=== PATIENT | female | born 1985 | race Caucasian/White ===

== ENCOUNTER 2019-10-01 15:32 | Emergency (ER) | payer OTHER, SELFPAY ==
[2019-10-01 15:53] VITALS: BP 125/79; PULSE 89; RESP 16; TEMP 37; O2SAT 99
--- NOTE | 2019-10-01 16:14 | ED.GENADULT ---
HPI - General Adult General Chief complaint: Urogenital-Female Stated complaint: uti/right wrist pain Time Seen by Provider: 10/01/19 16:14 Source: patient and RN notes reviewed Mode of arrival: ambulatory Limitations: no limitations History of Present Illness HPI narrative: 34-year-old female presents with urinary complaints for the past 2 days. Dysuria consist of burning, frequency, and urgency.? No treatment.? Symptoms increased over the last 24 hours with pinkish color urine. Denies fever or chills. No significant pelvic pain. No vaginal discharge.? No concerns for STDs. Exacerbating factors urinating.? Denies vaginal bleeding. Denies being , LMP 09/27/19. No flank pain. Denies diarrhea, nausea, vomiting, and abdominal pain.? Tolerating liquids well.? Remains active. Denies headaches, weakness, fatigue, or myalgia. Denies chest pain or dyspnea. Denies cough, rhinorrhea, congestion, or sore throat. Denies recent traveling. Denies concern for COVID-19 or exposures been home since htha-ir-rbiw order except for essential household needs, working, and return home. Complaints of intermittent right medial wrist pain for the past 30 days. Tylenol and Ibuprofen with relief. Symptoms worsens at times with a knot and shooting pain into the 2nd and 4th fingers. No current pain, numbness, or tingling. No known injuries. No swelling. No discoloration. RIGHT HAND Dominant. No immobility, suspected foreign body, or abuse. Exacerbating factors consist of movement or palpation of right wrist when pain present. Some parts of this dictation were generated by voice recognition software and may contain typographical and/or grammatical inaccuracies. Related Data Home Medications Medication Instructions Recorded Confirmed norethindrone-e.estradiol-iron tablet 10/01/19 [06/19 (28)] quetiapine 10/01/19 Allergies Allergy/AdvReac Type Severity Reaction Status Date / Time venlafaxine Allergy Unknown Verified 03/25/17 15:36 Review of Systems Review of Systems: Narrative: CONSTITUTIONAL: Denies fever, chills, sweats. EYES: Denies visual changes, redness, discharge. ENT: Denies rhinorrhea, congestion, sore throat, otalgia. CARDIOVASCULAR: Denies chest pain, palpitations, edema. RESPIRATORY: Denies dyspnea, wheezing, cough. GASTROINTESTINAL: Denies abdominal pain, nausea, vomiting, diarrhea. GENITOURINARY: Complains of dysuria (burning, frequency, and urgency), hematuria. Denies abnormal discharge. SKIN: Denies rash or itching. MUSCULOSKELETAL: Denies acute back pain or myalgia. Complains of intermittent right medial wrist pain. NEUROLOGIC: Denies numbness or focal weakness. PSYCHIATRIC: Denies anxiety or depression. All systems reviewed & are unremarkable except as noted in HPI and below. [facility] Past Medical History Medical History (Updated 10/02/19 @ 00:00 by Brandon Estevez) Anxiety Bipolar disorder delivery delivered Depression History of IBS Hx of migraines Mastitis without abscess Surgical History Surgical History (Updated 10/01/19 @ 16:39 by DEISY Mckeon) H/O section X2 2007 and 2017 History of cervical cerclage 2017 History of incision and drainage 2017 Right breast due to Mastitis Family History Family History (Updated 10/01/19 @ 16:40 by DEISY Mckeon) Mother Mental disorder Alcoholism Grandparent Diabetes mellitus Hypertension Mental disorder Social History Social History (Updated 10/01/19 @ 16:41 by DEISY Mckeon) Living arrangements: with family Occupation/Education: occupation Gender identity (if verbalized by the patient): Female Comments At time of signature, agree with nurse past medical, surgical, social, and family history.? There is no relevant family history pertinent to the presenting complaint. Exam Narrative: Exam Narrative: GENERAL: This is a well-nourished, well-developed
== END 2019-10-01 16:39 | disposition home or self-care (01) ==
PROVIDERS: Emergency Provider Nurse Practitioner Family; PCP Family Medicine
DX: R30.0 Dysuria (principal); M25.531 Pain in right wrist; F41.9 Anxiety disorder, unspecified; F31.9 Bipolar disorder, unspecified; K58.9 Irritable bowel syndrome, unspecified
CPT/HCPCS: 81003; 87077; 87086; 87088; 87186; 99213; G0463

== ENCOUNTER 2021-08-22 14:54 | Observation (INO) | payer BC, SELFPAY ==
--- NOTE | 2021-08-22 14:55 | OBADM ---
This patient, Lorena Nichols, admitted to the OB room Labor/Delivery/Recovery 119 for observation. Patient/family oriented to hospital policies and general routines including ID bracelet, bed and alarms, visiting hours, pain management, procedures, bathroom and other care routines, personal items, smoking policy, room service/diet, and visiting hours. Patient/Family are encouraged to report perceived risks to care and to ask questions if they do not understand what they are told or what they should do.
[2021-08-22 15:15] VITALS: RESP 18; TEMP 36.6
[2021-08-22 15:30] VITALS: BP 127/84; PULSE 88
[2021-08-22 15:31] VITALS: BP 127/84; PULSE 88
[2021-08-22 15:50] VITALS: BMI 39.2
[2021-08-22 15:56] LABS: Add Urine Microscopic? YES; Appearance Urine Cloudy (Clear); Bacteria Urine Trace /hpf; Bilirubin Urine Negative (Negative); Blood Urine Negative (Negative); Color Urine Yellow (Yellow); Glucose Urine UA Negative (Negative); Ketones Urine Negative (Negative); Leukocyte Esterase Ur Negative LEU/UL (Negative); Mucus Urine Rare /lpf; Nitrate Urine Negative (Negative); Protein Urine Negative (Negative); RBC Urine 0-2 /hpf (0-2); Specific Grav Ur 1.017 (1.001-1.035); Squamous Epithelial Cell Urine Moderate /hpf (Few); Urobilinogen Urine Negative mg/dL (<2.0); WBC Urine 0-3 /hpf
[2021-08-22 16:00] VITALS: BP 125/84; PULSE 95
--- NOTE | 2021-08-26 07:36 | PM.OBTRLD ---
OB - Triage/Final Diagnosis Visit Information Comments/Additional reasons for admission: I have assessed the risk for this patient, Lorena Nichols, and determined that she would benefit from observation care. Evaluation Laboratory results: Laboratory Tests 08/22/21 15:42 Urine Color Yellow Urine Appearance Cloudy H Urine pH 6.0 Ur Specific [place] 1.017 Urine Protein Negative Urine Glucose (UA) Negative Urine Ketones Negative Ur Blood (Man) Negative Urine Nitrate Negative Urine Bilirubin Negative Urine Urobilinogen Negative Leukocyte Esterase Rfl Negative Urine RBC 0-2 Urine WBC 0-3 Ur Squamous Epith Cells Moderate H Urine Bacteria Trace Urine Mucus Rare Final Diagnosis (1) False labor: Code(s): O47.9 - False labor, unspecified Status: Acute
== END 2021-08-22 16:15 | disposition home or self-care (01) ==
PROVIDERS: Admitting Provider Obstetrics & Gynecology; PCP Family Medicine; Visit Provider Obstetrics & Gynecology
DX: O47.03 False labor before 37 completed weeks of gestation, third trimester (principal); Z3A.36 36 weeks gestation of pregnancy
CPT/HCPCS: 81001; G0378; G0379

== ENCOUNTER 2021-08-29 05:25 | Inpatient (IN) | payer BC, SELFPAY ==
--- NOTE | 2021-08-15 13:07 | PC.NURSE ---
Verified with OR schedule and patient-C?S on 08/29/21. Patient states she is also having a tubal ligation done--consents signed Patient given requisition for lab draw on 08/28/21
[2021-08-29] VITALS (56 sets, daily range): BP systolic 97–133; BP diastolic 50–98; PULSE 61–148; RESP 14–18; TEMP 36.1–37; O2SAT 93–100; BMI 39.0
--- OUTSIDE RECORDS SUMMARY | 2021-08-29 05:31 | XMS_ITS | Encounter Summary ---
:1985 Author Care Team Providers Name Role Phone Rafael Landa MD Primary Care Provider [phone] Reason for Visit OB visit Assessment and Plan Assessment Note Patient is ___weeks . Discu ssed plan. 1. Female sterilization Discussion Note: None recorded.Patient educational handouts: No information available. Plan of Care Reminders Provider Appointments Follow up 09/05/2021 Liam Tran 11:45AM MD [facility]i Lab None ? ? recorded. Referral None ? ? recorded. Procedures None ? ? recorded. Surgeries None ? ? recorded. Imaging None ? ? recorded. Medications Name Start Date ? ? Asprin Ec Low Dose ? benzonatate 100 mg capsule ? benzoyl peroxide 5 % topical gel ? APPLY TO THE AFFECTED AREA(S) BY TOPICAL ROUTE ONCE D AILY chlorhexidine gluconate 0.12 % mouthwash ? RINSE WITH 1/2 OUNCE (15 ML) 2 TIMES PER DAY. DO NOT SWALLOW ? quetiapine 300 mg tablet ? TAKE 1 TABLET BY MOUTH AT BEDTIME Medications Administered None recorded. Vitals Height Weight BMI Blood Pressure 5 ft 3 in 220 lbs 39 kg/m2 128/86 mm[Hg] Results Lab Results None recorded. Allergies Code Co
--- OUTSIDE RECORDS SUMMARY | 2021-08-29 05:31 | XMS_ITS | Encounter Summary ---
:1985 Author Care Team Providers Name Role Phone Rafael Landa MD Primary Care Provider [phone] Reason for Visit OB visit Assessment and Plan 1. Routine care Discussion Note: None recorded.Patient educational handouts: No [...] BMI Blood Pressure 5 ft 3 in 221 lbs 39.1 kg/m2 124/81 mm[Hg] Results Lab Results None recorded. Allergies Code Code System Name Reaction Severity Onset Effexor Hives
--- OUTSIDE RECORDS SUMMARY | 2021-08-29 05:31 | XMS_ITS | Encounter Summary ---
:1985 Author Care Team Providers Name Role Phone Rafael Landa MD Primary Care Provider [phone] Reason for Visit OB visit Assessment and Plan Assessment Note Patient is ___weeks . Discu ssed plan. 1. Placental condition affecting management of mother multiple placental abnormalit ies including marginal cord insertion, showing about placenta, bilobed placenta . We spent 25 minutes [id number] discussing management of her multiple concerns, cer clage and delivery timing, placental abnormalities, multiple placental abnorm alities, her mood disorders. Her sterilization procedure. 2. Cervical incompetence Discussion Note: None recorded.Patient educational handouts: No [...]
--- OUTSIDE RECORDS SUMMARY | 2021-08-29 05:31 | XMS_ITS | Encounter Summary ---
:1985 Author Care Team Providers Name Role Phone Rafael Landa MD Primary Care Provider [phone] Reason for Visit None recorded. Assessment and Plan 1. High risk due to hi story of labor ? non-stress test Discussion Note: None recorded.Patient educational handouts: No information available. Plan of Care Reminders Provider Appointments Follow up Liam Tran 09/05/2021 MD Randi 11:45AM Lab None ? ? recorded. Referral None ? ? recorded. Procedures None ? ? recorded. Surgeries None ? ? recorded. Imaging Non-stress [place] Test 08/19/2021 Medications Name Start Date ? ? Asprin [...] AT BEDTIME Medications Administered None recorded. Vitals None recorded. Results Lab Results None recorded. Allergies Code Code System Name Reaction Severity Onset
--- OUTSIDE RECORDS SUMMARY | 2021-08-29 05:31 | XMS_ITS | Encounter Summary ---
:1985 Author Care Team Providers Name Role Phone Rafael Landa MD Primary Care Provider [phone] Reason for Visit None recorded. Assessment and Plan 1. History of premature delivery ? non-stress test Discussion Note: None recorded.Patient educational handouts: No information available. Plan of Care Reminders Provider Appointments Follow up Liam Tran 09/05/2021 MD [facility]i 11:45AM Lab None ? ? recorded. Referral None ? ? recorded. Procedures None ? ? recorded. Surgeries None ? ? recorded. Imaging Non-stress [place] Test 08/26/2021 Medications Name Start Date ? ? Asprin [...]
--- OUTSIDE RECORDS SUMMARY | 2021-08-29 05:31 | XMS_ITS ---
:1985 Author Care Team Providers Name Role Phone ABBIE TERRY MD Primary Care Provider [phone] Allergies Code Code System Name Reaction Severity Status Onset Effexor Hives ? Active ? [id number] RxNorm Yolande ? ? Active ? Medications Name Status Start Date Stop Date ? ? adapalene 0.1 % topical gel Completed ? 06/01 APPLY A THIN LAYER TO THE AFFECTED AREA (S) BY TOPICAL ROUTE ONCE DAILY BEFORE BEDTIME Asprin Ec Low Dose Active ? Not available benzonatate 100 mg capsule Active ? Not a vailable benzoyl peroxide 5 % topical gel Active ? Not available APPLY TO THE AFFECTED AREA(S) BY TOPICAL ROUTE ONCE DAILY chlorhexidine gluconate 0.12 % mouthwash Active ? Not available RINSE WITH 1/2 OUNCE (15 ML) 2 TIMES PER DAY. DO NOT SWALLOW clindamycin 1.2 % (1 % base)-benzoyl Completed ? 06/20/2021 peroxide 5 % topical gel Junel FE 06/19 (28) 1 mg-20 mcg ()/75 Completed ? 06/20/2021 mg (7) tablet lithium carbonate 300 mg capsule Completed ? 06/20/2021 lithium carbonate ER 300 mg Completed ? 06/01 tablet,extended release meclizine 25 mg tablet Completed ? metformin ER 500 mg tablet,extended Completed ? 06/20/2021 release 24 hr nitrofurantoin Completed ? 06/20/2021 monohydrate/macrocrystals 100 mg capsule phenazopyridine 200 mg tablet Completed ? care box carebox kit Completed ? 0 06/20/2021 Prenatabs Rx 29 mg iron-1 mg tablet Co
--- OUTSIDE RECORDS SUMMARY | 2021-08-29 05:31 | XMS_ITS | Encounter Summary ---
:1985 Author Care Team Providers Name Role Phone Rafael Landa MD Primary Care Provider [phone] Reason for Visit OB visit Assessment and Plan Assessment Note Patient is ___weeks . Discu ssed plan. 1. Routine care 2. HIV screening ? RPR (rapid plasma reagin), serum 3. screening ? hematocrit, blood ? hemoglobin (Hb), blood ? RPR (rapid plasma reagin), serum ? unlisted lab - HIV 1/2 ant igen/antibody, reflex confirmation Discussion Note: None recorded.Patient educational handouts: No information available. Plan of Care Reminders Provider Appointments Follow up Liam Tran 09/05/2021 MD Randi 11:45AM Lab RPR (Rapid [facility] [place] Plasma Reagin), Serum 07/11/2021 [facility] ( Lab) ? Hematocrit, [facility] [place] Blood 07/11/2021 [facility] (Lab) ? Hemoglobin [facility] [place] (Hb), Blood 07/11/2021 [facility] (Lab) ? RPR (Rapid [facility] [place] Plasma Reagin), Serum 07/11/2021 [facility] ( Lab) ? Unlisted Lab [facility] [place] 07/11/2021 [facility] (Lab)
--- OUTSIDE RECORDS SUMMARY | 2021-08-29 05:31 | XMS_ITS | Encounter Summary ---
:1985 Author Care Team Providers Name Role Phone Rafael Landa MD Primary Care Provider [phone] Reason for Visit None recorded. Assessment and Plan 1. Placenta circumvallata ? US, obstetric, follow-up Discussion Note: None recorded.Patient educational handouts: No information available. Plan of Care Reminders Provider Appointments Follow up Liam Tran 09/05/2021 MD Randi 11:45AM Lab None ? ? recorded. Referral None ? ? recorded. Procedures None ? ? recorded. Surgeries None ? ? recorded. Imaging , [place] [facility], Follow-up 07/10/2021 Medications Name Start Date ? ? Asprin [...]
--- OUTSIDE RECORDS SUMMARY | 2021-08-29 05:31 | XMS_ITS | Encounter Summary ---
:1985 Author Care Team Providers Name Role Phone Rafael Landa MD Primary Care Provider [phone] Reason for Visit OB visit Assessment and Plan Assessment Note Patient is ___weeks . Discu ssed plan. 1. Deliveries by ? section (SURG) Discussion Note: None recorded.Patient educational handouts: No information available. Plan of Care Reminders Provider Appointments Follow up Liam Tran 09/05/2021 MD [facility]i 11:45AM Lab None ? ? recorded. Referral None ? ? recorded. Procedures None ? ? recorded. Surgeries [facility] (SURG) 08/29/2021 [facility] Imaging None ? ? recorded. Medications Name [...] BMI Blood Pressure 5 ft 3 in 208
--- OUTSIDE RECORDS SUMMARY | 2021-08-29 05:31 | XMS_ITS | Encounter Summary ---
:1985 Author Care Team Providers Name Role Phone Rafael Landa MD Primary Care Provider [phone] Reason for Visit new OB Records in chart from [facility] Assessment and Plan 1. Routine care Discussion [...] BMI Blood Pressure 5 ft 3 in 195 lbs 34.5 kg/m2 118/80 mm[Hg] Results Lab Results None recorded. Allergies Code Code System Name Reaction Severity Onset
--- NOTE | 2021-08-29 05:43 | LDADM ---
This patient, Lorena Nichols, was admitted to Labor/Delivery/Recovery 120 on 08/29/21 at 05:25. Plans for section, pain management and were discussed with patient. Patient/family oriented to hospital policies and general routines including ID bracelet, bed and alarms, visiting hours, pain management, procedures, bathroom and other care routines, personal items, smoking policy, room service/diet and guest tray routines, infant security routines, and visiting hours. Patient/Family are encouraged to report perceived risks to care and to ask questions if they do not understand what they are told or what they should do. See OBIX for further documentation.
[2021-08-29] MEDS: LACTATED RINGERS 1,000 ML 125 ML IV CONT (06:00)
--- NOTE | 2021-08-29 06:12 | P.PNAN_ITS ---
Anes - Eval Pre Procedure Procedure: Operation Date: 08/29/21 07:30 Proposed Procedures p Repeat Section with Tubal Ligation - Arianne Bryan MD Date/Time: 08/29/21 06:12 Pre Op Diagnosis: C/S Patient Data Age: 36 Gender: F Height: Weight: Allergies Allergy/AdvReac Type Severity Reaction Status Date / Time venlafaxine [From Effexor] Allergy Hives Verified 08/22/21 15:31 Home Medications Medication Instructions Recorded Confirmed Type PNV no.[id number] acid 1 tablet PO DAILY 08/22/21 08/22/21 History Unisom (doxylamine) 50 mg PO HS PRN 08/22/21 08/22/21 History quetiapine [Seroquel] 300 mg PO HS 08/22/21 08/22/21 History Laboratory Tests 08/29/21 08/29/21 05:50 05:50 WBC Pending RBC Pending Hgb Pending Hct Pending MCV Pending MCH Pending MCHC Pending RDW Pending Plt Count Pending MPV Pending Immature Gran % (Auto) Pending Neut % (Auto) Pending Lymph % (Auto) Pending [place] % (Auto) Pending Eos % (Auto) Pending Baso % (Auto) Pending Lymph # (Auto) Pending [place] # (Auto) Pending Eos # (Auto) Pending Baso # (Auto) Pending Abs Immat Gran (auto) Pending Absolute Neuts (auto) Pending Absolute Nucleated RBC Pending Nucleated RBC % Pending RPR Pending Patient hx anesthesia problems: none Family hx anesthesia problems: none Results Review: All pre-operative results and documents have been reviewed as part of the pre-operative evaluation. [facility] Past Medical History Medical History (Updated 08/29/21 @ 06:15 by Em Mcdonnell CRNA) Anxiety and depression Bipolar 1 disorder Family History Family History Other No pertinent family history Social History Social History Substance use: never Spiritual care concerns: No Exam Day of Procedure 08/29/21 06:12 Patient weight: obese Heart: regular rate and rhythm Lungs: normal air movement Airway: Mallampati scale class II Neurological: alert and oriented
[2021-08-29 06:15] LABS: Basophils Percent Auto 0.2 % (0.2-1.2); Eosinophils Absolute Auto 0.1 K/mm3 (0-0.3); Eosinophils Percent Auto 1.5 % (0-4.4); Hematocrit 33.5 % (37.0-47.0); Hemoglobin 10.9 g/dL (12.0-15.0); Immature Granulocyte Absolute 0.15 K/mm3 (0.00-0.031); Immature Granulocyte Percent A 1.7 % (0-0.5); Lymphocytes Absolute Auto 1.65 K/mm3 (0.9-3.2); Mean Corpuscular HGB Conc 32.5 g/dl (32-36); Mean Corpuscular Hemoglobin 29.6 pg (26-34); Mean Platelet Volume 10.9 fl (7.4-10.4); Monocytes Absolute Auto 0.6 K/mm3 (0.1-0.6); Monocytes Percent Auto 7.4 % (2.6-8.5); Neutrophils Absolute Auto 6.1 K/mm3 (1.3-6.7); Neutrophils Percent Auto 70.2 % (45.5-73.1); Platelet Count Result 169 k/mm3 (150-375); Red Blood Count 3.68 M/mm3 (4.2-5.4); Red Cell Distribution Width 14.7 % (11.5-14.5); White Blood Count 8.7 K/mm3 (4.5-10.0)
--- NOTE | 2021-08-29 06:47 | WPDANESEFPP ---
Anes - Eval Final PreProcedure Day of Procedure 08/29/21 06:47 Patient weight: obese Heart: regular rate and rhythm Lungs: clear to auscultation and normal air movement Airway: Mallampati scale class II Neurological: alert and oriented Last oral intake: >/= 8 hours ASA classification: II Emergent: no Anesthetic plan: proceed Anesthesia type and monitoring: regional spinal and standard monitoring Results Review: All pre-operative results and documents have been reviewed as part of the pre-operative evaluation. Informed Consent: The patient's anesthetic plan and its attendant risks and benefits were discussed with the patient/family/POA. Questions were solicited and answers provided to the satisfaction of the patient/family/POA.
--- NOTE | 2021-08-29 07:18 | PM.IMHP ---
H&P: HPI History of Present Illness Date/Time: 08/29/21 07:18 This patient is a 36-year-old multiparous female with prior deliveries. She desires female sterilization. We have agreed to perform repeat section and female sterilization with bilateral salpingectomy. She understands that injuries can occur during surgeries. She understands that injuries could result in hospitalization, more surgery, severe illness. She understands risk of hemorrhage and infection. She denies any chest pain or shortness of breath. She denies any nausea, vomiting, fever, chills. Chief Complaint: Term Review of Systems Review of Systems: All systems reviewed & are unremarkable except as noted in HPI and below Constitutional: Constitutional: Denies chills, Denies fatigue, Denies fever(s) and Denies weakness Eyes: Eyes: Denies blurry vision, Denies change in vision, Denies loss of peripheral vision, Denies loss of vision, Denies other visual disturbances and Denies eye pain ENT: Denies vertigo, Denies dizziness, Denies hearing loss, Denies mouth pain, Denies nasal obstruction, Denies neck mass and Denies neck pain Cardiovascular: Cardiovascular: Denies chest pain, Denies diaphoresis, Denies syncope, Denies leg edema and Denies dyspnea Respiratory: Respiratory: Denies chest congestion, Denies cough, Denies hemoptysis, Denies dyspnea and Denies wheezing Gastrointestinal: Gastrointestinal: Denies abdominal pain, Denies constipation, Denies diarrhea, Denies nausea and Denies vomiting Genitourinary: Genitourinary: Denies hematuria, Denies change in libido, Denies nocturia, Denies genital lesions, Denies flank pain and Denies urinary urgency Musculoskeletal: Musculoskeletal: Denies abnormal gait, Denies back pain, Denies myalgias, Denies arthralgias, Denies joint swelling, Denies muscle weakness and Denies neck pain Integumentary/Breasts: Skin/Breast: Denies swelling, Denies breast pain, Denies breast mass, Denies dry skin, Denies nipple discharge, Denies unusual bruising and Denies jaundice Neurologic: Denies Neuro-related abnormal movements, Denies Abnormal speech present, Denies abnormal gait, Denies behavioral changes, Denies confusion, Denies vertigo, Denies dizziness, Denies syncope, Denies loss of vision, Denies memory loss, Denies convulsions and Denies weakness Psychiatric: Psychiatric: Denies abnormal sleep pattern, Denies behavioral changes, Denies change in libido, Denies confusion, Denies depression, Denies anhedonia and Denies memory loss Endocrine: Endocrine: Reports no additional endocrine complaints, Denies change in libido and Denies fatigue Hematologic/Lymphatic: Hematologic/Lymphatic: Reports no additional hematologic/lymphatic complaints Allergic/Immunologic: Allergic/Immunologic: Reports no additional allergic/immunologic complaints and Denies wheezing PMFSH Past Medical History Medical History (Updated 08/29/21 @ 07:19 by Arianne Bryan MD) Anxiety and depression Bipolar 1 disorder Family History Family History Other No pertinent family history Social History Social History Smoking status: Never smoker Substance use: never Spiritual care concerns: No Meds Home Medications and Allergies Home Medications Medication Instructions Recorded Confirmed Type PNV no.[id number] acid 1 tablet PO DAILY 08/22/21 08/29/21 History Unisom (doxylamine) 50 mg PO HS PRN 08/22/21 08/29/21 History quetiapine [Seroquel] 300 mg PO HS 08/22/21 08/29/21 History Allergies Allergy/AdvReac Type Severity Reaction Status Date / Time venlafaxine [From Effexor] Allergy Hives Verified 08/22/21 15:31 Vital Signs Vital Signs - 24 hr 08/29/21 06:13 Pulse Rate 94 Blood Pressure 133/88 Exam Const: General: cooperative, healthy appearing, comfortable and no acute distress; No confus
--- NOTE | 2021-08-29 07:20 | WPDHPUPDATE1 ---
History and Physical Update Update Date/Time: 08/29/21 07:20 History and Physical has been reviewed, including an updated exam of the patient. There are NO changes in the patient's condition. Risks, benefits, and alternatives have been discussed and questions answered. Patient agrees to proceed with procedure.
[2021-08-29] MEDS: ceFAZolin 2 GM/D5W 50 ML 2 GM/50 ML BAG IVPB (07:24)
--- NOTE | 2021-08-29 10:08 | W.PM.PROC2 ---
Procedure Note - Detailed Date of Procedure 08/29/21 Pre-op Diagnosis C/S , female sterilization Post-op Diagnosis Same Procedure Performed Low-transverse section, bilateral salpingectomy Surgeon Arianne Bryan MD Anesthesia Spinal Findings Normal gestational maternal anatomy, average size infant, normal Apgars. Description of Procedure The patient was taken the operating room. She was prepped and draped in dorsal supine position with a leftward tilt. This was done after spinal anesthetic was applied. A low-transverse skin incision was made and carried down till of the fascia with the knife. The fascial incision was made with the knife. The fascial incision was extended laterally with Puentes scissors. The fascia was tented upward superiorly and inferiorly the rectus muscles were dissected off bluntly. The rectus muscles were the midline. The preperitoneal fat and peritoneum were dissected open bluntly at the superior aspect of the rectus muscles. The peritoneal incision was extended superior and inferior with good position of bladder. The uterine incision was made with a scalpel down to the level of the amniotic cavity. The amniotic cavity was entered bluntly. The was delivered. The cord was clamped and cut and the infant was handed off to waiting pediatric staff. Cord bloods were obtained. The placenta was removed manually. The uterus was exteriorized. The uterus was cleared of all clots, debris and membranes. The uterus was closed in 0 Vicryl running lock fashion. An imbricating over a was placed along the incision line as well. Each fallopian tube was grasped and raised with a [place]. With from the underlying venous structures. The mesosalpinx between the tube and the rest the adnexa was cauterized and transected with LigaSure cautery. It was performed from the distal tube near the ovary in a stepwise fashion towards the cornua. The tube at the cornua was cauterized transected with LigaSure cautery. This was performed in a bilateral fashion. The uterus was returned to the abdomen. The gutters were cleared of all clots and debris. The fascia was closed with 0 Vicryl running fashion. The subcutaneous tissue was irrigated pinpoint bleeders were cauterized. The skin was closed with subcuticular absorbable eri. The skin incision line was covered with glue. The patient tolerated the procedure well. She has taken recovery room in stable condition. Sponge lap and needle counts were correct x2. Estimated Blood Loss 460 Urine Output -50.0 Complications No immediate complications Condition Stable Disposition PACU
[2021-08-29] MEDS: OXYTOCIN 30 UNITS/NS 500 ML 30 UNITS/500 ML BAG 125 UNITS IV CONT (10:15)
--- NOTE | 2021-08-29 10:25 | OBPPTRN ---
Patient transferred to post room # 291 via stretcher. Support person present. Oriented to unit, room, information board, rooming in, admission packet and security measures. Patient verbalizes understanding.
[2021-08-29 11:12] LABS: Rapid Plasma Reagin Non-Reactive (NonReactive)
[2021-08-29] MEDS: diphenhydrAMINE HCl INJ 50 MG/ML VIAL 25 MG IV PUSH (11:18)
--- NOTE | 2021-08-29 12:26 | PC.NURSE ---
1135 - Introductions made and consulted with patient to assess needs related to . Mother led conversation with her experience with feeding baby so far, her desire to breastfeed her and they worked on baby for awhile . Mother works well with her and father of baby is supportive with mother's needs. Reviewed good handwashing when working with infant, breast, nipples and how to protect the nipples with a deep latch. Encouraged understanding the benefits of skin to skin, responding to feeding cues, frequencies of feeding 8-12 times in 24 hours (approximately 2-3 hours), duration of feedings, milk production, intake/output feeding sheet and signs of adequate intake. Discussed stimulating with skin to skin, hand expressing colostrum, touch and talking to to encourage eating at the breast. Reviewed off-centered (asymmetrical latch) and leading with the chin with big open wide gape with handout visual. Infant is sleepy and reluctant but swallows 3 mils of colostrum fed with a syringe by RN. remains skin to skin. Resources used to facilitate learning were used from the visual handout/ tool/mom and baby guide. Mother voiced understanding responding to feeding cues, may need to stimulating infant approximately 2-3 hours from the start of the last feeding, calling for assistance if the infant does not latch or there discomfort . Reported to primary RN.
--- NOTE | 2021-08-29 14:53 | PC.NURSE ---
1415 - Follow up with mother and to assess how is going. is skin to skin and remains sleepy and mother is hand expressing colostrum. 4 mls of colostrum expressed and syringe fed to . Encouraged parents to have a conversation with regards to visualizing restriction of the tongue. Mother understands the benefits of skin to skin, responding to feeding cues, frequencies of feeding 8-12 times in 24 hours (approximately 2-3 hours), duration of feedings, milk production, intake/output feeding sheet, signs of adequate intake, stimulating infant with skin to skin, hand expressed colostrum (mother demonstrates well), touch and talking to infant to encourage eating at the breast. Reviewed positioning and alignment, supporting breast, off-centered (asymmetrical latch) and leading with the chin with big open wide gape. Education given to mother of how to visualize suck/swallow ratios and drinking at the breast. Resources used to facilitate learning were used from the visual latch handout/mom and baby guide. Mother voiced understanding responding to feeding cues, may need to stimulating approximately 2-3 hours from the start of the last feeding, calling for assistance if the does not latch or there discomfort . Reported to primary RN.
--- NOTE | 2021-08-29 15:30 | PC.NURSE ---
9329 - Reported assessment to Dr. Lee
[2021-08-29] MEDS: DEXTROSE 5%/0.45% SOD CHL 1,000 ML 125 ML IV CONT (16:27)
[2021-08-29] MEDS: IBUPROFEN 600 MG TABLET PO (16:27)
[2021-08-29] MEDS: DOCUSATE SODIUM 100 MG CAPSULE PO (16:27)
[2021-08-29] MEDS: HYDROcodone/acetaminophen (*CRX) 5-325 MG TABLET 1 TAB PO (16:28)
[2021-08-30] MEDS: IBUPROFEN 600 MG TABLET PO ×4 (00:13→21:14)
[2021-08-30] MEDS: QUEtiapine FUMARATE 100 MG TABLET 300 MG PO ×2 (00:13→21:07)
[2021-08-30 00:23] VITALS: BP 104/63; PULSE 91; RESP 18; TEMP 37.2; O2SAT 100
[2021-08-30] MEDS: HYDROcodone/acetaminophen (*CRX) 5-325 MG TABLET 1 TAB PO ×6 (03:06→21:13)
[2021-08-30 03:31] VITALS: BP 107/59; PULSE 102; RESP 18; TEMP 36.7; O2SAT 100
[2021-08-30 05:12] LABS: Basophils Percent Auto 0.3 % (0.2-1.2); Eosinophils Absolute Auto 0.1 K/mm3 (0-0.3); Eosinophils Percent Auto 1.5 % (0-4.4); Hematocrit 30.5 % (37.0-47.0); Hemoglobin 9.7 g/dL (12.0-15.0); Immature Granulocyte Absolute 0.09 K/mm3 (0.00-0.031); Immature Granulocyte Percent A 0.9 % (0-0.5); Lymphocytes Absolute Auto 1.07 K/mm3 (0.9-3.2); Lymphocytes Percent Auto 11.1 % (18.3-44.2); Mean Corpuscular HGB Conc 31.8 g/dl (32-36); Mean Corpuscular Volume 91.3 fl (80-100); Mean Platelet Volume 11.1 fl (7.4-10.4); Monocytes Absolute Auto 0.7 K/mm3 (0.1-0.6); Monocytes Percent Auto 7.5 % (2.6-8.5); Neutrophils Absolute Auto 7.6 K/mm3 (1.3-6.7); Neutrophils Percent Auto 78.7 % (45.5-73.1); Platelet Count Result 132 k/mm3 (150-375); Red Blood Count 3.34 M/mm3 (4.2-5.4); White Blood Count 9.7 K/mm3 (4.5-10.0)
--- NOTE | 2021-08-30 05:51 | P.PNOB_ITS ---
OB - PN: Subj Subjective Date/time seen: 08/30/21 05:51 Patient comments: no complaints baby status: doing well OB - PN: Obj Data Labs CBC & Chem 7: 08/30/21 03:09 Labs: Laboratory Results - last 24 hr 08/29/21 08/29/21 08/29/21 05:50 05:50 05:50 WBC 8.7 RBC 3.68 L Hgb 10.9 L Hct 33.5 L MCV 91.0 MCH 29.6 MCHC 32.5 RDW 14.7 H Plt Count 169 MPV 10.9 H Immature Gran % (Auto) 1.7 H Neut % (Auto) 70.2 Lymph % (Auto) 19.0 [place] % (Auto) 7.4 Eos % (Auto) 1.5 Baso % (Auto) 0.2 Lymph # (Auto) 1.65 [place] # (Auto) 0.6 Eos # (Auto) 0.1 Baso # (Auto) 0.0 Abs Immat Gran (auto) 0.15 H Absolute Neuts (auto) 6.1 Absolute Nucleated RBC 0.0 Nucleated RBC % 0.0 RPR Non-reactive Blood Type O Positive Antibody Screen Negative 08/30/21 03:09 WBC 9.7 RBC 3.34 L Hgb 9.7 L Hct 30.5 L MCV 91.3 MCH 29.0 MCHC 31.8 L RDW 15.0 H Plt Count 132 L MPV 11.1 H Immature Gran % (Auto) 0.9 H Neut % (Auto) 78.7 H Lymph % (Auto) 11.1 L [place] % (Auto) 7.5 Eos % (Auto) 1.5 Baso % (Auto) 0.3 Lymph # (Auto) 1.07 [place] # (Auto) 0.7 H Eos # (Auto) 0.1 Baso # (Auto) 0.0 Abs Immat Gran (auto) 0.09 H Absolute Neuts (auto) 7.6 H Absolute Nucleated RBC 0.0 Nucleated RBC % 0.0 RPR Blood Type Antibody Screen OB - PN A/P Plan day: 1 Plan: routine care Time Spent With Patient Time: Total time spent is greater than 50% in coordination of care (as documented) at patient's floor/unit and/or counseling patient: Review of Systems 2 Review of Systems: All systems reviewed & are unremarkable except as noted in HPI and below Exam Narrative: incision CDI Const: General: cooperative and healthy appearing
[2021-08-30] MEDS: SIMETHICONE 80 MG TAB.CHEW PO ×3 (05:54→21:13)
[2021-08-30 08:15] VITALS: BP 107/64; PULSE 93; RESP 16; TEMP 36.2; O2SAT 99
[2021-08-30] MEDS: DOCUSATE SODIUM 100 MG CAPSULE PO ×2 (08:19→17:49)
[2021-08-30] MEDS: POLYSACCHARIDE IRON COMPLEX 150 MG CAPSULE PO ×2 (08:20→17:49)
[2021-08-30] MEDS: MULTIVIT/MIN/PREN/FOL AC/IRON TABLET 1 TAB PO (08:20)
--- NOTE | 2021-08-30 17:09 | WPDANLDPN2 ---
Anes-Prog Note L&D Date/Time: 08/30/21 17:09 Comfortable throughout: section Neuraxial method: spinal Epidural/Spinal procedure site: clean & non-tender Neuro status: Neuro function grossly intact. Cardiovascular status: normal Respiratory status: normal Airway patency: baseline Mental status: baseline Post-Op hydration status: normal Vital Signs: Last Vital Signs Temp 36.2 C L 08/30/21 08:15 Pulse 93 08/30/21 08:15 Resp 16 08/30/21 08:15 BP 107/64 08/30/21 08:15 Pulse Ox 99 08/30/21 08:15 Pain score (VAS): 3 I/O: Intake & Output 08/30/21 08/30/21 08/30/21 07:59 15:59 23:59 Intake Total 400 120 Output Total 2400 Balance -2000 120 Post-procedural complaints: none Patient feedback: Patient satisfied with anesthetic care.
--- NOTE | 2021-08-30 17:09 | WPDANLDNPN2 ---
Anes-Prog Note L&D-Neuraxial Date/Time: 08/30/21 17:09 Neuraxial medications: intrathecal PF morphine Opiod-related complaints: none Patient feedback: Patient satisfied with post-operative pain management.
[2021-08-30 20:14] VITALS: BP 127/72; PULSE 98; RESP 18; TEMP 36.9; O2SAT 100
[2021-08-31] MEDS: HYDROcodone/acetaminophen (*CRX) 5-325 MG TABLET 1 TAB PO (04:14)
[2021-08-31] MEDS: SIMETHICONE 80 MG TAB.CHEW PO ×2 (04:14→07:15)
[2021-08-31] MEDS: IBUPROFEN 600 MG TABLET PO ×3 (04:15→20:13)
[2021-08-31 06:45] VITALS: BP 126/75; PULSE 98; RESP 16; TEMP 37; O2SAT 98
[2021-08-31] MEDS: POLYSACCHARIDE IRON COMPLEX 150 MG CAPSULE PO ×2 (07:15→20:13)
[2021-08-31] MEDS: HYDROcodone/acetaminophen (*CRX) 10-325 MG TABLET 1 TAB PO ×4 (07:15→20:13)
[2021-08-31] MEDS: MULTIVIT/MIN/PREN/FOL AC/IRON TABLET 1 TAB PO (07:15)
[2021-08-31] MEDS: DOCUSATE SODIUM 100 MG CAPSULE PO ×2 (07:15→20:13)
--- NOTE | 2021-08-31 07:38 | PM.OBPNVD ---
OB - PN: Subj Subjective Date/time seen: 08/31/21 07:38 Patient comments: no complaints baby status: doing well and other (not nursing well) OB - PN: Obj Data Labs CBC & Chem 7: 08/30/21 03:09 OB - PN A/P Plan day: 2 Plan: routine care Comments: pt to stay to continue to work on Time Spent With Patient Time: Total time spent is greater than 50% in coordination of care (as documented) at patient's floor/unit and/or counseling patient: Review of Systems Review of Systems: All systems reviewed & are unremarkable except as noted in HPI and below Exam Narrative: Incision CDI
[2021-08-31 19:00] VITALS: BP 131/89; PULSE 97; RESP 18; TEMP 36.6
[2021-08-31] MEDS: QUEtiapine FUMARATE 100 MG TABLET 300 MG PO (20:12)
[2021-08-31] MEDS: TETANUS,DIPHTHERIA,AC PERTUSSIS ADULT (0.5 ML) BOOSTRIX IM (20:14)
[2021-09-01] MEDS: IBUPROFEN 600 MG TABLET PO (04:56)
[2021-09-01] MEDS: HYDROcodone/acetaminophen (*CRX) 10-325 MG TABLET 1 TAB PO ×2 (04:56→09:21)
--- NOTE | 2021-09-01 07:43 | PM.OBPNVD ---
OB - PN: Subj Subjective Date/time seen: 09/01/21 07:43 Patient comments: no complaints, pain well controlled, incisional pain, tolerating diet and flatus present OB - PN: Obj Data Labs CBC & Chem 7: 08/30/21 03:09 OB - PN A/P Plan day: 3 Plan: routine care, discharge home and other Comments: Incision check in one week. Given precautions Time Spent With Patient Time: Total time spent is greater than 50% in coordination of care (as documented) at patient's floor/unit and/or counseling patient: Exam Const: General: comfortable, no acute distress and alert Resp: Effort & Inspection: normal respiratory effort Auscultation: no crackles, no rales and no rhonchi Cardio: Rate: regular rate Heart sounds: no click, no murmurs and no rubs GI: Inspection: non-distended GI Palp: No Tenderness to palpation present (GI) Auscultation: normal bowel sounds Other: Incision - CDI Extrem: General: normal to inspection, no pedal edema and no calf tenderness
--- NOTE | 2021-09-01 07:44 | PM.OBDSVD ---
DS: Admitting Diagnosis Discharge Date 09/01/2021 Admitting Diagnosis previous DS: Discharge Diagnosis Discharge Diagnosis (1) Encounter for female sterilization procedure: Code(s): Z30.2 - Encounter for sterilization Status: Acute (2) Previous delivery, delivered: Code(s): O34.219 - Maternal care for unspecified type scar from previous delivery Status: Acute OB - DS: Summary OB Procedures : None OB Procedures Intrapartum: and Tubal ligation OB Procedures: : None Peripartum Data Procedures: Procedures Operation Date: 08/29/21 07:30 Actual Procedure Side Surgeon p Repeat Section with Tubal Ligation Arianne Bryan MD Time Spent with Patient Time attestation: Total time spent providing and/or coordinating discharge services: DS: Data Data Completed and Pending Pending studies at discharge: Pending at discharge 08/29/21 08:27 Surgical [PTH] Routine Discharge Plan Discharge Discharging Clinician: Arianne Bryan Patient Disposition: Home, Self-Care Activity: pelvic rest Diet: regular Patient Instructions: Antibiotic Form Stand Alone Forms: General Discharge Information Follow-up/Referrals: Arianne Bryan MD [Physician] - Discharge Medications: New hydrocodone-acetaminophen 5-325 mg tablet 1 tablet PO Q4H PRN (Reason: pain) Qty: 25 RF: 0 Continued quetiapine 300 mg tablet RF: 0 norethindrone-e.estradiol-iron [Junel FE 06/19 (28)] 1 mg-20 mcg (21)/75 mg (7) tablet RF: 0 nitrofurantoin monohyd/m-cryst [Macrobid] 100 mg capsule 100 mg PO Q12H 7 Days Qty: 14 RF: 0 quetiapine [Seroquel] 300 mg Tablet 300 mg PO HS RF: 0 Unisom (doxylamine) 25 mg Tablet 50 mg PO HS PRN (Reason: Sleep) RF: 0 PNV no.[id number] acid 30-975 mg-mcg Tablet 1 tablet PO DAILY RF: 0 Date of admission: 08/29/21 05:25 Primary Care Provider: Eileen,Rafael Walton Admitting Provider: Arianne Bryan Attending physician on admission: Arianne Bryan Condition: Stable
[2021-09-01 08:00] VITALS: BP 130/70; PULSE 92; RESP 20; TEMP 37.6; O2SAT 100
[2021-09-01] MEDS: MULTIVIT/MIN/PREN/FOL AC/IRON TABLET 1 TAB PO (09:22)
[2021-09-01] MEDS: POLYSACCHARIDE IRON COMPLEX 150 MG CAPSULE PO (09:22)
--- NOTE | 2021-09-01 12:37 | PC.NURSE ---
[id number] Mother led the conversation with regards to her experience feeding her baby with no latch so far, syringe feeding, tongue clipped on , pumping breast, milk production and bottle feeding. has had appropriate feedings in the past 24 hours and meets the outcomes for weight, output and jaundice. Mother states she feels confident to continue attempting to breastfeed/pumping/supplementing her at home. Reviewed production of human milk, transition of milk, signs of adequate intake and engorgement prevention/relief and when to call the care provider using the mom and baby guide. Reviewed medications mother is taking with information provided by [facility], community resources and outpatient services as listed in the mom and baby guide/[facility] website. Reinforced watching for feeding cues with responsive feeding and how to stimulate infant to initiate feeding three hours from the start of the last feeding. Mother voiced understanding of information shared. Reported to primary RN.
[2021-09-02 10:51] VITALS: BP 112/80; PULSE 91; RESP 20; TEMP 36.9; O2SAT 100
== END 2021-09-01 12:17 | disposition home or self-care (01) | DRG 783 ==
LOC: ANHLDR 05:28 → ANHOB2 10:40
PROVIDERS: Admitting Provider Obstetrics & Gynecology; PCP Family Medicine; Visit Provider Obstetrics & Gynecology
PROC: 10D00Z1 Extraction of Products of Conception, Low, Open Approach (ICD-10-PCS; CPT 59514; principal; 2021-08-29 07:30)
DX: O34.211 Maternal care for low transverse scar from previous cesarean delivery (principal); O34.33 Maternal care for cervical incompetence, third trimester; Z37.0 Single live birth; Z3A.37 37 weeks gestation of pregnancy; O99.824 Streptococcus B carrier state complicating childbirth; O69.81X0 Labor and delivery complicated by cord around neck, without compression, not applicable or unspecified; Z30.2 Encounter for sterilization; O99.344 Other mental disorders complicating childbirth; F31.9 Bipolar disorder, unspecified; F41.8 Other specified anxiety disorders
CPT/HCPCS: 36415; 85025; 86592; 86850; 86900; 86901; 88302; 90715; A9270; J0690; J1200; J1885; J2274; J2370; J2405; J2590; J7120

== ENCOUNTER 2021-11-22 22:44 | Emergency (ER) | payer BC, SELFPAY ==
[2021-11-22 22:48] VITALS: BP 145/85; PULSE 74; RESP 16; TEMP 36.1; O2SAT 100
--- NOTE | 2021-11-22 23:08 | ED.PREGNANCY ---
HPI - General Chief complaint: Vaginal Bleeding Stated complaint: 'heavy vaginal bleeding Time Seen by Provider: 11/22/21 22:56 History of Present Illness HPI Narrative: 36-year-old female presents to the emergency room for evaluation of heavy menstrual bleeding. Patient states she had section with tubal ligation 2 months ago. Patient states that she experienced her first menses approximately 4 weeks ago and it was light. Patient states this morning she developed heavy menstrual bleeding, citing saturating 1 pad an hour. Patient is also complaining of lower abdominal cramping, stating it similar to her past menstrual cramping. Patient denies any concerns or STDs. Is not on any anticoagulants Related Data Home Medications Medication Instructions Recorded Confirmed norethindrone 1 mg-ethinyl tablet 10/01/19 estradiol 20 mcg (21)-iron 75 mg (7) tablet (Junel FE 06/19 (28)) quetiapine 300 mg tablet 10/01/19 doxylamine succinate 25 mg tablet 50 mg PO HS PRN Sleep 08/22/21 08/29/21 (Unisom (doxylamine)) vit#24-iron amino acid 1 tablet PO DAILY 08/22/21 08/29/21 chelat-folic acid 30 mg-975 mcg tablet quetiapine 300 mg tablet (Seroquel) 300 mg PO HS 08/22/21 08/29/21 Allergies Allergy/AdvReac Type Severity Reaction Status Date / Time venlafaxine [From Effexor] Allergy Hives Verified 08/29/21 15:36 Review of Systems Review of Systems: CONSTITUTIONAL: Denies fever, chills, or sweats. EYES: Denies visual changes, redness, or discharge. ENT: Denies rhinorrhea, congestion, sore throat, or otalgia. CARDIOVASCULAR: Denies chest pain, palpitations, or edema. RESPIRATORY: Denies cough or dyspnea. GASTROINTESTINAL: Denies abdominal pain, nausea, vomiting, or diarrhea. GENITOURINARY: Reports vaginal bleeding SKIN: Denies rash or itching. MUSCULOSKELETAL: Denies back pain, joint pain, or myalgia. NEUROLOGIC: Denies headache, numbness, dizziness, or weakness. PSYCHIATRIC: Denies anxiety or depression. [facility] Past Medical History Medical History Anxiety Anxiety and depression Bipolar 1 disorder Bipolar disorder delivery delivered Depression History of IBS Hx of migraines Mastitis without abscess Surgical History Surgical History H/O section X2 2008 and 2017 History of cervical cerclage 2017 History of incision and drainage 2017 Right breast due to Mastitis Family History Family History Mother Mental disorder Alcoholism Grandparent Diabetes mellitus Hypertension Mental disorder Other No pertinent family history Social History Social History Smoking status: Never smoker Substance use: never Gender identity (if verbalized by the patient): Female Spiritual care concerns: No Exam Narrative: GENERAL: Well-appearing, well-nourished, and in no acute distress. HEAD: Normocephalic, atraumatic. EYES: PERRLA and EOMI. ENT: Nares clear, no rhinorrhea or epistaxis. Mucous membranes moist. Oropharynx without tonsillar hypertrophy exudate or other lesions. Bilateral TMs pearly serrano nonbulging NECK: Supple. No adenopathy or masses. No carotid bruits or JVD CHEST: Clear to auscultation. No respiratory distress. No wheezes rales or rhonchi HEART: Regular rate and rhythm. No murmur heard. Normal peripheral pulses. ABDOMEN: Soft, nontender, nondistended, normal active bowel sounds. : deferred EXTREMITIES: Normal range of motion. No edema. SKIN: Warm, dry, no rash. NEURO: No focal deficits. Alert and oriented x3. PSYCH: Normal mood and affect. Course Vital Signs Vital signs: Vital Signs Temperature 36.1 C L 11/22/21 22:48 Pulse Rate 74 11/22/21 22:48 Respiratory Rate 16 11/22/21 22:48 Blood Pres
[2021-11-22 23:37] LABS: Basophils Absolute Auto 0.1 K/mm3 (0.0-0.1); Basophils Percent Auto 0.8 % (0.2-1.2); Eosinophils Absolute Auto 0.3 K/mm3 (0-0.3); Eosinophils Percent Auto 4.7 % (0-4.4); Hematocrit 36.4 % (37.0-47.0); Hemoglobin 11.8 g/dL (12.0-15.0); Immature Granulocyte Absolute 0.02 K/mm3 (0.00-0.031); Immature Granulocyte Percent A 0.3 % (0-0.5); Lymphocytes Absolute Auto 1.99 K/mm3 (0.9-3.2); Lymphocytes Percent Auto 29.9 % (18.3-44.2); Mean Corpuscular HGB Conc 32.4 g/dl (32-36); Mean Corpuscular Hemoglobin 28.2 pg (26-34); Mean Corpuscular Volume 87.1 fl (80-100); Mean Platelet Volume 9.8 fl (7.4-10.4); Monocytes Absolute Auto 0.6 K/mm3 (0.1-0.6); Monocytes Percent Auto 8.6 % (2.6-8.5); Neutrophils Absolute Auto 3.7 K/mm3 (1.3-6.7); Neutrophils Percent Auto 55.7 % (45.5-73.1); Platelet Count Result 244 k/mm3 (150-375); Red Blood Count 4.18 M/mm3 (4.2-5.4); Red Cell Distribution Width 14.8 % (11.5-14.5); White Blood Count 6.7 K/mm3 (4.5-10.0)
[2021-11-22 23:41] LABS: Alanine Aminotransferase 20 U/L (6-35); Albumin Level 4.1 g/dL (3.5-5.1); Alkaline Phosphatase 91 U/L (38-126); Anion Gap 4 mmol/L (8-16); Aspartate Amino Transferase 24 U/L (14-36); Bilirubin,Total < 0.1 mg/dL (0.2-1.3); Blood Urea Nitrogen 13 mg/dL (7-17); Calcium 8.5 mg/dL (8.4-10.2); Carbon Dioxide 27 mmol/L (22-30); Chloride 109 mmol/L (98-107); Estimated CRCL calculation 90 ml/min; Estimated Glomerular Filt Rate > 60; Glucose 104 mg/dL (65-110); Potassium 4.2 mmol/L (3.4-5.0); Sodium 140 mmol/L (137-145)
[2021-11-23 00:18] LABS: RBC Urine >75 /hpf (0-2)
[2021-11-23 00:23] LABS: Add Urine Microscopic? YES; Appearance Urine Clear (Clear); Bilirubin Urine Negative (Negative); Blood Urine 2+ (Negative); Color Urine Red (Yellow); Glucose Urine UA Negative (Negative); Ketones Urine Negative (Negative); Leukocyte Esterase Ur 3+ LEU/UL (Negative); Nitrate Urine Negative (Negative); Protein Urine 2+ mg/dL (Negative); Specific Grav Ur >= 1.030 (1.001-1.035); Urobilinogen Urine 0.2 mg/dL (<2.0); pH Urine 5.5 (5.0-9.0)
[2021-11-23] MEDS: NITROFURANTOIN MONOHYD MACROCR 100 MG CAP PO (01:01)
== END 2021-11-23 01:06 | disposition home or self-care (01) ==
PROVIDERS: Emergency Provider Nurse Practitioner Family; PCP Obstetrics & Gynecology
DX: N93.9 Abnormal uterine and vaginal bleeding, unspecified (principal); N39.0 Urinary tract infection, site not specified; F41.9 Anxiety disorder, unspecified; F31.9 Bipolar disorder, unspecified; K58.9 Irritable bowel syndrome, unspecified
CPT/HCPCS: 36415; 80053; 81001; 81025; 85025; 99283; A9270

== ENCOUNTER 2022-08-24 12:42 | Emergency (ER) | payer BC, SELFPAY ==
[2022-08-24 12:58] VITALS: BP 138/76; PULSE 83; RESP 16; TEMP 36.3; O2SAT 99
--- NOTE | 2022-08-24 13:13 | ED.URI ---
HPI - URI/Sore Throat General Chief Complaint: Upper Respiratory Infection Stated Complaint: Sore Throat Time Seen by Provider: 08/24/22 13:08 Source: patient and RN notes reviewed Mode of arrival: ambulatory Limitations: no limitations History of Present Illness HPI Narrative: 37-year-old female presented for complaint of sinus pressure, congestion, sore throat, bilateral ear pain on and off for 3 weeks. She has not been taking anything for symptoms. She denies shortness of breath, wheezing, nausea, vomiting, fevers or chills. She denies sick contacts. MD elicited complaint: cough Related Data Home Medications Medication Instructions Recorded Confirmed doxylamine succinate 25 mg tablet 50 mg PO HS PRN Sleep 08/22/21 08/24/22 (Unisom (doxylamine)) quetiapine 300 mg tablet (Seroquel) 300 mg PO HS 08/22/21 08/24/22 lamotrigine 100 mg tablet 100 mg PO DIRECTED 08/24/22 08/24/22 rimegepant 75 mg disintegrating 75 mg PO DIRECTED 08/24/22 08/24/22 tablet (Nurtec ODT) spironolactone 100 mg tablet 100 mg PO DAILY 08/24/22 08/24/22 Allergies Allergy/AdvReac Type Severity Reaction Status Date / Time venlafaxine [From Effexor] Allergy Hives Verified 08/24/22 12:49 Review of Systems Review of Systems: CONSTITUTIONAL: Denies malaise, chills, sweats, fever EYES: Denies visual changes, redness, or discharge ENT: Reports rhinorrhea, congestion, otalgia, sore throat CARDIOVASCULAR: Denies chest pain, palpitations, edema RESPIRATORY: Reports cough, post nasal drainage. Denies dyspnea GASTROINTESTINAL: Denies abdominal pain, nausea, vomiting, diarrhea SKIN: Denies rash or itching MUSCULOSKELETAL: Denies myalgia PMFSH Past Medical History Medical History Anxiety Anxiety and depression Bipolar 1 disorder Bipolar disorder delivery delivered Depression History of IBS Hx of migraines Mastitis without abscess Surgical History Surgical History H/O section X2 2007 and 2017 History of cervical cerclage 2017 History of incision and drainage 2017 Right breast due to Mastitis Family History Family History Mother Mental disorder Alcoholism Grandparent Diabetes mellitus Hypertension Mental disorder Other No pertinent family history Social History Social History Smoking status: Never smoker Substance use: never Living arrangements: with family Occupation/Education: occupation Gender identity (if verbalized by the patient): Female Spiritual care concerns: No Exam Narrative: GENERAL: Mildly ill-appearing, nontoxic no acute distress. HEAD: Normocephalic EYES: PERRLA, conjunctivae clear ENT: Mucous membranes moist. TM pearly serrano with dull light reflex bilaterally; no tragal tenderness. Oropharynx erythematous without lesions or exudate NECK: Supple. No lymphadenopathy CHEST: Clear to auscultation, breath sounds equal. No wheezing, rhonchi, rales, or stridor. No respiratory distress, speaks in full sentences. HEART: Regular rate and rhythm. No murmur heard. SKIN: Warm, dry, no rash. NEURO: Alert and oriented x3. PSYCH: Normal mood and affect Course Course Emergency Course: Patient is aware of diagnosis, understands and agrees to treatment plan. Anticipatory guidance given. Patient agrees to follow-up as directed and is aware of reasons to seek care at the emergency department. Portions of this record may have been created with voice recognition software Level of Care: Express Care Visit Vital Signs Vital signs: Vital Signs Temperature 97.4 F L 08/24/22 12:58 Pulse Rate 83 08/24/22 12:58 Respiratory Rate 16 08/24/22 12:58 Blood Pressure 138/76 08/24/22 12:58 Pulse Oximetry 99 08/24/22 12:58 [facility] [employer]
== END 2022-08-24 13:18 | disposition home or self-care (01) ==
PROVIDERS: Emergency Provider Nurse Practitioner Family; PCP Family Medicine
DX: J06.9 Acute upper respiratory infection, unspecified (principal); F41.9 Anxiety disorder, unspecified; F32.A Depression, unspecified
CPT/HCPCS: 87081; 87880; 99213; G0463

== ENCOUNTER 2023-11-04 17:11 | Emergency (ER) | payer BC, SELFPAY ==
--- NOTE | 2023-11-04 17:13 | ED.EAR ---
HPI - Ear Problem General Chief complaint: Ear Stated complaint: right ear pain Time Seen by Provider: 11/04/23 17:13 Source: patient Mode of arrival: ambulatory Limitations: no limitations History of Present Illness HPI Narrative: Patient is a 38-year-old female that presents with right ear pain that started yesterday. Patient is had allergy symptoms for the last 3 weeks. Patient has been taking Zyrtec daily. denies any fever, chills, nausea, vomiting, diarrhea MD Complaint: ear pain Related Data Home Medications Medication Instructions Recorded Confirmed doxylamine succinate 25 mg tablet 50 mg PO HS PRN Sleep 08/22/21 11/04/23 (Unisom (doxylamine)) quetiapine 300 mg tablet (Seroquel) 300 mg PO HS 08/22/21 11/04/23 spironolactone 100 mg tablet 100 mg PO DAILY 08/24/22 11/04/23 Allergies Allergy/AdvReac Type Severity Reaction Status Date / Time venlafaxine [From Effexor] Allergy Hives Verified 11/04/23 17:38 Review of Systems Review of Systems: All systems reviewed & are unremarkable except as noted in HPI and below Constitutional: Constitutional: Denies body ache(s), Denies chills, Denies fever(s), Denies headache(s) and Denies malaise Eyes: Eyes: Denies blurry vision, Denies eye discharge and Denies irritation ENT: Reports otalgia, Denies headache(s), Denies nasal congestion, Denies nasal discharge and Denies sore throat Cardiovascular: Cardiovascular: Denies chest pain, Denies edema, Denies palpitations and Denies dyspnea on exertion Respiratory: Respiratory: Denies cough and Denies dyspnea on exertion Gastrointestinal: Gastrointestinal: Denies abdominal pain, Denies diarrhea, Denies nausea and Denies vomiting Musculoskeletal: Musculoskeletal: Denies back pain, Denies arthralgias and Denies muscle weakness Integumentary/Breasts: Skin/Breast: Denies pruritus and Denies rash Neurologic: Denies headache(s) Psychiatric: Psychiatric: Reports no additional psychiatric complaints Endocrine: Endocrine: Denies palpitations PMFSH Past Medical History Medical History Anxiety Anxiety and depression Bipolar 1 disorder Bipolar disorder delivery delivered Depression History of IBS Hx of migraines Mastitis without abscess Surgical History Surgical History H/O section X2 2008 and 2017 History of cervical cerclage 2017 History of incision and drainage 2017 Right breast due to Mastitis Family History Family History Mother Mental disorder Alcoholism Grandparent Diabetes mellitus Hypertension Mental disorder Other No pertinent family history Social History Social History Smoking status: Never smoker Substance use: never Living arrangements: with family Occupation/Education: occupation Gender identity (if verbalized by the patient): Female Spiritual care concerns: No Comments At time of signature, agree with nursing past medical, surgical, social and family history. There is no relevant family history pertinent to the presenting complaint? Exam Const: General: cooperative, healthy appearing, no acute distress and well nourished Nutritional Appearance: well nourished Orientation/consciousness: patient oriented x3 Limitations: no limitations HENMT: Head: normal to inspection, normocephalic and atraumatic Ears: hearing grossly normal bilaterally, EAC's normal, no periauricular adenopathy and TM abnormal bulging on the right and erythematous on the right Face/Nose/Sinus: Normal external nose present, Normal nares present, Normal nasal mucous membranes and turbinates present, No nasal discharge present, normal facial exam and sinuses nontender Face and sinus: normal facial exam and sinuses nontender Mouth: Yes Normal oral and
[2023-11-04 17:31] VITALS: BP 117/80; PULSE 90; RESP 18; TEMP 36.5; O2SAT 100
== END 2023-11-04 18:09 | disposition home or self-care (01) ==
PROVIDERS: Emergency Provider Nurse Practitioner Family; PCP Family Medicine
DX: H66.001 Acute suppurative otitis media without spontaneous rupture of ear drum, right ear (principal); F31.9 Bipolar disorder, unspecified
CPT/HCPCS: 99213; G0463

== ENCOUNTER 2024-03-01 17:32 | Emergency (ER) | payer BC, SELFPAY ==
--- NOTE | 2024-03-01 17:35 | ED.FEMALEGU ---
HPI - Female Genitourinary General Chief complaint: Urogenital-Female Stated complaint: Vaginal Problems Time Seen by Provider: 03/01/24 17:34 Source: patient Mode of arrival: ambulatory Limitations: no limitations History of Present Illness HPI Narrative: Patient is a 39-year-old female who presents with 1 week of vaginal discharge and odor. Patient states she had her period 2 weeks ago and was also in the hospital for 1 week. Patient concerned she had a tampon stuck due to odor. Patient and significant other have both looked and felt for tampon but have not found anything. Patient has history of yeast infections but states it is not similar. Patient has been seen by OBGYN over the past few months for other issues related to tubal ligation. Denies any active bleeding but states discharge Looks like dark dried blood. Denies any watery discharge her thick white discharge. Denies any irritation, itching or pain. Denies any fever, chills, nausea, vomiting, diarrhea. Related Data Home Medications Medication Instructions Recorded Confirmed doxylamine succinate 25 mg tablet 50 mg PO HS PRN Sleep 08/22/21 11/04/23 (Unisom (doxylamine)) spironolactone 100 mg tablet 100 mg PO DAILY 08/24/22 11/04/23 clonazepam 0.5 mg tablet mg 03/01/24 hydroxyzine pamoate 25 mg capsule mg 03/01/24 lithium carbonate 450 mg mg PO 03/01/24 tablet,extended release sertraline 25 mg tablet mg 03/01/24 trazodone 50 mg tablet mg 03/01/24 Allergies Allergy/AdvReac Type Severity Reaction Status Date / Time venlafaxine [From Effexor] Allergy Hives Verified 11/04/23 17:38 Review of Systems Review of Systems: All systems reviewed & are unremarkable except as noted in HPI and below Constitutional: Constitutional: Denies body ache(s), Denies chills, Denies fatigue, Denies fever(s), Denies headache(s), Denies malaise and Denies weakness Eyes: Eyes: Denies blurry vision, Denies irritation and Denies loss of vision ENT: Denies otalgia, Denies headache(s), Denies nasal discharge, Denies sinus pain and Denies sore throat Cardiovascular: Cardiovascular: Denies chest pain, Denies irregular heart rhythm and Denies dyspnea Respiratory: Respiratory: Denies dyspnea Gastrointestinal: Gastrointestinal: Denies abdominal pain, Denies melena, Denies hematochezia, Denies diarrhea, Denies nausea and Denies vomiting Genitourinary: Genitourinary: Reports vaginal discharge Musculoskeletal: Musculoskeletal: Denies back pain, Denies myalgias and Denies arthralgias Integumentary/Breasts: Skin/Breast: Denies pruritus and Denies rash Neurologic: Denies headache(s), Denies loss of vision and Denies weakness Psychiatric: Psychiatric: Reports no additional psychiatric complaints Endocrine: Endocrine: Denies fatigue PMFSH Past Medical History Medical History Anxiety Anxiety and depression Bipolar 1 disorder Bipolar disorder delivery delivered Depression History of IBS Hx of migraines Mastitis without abscess Surgical History Surgical History H/O section X2 2008 and 2017 History of cervical cerclage 2017 History of incision and drainage 2017 Right breast due to Mastitis Family History Family History Mother Mental disorder Alcoholism Grandparent Diabetes mellitus Hypertension Mental disorder Other No pertinent family history Social History Social History Smoking status: Never smoker Substance use: never Living arrangements: with family Occupation/Education: occupation Gender identity (if verbalized by the patient): Female Spiritual care concerns: No Comments At time of signature, agree with nursing past medical, surgical, social and family history. There is no relevant
[2024-03-01 17:43] VITALS: BP 123/83; PULSE 82; RESP 18; TEMP 36.9; O2SAT 100
== END 2024-03-01 18:35 | disposition home or self-care (01) ==
PROVIDERS: Emergency Provider Nurse Practitioner Family; PCP Family Medicine
DX: N89.8 Other specified noninflammatory disorders of vagina (principal)
CPT/HCPCS: 87070; 99214; G0463

== ENCOUNTER 2024-08-11 09:13 | Emergency (ER) | payer BC, SELFPAY ==
[2024-08-11] VITALS (9 sets, daily range): BP systolic 118–138; BP diastolic 55–86; PULSE 78–86; RESP 16–20; TEMP 36.5–36.6; O2SAT 100
--- NOTE | ~2024-08-11 | XR_ITS ---
EXAMINATION: XR chest 2V DATE: 08/11/2024 10:03 INDICATION: Dizziness. TECHNIQUE: Frontal and lateral views of the chest were obtained. COMPARISON: None. FINDINGS: There is no pneumonia, pleural effusion, or pneumothorax. The heart size is normal. IMPRESSION: 1. No acute cardiopulmonary disease. Reviewed, dictated and finalized at location L.
--- OUTSIDE RECORDS SUMMARY | 2024-08-11 09:42 | XMS_ITS | Encounter Summary ---
Author Organization [facility] Address [facility] [place] [address] Care Team Providers Care Cost Accounting Manager Name Role Phone Rafael Arellano MD Primary Care Provider [phone] Encounter Details Date Type Department Care Team (Latest Contact Info) Description 08/10/2024 Travel Social History Tobacco Use Types Packs/Day Years Used Date Smoking Tobacco: Former Cigarettes 1 13 0 12/12/2001 - 12/12/2014 Smokeless Tobacco: Never Alcohol Use Standard Drinks/Week Comments Yes 0 (1 standard drink = 0.6 oz pur e alcohol) occasionally PHQ-2 Answer Date Recorded Patient Health Questionnaire-2 Score 1 08/02/2024 Comments No Sex and Gender Information Value Date Recorded Sex Assigned at Female 06/15/2024 7:38 AM OSTEOPATHIC PHYSICIAN Legal Sex Female 6:32 PM CDT Gender Identity Female 08/05/2022 3:35 PM OSTEOPATHIC PHYSICIAN Sexual Orientation Straight 08/05/2022 3: 35 PM OSTEOPATHIC PHYSICIAN documented as of this encounter Plan of Treatment Upcoming Encounters Date Type Department Care Team (Late st Contact Info) Description 09/20/2024 7:30 AM CDT Appointment [address] [place] [address] Puma Pierre, LEAD WEB DEVELOPER [address] [place] [address] 11/14/2024 9:00 AM CDT Office Visit [facility] [address] [place] [address] Rafael Arellano MD [address] [facility] [address] [place] [address] Kash Marcus MD [address] [facility] [place] [address] documented as of this encounter Visit Diagnoses Not on filedocumented in this encounter Additional Health Concerns Assessment Noted Time PHQ-9 Depression Total Score: 22 023 10:43 AM CDT documented as of this encounter Care Teams Cost Accounting Manager Relationship Specialty Start Date End Date Rafael Arellano MD [address] [facility] [address] [place] [address] PCP - General FAMILY PRACTICE 11/01/23 documented as of this encounter
--- OUTSIDE RECORDS SUMMARY | 2024-08-11 09:42 | XMS_ITS | Encounter Summary ---
Author Organization [employer] Address [address] [place] [address] Care Team Providers Care Solar Installer Name Role Phone Rafael Arellano MD Primary Care Provider [phone] Encounter Details Date Type Department Care Team (Late st Contact Info) Description 08/08/2007 Outpatient Historical [facility] Nicholas Ferguson MD NO ADDRESS ON FILE Social History Tobacco Use Types Packs/Day Years Used Date Smoking Tobacco: Never Assessed Comments Unknown Sex and Gender Information Value Date Recorded Sex Assigned at Not on file Legal Sex Female 5:04 AM PIPELINE CONSTRUCTION INSPECTOR Gender Identity Not on file Sexual Orientation Not on file documented as of this encounter Plan of Treatment Not on file documented as of this encounter Procedures Procedure Name Priority Date/Time Associated Diagnosis Comments HEMOGLOBIN AND HEMATOCRIT Routine 08/16/2007 9:30 AM CDT documented in this encounter Results * HEMOGLOBIN AND HEMATOCRIT (08/16/2007 9:30 AM CDT) HEMATOCRIT 35.6 35.5 - 44.0 % [facility] HEMOGLOBIN 12.2 11.8 - 14.8 g/dL [facility] Blood specimen (specimen) 08/16/2007 9:30 AM CDT 08/16/2007 10:05 AM CDT us Nicholas Ferguson MD HEMATOLOGY ORDERABLES Final Re sult [facility] [address] [place] [address] documented in this encounter Visit Diagnoses Not on filedocumented in this encounter Care Teams Solar Installer Relationship Specialty Start Date End Date Rafael Arellano MD [address] [phone] PCP - General Family Practice 12/11/19 documented as of this encounter
--- OUTSIDE RECORDS SUMMARY | 2024-08-11 09:42 | XMS_ITS | Encounter Summary ---
Author Organization [employer] Address [address] [place] [address] Care Team Providers Care General Engineer Name Role Phone Rafael Arellano MD Primary Care Provider [phone] Encounter Details Date Type Department Care Team (Late st Contact Info) Description 05/18/2007 Orders Only [facility] [address] [place] [address] [place] [address] [place] [address] [phone] Social History Tobacco Use Types Packs/Day Years Used Date Smoking Tobacco: Never Assessed Comments Unknown Sex and Gender Information Value Date Recorded Sex Assigned at Not on file Legal Sex Female 5:04 AM ASSOCIATE COUNSEL Gender Identity Not on file Sexual Orientation Not on file documented as of this encounter Progress Notes * Poornima Corey MD - 10/13/2007 12:32 PM CDT TIME:09:23 am PATIENT`S HOME PHONE: PATIENT`S WORK PHONE: PATIENT`S INSURANCE: [employer] [facility] WHO TOOK THE CALL: Janneth Guadarrama R GENERAL INFORMATION WHO CALLED: [facility] NUMBER: [phone] SECTION 1: REQUESTED ACTION mark 05/18/07 at 09:26 am: MEDICATION REQUEST: MEDICATIONS: SEROQUEL ORAL TABLET 200 MG, 1 po qhs, 30 Dispensed, 2 Fills, 30 Duration/Days Supply, status: CONTINUED, 05/18/2007. RECEIVED FAXED REQUEST FROM THE PHARMACY FINAL ACTION: rubénissr 05/18/07 at 09:26 am Called pharmacy at 05/18/07 at 09:26 am. faxed [phone]./sk Electronically Signed by: Janneth Guadarrama on Friday, May 18, 2007 documented in this encounter Plan of Treatment Not on file documented as of this encounter Visit Diagnoses Not on filedocumented in this encounter Care Teams General Engineer Relationship Specialty Start Date End Date Rafael Arellano MD [address] [place] [phone] PCP - General Family Practice 12/11/19 documented as of this encounter
--- OUTSIDE RECORDS SUMMARY | 2024-08-11 09:42 | XMS_ITS | Encounter Summary ---
Author Organization [employer] Address [address] [place] [address] Care Team Providers Care Cook Fry Name Role Phone Rafael Arellano MD Primary Care Provider [phone] Encounter Details Date Type Department Care Team (Late st Contact Info) Description 11/23/2007 Inpatient Historical [facility] Fazal Bernard MD [address] [facility] [address] [phone] Segun Fenton MD NO ADDRESS ON FILE Normal Delivery Social History Tobacco Use Types Packs/Day Years Used Date Smoking Tobacco: Never Assessed Comments Unknown Sex and Gender Information Value Date Recorded Sex Assigned at Not on file Legal Sex Female 5:04 AM CASTING COORDINATOR Gender Identity Not on file Sexual Orientation Not on file documented as of this encounter Plan of Treatment Not on file documented as of this encounter Procedures Procedure Name Priority Date/Time Associated Diagnosis Comments PATHOLOGY Routine 11/23/2007 5:00 PM CDT PLACENTA CULTURE WITH GRAM STAIN Stat 11/23/2007 2:01 PM CDT MYCOPLASMA AND UREAPLASMA DETECTION Routine 11/23/2007 2:00 PM CDT CBC WITH DIFFERENTIAL Stat 11/23/2007 7:54 AM CDT URINALYSIS W/REFLEX MICROSCOPIC Stat 11/23/2007 7:54 AM CDT TYPE AND SCREEN Routine 11/23/2007 7:53 AM CDT documented in this encounter Results * PATHOLOGY (11/23/2007 5:00 PM CDT) FINAL REPORT [facility] [address] [place], [place] [address] Patient: CHERELLE VIDAL : 1985 Procedure Date: 11/23/2007 Accession Date: 11/24/2007 Case No: [id number] Ordering Dr: SEGUN FENTON Case types AW, BW, FW, NW and SH are performed by [facility] [place], [place] SURGICAL PATHOLOGY & NON-GYNECOLOGIC CYTOPATHOLOGY REPORT DIAGNOSIS PLACENTA, SECTION: - VILLOUS EDEMA, MILD, PATCHY. - SMALL FOR GESTATIONAL AGE. Specimen Description: Placenta and cord. Operative Procedure: Low transverse primary section. Patient Information/Histor y/Diagnosis: Intrauterine at 28-2/7 weeks; marked nonreassuring heart rate, 0/10 biophysical profile, prolonged premature rupture of membranes. Gross: Received in a single container labeled Cherelle Vidal, micro done is a 16.5 x 12.5 x 1.4-cm rivas placenta with a trimmed weight of 181 g. The three-vessel, focally hypertorsed umbilical cord is received in two pieces. The segment attached to the disc is 34.9 cm in length x 1 cm in diameter. The umbilical cord inserts eccentrically, 4.3 cm from the closest placental margin. The loose segment of umbilical cord is 4 cm in length x 1.6 cm in diameter. The membranes are banks and translucent with the point of rupture at the margin. The surface is blue-serrano and glistening. The surface is remarkable for a 1.2 x 0.1-cm microbiology culture site. The maternal surface is intact and complete. There is no evidence of loose or adherent blood clot. Sectioning exhibits unremarkable soft red-brown placental parenchyma. Curam Developer sections are submitted as follows: A1- cord and membrane roll; A2 through A4-placenta. KLA/PJS 11.24.2007 11:32 am Microscopic: The slides are labeled Cherelle Leidy and [id number]. The umbilical cord has three vessels. The membranes are free of significant acute inflammation. The chorionic villi have a third-trimester appearance. There are scattered areas of mild villous edema. No infarcts or hematomas are identified. No vascular thrombi are identified. The placental weight of 181 g is small for a 28-2/7 week gestation. JCL/LKJessica 11.25.2007 04:49 pm Staging Form: No. ELECTRONIC SIGNATURE FOR AMELIA RIVERA M.D.- 11/25/07 10:40 pm INTERFACE SYSTEM 11/23/2007 5:00 PM CDT us Segun Fenton MD PATHOLOGY/CYTOLOGY ORDERABLES Final Result Performing Organization Address [facility] de Phone Number INTERFACE SYSTEM Refer to clinic/hospital department * PLACENTA CULTURE WITH GRAM STAIN (11/23/2007 2:01 PM CDT) GRAM STAIN No organisms seen Few WBC's seen [facility] PRELIMINARY REPORT No growth 48 hours [facility] FINAL REPORT No growth 5 days [facility] 11/23/2007 2:01 PM CDT 11/23/2007 2:46 PM CDT us Fazal Bernard MD MICROBIOLOGY - GENERAL O RDERABLES Final Result Performing Organization Address [facility] Co de Phone Number [facility] CLIA# [id number] [address] [place] [address] * MYCOPLASMA AND UREAPLASMA CULTURE (11/23/2007 2:00 PM CDT) PRELIMINARY REPORT No growth 48 hours [facility] FINAL REPORT No Mycoplasma hominis isolated. No Ureaplasma urealyticum isolated. [facility] 11/23/2007 2:00 PM CDT 11/23/2007 2:46 PM CDT us Fazal Bernard MD MICROBIOLOGY - GENERAL O RDERABLES Final Result Performing Organization Address [facility] Co de Phone Number [facility] CLIA# [id number] [address] [place] [address] * (ABNORMAL) URINALYSIS (11/23/2007 7:54 AM CDT) WBC UA 2 0 - 5 /HPF [facility] KETONES UA Negative Negative [facility] CLARITY UA Clear Clear [facility] BILIRUBIN UA Negative Negative [facility] PROTEIN UA Negative Negative [facility] LEUKOCYTE ESTERASE UA Negative Negative [facility] RBC UA 26(H) 0 - 4 /HPF [facility] SPECIFIC GRAVITY UA 1.012 1.001 - 1.035 [facility] GLUCOSE UA Negative Negative [facility] BLOOD UA 3+(A) Negative [facility] COLOR UA Yellow [facility] NITRITE UA Negative Negative [facility] UROBILINOGEN UA <1 <=1 mg/dL [facility] PH UA 5.5 5.0 - 8.0 [facility] Urine specimen (specimen) 11/23/2007 7:54 AM CDT 11/23/2007 8:00 AM CDT us Fazal Bernard MD URINE ORDERABLES Final R esult Performing Organization Address [facility]/ZIP Co de Phone Number [facility] CLIA# [id number] [address] [place] [address] * (ABNORMAL) CBC WITH DIFFERENTIAL (11/23/2007 7:54 AM CDT) RBC 3.91 3.90 - 4.90 M/uL [facility] MCHC 33.4 31.5 - 35.5 % [facility] MCV 90.3 82.0 - 99.0 fL [facility] PLATELETS 216 140 - 350 K/uL [facility] HEMOGLOBIN 11.8 11.8 - 14.8 g/dL [facility] RDW 13.6 11.5 - 14.5 % [facility] WBC 10.8(H) 4.0 - 9.8 K/uL [facility] MCH 30.2 27.2 - 32.6 pg [facility] MPV 10.5 9.3 - 12.4 fL [facility] HEMATOCRIT 35.3(L) 35.5 - 44.0 % [facility] RDW-STDEV 44.3 37.1 - 48.7 fL [facility] MONOCYTES 6 3 - 13 % [facility] MONOCYTE ABSOLUTE 0.66 0.10 - 1.30 K/uL [facility] NEUTROPHILS 84(H) 45 - 70 % [facility] NEUTROPHIL ABSOLUTE 9.13(H) 1.90 - 7.00 K/uL [facility] EOSINOPHILS 0 0 - 7 % [facility] EOSINOPHIL ABSOLUTE 0.00 0.00 - 0.70 K/uL [facility] LYMPHOCYTES 10(L) 16 - 45 % [facility] LYMPHOCYTE ABSOLUTE 1.04 0.70 - 4.50 K/uL [facility] BASOPHILS 0 0 - 2 % [facility] BASOPHILS ABSOLUTE 0.00 0.00 - 0.20 K/uL [facility] Blood specimen (specimen) 11/23/2007 7:54 AM CDT 11/23/2007 8:00 AM CDT us Fazal Bernard MD HEMATOLOGY ORDERABLES Ed ited INTERFACE SYSTEM Refer to clinic/hospital department [facility] CLIA# [id number] [address] [place] [address] * TYPE AND SCREEN (11/23/2007 7:53 AM CDT) HISTORY CHECK History Checked [facility] SPECIMEN LIFE 3 days from drawdate [facility] ABO/RH TYPE O Positive [facility] ANTIBODY SCREEN Negative [facility] Blood specimen (specimen) 11/23/2007 7:53 AM CDT us Fazal Bernard MD BLOOD BANK ORDERABLES Ed ited Performing Organization Address [facility] de Phone Number [facility] CLIA# [id number] [address] [place] [address] documented in this encounter Visit Diagnoses Diagnosis Normal delivery documented in this encounter Care Teams Cook Fry Relationship Specialty Start Date End Date Rafael Arellano MD [facility] [place] [phone] PCP - General Family Practice 12/11/19 documented as of this encounter
--- OUTSIDE RECORDS SUMMARY | 2024-08-11 09:42 | XMS_ITS | Encounter Summary ---
Author Organization [facility] Address [facility] [place] [address] Care Team Providers Care Cigarette Machines Mechanic Name Role Phone Rafael Arellano MD Primary Care Provider [phone] Reason for Referral * Imaging (Routine) - Closed Specialty Diagnoses / Procedures Referred By Contac t Referred To Contact RADIOLOGY Diagnoses Chronic migraine without aura without status migrainosus, not intractable Vision changes Paresthesia Cervicalgia Unsteady gait Procedures MRI CERV SPINE WWO CON Rafael Arellano MD [address] [address] Phone: tel: fax: Referral ID Status Reason Start Date Expiration Date Visits Re quested Visits Authorized [id number] Closed 08/04/2024 09/03/2025 1 1 * Imaging (Routine) - Closed Specialty Diagnoses / Procedures Referred By Contac t Referred To Contact RADIOLOGY Diagnoses Chronic migraine without aura without status migrainosus, not intractable Vision changes Paresthesia Unsteady gait Procedures MRI BRAIN WWO CON Rafael Arellano MD [address] [address] Phone: tel: fax: Referral ID Status Reason Start Date Expiration Date Visits Re quested Visits Authorized [id number] Closed 08/02/2024 09/01/2025 1 1 Reason for Visit * Imaging (Routine) - Closed Specialty Diagnoses / Procedures Referred By Contac t Referred To Contact RADIOLOGY Diagnoses Chronic migraine without aura without status migrainosus, not intractable Vision changes Paresthesia Unsteady gait Procedures MRI BRAIN WWO CON Rafael Arellano MD [address] [address] Phone: tel: fax: Referral ID Status Reason Start Date Expiration Date Visits Re quested Visits Authorized [id number] Closed 08/02/2024 09/01/2025 1 1 Encounter Details Date Type Department Care Team (Late Contact Info) Description 08/10/2024 7:35 AM CDT Hospital Encounter [facility] MRI [address] [place] [address] Rafael Arellano MD [address] [address] Arrived Social History Tobacco Use Types Packs/Day Years [...] Sex Assigned at Female 06/15/2024 7:38 AM DRAW FURNACE TENDER Legal Sex Female 6:32 PM CDT Gender Identity Female 08/05/2022 3:35 PM DRAW FURNACE TENDER Sexual Orientation Straight 08/05/2022 3: 35 PM DRAW FURNACE TENDER documented as of this encounter Progress Notes * Rafael Arellano MD - 08/10/2024 8:15 AM CDT Still pending MRI cervical spine, recommend followup with neurology for evaluation and followup here if headache persists. documented in this encounter Plan of Treatment Upcoming Encounters Date Type Department Care Team (Late st Contact Info) Description 09/20/2024 7:30 AM CDT Appointment [facility] Ultrasound [address] [place] [address] Puma Pierre, PATTERN MARKER [address] [place] [address] 11/14/2024 9:00 AM CDT Office Visit [facility] [address] [facility], [address] [place] [address] Rafael Arellano MD [address] [place], [place] [id number] Kash Marcus MD [address] [facility] [address] [place], [place] [id number] Pending Results Name Type Priority Associated Diagnoses Date /Time MRI CERV SPINE WWO CON MRI Routine Chronic migraine without aura without status migrainosus, not intractable Vision changes Paresthesia Cervicalgia Unsteady gait 08/10/2024 9:15 AM CDT Scheduled Orders Name Type Priority Associated Diagnoses Orde r Schedule MRI CERV SPINE WWO CON MRI Routine Chronic migraine without aura without status migrainosus, not intractable Vision changes Paresthesia Cervicalgia Unsteady gait Once for 1 Occurrences starting 08/10/2024 until 08/10/2024 documented as of this encounter Procedures Procedure Name Priority Date/Time Associated Diagnosis Comments MRI BRAIN WWO CON Routine 08/10/2024 9:1 5 AM CDT Chronic migraine without aura without status migrainosus, not intractable Vision changes Paresthesia Unsteady gait documented in this encounter Results * MRI BRAIN WWO CON (08/10/2024 9:15 AM CDT) Anatomical Region Laterality Modality Head Magnetic Resonan ce 08/10/2024 1:54 PM CDT Impressions 08/10/2024 2:46 PM CDT IMPRESSION: 1. Slightly low-lying cerebellar tonsils without ectopia. May cause headaches. 2. No intracranial mass or pathologic contrast enhancement. No acute infarct. Referred By: RAFAEL ARELLANO Interpreted By: Yung Paulino MD, 08/10/2024 1:54 PM Narrative 08/10/2024 2:46 PM CDT [address] [place] [address] IMAGING STUDIES: MRI BRAIN WWO CON DATE: 08/10/2024 7:42 AM CLINICAL HISTORY: paresthesia, change in headache, memory changes. Unsteady gait. Vision changes. No history of trauma COMPARISON: No Comparisons.. CONTRAST 20 cc of dotarem FINDINGS: No acute process. No evidence of intracranial mass or pathologic contrast enhancement. No acute major vessel infarct.. Ventricular system is symmetric without evidence of midline shift or mass effect. Grossly normal flow voids within the intracranial portions of the vertebrobasilar system and internal carotid arteries in their proximal portions. No gross acute abnormality within the brainstem or posterior fossa.. There are low-lying cerebellar tonsils without ectopia. Slightly more prominent on the right side measuring 4 to 5 mm. No gross abnormality of the superior visualized cervical spinal cord. . Dc/white differentiation is within normal limits. No white matter lesions. .. Midline structures are within normal limits. Normal thickness to the corpus callosum. Procedure Note Yung Paulino MD - 08/10/[address] [place] [address] IMAGING STUDIES: MRI BRAIN WWO CON DATE: 08/10/2024 7:42 AM CLINICAL HISTORY: paresthesia, change in headache, memory changes.Unsteady gait. Vision changes. No history of trauma COMPARISON: No Comparisons.. CONTRAST 20 cc of dotarem FINDINGS: No acute process. No evidence of intracranial mass or pathologic contrastenhancement. No acute major vessel infarct.. Ventricular system is symmetric without evidence of midline shift or masseffect. Grossly normal flow voids within the intracranial portions of thevertebrobasilar system and internal carotid arteries in their proximalportions. No gross acute abnormality within the brainstem or posterior fossa.. There are low-lying cerebellar tonsils without ectopia. Slightly moreprominent on the right side measuring 4 to 5 mm. No gross abnormality ofthe superior visualized cervical spinal cord. . Dc/white differentiation is within normal limits. No white matterlesions. .. Midline structures are within normal limits. Normal thickness to thecorpus callosum. IMPRESSION: 1. Slightly low-lying cerebellar tonsils without ectopia. May causeheadaches. 2. No intracranial mass or pathologic contrast enhancement. No acuteinfarct. Referred By: RAFAEL ARELLANO Interpreted By: Yung Paulino MD, 08/10/2024 1:54 PM Rafael Arellano MD MRI Final Result documented in this encounter Visit Diagnoses Diagnosis Chronic migraine without aura without status migrainosus, not intractable Chronic migraine without aura, without mention of intractable migraine without mention of status migrainosus Vision changes Unspecified visual disturbance Paresthesia Disturbance of skin sensation Unsteady gait Abnormality of gait Cervicalgia documented in this encounter Administered Medications Inactive Administered Medications - up to 3 most recent administrations Medication Order MAR Action Action Date Dose Rate Site gadoterate meglumine (DOTAREM) 10 MMOL/20ML injection 20 mL 20 mL, Intravenous, IMG once as needed, Contrast, 1 dose, Starting on Maci 08/10/24 at 0927, Until Maci 08/10/24 at 0928 Given 08/10/2024 9:28 AM CDT 20 mLs Right Arm documented in this encounter Additional Health Concerns Assessment Noted Time PHQ-9 Depression Total Score: 22 023 10:43 AM CDT documented as of this encounter Care Teams Cigarette Machines Mechanic Relationship Specialty Start Date End Date Rafael Arellano MD [address] [address] PCP - General FAMILY PRACTICE 11/01/23 documented as of this encounter
--- OUTSIDE RECORDS SUMMARY | 2024-08-11 09:42 | XMS_ITS | Encounter Summary ---
Author Organization [facility] Address [address] [place] [address] Care Team Providers Care Anesthesiologist Attending Name Role Phone Rafael Arellano MD Primary Care Provider [phone] Encounter Details Date Type Department Care Team (Latest Contact Info) Description 11/02/2007 Outpatient Historical HIS PATIENT IN A BED Nicholas Ferguson MD NO ADDRESS ON FILE Other Specified Complication, Antepartum; with Other Poor Obstetric History; Encounter for Long-Term (Current) Use of Other Medications Social History Tobacco Use Types Packs/Day Years Used Date Smoking Tobacco: Never Assessed Comments Unknown Sex and Gender Information Value Date Recorded Sex Assigned at Not on file Legal Sex Female 5:04 AM MATERIAL STRESS TESTER Gender Identity Not on file Sexual Orientation Not on file documented as of this encounter Plan of Treatment Not on file documented as of this encounter Procedures Procedure Name Priority Date/Time Associated Diagnosis Comments URINALYSIS WITH REFLEX CULTURE Stat 11/02/2007 8:00 PM CDT URINALYSIS W/REFLEX MICROSCOPIC Stat 11/02/2007 8:00 PM CDT URINE CULTURE Stat 11/02/2007 8:00 PM CDT documented in this encounter Results * URINE CULTURE (11/02/2007 8:00 PM CDT) PRELIMINARY REPORT Pending [facility] FINAL REPORT No growth 24 hours [facility] 11/02/2007 8:00 PM CDT 11/02/2007 9:48 PM CDT Nicholas Ferguson MD MICROBIOLOGY - GENERAL ORDERAB LES Final Result [facility] CLIA# [id number] [address] [place] [address] * (ABNORMAL) URINALYSIS (11/02/2007 8:00 PM CDT) COLOR UA Yellow [facility] NITRITE UA Negative Negative [facility] UROBILINOGEN UA <1 <=1 mg/dL [facility] BACTERIA UA 1+(A) None Seen /HPF [facility] PH UA 6.5 5.0 - 8.0 [facility] KETONES UA Trace(A) Negative [facility] WBC UA 9(H) 0 - 5 /HPF [facility] CLARITY UA Slt. Cloudy(A) Clear [facility] PROTEIN UA 1+(A) Negative [facility] EPITHELIAL CELLS, URINE Many /HPF [facility] BILIRUBIN UA Negative Negative [facility] LEUKOCYTE ESTERASE UA 3+(A) Negative [facility] RBC UA 1 0 - 4 /HPF [facility] SPECIFIC GRAVITY UA 1.028 1.001 - 1.035 [facility] BLOOD UA Negative Negative [facility] GLUCOSE UA Trace(A) Negative [facility] 11/02/2007 8:00 PM CDT 11/02/2007 8:09 PM CDT Nicholas Ferguson MD URINE ORDERABLES Final Result Performing Organization Address [facility] Co de Phone Number [facility] CLIA# [id number] [address] [place] [address] * URINALYSIS WITH REFLEX CULTURE (11/02/2007 8:00 PM CDT) URINE CULTURE ORDER Culture ordered [facility] Comment: Criteria for a reflex culture include one or more of the following: Abnormal nitrite, leukocyte esterase, WBCs or RBCs. Lack of qualifying criteria does not exclude the possiblity of a urinary tract infection. Dilute urine, drug interference, etc. may decrease the sensitivity of the criteria analytes. Urine specimen (specimen) 11/02/2007 8:00 PM CDT 11/02/2007 8:09 PM CDT Nicholas Ferguson MD URINE ORDERABLES Final Result Performing Organization Address [facility] Co de Phone Number [facility] CLIA# [id number] [address] [place] [address] documented in this encounter Visit Diagnoses Diagnosis Other specified complication, antepartum(646.83) Other specified complication, antepartum with other poor obstetric history(V23.49) with other poor obstetric history Encounter for long-term (current) use of other medications documented in this encounter Care Teams Anesthesiologist Attending Relationship Specialty [place] [address] [place] [phone] PCP - General Family Practice 12/11/19 documented as of this encounter
--- OUTSIDE RECORDS SUMMARY | 2024-08-11 09:42 | XMS_ITS | Encounter Summary ---
Author Organization [facility] Address [address] [place] [address] Care Team Providers Care Activities Coordinator Name Role Phone Rafael Arellano MD Primary Care Provider [phone] Encounter Details Date Type Department Care Team (Late st Contact Info) Description 08/10/2024 7:41 AM CDT Hospital Encounter [facility] Laboratory [address] [place] [phone] Rafael Arellano MD [address] [facility] [address] [place] [address] Arrived Social History Tobacco Use Types [...] Sex Assigned at Female 06/15/2024 7:38 AM RANGE MANAGEMENT SPECIALIST Legal Sex Female 6:32 PM CDT Gender Identity Female 08/05/2022 3:35 PM RANGE MANAGEMENT SPECIALIST Sexual Orientation Straight 08/05/2022 3: 35 PM RANGE MANAGEMENT SPECIALIST documented as of this encounter Progress Notes * Rafael Arellano MD - 08/10/2024 7:45 AM CDT TSH slightly increase, iron def, Please notify the patient Vitamin D level is low which is extremely common. I would like to start treatment with 50,000 International Units of vitamin D weekly and then repeat labs in 12 weeks to ensure response to therapy. Once Vitamin D levels are WNL pt should continue to supplement with 1,000 IU daily. [place] high, recommend followup with psych and adjust dosage. Repeat TSH with reflex with vitamin D along with CBC. So vitamin D, CBC, iron panel and TSH with reflex in 12 weeks. 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 Followup with psych for adjustment of lithium level, likely reduce to 450 daily andmonitor. * documented in this encounter Plan of Treatment Upcoming Encounters Date Type Department Care Team (Late st Contact Info) Description 09/20/2024 7:30 AM CDT Appointment [facility] Ultrasound [address] [place], [place] [phone] Puma Pierre, CNC WOOD LATHE OPERATOR [address] [place] [address] 11/14/2024 9:00 AM CDT Office Visit [facility] Medical Group Multispecialty Care - [address], [address] [place] [phone] Rafael Arellano MD [address] [facility] [address] [place], [place] [phone] Kash Marcus MD [address] [place] [address] Pending Results Name Type Priority Associated Diagnoses Date /Time VITAMIN B6 Lab Routine Dysmenorrhea Personal history of surgery to heart and great vessels, presenting hazards to health Acquired absence of genital organs Chronic migraine without aura Unspecified visual disturbance Paresthesia Cervicalgia Unsteady Examination, medical, general Screening for diabetes mellitus Avitaminosis D Fatigue Anemia, unspecified 08/10/2024 7:55 AM CDT Scheduled Orders Name Type Priority Associated Diagnoses Orde r Schedule VITAMIN B6 Lab Routine Dysmenorrhea Personal history of surgery to heart and great vessels, presenting hazards to health Acquired absence of genital organs Chronic migraine without aura Unspecified visual disturbance Paresthesia Cervicalgia Unsteady Examination, medical, general Screening for diabetes mellitus Avitaminosis D Fatigue Anemia, unspecified Once for 1 Occurrences starting 08/10/2024 until 08/10/2024 documented as of this encounter Procedures Procedure Name Priority Date/Time Associated Diagnosis Comments TSH W/REFLEX Routine 08/10/2024 7:55 AM CDT Dysmenorrhea Personal history of surgery to heart and great vessels, presenting hazards to health Acquired absence of genital organs Chronic migraine without aura Unspecified visual disturbance Paresthesia Cervicalgia Unsteady Examination, medical, general Screening for diabetes mellitus Avitaminosis D Fatigue Anemia, unspecified PTH - INTACT Routine 08/10/2024 7:55 AM CDT Dysmenorrhea Personal history of surgery to heart and great vessels, presenting hazards to health Acquired absence of genital organs Chronic migraine without aura Unspecified visual disturbance Paresthesia Cervicalgia Unsteady Examination, medical, general Screening for diabetes mellitus Avitaminosis D Fatigue Anemia, unspecified IRON SAT PANEL (IRON,IBC,%SAT) Routine 08/10/2024 7:55 AM CDT Dysmenorrhea Personal history of surgery to heart and great vessels, presenting hazards to health Acquired absence of genital organs Chronic migraine without aura Unspecified visual disturbance Paresthesia Cervicalgia Unsteady Examination, medical, general Screening for diabetes mellitus Avitaminosis D Fatigue Anemia, unspecified VITAMIN B-12 Routine 08/10/2024 7:55 AM CDT Dysmenorrhea Personal history of surgery to heart and great vessels, presenting hazards to health Acquired absence of genital organs Chronic migraine without aura Unspecified visual disturbance Paresthesia Cervicalgia Unsteady Examination, medical, general Screening for diabetes mellitus Avitaminosis D Fatigue Anemia, unspecified COMPREHENSIVE METABOLIC PANEL Routine 08/10/2024 7:55 AM CDT Dysmenorrhea Personal history of surgery to heart and great vessels, presenting hazards to health Acquired absence of genital organs Chronic migraine without aura Unspecified visual disturbance Paresthesia Cervicalgia Unsteady Examination, medical, general Screening for diabetes mellitus Avitaminosis D Fatigue Anemia, unspecified CBC W/DIFF AUTOMATED Routine 08/10/2024 7:55 AM CDT Dysmenorrhea Personal history of surgery to heart and great vessels, presenting hazards to health Acquired absence of genital organs Chronic migraine without aura Unspecified visual disturbance Paresthesia Cervicalgia Unsteady Examination, medical, general Screening for diabetes mellitus Avitaminosis D Fatigue Anemia, unspecified THYROXINE, FREE (FT4) Routine 08/10/2024 7:55 AM CDT VITAMIN D, 25 OH Routine 08/10/2024 7:55 AM CDT Dysmenorrhea Personal history of surgery to heart and great vessels, presenting hazards to health Acquired absence of genital organs Chronic migraine without aura Unspecified visual disturbance Paresthesia Cervicalgia Unsteady Examination, medical, general Screening for diabetes mellitus Avitaminosis D Fatigue Anemia, unspecified MAGNESIUM Routine 08/10/2024 7:55 AM CDT Dysmenorrhea Personal history of surgery to heart and great vessels, presenting hazards to health Acquired absence of genital organs Chronic migraine without aura Unspecified visual disturbance Paresthesia Cervicalgia Unsteady Examination, medical, general Screening for diabetes mellitus Avitaminosis D Fatigue Anemia, unspecified LITHIUM Routine 08/10/2024 7:55 AM CDT Dysmenorrhea Personal history of surgery to heart and great vessels, presenting hazards to health Acquired absence of genital organs Chronic migraine without aura Unspecified visual disturbance Paresthesia Cervicalgia Unsteady Examination, medical, general Screening for diabetes mellitus Avitaminosis D Fatigue Anemia, unspecified documented in this encounter Results * THYROXINE, FREE (FT4) (08/10/2024 7:55 AM CDT) FREE T4 0.82 0.76 - 1.46 NG/DL 08/10/2024 12:36 PM CDT [facility] 08/10/2024 7:55 AM CDT us Rafael Arellano MD LABORATORY Final Result [facility] [address] [place] [address], [place] [phone] * (ABNORMAL) CBC W/DIFF AUTOMATED (08/10/2024 7:55 AM CDT) WBC 7.13 4.50 - 11.00 x10'3/uL 08/10/2024 8:00 AM CDT [facility] RBC 4.04 4.00 - 5.20 x10'6/uL 08/10/2024 8:00 AM CDT [facility] HGB 10.8(L) 12.0 - 16.0 G/DL 08/10/2024 8:00 AM CDT [facility] HCT 33.6(L) 38.0 - 48.0 % 08/10/2024 8:00 AM CDT [facility] MCV 83.2 80.0 - 100.0 FL 08/10/2024 8:00 AM CDT [facility] MCH 26.7 26.0 - 34.0 PG 08/10/2024 8:00 AM CDT [facility] MCHC 32.1 31.0 - 37.0 G/DL 08/10/2024 8:00 AM CDT [facility] RDW 14.2 11.6 - 14.8 % 08/10/2024 8:00 AM CDT [facility] PLT 323 130 - 400 x10'3/uL 08/10/2024 8:00 AM CDT [facility] MPV 9.7 7.0 - 12.0 FL 08/10/2024 8:00 AM CDT [facility] CBC COMMENT AUTOMATED RBC MORPHOLOGY AND PLATELET EVALUATION NORMAL 08/10/2024 8:00 AM CDT [facility] NEUTROPHILS % 62.5 40.0 - 74.0 % 08/10/2024 8:00 AM CDT [facility] LYMPHOCYTES % 24.5 14.0 - 46.0 % 08/10/2024 8:00 AM CDT [facility] MONOCYTES % 6.9 4.0 - 13.0 % 08/10/2024 8:00 AM CDT [facility] EOSINOPHILS 5.0 0.0 - 7.0 % 08/10/2024 8:00 AM CDT [facility] BASOPHILS 0.7 0.0 - 3.0 % 08/10/2024 8:00 AM CDT [facility] IMMATURE GRANS % 0.4 0.0 - 0.43 % 08/10/2024 8:00 AM CDT [facility] NRBC % 0.0 % 08/10/2024 8:00 AM CDT [facility] ABS. NEUTROPHILS TOTAL 4.45 1.69 - 7.81 x10'3/uL 08/10/2024 8:00 AM CDT [facility] ABS. LYMPHOCYTES 1.75 0.21 - 5.42 x10'3/uL 08/10/2024 8:00 AM CDT [facility] ABS. MONOCYTES 0.49 0.04 - 1.37 x10'3/uL 08/10/2024 8:00 AM CDT [facility] ABS. EOSINOPHILS 0.36 0.00 - 0.68 x10'3/uL 08/10/2024 8:00 AM CDT [facility] ABS. BASOPHILS 0.05 0.00 - 0.08 x10'3/uL 08/10/2024 8:00 AM CDT [facility] ABS. IMMATURE GRANULOCYTES 0.03 0.00 - 0.06 x10'3/uL 08/10/2024 8:00 AM CDT [facility] ABS. NUCLEATED RBC'S 0.00 0.00 - 0.01 x10'3/uL 08/10/2024 8:00 AM CDT [facility] 08/10/2024 7:55 AM CDT us Rafael Arellano MD LABORATORY Final Result [facility] [address] [address], * (ABNORMAL) COMPREHENSIVE METABOLIC PANEL (08/10/2024 7:55 AM CDT) [facility] GLUCOSE 92 70 - 99 MG/DL 08/10/2024 8:47 AM CDT [facility] BUN 11 7 - 18 MG/DL 08/10/2024 8:47 AM CDT [facility] CREATININE S/P/B 1.12 0.50 - 1.20 MG/DL 08/10/2024 8:47 AM CDT [facility] SODIUM S/P/B 138 136 - 145 MMOL/L 08/10/2024 8:47 AM CDT [facility] POTASSIUM S/P/B 3.9 3.5 - 5.1 MMOL/L 08/10/2024 8:47 AM CDT [facility] CHLORIDE S/P/B 105 100 - 108 MMOL/L 08/10/2024 8:47 AM CDT [facility] CO2 22.1 21.0 - 32.0 MMOL/L 08/10/2024 8:47 AM CDT [facility] CALCIUM S/P/B 8.7 8.5 - 10.1 MG/DL 08/10/2024 8:47 AM CDT [facility] BILIRUBIN TOTAL S/P/B 0.3 0.2 - 1.2 MG/DL 08/10/2024 8:47 AM CDT [facility] Comment: THIS ASSAY IS NOT RECOMMENDED FOR PATIENTS UNDERGOING TREATMENT WITH ELTROMBOPAG DUE TO THE POTENTIAL FOR FALSELY ELEVATED RESULTS. TOTAL PROTEIN S/P/B 6.7 6.4 - 8.2 G/DL 08/10/2024 8:47 AM CDT [facility] ALBUMIN S/P/B 3.2(L) 3.4 - 5.0 G/DL 08/10/2024 8:47 AM CDT [facility] AST 19 15 - 37 U/L 08/10/2024 8:47 AM CDT [facility] ALT 17 14 - 55 U/L 08/10/2024 8:47 AM CDT [facility] ALKALINE PHOSPHATASE S/P/B 52 50 - 136 U/L 08/10/2024 8:47 AM CDT [facility] ANION GAP 10.9 5.0 - 15.0 MMOL/L 08/10/2024 8:47 AM CDT [facility] BUN CREATININE RATIO 9.8 6 - 26 08/10/2024 8:47 AM CDT [facility] A/G RATIO 0.9(L) 1.0 - 2.5 RATIO 08/10/2024 8:47 AM CDT [facility] GFR ESTIMATE 64(L) >90 ML/MIN/1.7 3 M2 08/10/2024 8:47 AM CDT [facility] Comment: NOTE: eGFR is not calculated for patients <18 years of age. This is an estimated GFR calculation using the new CKD EPI creatinine equation without race and so does not require a correction factor for race. This estimated GFR should not be used for calculating drug doses. 08/10/2024 7:55 AM CDT us Rafael Arellano MD LABORATORY Final Result [address] [place] [address], * (ABNORMAL) VITAMIN D, 25 OH (08/10/2024 7:55 AM CDT) Pathologist [facility] VITAMIN D 25 HYDROXY S/P/B 11(L) 30 - 100 NG/ML 08/10/2024 10:[address] [facility] Comment: INTERPRETATION DEFICIENT <20 INSUFFICIENT 20-29 SUFFICIENT 30-100 08/10/2024 7:55 AM CDT Rafael Arellano MD LABORATORY Final Result Performing Organization Address [facility] Co de Phone Number [facility] [address] [place] [address], * (ABNORMAL) TSH W/REFLEX (08/10/2024 7:55 AM CDT) TSH 5.260(H) 0.358 - 3.74 uIU/ML 08/10/2024 12:[address] [facility] Comment: HIGH DOSES OF BIOTIN MAY INTERFERE WITH THIS TEST RESULT. CORRELATION TO CLINICAL HISTORY AND PRESENTATION RECOMMENDED. 08/10/2024 7:55 AM CDT Rafael Arellano MD LABORATORY Final Result Performing Organization Address [facility] de Phone Number [facility] [address] [place] [address], * (ABNORMAL) IRON SAT PANEL (IRON,IBC,%SAT) (08/10/2024 7:55 AM CDT) IRON 46(L) 50.0 - 170.0 MCG/DL 08/10/2024 11:[address] [facility] IRON BINDING CAPACITY 538(H) 250 - 450 MCG/DL 08/10/2024 11:[address] [facility] IRON SATURATION 9(L) 20 - 55 % 11:[address] [facility] 08/10/2024 7:55 AM CDT Rafael Arellano MD LABORATORY Final Result [facility] [address] [place] [address], * PTH - INTACT (08/10/2024 7:55 AM CDT) PTH INTACT 79.4 18.4 - 80.1 PG/ML 08/10/2024 11:[address] [facility] 08/10/2024 7:55 AM CDT Rafael Arellano MD LABORATORY Final Result Performing Organization Address City/[facility]/ZIP Co de Phone Number [facility] [address] [place] [address], * VITAMIN B-12 (08/10/2024 7:55 AM CDT) VITAMIN B12 S/P/B 443 254 - 1,320 PG/ML 08/10/2024 12:[address] [facility] 08/10/2024 7:55 AM CDT Rafael Arellano MD LABORATORY Final Result [facility] [address] [place] [address], * MAGNESIUM (08/10/2024 7:55 AM CDT) MAGNESIUM 1.9 1.8 - 2.4 MG/DL 08/10/2024 8:47 AM CDT [facility] 08/10/2024 7:55 AM CDT Rafael Arellano MD LABORATORY Final Result [facility] [address] [facility] [address] [place] [address], [place] * (ABNORMAL) LITHIUM (08/10/2024 7:55 AM CDT) LITHIUM 2.1(HH) 0.6 - 1.2 MMOL/L 08/10/2024 10:[address] [facility] Comment: Critical Result(s) Called at: 10:55:56 on 08/10/2024 by: FILIPE WICK to and read back by:MIAN GREGG Therapeutic Range: 0.6-1.2 MMOL/L POTENTIALLY TOXIC: >1.5 MMOL/L 08/10/2024 7:55 AM CDT Rafael Arellano MD LABORATORY Final Result Performing Organization Address City/[facility] Co de Phone Number [facility] [address] [place] [address], [place] [phone] documented in this encounter Visit Diagnoses Diagnosis Dysmenorrhea Personal history of surgery to heart and great vessels, presenting hazards to health Acquired absence of genital organs Acquired absence of organ, genital organs Chronic migraine without aura Chronic migraine without aura, without mention of intractable migraine without mention of status migrainosus Unspecified visual disturbance Paresthesia Disturbance of skin sensation Cervicalgia Unsteady Abnormality of gait Examination, medical, general Unspecified general medical examination Screening for diabetes mellitus Avitaminosis D Unspecified vitamin D deficiency Fatigue Other malaise and fatigue Anemia, unspecified documented in this encounter Additional Health Concerns Assessment Noted Time PHQ-9 Depression Total Score: 22 023 10:43 AM CDT documented as of this encounter Care Teams Activities Coordinator Relationship Specialty Start Date End Date Rafael Arellano MD [address] [facility] [address] [place], [place] [phone] PCP - General FAMILY PRACTICE 11/01/23 documented as of this encounter
--- OUTSIDE RECORDS SUMMARY | 2024-08-11 09:42 | XMS_ITS | Encounter Summary ---
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[facility]) Procedures OFFICE/OUTPATIENT NEW LOW MDM 30-44 MINUTES OFFICE/OUTPT VISIT,NEW,LEVL IV OFFICE/OUTPT VISIT,NEW,LEVL V OFFICE/OUTPT VISIT,EST,LEVL III OFFICE/OUTPT VISIT,EST,LEVL IV OFFICE/OUTPT VISIT,EST,LEVL V Rafael Arellano MD [address] [place] [address] [address] [place] [address] Phone: tel: fax: [facility] Medical Group Multispecialty Care - [facility] [address] [facility], [address] [place] [address] Phone: tel: Referral ID Status Reason Start Date Expiration Date Visits Requested Visits Authorized [id number] Pending Review Specialty Services 08/11/2024 09/11/2025 1 1 Reason for Visit * Reason Onset Date Comments Lab Results 08/11/2024 Thyroid, CBC, CM P, Mg, Vit D, [place], PTH, Iron, Vit B12, MRI Results 08/11/2024 MRI brain Encounter Details Date Type Department Care Team (Late st Contact Info) Description 08/11/2024 Telephone [facility] Medical Group Family Medicine - [place] [address] [place] [phone] Rafael Arellano MD [address] [facility] [address] [address] [place] [address] Lab Results (Thyroid, CBC, CMP, Mg, Vit D, [place], PTH, Iron, Vit B12, ); MRI Results (MRI brain ) Social History Tobacco Use Types Packs/Day Years [...] Sex Assigned at Female 06/15/2024 7:38 AM MANAGER PLAN Legal Sex Female 6:32 PM CDT Gender Identity Female 08/05/2022 3:35 PM MANAGER PLAN Sexual Orientation Straight 08/05/2022 3: 35 PM MANAGER PLAN documented as of this encounter Progress Notes * Lisseth Arora RN - 08/11/2024 8:21 AM CDT Spoke with patient and informed her of her lab and Brain MRI results and recommendations as noted per Dr. Arellano. Patient verbalized understanding of results and agrees to recommendations. She notes she is currently in the Waiting room at psychiatrist to see them for med adjustment. Opportunity given for all questions to be answered, no further needs voiced at this time. * Lisseth Arora RN - 08/11/2024 8:15 AM CDT ----- Message from Dr. Rafael Arellano sent at 08/10/2024 4:38 PM CDT ----- Still pending MRI cervical spine, recommend followup with neurology for evaluation and followup here if headache persists. * Lisseth Arora RN - 08/11/2024 8:15 AM CDT ----- Message from Dr. Rafael Arellano sent at 08/10/2024 4:41 PM CDT ----- TSH slightly increase, iron def, Please notify the patient Vitamin D level is low which is extremely common. I would like to start treatment with 50,000 International Units of vitamin D weekly and then repeat labs in 12 weeks to ensure response to therapy. Once Vitamin D levels are WNL pt should continue to supplement with 1,000 IU daily. [place] high, recommend followup with psych and adjust dosage. Repeat TSH with reflex with vitamin D along with CBC. So vitamin D, CBC, iron panel and TSH with reflex in 12 weeks. 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 Followup with psych for adjustment of lithium level, likely reduce to 450 daily andmonitor. # documented in this encounter Plan of Treatment Upcoming Encounters Date Type Department Care Team (Late st Contact Info) Description 09/20/2024 7:30 AM CDT Appointment [facility] Ultrasound [address] [place] [phone] Puma Pierre, FURNITURE REMOVALIST'S ASSISTANT [address] [place] [address] 11/14/2024 9:00 AM CDT Office Visit [facility] Medical Group Multispecialty Care - [address] [place] [phone] Rafael Arellano MD [address] [facility] [address] [place] [address] Kash Marcus MD [address] [place] [phone] Scheduled Orders Name Type Priority Associated Diagnoses Orde r Schedule VITAMIN D, 25 OH Lab Routine Vitamin D deficiency Expected: 11/03/2024 (Approximate), Expires: 08/11/2025 IRON SAT PANEL (IRON,IBC,%SAT) Lab Routine Iron deficiency Expected: 11/03/2024 (Approximate), Expires: 08/11/2025 CBC W/DIFF AUTOMATED Lab Routine Iron deficiency Expected: 11/03/2024 (Approximate), Expires: 08/11/2025 TSH W/REFLEX Lab Routine Subclinical hypothyroidism Expected: 11/03/2024 (Approximate), Expires: 08/11/2025 Scheduled Referrals Name Type Priority Associated Diagnoses Orde r Schedule Ambulatory referral to Neurology ([facility]) Referral Routine Chronic migraine without aura without status migrainosus, not intractable Vision changes Cerebellar tonsillar ectopia ([facility] HHS/HCC) Ordered: 08/11/2024 documented as of this encounter Visit Diagnoses Diagnosis Vitamin D deficiency- Primary Unspecified vitamin D deficiency Iron deficiency Iron deficiency anemia, unspecified Subclinical hypothyroidism Other specified acquired hypothyroidism Chronic migraine without aura without status migrainosus, not intractable Chronic migraine without aura, without mention of intractable migraine without mention of status migrainosus Vision changes Unspecified visual disturbance 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
--- OUTSIDE RECORDS SUMMARY | 2024-08-11 09:42 | XMS_ITS | Encounter Summary ---
Author Organization [facility] Address [address] [place] [address] Care Team Providers Care Tennis Coach Name Role Phone Rafael Arellano MD Primary Care Provider Encounter Details Date Type Department Care Team (Late st Contact Info) Description 08/10/2024 Orders Only [facility] Laboratory [address] [place] [id number] Rafael Arellano MD [address] [id number] Social History Tobacco Use Types Packs/Day Years [...] Sex Assigned at Female 06/15/2024 7:38 AM SUPERVISOR PROP MAKING Legal Sex Female 6:32 PM CDT Gender Identity Female 08/05/2022 3:35 PM SUPERVISOR PROP MAKING Sexual Orientation Straight 08/05/2022 3: 35 PM SUPERVISOR PROP MAKING documented as of this encounter Plan of Treatment Upcoming Encounters Date Type Department Care Team (Late st Contact Info) Description 09/20/2024 7:30 AM CDT Appointment [facility] Ultrasound [address] [place] [phone] [place], [employer] [address] [place] [address] 11/14/2024 9:00 AM CDT Office Visit [facility] Multispecialty Care - [facility] [address] [facility], [address] [place] [phone] Rafael Arellano MD [address] [place], [place] [id number] Kash Marcus MD [address] [place], [place] [id number] Pending Results Name Type Priority Associated Diagnoses [...] diabetes mellitus Avitaminosis D Fatigue Anemia, unspecified Expected: 08/10/2024, Expires: 08/10/2025 documented as of this encounter Results * (ABNORMAL) CBC W/DIFF AUTOMATED (08/10/2024 7:55 AM CDT) [facility] WBC 7.13 4.50 - 11.00 x10'3/uL 08/10/2024 8:00 AM CDT [facility] RBC 4.04 4.00 - 5.20 x10'6/uL 08/10/2024 8:00 AM CDT [facility] HGB 10.8(L) 12.0 - 16.0 G/DL 08/10/2024 8:00 AM CDT [facility] HCT 33.6(L) 38.0 - 48.0 % 08/10/2024 8:00 AM CDT [facility] MCV 83.2 80.0 - 100.0 FL 08/10/2024 8:00 AM CDT [facility] MCH 26.7 26.0 - 34.0 PG 08/10/2024 8:00 AM CDT [facility] MCHC 32.1 31.0 - 37.0 G/DL 08/10/2024 8:00 AM CDT [facility] RDW 14.2 11.6 - 14.8 % 08/10/2024 8:00 AM T [facility] PLT 323 130 - 400 x10'3/uL 08/10/2024 8:00 AM CDT [facility] MPV 9.7 7.0 - 12.0 FL 08/10/2024 8:00 AM CDT [facility] CBC COMMENT AUTOMATED RBC MORPHOLOGY AND PLATELET EVALUATION NORMAL 08/10/2024 8:00 AM CDT [facility] NEUTROPHILS % 62.5 40.0 - 74.0 % 08/10/2024 8:00 AM CDT [facility] LYMPHOCYTES % 24.5 14.0 - 46.0 % 08/10/2024 8:00 AM CDT [facility] MONOCYTES % 6.9 4.0 - 13.0 % 08/10/2024 8:00 AM CDT [facility] EOSINOPHILS 5.0 0.0 - 7.0 % 08/10/2024 8:00 AM CDT [facility] BASOPHILS 0.7 0.0 - 3.0 % 08/10/2024 8:00 AM CDT [facility] IMMATURE GRANS % 0.4 0.0 - 0.43 % 08/10/2024 8:00 AM CDT [facility] NRBC % 0.0 % 08/10/2024 8:00 AM CDT [facility] ABS. NEUTROPHILS TOTAL 4.45 1.69 - 7.81 x10'3/uL 08/10/2024 8:00 AM CDT [facility] ABS. LYMPHOCYTES 1.75 0.21 - 5.42 x10'3/uL 08/10/2024 8:00 AM CDT [facility] ABS. MONOCYTES 0.49 0.04 - 1.37 x10'3/uL 08/10/2024 8:00 AM CDT [facility] ABS. EOSINOPHILS 0.36 0.00 - 0.68 x10'3/uL 08/10/2024 8:00 AM CDT [facility] ABS. BASOPHILS 0.05 0.00 - 0.08 x10'3/uL 08/10/2024 8:00 AM CDT [facility] ABS. IMMATURE GRANULOCYTES 0.03 0.00 - 0.06 x10'3/uL 08/10/2024 8:00 AM CDT [facility] ABS. NUCLEATED RBC'S 0.00 0.00 - 0.01 x10'3/uL 08/10/2024 8:00 AM T [facility] 08/10/2024 7:55 AM CDT us Rafael Arellano MD LABORATORY Final Result [facility] [address] [place] [address], * (ABNORMAL) COMPREHENSIVE METABOLIC PANEL (08/10/2024 7:55 AM CDT) [facility] GLUCOSE 92 70 - 99 MG/DL 08/10/2024 8:47 AM CDT [facility] BUN 11 7 - 18 MG/DL 08/10/2024 8:47 AM CDT [facility] CREATININE S/P/B 1.12 0.50 - 1.20 MG/DL 08/10/2024 8:47 AM CDT [facility] SODIUM S/P/B 138 136 - 145 MMOL/L 08/10/2024 8:47 AM CDT [facility] POTASSIUM S/P/B 3.9 3.5 - 5.1 MMOL/L 08/10/2024 8:47 AM CDT [facility] CHLORIDE S/P/B 105 100 - 108 MMOL/L 08/10/2024 8:47 AM CDT [facility] CO2 22.1 21.0 - 32.0 MMOL/L 08/10/2024 8:47 AM CDT [facility] CALCIUM S/P/B 8.7 8.5 - 10.1 MG/DL 08/10/2024 8:47 AM CDT [facility] BILIRUBIN TOTAL S/P/B 0.3 0.2 - 1.2 MG/DL 08/10/2024 8:47 AM CDT [facility] Comment: THIS ASSAY IS NOT RECOMMENDED FOR PATIENTS UNDERGOING TREATMENT WITH ELTROMBOPAG DUE TO THE POTENTIAL FOR FALSELY ELEVATED RESULTS. TOTAL PROTEIN S/P/B 6.7 6.4 - 8.2 G/DL 08/10/2024 8:47 AM CDT [facility] ALBUMIN S/P/B 3.2(L) 3.4 - 5.0 G/DL 08/10/2024 8:47 AM CDT [facility] AST 19 15 - 37 U/L 08/10/2024 8:47 AM CDT [facility] ALT 17 14 - 55 U/L 08/10/2024 8:47 AM CDT [facility] ALKALINE PHOSPHATASE S/P/B 52 50 - 136 U/L 08/10/2024 8:47 AM CDT [facility] ANION GAP 10.9 5.0 - 15.0 MMOL/L 08/10/2024 8:47 AM CDT [facility] BUN CREATININE RATIO 9.8 6 - 26 08/10/2024 8:47 AM CDT [facility] A/G RATIO 0.9(L) 1.0 - 2.5 RATIO 08/10/2024 8:47 AM CDT [facility] GFR ESTIMATE 64(L) >90 ML/MIN/1.7 3 M2 08/10/2024 8:47 AM CDT [facility] Comment: NOTE: eGFR is not calculated for patients <18 years of age. This is an estimated GFR calculation using the new CKD EPI creatinine equation without race and so does not require a correction factor for race. This estimated GFR should not be used for calculating drug doses. 08/10/2024 7:55 AM CDT Rafael Arellano MD LABORATORY Final Result Performing Organization Address [facility]/ZIP Co de Phone Number [facility] [address] [place] [address], * (ABNORMAL) VITAMIN D, 25 OH (08/10/2024 7:55 AM CDT) VITAMIN D 25 HYDROXY S/P/B 11(L) 30 - 100 NG/ML 08/10/2024 10:45 AM CDT [facility] Comment: INTERPRETATION DEFICIENT <20 INSUFFICIENT 20-29 SUFFICIENT 30-100 08/10/2024 7:55 AM CDT Rafael Arellano MD LABORATORY Final Result [facility] [address] [place] [address], [place] [phone] * (ABNORMAL) TSH W/REFLEX (08/10/2024 7:55 AM CDT) TSH 5.260(H) 0.358 - 3.74 uIU/ML 08/10/2024 12:12 PM CDT [facility] Comment: HIGH DOSES OF BIOTIN MAY INTERFERE WITH THIS TEST RESULT. CORRELATION TO CLINICAL HISTORY AND PRESENTATION RECOMMENDED. 08/10/2024 7:55 AM CDT us Rafael Arellano MD LABORATORY Final Result Performing Organization Address City/[facility] Co de Phone Number [facility] [address] [place] [address], * (ABNORMAL) IRON SAT PANEL (IRON,IBC,%SAT) (08/10/2024 7:55 AM CDT) IRON 46(L) 50.0 - 170.0 MCG/DL 08/10/2024 11:55 AM CDT [facility] IRON BINDING CAPACITY 538(H) 250 - 450 MCG/DL 08/10/2024 11:55 AM CDT [facility] IRON SATURATION 9(L) 20 - 55 % 11:55 AM CDT [facility] 08/10/2024 7:55 AM CDT Rafael Arellano MD LABORATORY Final Result Performing Organization Address [facility] Co de Phone Number [facility] [address] [place] [address], * PTH - INTACT (08/10/2024 7:55 AM CDT) PTH INTACT 79.4 18.4 - 80.1 PG/ML 08/10/2024 11:00 AM CDT [facility] 08/10/2024 7:55 AM CDT us Rafael Arellano MD LABORATORY Final Result Performing Organization Address City/[facility]/ZIP Co de Phone Number [facility] [address] [place] [address], [place] [phone] * VITAMIN B-12 (08/10/2024 7:55 AM CDT) Pathologist [facility] VITAMIN B12 S/P/B 443 254 - 1,320 PG/ML 08/10/2024 12:12 PM CDT [facility] 08/10/2024 7:55 AM CDT Rafael Arellano MD LABORATORY Final Result [facility] [address] [place] [address], [place] [phone] * MAGNESIUM (08/10/2024 7:55 AM CDT) [facility] MAGNESIUM 1.9 1.8 - 2.4 MG/DL 08/10/2024 8:47 AM CDT [facility] 08/10/2024 7:55 AM CDT Rafael Arellano MD LABORATORY Final Result [address] [place] [address], * (ABNORMAL) LITHIUM (08/10/2024 7:55 AM CDT) [facility] LITHIUM 2.1(HH) 0.6 - 1.2 MMOL/L 08/10/2024 10:57 AM CDT [facility] Comment: Critical Result(s) Called at: 10:55:56 on 08/10/2024 by: FILIPE WICK to and read back by:MIAN GREGG Therapeutic Range: 0.6-1.2 MMOL/L POTENTIALLY TOXIC: >1.5 MMOL/L 08/10/2024 7:55 AM CDT Rafael Arellano MD LABORATORY Final Result [facility] [address] [place] [address], [place] [phone] documented in this encounter Visit Diagnoses Diagnosis Dysmenorrhea- Primary Personal history of surgery to heart and [...] documented as of this encounter Care Teams Tennis Coach Relationship Specialty Start Date End Date Rafael Arellano MD [address] [facility] [address] [place] [address] PCP - General FAMILY PRACTICE 11/01/23 documented as of this encounter
--- OUTSIDE RECORDS SUMMARY | 2024-08-11 09:43 | XMS_ITS | Encounter Summary ---
Author Organization [employer] Address 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
--- OUTSIDE RECORDS SUMMARY | 2024-08-11 09:43 | XMS_ITS | Clinical Summary ---
Author Organization [employer] Address [address] [facility] [place] [address] Phone Care Team Providers Care Stock Controller Name Role Phone Rafael Arellano MD Primary Care Provider [phone] Allergies Active Allergy Reactions Criticality Noted Date Comments Venlafaxine Hives High 12/13/2006 Medications QUETIAPINE FUMARATE (SEROQUEL ORAL) Take 300 mg by mouth daily at bedtime. Active cyclobenzaprine (FLEXERIL) 10 mg tablet Take 10 mg by mouth 3 times daily as needed for Spasm. Active spironolactone (ALDACTONE) 50 mg tablet Take 50 mg by mouth daily. Active norethindrn a-e estradiol-iron (June,) 1 mg-20 mcg (21)/75 mg (7) tablet Take 1 Tablet by mouth daily at bedtime. 06/22/2018 Active Active Problems Problem Noted Date Diagnosed Date Grade I internal hemorrhoids 01/24/2020 Chronic diarrhea 12/11/2019 Rectal bleeding 12/11/2019 Thrombosed external hemorrhoid 12/11/2019 Obesity (BMI 30.0-34.9) 12/11/2019 Overview (12/11/2019): Body mass index is 32.58 kg/m . Bipolar I disorder 04/01/2010 Borderline personality 04/01/2010 Abdominal pain, generalized 03/14/2007 Depressive disorder, not elsewhere classified Immunizations Immunization Administration Dates Next Due (TDVAX)(7 YRS UP) TETANUS AN D DIPHTHERIA TOXOIDS, ADSORBED (2 LF OF TETANUS TOXOID AND 2 LF OF DIPHTHERIA TOXOID), 0.5ML (PF), IM 05/31/2004 Family History Medical History Relation Name Comments Healthy Brother 1 Healthy Brother 2 Healthy Daughter Healthy Father COPD Maternal Grandfather Diabetes Maternal Grandmother Heart Disease Maternal Grandmother Hypertension Maternal Grandmother Heart Disease Mother Other Mother from motot rcycle wreck Cancer Paternal Grandfather some ty pe of skin cancer Other Paternal Grandmother arthrit is Healthy Sister 1 Healthy Sister 2 Healthy Son 1 Healthy Son 2 Relation Name Status Comments Brother 1 Alive Brother 2 Alive Daughter Father Alive Maternal Grandfather Maternal Grandmother Mother Paternal Grandfather Alive Paternal Grandmother Sister 1 Alive Sister 2 Alive Son 1 Alive Son 2 Alive Social History Tobacco Use Types Packs/Day Years Used Date Smoking Tobacco: Former Cigarettes Q uit: 11/2014 Smokeless Tobacco: Never Alcohol Use Standard Drinks/Week Comments Yes 0 (1 standard drink = 0.6 oz pure alcohol) occasional 1 glass wine 2x month Comments No Sex and Gender Information Value Date Recorded Sex Assigned at Not on file 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 Gender Identity Not on file Sexual Orientation Not on file Last Filed Vital Signs Vital Sign Reading Time Taken Comments Blood Pressure 120/85 01/24/2020 11:01 AM CDT Pulse 76 01/24/2020 11:01 AM CDT Temperature 36.1 C (97 F) 01/08/2020 9:27 AM CDT Respiratory Rate 16 01/08/2020 9:40 AM CDT Oxygen Saturation 100% 01/24/2020 11:01 AM CDT Inhaled Oxygen Concentration - - Weight 85.7 kg (189 lb) 01/24/2020 11:01 AM CDT Height 162.6 cm (5' 4 ) 01/24/2020 11:01 AM CDT Body Mass Index 32.44 01/24/2020 11:01 AM CDT Plan of Treatment Health Maintenance Due Date Last Done Comments HEPATITIS B VACCINES (1 of 3 - 19+ 3-dose series) 02/22/2003 DTAP/TDAP/TD VACCINES (1 - Tdap) 06/01/2004 05/31/2004 CERVICAL CANCER SCREENING 02/22/2014 05/31/2007 INFLUENZA VACCINE (#1) 2023 9, 02/17/2018, 09/02/2016 BREAST CANCER SCREENING 2024 HPV VACCINES Aged Out No longer eligi ble based on patient's age to complete this topic Insurance * Guarantor: Lorena Banks Account Type Relation to Patient Date of Phone Billing Address Personal/Family Self 1985 [phone] [id number] (Work) [address] [place] [address] [place] Member Subscriber Plan / Payer (Ef fective 2020-Present) Name:Lorena Banks Relation to Subscriber:Self Name:Lorena Banks Payer ID:Not on file Group ID:Not on file Type:Medicaid Address: [address] Care Teams Stock Controller Relationship Specialty Start Date End Date Rafael Arellano MD [address] [place] [address] [address] [place] [id number] PCP - General Family Practice 12/11/19
--- OUTSIDE RECORDS SUMMARY | 2024-08-11 09:43 | XMS_ITS | Patient Health Summary ---
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 [address] [place] [address] * RUBELLA IMMUNE STATUS (08/06/2016 10:32 AM ARABIC PROFESSOR) Rubella Antibody IgG Immune Status Equivocal - Suggest Retesting 08/06/2016 12:00 PM ARABIC PROFESSOR [facility] Blood BLOOD SPECIMEN / Unknown Venipuncture / Unknown 08/06/2016 10:32 AM ARABIC PROFESSOR 08/06/2016 10:51 AM ARABIC PROFESSOR Dora Fernandez MD LAB - CHEMISTRY LEIDA DIAZ [facility] [address] [place], [place] [id number] * RPR (08/06/2016 10:32 AM ARABIC PROFESSOR) Pathologist [facility] RPR Non Reactive Non Reactive 08/07/2016 9:47 AM ARABIC PROFESSOR [facility] Blood BLOOD SPECIMEN / Unknown Venipuncture / Unknown 08/06/2016 10:32 AM ARABIC PROFESSOR 08/06/2016 10:51 AM ARABIC PROFESSOR Dora Fernandez MD LAB - CHEMISTRY ORDSolis DIAZ Performing Organization Address City/[facility]/ZIP Co de Phone Number [facility] [address] [place] [phone] * TYPE + SCREEN PANEL (08/06/2016 10:32 AM ARABIC PROFESSOR) ABO O 08/06/2016 11:28 AM ARABIC PROFESSOR [facility] Rh Type Positive 08/06/2016 11:28 AM ARABIC PROFESSOR [facility] Comment:History check perfor med. Retype required. Antibody Screen Negative 08/06/2016 11:28 AM ARABIC PROFESSOR [facility] Blood Bank BLOOD SPECIMEN / Unknown Venipuncture / Unknown 08/06/2016 10:32 AM ARABIC PROFESSOR 08/06/2016 10:51 AM ARABIC PROFESSOR Dora Fernandez MD LAB - BLOOD BANK ORD ERABLES [facility] [address] [place] [address], [facility] [[email or web address]] * CBC W AUTO DIFFERENTIAL (08/06/2016 10:32 AM ARABIC PROFESSOR) WBC 7.0 4.4 - 10.7 x10E9/L 08/06/2016 10:57 AM [facility] WBC Corrected x10E9/L 08/06/2016 10:57 AM [facility] RBC 4.31 3.80 - 5.20 x10E12/L 08/06/2016 10:57 AM [facility] Hemoglobin 13.3 12.0 - 15.6 gm/dL 08/06/2016 10:57 AM [facility] Hematocrit 38.7 35.9 - 45.5 % 08/06/2016 10:57 AM [facility] MCV 89.8 80.7 - 98.3 fl 08/06/2016 10:57 AM [facility] MCH 30.9 26.7 - 34.0 pg 08/06/2016 10:57 AM [facility] MCHC 34.4 30.8 - 35.9 gm/dL 08/06/2016 10:57 AM [facility] Platelet Count 246 153 - 416 x10E9/L 08/06/2016 10:57 AM [facility] RDW-CV 12.1 12.1 - 14.9 % 08/06/2016 10:57 AM [facility] MPV 10.0 9.4 - 12.9 fl 08/06/2016 10:57 AM [facility] Neutrophils % 59.4 44.0 - 73.0 % 08/06/2016 10:57 AM [facility] Lymphocytes % 31.7 20.0 - 43.0 % 08/06/2016 10:57 AM [facility] Monocytes % 6.4 5.0 - 13.0 % 08/06/2016 10:57 AM [facility] Eosinophils % 1.9 0.0 - 6.0 % 08/06/2016 10:57 AM [facility] Basophils % 0.3 0.0 - 2.0 % 08/06/2016 10:57 AM [facility] Immature Granulocytes 0.3 0 - 1 % 08/06/2016 10:57 AM [facility] Neutrophil Absolute 4.15 2.01 - 7.14 x10E9/L 08/06/2016 10:57 AM [facility] Lymphocytes Absolute 2.21 1.07 - 3.94 x10E9/L 08/06/2016 10:57 AM [facility] Monocytes Absolute 0.45 0.26 - 1.07 x10E9/L 08/06/2016 10:57 AM [facility] Eosinophils Absolute 0.13 0 - 0.47 x10E9/L 08/06/2016 10:57 AM [facility] Basophils Absolute 0.02 0 - 0.08 x10E9/L 08/06/2016 10:57 AM [facility] Immature Granulocytes Absolute 0.02 0.00 - 0.06 x10E9/L 08/06/2016 10:57 AM [facility] nRBC Auto 0 /100 WBC 08/06/2016 10:57 AM [facility] Blood BLOOD SPECIMEN / Unknown Venipuncture / Unknown 08/06/2016 10:32 AM ARABIC PROFESSOR 08/06/2016 10:51 AM ARABIC PROFESSOR Dora Fernandez MD LAB - HEMATOLOGY ORD ERABLES Performing Organization Address City/[facility]/ZIP Co de Phone Number [facility] [address] [place] [address] * HEPATITIS B SURFACE ANTIGEN (08/06/2016 10:32 AM ARABIC PROFESSOR) HBsAg Non Reactive Non Reactive 08/06/2016 11:55 AM [facility] Blood BLOOD SPECIMEN / Unknown Venipuncture / Unknown 08/06/2016 10:32 AM ARABIC PROFESSOR 08/06/2016 10:51 AM ARABIC PROFESSOR Dora Fernandez MD LAB - CHEMISTRY ORDE EMILY Performing Organization Address [facility]/ZIP Co de Phone Number [facility] [address] [place] [address] * XR SHOULDER MIN 3 VIEWS RIGHT (10/16/2011 11:11 PM CDT) Anatomical Region Laterality Modality Radiographic Gertrude ging 10/17/2011 8:19 AM CDT Impressions 10/17/2011 8:19 AM CDT No fracture is seen. Narrative 10/17/2011 8:19 AM CDT Right shoulder 3 views INDICATION: Right shoulder pain Three views of the right shoulder show no acute fracture, dislocation or destructive lesion. Procedure Note Chantal Pichardo MD - 10/17/2011 Right shoulder 3 views INDICATION: Right shoulder pain Three views of the right shoulder show no acute fracture, dislocation or destructive lesion. IMPRESSION No fracture is seen. Kathy Hernandez MD DIAGNOSTIC IMAGING O RDERABLES * XR C SPINE 4+ VIEWS (10/16/2011 11:10 PM CDT) Anatomical Region Laterality Modality Spine Radiographic Gertrude ging 10/17/2011 8:18 AM CDT Impressions 10/17/2011 8:18 AM CDT No fracture. Narrative 10/17/2011 8:18 AM CDT Cervical spine 4 views INDICATION: Neck pain Four views of the cervical spine are provided. There is normal alignment. There is normal mineralization. No fracture is seen. Procedure Note Chantal Pichardo MD - 10/17/2011 Cervical spine 4 views INDICATION: Neck pain Four views of the cervical spine are provided. There is normal alignment. There is normal mineralization. No fracture is seen. IMPRESSION No fracture. Kathy Hernandez MD DIAGNOSTIC IMAGING O RDERABLES * GROSS + MICRO EXAM (08/20/2006 1:00 AM CDT) Result CASE NUMBER [id number] Comment: ORDERING PHYSICIAN FRANKO SHIRLEY SPECIMEN TYPE Placenta DATE OF PROCEDURE 08/20/2006 SPECIMEN LABELED Placenta PRE-OP DIAGNOSIS 21.5 week gestational age, IUP, non-viable fetus GROSS DESCRIPTION GROSS DESCRIPTION The specimen is received in formalin labeled placenta patient Lorena Vidal, and consists of a placenta and cord weighing approximately 211 grams. It measures 13 x 10.5 x 1.5 cm in greatest dimension. The membranes on the surface are opaque and yellow- white in color. The umbilical cord is attached eccentrically approximately 2.5 cm from the closest margin and measures 2.5 cm in length and 1 cm in diameter. On sectioning, the cord contains the usual three blood vessels. On the maternal surface, the cotyledons are spongy and banks in color and are fragmented with some almost completely from the placenta. However, it is difficult to be sure whether any of the cotyledons are missing. There is no evidence of intraplacental hemorrhage or infarcts. Stereotyper sections of the placenta, cord and membranes are submitted in cassettes A1-A3. Dictated by Alfonzo Harris M.D. MICROSCOPIC DESCRIPTION Sections of the placenta show vascularized but slightly immature appearing chorionic villi and decidua. There is marked acute inflammation of the membranes. The umbilical cord shows the presence of three blood vessels. There is, however, no inflammation of the chorionic villi. DIAGNOSIS Placenta and cord, delivery pre-term placenta with marked acute chorioamnionitis Dictated by Alfonzo Harris M.D. Production Counter JONAS VARELA Electronically Signed By ALFONZO HARRIS MISCELLANEOUS SAMPLES / Unknown 08/20/2006 1:00 AM CDT 08/20/2006 8:52 AM CDT Historical Provider LAB - PATHOLOGY/C YTOLOGY ORDERABLES Care Teams Manager Law Relationship Specialty Start Date End Date Rafael Arellano MD [address] [address] PCP - General Family Medicine 12/10/22
--- OUTSIDE RECORDS SUMMARY | 2024-08-11 09:43 | XMS_ITS ---
Author Organization [facility] Address [address] [facility] [address] [place] [address] Care Team Providers Care Computer Science Intern Name Role Phone Rafael Arellano MD Primary Care Provider UnavailEm Dolan Unavailable [phone] Carlos Godinez Unavailable [phone] Allergies Allergen (clinical drug ingredient) Drug/Non Drug Allergy documented on EMR Reaction Allergy Type Onset Date Status Effexor hives Drug Allergy 09/06/2023 Active Yolande hives Drug Allergy 09/28/2016 Active REASON FOR VISIT High Iva Levels, Depression screening positive Medications Medication SIG (Take, Route, Frequency, Duration) Notes Start Date End Date Status Cyclobenzaprine HCl 10 MG Oral for 20 Days Active Famotidine 20 MG TAKE 1 TABLET BY DESTINY TH TWICE A DAY Oral for 30 Days Active QUEtiapine Fumarate 300 MG TAKE 2 TABLET S BY MOUTH AT BEDTIME Active Spironolactone 100 MG Oral 09/06/2023 Active hydrOXYzine Pamoate 25 MG 1 capsule Oral three times a day As needed for anxiety Active Social History Sex Assigned At : Social History Observation Description Sex Assigned At Female Problems Problem Type SNOMED Code ICD Code Onset Dates Problem Status W/U Status Risk Notes Problem [id number] Iva toxicity, accidental or unintentional, initial encounter (T56.891A) Active confirmed Problem Depression Screening (981986354) Encounter for screening for depression (Z13.31) Active confirmed Vital Signs Blood pressure systolic 112 mm Hg 08/12/19 25 Blood pressure diastolic 86 mm Hg 025 Heart Rate 95 /min 08/11/2024 Height 63.00 in 08/11/2024 Weight 221.4 lbs 08/11/2024 BMI 39.21 kg/m2 08/11/2024 Height-cm 160.02 cm 08/11/2024 Weight-kg 100.43 kg 08/11/2024 Encounters Encounter [facility] Date [facility] [address] [place] [address] 08/11/2024 Carlos Godinez Bipolar II disorder F31.81 ; Iva toxicity, accidental or unintentional, initial encounter T56.891A ; Encounter for screening for depression Z13.31 ; Post-traumatic stress disorder, unspecified F43.10 ; Borderline personality disorder F60.3 and 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.05 Assessments Encounter Date Diagnosis (ICD Code) Assessment Notes Treatment Notes Treatment Clinical Notes Section Notes 08/11/2024 Bipolar II disorder (ICD-10 - F31.81) 08/11/2024 Iva toxicity, accidental or unintentional, initial encounter (ICD-10 - T56.891A) 08/11/2024 Encounter for screening for depression (ICD-10 - Z13.31) 08/11/2024 Post-traumatic stress disorder, unspecified (ICD-10 - F43.10) 08/11/2024 Borderline personality disorder (ICD-10 - F60.3) 08/11/2024 Insomnia related to another mental disorder (ICD-10 - F51.05) Plan Of Treatment Medication Medication Name Sig Start Date Stop Date Notes Naproxen 500 MG Oral QUEtiapine Fumarate 300 MG TAKE 2 TABLET S BY MOUTH AT BEDTIME hydrOXYzine Pamoate 25 MG 1 capsule Oral three times a day Iva Carbonate ER 450 MG TAKE 2 TABLE TS BY MOUTH EACH NIGHT Next Appt Details Provider Name:Em Mahamed , 08/28/2024 11:15:00 AM, [address], [facility] [address], [place], [address], Progress Notes * BEKAH VIDAL MDOB:[birth year] (39 yo F)Acc No.[id number]:08/11/2024 Patient: Carl BEKAH LYNN Provider: VIRGINIE Padgett :1985 A ge:39 Y S ex:Female Date:08/11/2024 Address:[address] [place], [place] [id number] Pcp:Rafael Arellano MD Subjective: * Chief Complaints: * 1 . High Iva Levels. 2. Depression screening positive. * HPI: D epression Screening: ANABELLA-7 (2018 Edition) F eeling nervous, anxious, or on edge N early every day N ot being able to stop or control worrying?More than half the days W orrying too much about different things M ore than hafl the days T rouble relaxing M ore than half the days B eing so restless that it is hard to sit still S everal days B ecoming easily annoyed or irritable N early every day F eeling afraid as if something awful might happen S everal days T otal ANABELLA-7 Score 1 4 I nterpretation of Total ( 10 to 14) Moderate D epression screening: PHQ-9 L ittle interest or pleasure in doing things?Several days F eeling down, depressed, or hopeless S everal days T rouble falling or staying asleep, or sleeping too much N early every day F eeling tired or having little energy S everal days P oor appetite or overeating N early every day F eeling bad about yourself or that you are a failure, or have let yourself or your family down S everal days T rouble concentrating on things, such as reading the newspaper or watching television M ore than half the days M oving or speaking so slowly that other people could have noticed; or the opposite, being so fidgety or restless that you have been moving around a lot more than usual N ot at all T houghts that you would be better off or of hurting yourself in some way N ot at all T otal Score 1 2 I nterpretation M oderate Depression Intervention D epression Screening Findings P ositve F ollow-Up for Depression M ental health treatment assessment, Patient follow-up to return when and if necessary S uicide Risk Assessment Performed _ A dditional Evaluation for Depression P sychiatric interview and evaluation N isai of the standardized tool used for adult depression screening: P atient Health Questionnaire (PHQ-9) * Medical History: P roblems: Bipolar II disorder, Borderline personality disorder, Long-term drug therapy, Posttraumatic stress disorder, ,, abdominal aortic aneurysm: No, atrial fibrillation: No, chronic fatigue syndrome: No, essential tremor: Yes, hyperlipidemia: No, hypertension: No, Parkinson's disease: No, restless leg syndrome: No, stroke: No, subdural hematoma: No, type 1 diabetes mellitus: No, type 2 diabetes mellitus: No, vitamin B12 deficiency: No, vitamin D deficiency: Yes. * Surgical History: O ther 11/23/2007, Breast surgery (59239) 03/31/2017. * Social History: M igrated Social History: M igrated Social History: Alcohol Intake: Occasional 04/26/2023,Tobacco Years: Former smoker 04/26/2023. * Medications: T aking Spironolactone 100 MG Tablet Oral , Taking Naproxen 500 MG Tablet Oral , Taking Cyclobenzaprine HCl 10 MG Tablet Oral , Taking Famotidine 20 MG Tablet TAKE 1 TABLET BY MOUTH TWICE A DAY Oral , Taking hydrOXYzine Pamoate 25 MG Capsule 1 capsule Oral three times a day As needed for anxiety, Notes: typically does not take more than once a day, Taking Iva Carbonate ER 450 MG Tablet Extended Release TAKE 2 TABLETS BY MOUTH EACH NIGHT , Taking QUEtiapine Fumarate 300 MG Tablet TAKE 2 TABLETS BY MOUTH AT BEDTIME , Medication List reviewed and reconciled with the patient * Allergies: E ffexor: hives - Allergy - Onset Date 09/06/2023, Yolande: hives - Allergy - Criticality Unknown - Onset Date 09/28/2016. Objective: * Vitals: B P:112/86mm Hg, HR:95/min, Wt:221.4lbs, Wt-k.43 kg, Ht: 63.00 in, Ht-cm: 160.02 cm, BMI:39.21Index, Body Surface Area: 2.11. * Examination: P sychiatry: Appearance: w ell-groomed, well-nourished, appears stated age, obese. Abnormal body movements: n one. Affect / mood: f earful. Aggression: l ow. Anger control: g ood. Attention: n ormal in conversation. Attitude: c ooperative. Homicidal ideation: n one. Suicidal ideation: n one. Memory status: n o impairment noted. Degree of awareness of surroundings: w ithin normal limits.? Delusions: n o. Hallucinations: n o. Impulse control: n ot assessed. Insight: g ood. Intellectual functioning: n o impairment noted. Calculation - Intellectual function: n ot tested. Literacy - Intellectual function: n ot tested. Comprehension - Intellectual function: n ot tested. Abstract / proverb - Intellectual function: n ot tested.? Similarities / opposites - Intellectual function: n ot tested. Judgement: n ot assessed. Orientation: a wake, alert and oriented x 3. Perceptual disorders: n o perceptual disorder noted. Psychomotor activity: w ithin normal range. Speech / language: a ppropriate pitch/modulation, clear and coherent, normal rate, volume, and articulation (RVR), proper grammar used. Thought content: a ppropriate. Thought process: i ntact. Assessment: * Assessment: 1. L ithium toxicity, accidental or unintentional, initial encounter - T56.891A (Primary) ? 2 . B ipolar II disorder - F31.81 3 . E ncounter for screening for depression - Z13.31 4 . P ost-traumatic stress disorder, unspecified - F43.10 5. B orderline personality disorder - F60.3 6 . I nsomnia related to another mental disorder - F51.05 Plan: * Treatment: 2. B ipolar II disorder Continue QUEtiapine Fumarate Tablet, 300 MG, TAKE 2 TABLETS BY MOUTH AT BEDTIME. 3. P ost-traumatic stress disorder, unspecified Continue hydrOXYzine Pamoate Capsule, 25 MG, 1 capsule, Oral, three times a day As needed for anxiety. * Procedure Codes: 9 6127 BEHAV ASSMT W/SCORE & DOCD/STAND INSTRUMENT, G8431 CLIN DEPRESSION SCREEN DOC * Preventive Medicine: Counseling: S afety: Discussed the risk and benefits of medication(s)? Y es driving: Y es * Billing Information: * Visit Code: * Procedure Codes: 50920 BEHAV ASSMT W/SCORE & DOCD/STAND INSTRUMENT. G8431 CLIN DEPRESSION SCREEN DOC. * Electronic signature of VIRGINIE Jeffers on 08/11/2024 at 09:42 AM CDT Sign off status: Pending * Provider: VIRGINIE Padgett Date: 0 08/11/2024 Generated for Printi ng/Famartag/eTransmitting on: 0 08/11/2024 09:42 AM CDT History and Physical Notes * HPI (History of Present Illness) Category Sub-Category Detail Notes Category Not es Depression screening PHQ-9 Little inte rest or pleasure in doing things: Several days Feeling down, depressed, or hopeless: Se veral days Trouble falling or staying asleep, or sl eeping too much: Nearly every day Feeling tired or having little energy: S everal days Poor appetite or overeating: Nearly ever y day Feeling bad about yourself o r that you are a failure, or have let yourself or your family down: Several days Trouble concentrating on thi ngs, such as reading the newspaper or watching television: More than half the days Moving or speaking so slowly that other people could have noticed; or the opposite, being so fidgety or restless that you have been moving around a lot more than usual: Not at all Thoughts that you would be b marilu off or of hurting yourself in some way: Not at all Total Score: 12 Interpretation: Moderate Depression Intervention Depression Screening Findings: P ositve Follow-Up for Depression: [facility] treatment assessment, Patient follow-up to return when and if necessary Suicide Risk Assessment Performed: Additional Evaluation for Depression: Ps ychiatric interview and evaluation Name of the standardized too l used for adult depression screening:: Patient Health Questionnaire (PHQ-9) Depression Screening ANABELLA-7 (2018 Edition) Feelin g nervous, anxious, or on edge: Nearly every day Not being able to stop or control worryi ng: More than half the days Worrying too much about different things : More than hafl the days Trouble relaxing: More than half the day s Being so restless that it is hard to sit still: Several days Becoming easily annoyed or irritable: Ne shan every day Feeling afraid as if something awful doroteo ht happen: Several days Total ANABELLA-7 Score: 14 Interpretation of Total: (10 to 14) Mode rate Examination Category Sub-Category Detail Notes Category Not es Psychiatry Appearance: well-groomed, we ll-nourished, appears stated age, obese Attitude: cooperative Psychomotor activity: within normal rang e Abnormal body movements: none Attention: normal in conversati on Degree of awareness of surroundings: wit hin normal limits Orientation: awake, alert and lesvia ented x 3 Affect / mood: fearful Speech / language: appropriate pitch/mo dulation, clear and coherent, normal rate, volume, and articulation (RVR), proper grammar used Insight: good Judgement: not assessed Thought process: intact Thought content: appropriate Perceptual disorders: no perceptual diso rder noted Aggression: low Anger control: good Suicidal ideation: none Homicidal ideation: none Intellectual functioning: no impairment noted Impulse control: not assessed Memory status: no impairment noted Delusions: no Hallucinations: no Calculation - Intellectual function: not tested Literacy - Intellectual function: not te sted Comprehension - Intellectual function: n ot tested Abstract / proverb - Intellectual functi on: not tested Similarities / opposites - I ntellectual function: not tested
--- OUTSIDE RECORDS SUMMARY | 2024-08-11 09:43 | XMS_ITS | Encounter Summary ---
Author Organization [employer] Address [address] [place] [address] Care Team Providers Care Corporate Executive Chef Name Role Phone Rafael Arellano MD Primary Care Provider [phone] Encounter Details Date Type Department Care Team (Late st Contact Info) Description 03/14/2007 Outpatient Historical [facility] [address] [place] [address] [place] [phone] Peter Shaw MD [address] [facility] [place] [address] Social History Tobacco Use Types Packs/Day Years Used Date Smoking Tobacco: Never Assessed Comments Unknown Sex and Gender Information Value Date Recorded Sex Assigned at Not on file Legal Sex Female 5:04 AM RN DELIVERY Gender Identity Not on file Sexual Orientation Not on file documented as of this encounter Last Filed Vital Signs Vital Sign Reading Time Taken Comments Blood Pressure 101/70 03/14/2007 9:15 AM CDT Pulse 80 03/14/2007 9:15 AM CDT Temperature 36.9 C (98.4 F) 03/14/2007 9:15 AM CDT Respiratory Rate 16 03/14/2007 9:15 AM CDT Oxygen Saturation - - Inhaled Oxygen Concentration - - Weight 58.1 kg (128 lb) 03/14/2007 9:15 AM CDT Height 157.5 cm (5' 2 ) 03/14/2007 9:15 AM CDT Body Mass Index 23.41 03/14/2007 9:15 AM CDT documented in this encounter Plan of Treatment Not on file documented as of this encounter Visit Diagnoses Not on filedocumented in this encounter Care Teams Corporate Executive Chef Relationship Specialty Start Date End Date Rafael Arellano MD [address] [address] PCP - General Family Practice 12/11/19 documented as of this encounter
--- OUTSIDE RECORDS SUMMARY | 2024-08-11 09:43 | XMS_ITS | Encounter Summary ---
Author Organization [employer] Address [address] [place] [address] Care Team Providers Care Physical Biochemist Name Role Phone Rafael Arellano MD Primary Care Provider [phone] Encounter Details Date Type Department Care Team (Late st Contact Info) Description 03/14/2007 Orders Only [facility] [address] [place] [address] BRYN [place] [id number] Carlos A Shaw MD [address] [facility] [place] [address] Social History Tobacco Use Types Packs/Day Years Used Date Smoking Tobacco: Never Assessed Comments Unknown Sex and Gender Information Value Date Recorded Sex Assigned at Not on file 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 [address] D.O.B: 1985 SSN: [id number] Parent/Guardian if applicable: Patient Insurance: [id number] ID#: [id number] Group#: ORDER(S) #: [id number] (US pancreas, liver, and gallbladder and US pelvis only) BEST TO CALL HOME. BEST TIME TO CALL: ANYTIME. MAY WE LEAVE MESSAGE AT THAT NUMBER: YES, LEAVE MESSAGE. PLEASE SCHEDULE THE APPOINTMENT AT THE FOLLOWING LOCATION: TEST SCHEDULE [facility]. TEST PRIORITY: 2 - 7 DAYS. ORDERING PHYSICIAN: CARLOS A SHAW OFFICE MACHINE ENGRAVER & PHONE: Li Stone L ORDER PRINTED BY: MAR 18, 2007 Maureen Perla L 02:26 p FOR SCHEDULING USE ONLY: FIRST ATTEMPT Date:MAR 18, 2007 Maureen Perla L 04:49 p Spoke with Patient. MAR 18, 2007 Maureen Perla L 04:49 p [facility]. APPOINTMENT DATE : 03/28/2007 ( 8:30AM) APPOINTMENT DATE : 03/24/2007 ( 10AM)US PANC/LIVER/GB The appointment was scheduled by Maureen Perla L at [phone] FINAL ACTION Follow up completed. * Carlos A Shaw MD - 10/14/2007 12:19 PM CDT NURSE NAME: Em Thompson D WEIGHT: 128lbs. BLOOD PRESSURE: 101/70. Right Arm Sitting PULSE: 80. Right Radial, Regular RESPIRATIONS: 16. TEMPERATURE: 98.4??f. Oral HEIGHT: 5ft2in. LAST MENSTRUAL PERIOD: 03/12/2007 PAIN LEVEL 2. ALLERGIES: Allergies are as listed. MEDICATIONS: Medication list current. TOBACCO USE: Patient does not currently use tobacco. CHIEF COMPLAINT Pt. here because of really intense stomach pains HISTORY: 6 month h/o stomach pain. Now constant over last few weeks, worse with food. also worse/episodic during day. generalized, sharp 2/10. No n/v. no diarrhea, constipation. no f/c/s. feels hot during episodes which last 5-20min. Menses wnl. No vaginal discharge. Occasional heartburn. No medications tried. Started before recent medications such as Seroquel. No known relationship to menses. Noother complaints. Denies current drug use. +decreased libido since started Seroquel. CURRENT PROBLEM LIST: 311 DEPRESSION CURRENT MEDICATION LIST: FERN ORAL TABLET 3-0.02 MG, SEROQUEL STARTER KIT, 1 Every Day NICODERM CQ TRANSDERMAL PATCH 24 HR 7 MG/24HR, CURRENT ALLERGY LIST: EFFEXOR XR ROS: GENERAL: Normal activity and energy level, no change in appetite. No major weight gain or loss. No malaise, chills, fever, diaphoresis. ENDOCRINE: No heat or cold intolerance, no excessive thirst. CARDIAC: No chest pain, palpitations, orthopnea, dyspnea on exertion, or paroxysmal nocturnal dyspnea. RESPIRATORY: No dyspnea, cough, hemoptysis or wheezing. : No frequency, urgency, hematuria or dysuria. PAST MEDICAL HISTORY: MEDICAL: No significant history of medical diseases. SURGICAL: No previous surgery. CHILDHOOD DISEASES: Normal childhood diseases. CURRENT MEDICATIONS: see list ALLERGIES/ADVERSE REACTIONS: see list FAMILY HISTORY: FATHER: The father is living. No major illnesses are known. MOTHER: The mother is living. Illnesses: Depression, anxiety. SIBLINGS: Ten siblings. 1) The patient's sister is living. Illnesses: Hyperthyroidism. 2) The patient's sister is living. Illnesses: Asthma. CHILDREN: One child. 1) The patient's daughter is .3 hours 21 EGA SOCIAL HISTORY: MARITAL HISTORY: Single. PERSONS IN HOME: Includes the patient's father. LIVING WILL: The patient does not have a living will. TOBACCO USE: Previously smoked 1 1/2 PPD, smoked for 5 to 10 years, stopped recently.one month OCCUPATION: . ALCOHOL: The patient drinks alcohol once a day. CAFFEINE: The patient drinks caffeine 3 to 4 times per day. EXERCISES: The patient is not exercising regularly. DIET: Follows no specific diet. SAFETY ISSUES: Has guns in the home, uses seat belts, has smoke alarms, has carbon monoxide alarms. STRESS ISSUES: Stress at work.daughter recently PETS IN HOME: Cats, fish.turtles ILLICIT DRUG USE: Denies illicit drug use. OTHER HEALTH RISKS: HAS GUNS IN THE HOME. PHYSICAL EXAMINATION: CONSTITUTIONAL: GENERAL APPEARANCE: Healthy appearing patient in no distress. EYES: PUPILS: Pupils equal and reactive. NECK/THYROID: Trachea midline. No thyroid enlargement, tenderness, or mass. No supraclavicular or cervical adenopathy. RESPIRATORY: Clear to auscultation and percussion. Normal respiratory effort. CARDIOVASCULAR: CARDIAC: Regular rhythm. No murmurs, rubs, or gallops. GASTROINTESTINAL: ABDOMEN: Normal bowel sounds, the shape of the abdomen is normal, No CVA tenderness, no masses are noted. mild TTP RLQ. No rebound/guarding. LIVER/SPLEEN/KIDNEY: No hepatosplenomegaly, tenderness or nodularity. Kidneys not palpable. GENITOURINARY: BLADDER: Without fullness, masses or tenderness. OFFICE PROCEDURES: URINALYSIS RESULTS WBC: WBC`s were negative. NITRITE: nitrites were negative. UROBILINOGEN urobilinogen was normal. PROTEIN: protein was 30. pH: pH was 5. U/A BLOOD: blood was negative. SPECIFIC GRAVITY: specific gravity was 1.030. KETONES: ketones were negative. BILIRUBIN: bilirubin was moderate. GLUCOSE: glucose was negative. URINE TEST: The urine test done in the office was negative. ASSESSMENT/PLAN: 311-DEPRESSION ASSESSMENT: The patient's depression has improved. Will not change medication, continue to monitor for complications. pt says medication working and would like refill, but decreased libido side effect is making pt think about a change. STATUS: Improved. MEDICATIONS: SEROQUEL ORAL TABLET 200 MG, 1 po qhs, 30 Dispensed, 1 Fills, status: NEW PRESCRIPTION, 03/14/2007. PATIENT EDUCATION: Questions were allowed to stated satisfaction. Risks, benefits, and possible side effects of medication(s) were reviewed with the patient. 789.07-ABDOMINAL PAIN GENERALIZED ASSESSMENT: unclear etiology. DDx includes dyspepsia, ovarian cause. Will empirically treat with [id number], check US. Consider H.pylori testing if persists. STATUS: New. MEDICATIONS: RANITIDINE HCL ORAL TABLET 150 MG, 1 po bid, 60 Dispensed, 2 Fills, status: NEW PRESCRIPTION, 03/14/2007. LAB ORDERS: Order number: [id number] Test Ordered: US PANCREAS, LIVER & GALLBLADDER Order number: [id number] Test Ordered: US PELVIS ONLY Order number: [id number] Test Ordered: URINALYSIS W/O MICRO [id number] Order number: [id number] Test Ordered: TEST [id number] PATIENT EDUCATION: Questions were allowed to stated satisfaction. Risks, benefits, and possible side effects of medication(s) were reviewed with the patient. RETURN VISIT: Return as planned. The patient will be contacted to return after we review the labs ordered above. To discuss depression/seroquel with Dr. Corey. Electronically Signed by: Carlos A Shaw MD on Wednesday, March 14, 2007 documented in this encounter Plan of Treatment Not on file documented as of this encounter Visit Diagnoses Not on filedocumented in this encounter Care Teams Physical Biochemist Relationship Specialty Start Date End Date Rafael Arellano MD [address] [place] [phone] PCP - General Family Practice 12/11/19 documented as of this encounter
--- OUTSIDE RECORDS SUMMARY | 2024-08-11 09:43 | XMS_ITS | Encounter Summary ---
Author Organization [employer] Address [address] [place] [address] Care Team Providers Care Branding Machine Tender Name Role Phone Rafael Arellano MD Primary Care Provider [phone] Encounter Details Date Type Department Care Team (Latest Contact Info) Description 03/13/2007 Outpatient Historical [facility] Rene Kern DO NO ADDRESS ON FILE Foreign Body in Conjunctival Sac (Primary Dx); Accident Caused by Caustic and Corrosive Substances; Unspecified Place of Occurrence Social History Tobacco Use Types Packs/Day Years Used Date Smoking Tobacco: Never Assessed Comments Unknown Sex and Gender Information Value Date Recorded Sex Assigned at Not on file 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
--- OUTSIDE RECORDS SUMMARY | 2024-08-11 09:43 | XMS_ITS | Clinical Summary ---
Author Organization [facility] Address [address] [place] [address] Care Team Providers Care Log Clerk Name Role Phone Rafael Patel MD Primary Care Provider [phone] Allergies Active Allergy Reactions Criticality Noted Date Comments Venlafaxine Hives,Unknown Medium 10/16/2011 Medications lithium CR (LITHOBID) 450 MG tablet Take 2 tablets (900 mg total) by mouth daily. Active spironolactone (ALDACTONE) 100 MG tabletIndications: Acne vulgaris take 1 tablet by mouth every day 90 tablet 3 4 Active naproxen (NAPROSYN) 500 MG tabletIndications: Ligamentous laxity of left ankle Take 1 tablet (500 mg total) by mouth 2 (two) times daily with meals. 180 tablet 3 4 12/23/19 25 Active hydrOXYzine (VISTARIL) 25 MG capsule TAKE 1 CAPSULE BY MOUTH EVERY 4 HOURS NEEDED FOR ANXIETY 4 Active QUEtiapine (SEROQUEL) 300 MG tablet Take 2 tablets (600 mg total) by mouth nightly at bedtime. at bedtime 4 Active cyclobenzaprine (FLEXERIL) 10 MG tabletIndications: Acute bilateral low back pain without sciatica Take 1 tablet (10 mg total) by mouth 3 (three) times daily as needed. 60 tablet 1 4 Active famotidine (PEPCID) 20 MG tabletIndications: Acute bilateral low back pain without sciatica TAKE 1 TABLET BY MOUTH TWICE A DAY 180 tablet 1 5 Active JUNEL FE 06/19 1-20 MG-MCG tablet TAKE 1 TABLET BY MOUTH ONCE DAILY Oral for 84 Days Active rimegepant (NURTEC) 75 MG disintegrating tabletIndications: Chronic migraine without aura without status migrainosus, not intractable Take 1 tablet (75 mg total) by mouth every other day. Max of 1 tablet (75 mg) in 24 hours. 16 tablet 3 5 Active vitamin D3 (CHOLECALCIFEROL) 1.25 mg capsuleIndications :Vitamin D deficiency Take 1 capsule (50,000 Units total) by mouth once a week for 12 doses. 12 capsule 5 10/29/19 25 Active prazosin (MINIPRESS) 1 MG capsule Take 1 capsule (1 mg total) by mouth daily. 4 08/03/19 25 Discontin ued(Thera py completed ) methylPREDNISolone , RAFAELA, (MEDROL DOSEPAK) 4 MG tabletIndications: Acute bilateral low back pain without sciatica 6 TABLETS ON DAY ONE, 5 TABLETS DAY TWO, 4 TABLETS DAY THREE, 3 TABLETS DAY FOUR, 2 TABLETS DAY FIVE, AND 1 TABLET DAY SIX 21 each 4 08/03/19 25 Discontin ued(Thera py completed ) Active Problems Problem Noted Date Diagnosed Date Lumbar herniated disc 11/29/2019 Depression 07/30/2016 Overview (05/17/2018): Overview: EPDS score: History of delivery 06/12/2013 Overview (07/11/2018): Overview: In G2 Overview: G1 at 20 weeks; PPROM, ND G2 at 28 weeks; PPROM Previous delivery, antepartum condition or complication ([facility]) 06/12/2013 Overview (05/17/2018): Overview: 28 wk PPROM; Need records Per Dr Craft consult in 2013: delivered via CS due to poor status as she was being tocolyzed. She had deterioration in FHT and BPP. Insomnia 02/07/2013 Bipolar I disorder ([facility]) 04/01/2010 Borderline personality disorder ([facility] ) 04/01/2010 Resolved Problems Problem Noted Date Diagnosed Date Resolved Date Supervision of high-risk pre gnancy of young multigravida ([facility]) 07/30/2016 11/29/2019 Overview (05/17/2018): Overview: PNL: Ab: GCT: HIV: GBS: Dating: H/H/Plt: Hgb Elec: UDS: QS: CF: Pap: Gc/Chl: UCx: Breast/Bottle: Family Planning: Encounter for preventive health examination 02/07/2013 11/29/2019 Weight decreasing 02/07/2013 11/29/2019 Encounters Date Type Department Care Team Description 08/11/2024 Telephone [facility] [address], [address] [place] [address] Rafael Patel MD Lab Results (Thyroid, CBC, CMP, Mg, Vit D, [place], PTH, Iron, Vit B12, ); MRI Results (MRI brain ) 08/10/2024 7:41 AM CDT Hospital Encounter [facility] Laboratory [address] [place] [address] Rafael Patel MD Arrived 08/10/2024 7:35 AM CDT Hospital Encounter [facility] MRI [address] [place] [address] Rafael Patel MD Arrived 08/10/2024 Orders Only [facility] Laboratory [address] [place] [address] Rafael Patel MD 08/10/2024 Travel 08/04/2024 Telephone [facility] - [address] [place] [address] Kash Marcus MD Appointment Request 08/03/2024 Telephone [facility] [address], [address] [place] [address] Rafael Patel MD Results 08/03/2024 Telephone [facility] [address], [address] [place] [address] Rafael Patel MD Prior Authorization ([facility]) 08/02/2024 8:45 AM EDGE PLUGGER - 08/02/2024 11:59 PM EDGE PLUGGER Hospital Encounter [facility] Diagnostic Imaging [address] [place] [address] Rafael Patel MD Discharge Disposition: Home or Self Care (Routine Discharge) 08/02/2024 8:00 AM EDGE PLUGGER Office Visit [facility] Family [facility] - [place] [address], [address] [place] [address] Rafael Patel MD Balance Problem; Tingling (Having some tingling in right hand); Other (Have been having issues with memory problems, tremors, and at times feels like being cattle prodded in back of neck. Some things have been going on since January while others have started just recently) 08/02/2024 Travel 06/29/2024 12:30 PM EDGE PLUGGER - 06/29/2024 11:59 PM EDGE PLUGGER Hospital Encounter [facility] Mammography [address] [place] [address] Alma Delia Noyola, ALEXANDER Discharge Disposition: Home or Self Care (Routine Discharge) 06/29/2024 Travel 06/16/2024 3:44 PM EDGE PLUGGER - 06/16/2024 11:59 PM EDGE PLUGGER Hospital Encounter [facility] Mammography [address] [place] [address] Alma Delia Noyola, ALEXANDER Discharge Disposition: Home or Self Care (Routine Discharge) 06/16/2024 Travel 06/15/2024 7:44 AM EDGE PLUGGER - 06/15/2024 11:59 PM EDGE PLUGGER Hospital Encounter [facility] Laboratory [address] [place] [address] Alma Delia Noyola NP Kramper, Breck D, CHILDCARE TEACHER Discharge Disposition: Home or Self Care (Routine Discharge) 06/15/2024 7:40 AM EDGE PLUGGER - 06/15/2024 7:43 AM EDGE PLUGGER Hospital Encounter [facility] Laboratory [address] [place] [address] Alma Delia Noyola, ALEXANDER Discharge Disposition: Home or Self Care (Routine Discharge) 06/15/2024 Orders Only [facility] Laboratory [address] [place] [address] Puma Pierre NP 06/15/2024 Orders Only [facility] Laboratory [address] [place] [address] Alma Delia Noyola NP 06/15/2024 Travel 05/19/2024 7:27 AM EDGE PLUGGER - 05/19/2024 11:59 PM EDGE PLUGGER Hospital Encounter [facility] Ultrasound [address] [place] [address] Puma Pierre, CHILDCARE TEACHER Discharge Disposition: Home or Self Care (Routine Discharge) 05/18/2024 10:40 AM EDGE PLUGGER Office Visit [facility] Family Medicine - [place] [address], [address] [place] [address] Rafael Patel MD Low Back Pain (Pt presents today for low back pain for 2 weeks. Pain is across the entire low back. No known injury.) 05/18/2024 Travel from Last 3 Months Immunizations Name Administration Dates Next Due COVID-19 Vaccine (Generic) 02/29/2024 Dtap (Generic) 09/13/2020 Fluzone 6 Months+ Quad (0.5 mL Prefilled Syringe) 02/24/2019 Influenza Adult (Generic) 02/29/2024,,09/13/2020,2017,02/22/2017,09/02/2016 MMR 03/14/2017 Td (TDVAX) 05/31/2004 Td (Tenivac) preservative free 05/31/2004 Tdap (Generic) 08/31/2021,02/19/2017 Family History Medical History Relation Comments COPD Mother Breast Cancer Neg Hx Relation Status Comments Father Alive Mother Social History Tobacco Use Types Packs/Day Years Used Date Smoking Tobacco: Former Cigarettes 1 13 0 12/12/2001 - 12/12/2014 Smokeless Tobacco: Never Tobacco Cessation:Counseling Given: No Alcohol Use Standard Drinks/Week Comments Yes 0 (1 standard drink = 0.6 oz pur e alcohol) occasionally PHQ-2 Answer Date Recorded Patient Health Questionnaire-2 Score 1 08/02/2024 Comments No Sex and Gender Information Value Date Recorded Sex Assigned at Female 06/15/2024 7:38 AM EDGE PLUGGER Legal Sex Female 6:32 PM CDT Gender Identity Female 08/05/2022 3:35 PM EDGE PLUGGER Sexual Orientation Straight 08/05/2022 3: 35 PM EDGE PLUGGER Last Filed Vital Signs Vital Sign Reading Time Taken Comments Blood Pressure 110/72 08/02/2024 8:12 AM EDGE PLUGGER Pulse 99 08/02/2024 8:12 AM EDGE PLUGGER Temperature 35.9 C (96.6 F) 08/02/2024 8:12 AM EDGE PLUGGER Respiratory Rate 18 08/02/2024 8:12 AM EDGE PLUGGER Oxygen Saturation 98% 08/02/2024 8:12 AM EDGE PLUGGER Inhaled Oxygen Concentration - - Weight 99.5 kg (219 lb 4.8 oz) 08/02/2024 8:12 A M EDGE PLUGGER Height 160 cm (5' 3 ) 02/21/2024 11:32 AM CDT Body Mass Index 38.85 02/21/2024 11:32 AM CDT Plan of Treatment Upcoming Encounters Date Type Department Care Team (Late st Contact Info) Description 09/20/2024 7:30 AM CDT Appointment [facility] Ultrasound [address] [place], [place] [id number] Puma Pierre, CHILDCARE TEACHER [address] [place] [address] 11/14/2024 9:00 AM CDT Office Visit [facility] Multispecialty Care - [facility] [address], [address] [place] [address] Rafael Patel MD [address] [place], [place] [id number] Kash Marcus MD [address] [place] [address] Health Maintenance Due Date Last Done Comments Annual Physical 02/22/1987 Hepatitis B Vaccines (1 of 3 - 19+ 3-dose series) 02/22/2003 Cervical Cancer Screening Pap Smear (Age 30 to 64) Every 3 Years 08/07/2019 08/06/2016 Cervical Cancer Screening Pap with HPV Testing (Age 30 to 64) Every 5 Years 07/30/2024 07/31/2019, 08/06/2016, 08/06/2016, Additional history exists Cervical Cancer Screening with HPV 07/30/2024 Mammogram Screening 06/29/2026 06/29/2024, DTaP, Tdap and Td Vaccines (4 - Td or Tdap) 09/01/2031 08/31/2021, 09/13/2020, 02/19/2017, Additional history exists Hepatitis C Completed 11/08/2023, 08/06/2016 COVID-19 Vaccine Completed 02/29/2024 Influenza Adult Completed 02/29/2024, 03/01, 09/13/2020, Additional history exists PHQ-2 (Physician [place]) Completed 08/02/2024 HPV Vaccines Aged Out No longer eligi ble based on patient's age to complete this topic Meningococcal B Vaccine Aged Out No l onger eligible based on patient's age to complete this topic Meningococcal Vaccine Aged Out No james mihir eligible based on patient's age to complete this topic Pneumococcal Vaccine: Pediatrics (0 to 5 Years) and At-Risk Patients (6 to 64 Years) Aged Out No longer eligible based on patient's age to complete this topic RSV Immunizations Under 20 Months Aged Out No longer eligible based on patient's age to complete this topic Procedures Procedure Name Priority Date/Time Associated Diagnosis Comments MRI BRAIN WWO CON Routine 08/10/2024 9:1 5 AM CDT Chronic migraine without aura without status migrainosus, not intractable Vision changes Paresthesia Unsteady gait THYROXINE, FREE (FT4) Routine 08/10/2024 7:55 AM CDT CBC W/DIFF AUTOMATED Routine 08/10/2024 7:55 AM [...] mellitus Avitaminosis D Fatigue Anemia, unspecified VITAMIN D, 25 OH Routine 08/10/2024 7:55 AM CDT Dysmenorrhea Personal history of surgery to heart and great vessels, presenting hazards to health Acquired absence of genital organs Chronic migraine without aura Unspecified visual disturbance Paresthesia Cervicalgia Unsteady Examination, medical, general Screening for diabetes mellitus Avitaminosis D Fatigue Anemia, unspecified TSH W/REFLEX Routine 08/10/2024 7:55 AM CDT [...] diabetes mellitus Avitaminosis D Fatigue Anemia, unspecified XR CERV SPINE 3V Routine 08/02/2024 9:01 AM EDGE PLUGGER Paresthesia Cervicalgia MG DIAG ADD VIEW W KESHA RT Routine 06/29/2024 1:21 PM EDGE PLUGGER Abnormal mammogram MG SCREENING W KESHA PRITESH DIGI Routine 06/16/2024 4:10 PM EDGE PLUGGER Encounter for screening mammogram for malignant neoplasm of breast THYROXINE, FREE (FT4) Routine 06/15/2024 7:50 AM EDGE PLUGGER TSH W/REFLEX Routine 06/15/2024 7:50 AM EDGE PLUGGER Hemorrhage in uterus CBC W/DIFF AUTOMATED Routine 06/15/2024 7:50 AM EDGE PLUGGER Hemorrhage in uterus Fatigue US PELVIC NON OB COMP TA+TV Routine 05/19/2024 8:07 AM EDGE PLUGGER Abnormal uterine bleeding Screening for STDs (sexually transmitted diseases) URINALYSIS AUTO DIP Routine 05/18/2024 Acute bilateral low back pain without sciatica HEPATITIS C ANTIBODY W/RFX TO HCV RNA Routine 11/08/2023 8:37 AM CDT Bipolar I disorder Borderline personality disorder Primary insomnia Healthcare maintenance Screening for diabetes mellitus Other fatigue Anemia, unspecified type Vitamin D deficiency Need for hepatitis C screening test OUTSIDE CYTOPATH CERV/VAG INTERPRET (PAP) 07/31/2019 from Last 3 Months or Most Recently Relevant to Health Maintenance Results * MRI BRAIN WWO CON (08/10/2024 9:15 AM CDT) Anatomical Region Laterality Modality Head Magnetic Resonan ce 08/10/2024 1:54 PM CDT Impressions 08/10/2024 2:46 PM CDT IMPRESSION: 1. Slightly low-lying cerebellar tonsils without ectopia. May cause headaches. 2. No intracranial mass or pathologic contrast enhancement. No acute infarct. Referred By: RAFAEL PATEL Interpreted By: Yung Paulino MD, 08/10/2024 1:54 PM Narrative 08/10/2024 2:46 PM [address]T [address] [place] [address] IMAGING STUDIES: MRI BRAIN WWO CON DATE: [...] Procedure Note Yung Paulino MD - 08/10/2024 [facility] [address] [place] [address] IMAGING STUDIES: MRI BRAIN WWO CON DATE: [...] contrast enhancement. No acuteinfarct. Referred By: RAFAEL PATEL Interpreted By: Yung Paulino MD, 08/10/2024 1:54 PM us Rafael Patel MD MRI Final Result * (ABNORMAL) TSH W/REFLEX (08/10/2024 7:55 AM CDT) Only the most recent of2 resultswithin the time period is included. TSH 5.260(H) 0.358 - 3.74 uIU/ML 08/10/2024 12:12 PM CDT [facility] Comment: HIGH DOSES OF BIOTIN MAY INTERFERE WITH THIS TEST RESULT. CORRELATION TO CLINICAL HISTORY AND PRESENTATION RECOMMENDED. 08/10/2024 7:55 AM CDT us Rafael Patel MD LABORATORY Final Result Performing Organization Address City/[facility]/ZIP Co de Phone Number [facility] [address] [place] [phone], * PTH - INTACT (08/10/2024 7:55 AM CDT) PTH INTACT 79.4 18.4 - 80.1 PG/ML 08/10/2024 11:00 AM CDT [facility] 08/10/2024 7:55 AM CDT Rafael Patel MD LABORATORY Final Result Performing Organization Address [facility] Co de Phone Number [facility] [address] [place] [address], [place] [phone] * (ABNORMAL) IRON SAT PANEL (IRON,IBC,%SAT) (08/10/2024 7:55 AM CDT) IRON 46(L) 50.0 - 170.0 MCG/DL 08/10/2024 11:55 AM CDT [facility] IRON BINDING CAPACITY 538(H) 250 - 450 MCG/DL 08/10/2024 11:55 AM CDT [facility] IRON SATURATION 9(L) 20 - 55 % 11:55 AM CDT [facility] 08/10/2024 7:55 AM CDT us Rafael Patel MD LABORATORY Final Result Performing Organization Address City/[facility]/ZIP Co de Phone Number [facility] [address] [place] [phone], * VITAMIN B-12 (08/10/2024 7:55 AM CDT) [facility] VIT[facility] B12 S/P/B 443 254 - 1,320 PG/ML 08/10/2024 12:12 PM CDT [facility] 08/10/2024 7:55 AM CDT Rafael Patel MD LABORATORY Final Result [address] [address], [place] [phone] * (ABNORMAL) COMPREHENSIVE METABOLIC PANEL (08/10/2024 7:55 AM CDT) [facility] GLUCOSE 92 70 - 99 MG/DL 08/10/2024 8:47 AM CDT [facility] BUN 11 7 - 18 MG/DL 08/10/2024 8:47 AM CDT [facility] CREATININE S/P/B 1.12 0.50 - 1.20 MG/DL 08/10/2024 8:47 AM CDT [facility] SODIUM S/P/B 138 136 - 145 MMOL/L 08/10/2024 8:47 AM CDT [facility] POTASSIUM S/P/B 3.9 3.5 - 5.1 MMOL/L 08/10/2024 8:47 AM CDT [facility] CHLORIDE S/P/B 105 100 - 108 MMOL/L 08/10/2024 8:47 AM CDT [facility] CO2 22.1 21.0 - 32.0 MMOL/L 08/10/2024 8:47 AM CDT [facility] CALCIUM S/P/B 8.7 8.5 - 10.1 MG/DL 08/10/2024 8:47 AM CDT [facility] BILIRUBIN TOTAL S/P/B 0.3 0.2 - 1.2 MG/DL 08/10/2024 8:47 AM CDT [facility] Comment: THIS ASSAY IS NOT RECOMMENDED FOR PATIENTS UNDERGOING TREATMENT WITH ELTROMBOPAG DUE TO THE POTENTIAL FOR FALSELY ELEVATED RESULTS. TOTAL PROTEIN S/P/B 6.7 6.4 - 8.2 G/DL 08/10/2024 8:47 AM CDT [facility] ALBUMIN S/P/B 3.2(L) 3.4 - 5.0 G/DL 08/10/2024 8:47 AM CDT [facility] AST 19 15 - 37 U/L 08/10/2024 8:47 AM CDT [facility] ALT 17 14 - 55 U/L 08/10/2024 8:47 AM CDT [facility] ALKALINE PHOSPHATASE S/P/B 52 50 - 136 U/L 08/10/2024 8:47 AM CDT [facility] ANION GAP 10.9 5.0 - 15.0 MMOL/L 08/10/2024 8:47 AM CDT [facility] BUN CREATININE RATIO 9.8 6 - 26 08/10/2024 8:47 AM T [facility] A/G RATIO 0.9(L) 1.0 - 2.5 RATIO 08/10/2024 8:47 AM T [facility] GFR ESTIMATE 64(L) >90 ML/MIN/1.7 3 M2 08/10/2024 8:47 AM T [facility] Comment: NOTE: eGFR is not calculated for patients <18 years of age. This is an estimated GFR calculation using the new CKD EPI creatinine equation without race and so does not require a correction factor for race. This estimated GFR should not be used for calculating drug doses. 08/10/2024 7:55 AM CDT Rafael Patel MD LABORATORY Final Result [facility] [address] [place] [address], [place] * (ABNORMAL) CBC W/DIFF AUTOMATED (08/10/2024 7:55 AM CDT) Only the most recent of2 resultswithin the time period is included. WBC 7.13 4.50 - 11.00 x10'3/uL 08/10/2024 8:00 AM CDT [facility] RBC 4.04 4.00 - 5.20 x10'6/uL 08/10/2024 8:00 AM CDT [facility] HGB 10.8(L) 12.0 - 16.0 G/DL 08/10/2024 8:00 AM CDT [facility] HCT 33.6(L) 38.0 - 48.0 % 08/10/2024 8:00 AM CDT [facility] MCV 83.2 80.0 - 100.0 FL 08/10/2024 8:00 AM CDT [facility] MCH 26.7 26.0 - 34.0 PG 08/10/2024 8:00 AM CDT [facility] MCHC 32.1 31.0 - 37.0 G/DL 08/10/2024 8:00 AM CDT [facility] RDW 14.2 11.6 - 14.8 % 08/10/2024 8:00 AM CDT [facility] PLT 323 130 - 400 x10'3/uL 08/10/2024 8:00 AM CDT [facility] MPV 9.7 7.0 - 12.0 FL 08/10/2024 8:00 AM CDT [facility] CBC COMMENT AUTOMATED RBC MORPHOLOGY AND PLATELET EVALUATION NORMAL 08/10/2024 8:00 AM CDT [facility] NEUTROPHILS % 62.5 40.0 - 74.0 % 08/10/2024 8:00 AM CDT [facility] LYMPHOCYTES % 24.5 14.0 - 46.0 % 08/10/2024 8:00 AM CDT [facility] MONOCYTES % 6.9 4.0 - 13.0 % 08/10/2024 8:00 AM CDT [facility] EOSINOPHILS 5.0 0.0 - 7.0 % 08/10/2024 8:00 AM CDT [facility] BASOPHILS 0.7 0.0 - 3.0 % 08/10/2024 8:00 AM CDT [facility] IMMATURE GRANS % 0.4 0.0 - 0.43 % 08/10/2024 8:00 AM CDT [facility] NRBC % 0.0 % 08/10/2024 8:00 AM CDT [facility] ABS. NEUTROPHILS TOTAL 4.45 1.69 - 7.81 x10'3/uL 08/10/2024 8:00 AM CDT [facility] ABS. LYMPHOCYTES 1.75 0.21 - 5.42 x10'3/uL 08/10/2024 8:00 AM CDT [facility] ABS. MONOCYTES 0.49 0.04 - 1.37 x10'3/uL 08/10/2024 8:00 AM CDT [facility] ABS. EOSINOPHILS 0.36 0.00 - 0.68 x10'3/uL 08/10/2024 8:00 AM CDT [facility] ABS. BASOPHILS 0.05 0.00 - 0.08 x10'3/uL 08/10/2024 8:00 AM CDT [facility] ABS. IMMATURE GRANULOCYTES 0.03 0.00 - 0.06 x10'3/uL 08/10/2024 8:00 AM T [facility] ABS. NUCLEATED RBC'S 0.00 0.00 - 0.01 x10'3/uL 08/10/2024 8:00 AM T [facility] 08/10/2024 7:55 AM CDT Rafael Patel MD LABORATORY Final Result [facility] [address] [place] [address], * THYROXINE, FREE (FT4) (08/10/2024 7:55 AM CDT) Only the most recent of2 resultswithin the time period is included. FREE T4 0.82 0.76 - 1.46 NG/DL 08/10/2024 12:36 PM CDT [facility] 08/10/2024 7:55 AM CDT Rafael Patel MD LABORATORY Final Result Performing Organization Address City/[facility]/ZIP Co de Phone Number [facility] [address] [place] [phone], * (ABNORMAL) VITAMIN D, 25 OH (08/10/2024 7:55 AM CDT) [facility] 25 HYDROXY S/P/B 11(L) 30 - 100 NG/ML 08/10/2024 10:45 AM CDT [facility] Comment: INTERPRETATION DEFICIENT <20 INSUFFICIENT 20-29 SUFFICIENT 30-100 08/10/2024 7:55 AM CDT Rafael Patel MD LABORATORY Final Result [facility] [address] [place] [phone], * MAGNESIUM (08/10/2024 7:55 AM CDT) Pathologist [facility] MAGNESIUM 1.9 1.8 - 2.4 MG/DL 08/10/2024 8:47 AM CDT [facility] 08/10/2024 7:55 AM CDT Rafael Patel MD LABORATORY Final Result Performing Organization Address [facility] Co de Phone Number [facility] [address] [place] [address], [place] * (ABNORMAL) LITHIUM (08/10/2024 7:55 AM CDT) LITHIUM 2.1(HH) 0.6 - 1.2 MMOL/L 08/10/2024 10:57 AM CDT [facility] Comment: Critical Result(s) Called at: 10:55:56 on 08/10/2024 by: FILIPE WICK to and read back by:MIAN GREGG Therapeutic Range: 0.6-1.2 MMOL/L POTENTIALLY TOXIC: >1.5 MMOL/L 08/10/2024 7:55 AM CDT Rafael Patel MD LABORATORY Final Result Performing Organization Address [facility] Co de Phone Number [facility] [address] [place] [address], [place] [phone] * XR CERV SPINE 3V (08/02/2024 9:01 AM EDGE PLUGGER) Anatomical Region Laterality Modality Spine Radiographic Gertrude ging 08/03/2024 3:23 PM EDGE PLUGGER Impressions 08/03/2024 3:23 PM EDGE PLUGGER IMPRESSION: No acute findings Ordered By: RAFAEL PATEL Interpreted By: Homer Sykes MD, 08/03/2024 3:23 PM Narrative 08/03/2024 3:23 PM EDGE PLUGGER [address] [address] 3 VIEWS OF THE CERVICAL SPINE Clinical History: Paresthesia Comparison: None 3 views of the cervical spine demonstrate the bony elements to be intact. There is no evidence of fracture or dislocation. The vertebral body heights are symmetric and within normal limits. The intervertebral disc heights appear symmetric and normal. The facets are normally aligned. The spinous processes appear normal. The anterior cervical soft tissues are within normal limits. Procedure Note Homer Sykes MD - 08/03/2024 [place] [id number] [place] [address] 3 VIEWS OF THE CERVICAL SPINE Clinical History: Paresthesia Comparison: None 3 views of the cervical spine demonstrate the bony elements to be intact.There is no evidence of fracture or dislocation. The vertebral bodyheights are symmetric and within normal limits. The intervertebral discheights appear symmetric and normal. The facets are normally aligned. Thespinous processes appear normal. The anterior cervical soft tissues arewithin normal limits. IMPRESSION: No acute findings Ordered By: RAFAEL PATEL Interpreted By: Homer Sykes MD, 08/03/2024 3:23 PM us Rafael Patel MD GENERAL IMAGING Final Result * MG DIAG ADD VIEW W KESHA RT (06/29/2024 1:21 PM EDGE PLUGGER) Anatomical Region Laterality Modality Breast Right Mammography, Oth er, Computed Tomography 06/29/2024 1:28 PM EDGE PLUGGER Impressions 06/29/2024 1:31 PM EDGE PLUGGER =====IMPRESSION:===== Previous noted small asymmetry on screening examination corresponds with a skin lesion which the patient states has been stable for many years. Assessment: ACR BI-RADS 2 - BENIGN FINDING(S) Recommendation: 1Routine Screening Bilateral COMMENTS: Patient was informed of these findings, including recommendation to return to schedule of annual routine screening mammography; by me, in person, at time of present study. Notification was performed in the presence of Jose, senior cytotechnologist. Ordered By: ALMA DELIA NOYOLA Interpreted By: Fazal Martin MD, 06/29/2024 1:28 PM Narrative 06/29/2024 1:31 PM EDGE PLUGGER [address] [place] [address] EXAMINATION: Digital right diagnostic mammogram with 3-D tomography EXAM DATE/TIME: 06/29/2024 12:48 PM REASON FOR EXAM: ABNORMAL MAMMO COMPARISON: 06/16/2024 TECHNIQUE: Digital diagnostic mammography of the right breast was performed with 3-D tomography. This study was read with the assistance of a computer-aided detection system. TISSUE DENSITY: There are scattered areas of fibroglandular density. FINDINGS: Mammographic abnormality lateral right breast superiorly corresponds with skin lesion. Patient states that she has had this skin lesion for many years without change. Marker was placed in this area and is seen to correspond with previous mammographic abnormality. No parenchymal distortion or mass in this general location is seen. The right breast shows no suspicious mass, parenchymal distortion or suspicious cluster microcalcifications. Postoperative change is noted. us Alma Delia Noyola CHILDCARE TEACHER MAMMO Final Result * MG SCREENING W KESHA PRITESH DIGI (06/16/2024 4:10 PM EDGE PLUGGER) Anatomical Region Laterality Modality Breast Bilateral Mammography 06/19/2024 1:15 PM EDGE PLUGGER Impressions 06/19/2024 1:17 PM EDGE PLUGGER =====IMPRESSION:===== Right breast asymmetry exaggerated cc view. Compression view and possible ultrasound. ASSESSMENT: ACR BI-RADS 0 - INCOMPLETE: NEEDS ADDITIONAL IMAGING EVALUATION Recommendation: 1: Additional Imaging Right COMMENTS: Ordered By: ALMA DELIA NOYOLA Interpreted By: Davis Garcia MD, 06/19/2024 1:15 PM Narrative 06/19/2024 1:17 PM EDGE PLUGGER [address] [place] [address] EXAMINATION: Digital bilateral screening mammogram with 3-D tomosynthesis EXAM DATE/TIME: 06/16/2024 3:44 PM REASON FOR EXAM: Screening COMPARISON: No prior mammograms. Baseline study. TECHNIQUE: Digital screening mammography of both breasts was performed in addition to 3-D Tomosynthesis technique. This study was read with the assistance of a computer-aided detection system. TISSUE DENSITY: There are scattered areas of fibroglandular density. FINDINGS: On the left there is no suspicious masses, malignant appearing calcifications, skin thickening or other abnormalities are present. No significant change from the prior exam. Lateral aspect right breast on the exaggerated cc view there is a small asymmetry that is present. Compression view and possible us Alma Delia Noyola NP MAMMO Final Result * US PELVIC NON OB COMP TA+TV (05/19/2024 8:07 AM EDGE PLUGGER) Anatomical Region Laterality Modality Pelvis Computed Tomogra phy 05/19/2024 11:5 8 AM EDGE PLUGGER Impressions 05/19/2024 12:04 PM EDGE PLUGGER IMPRESSION: 1. Interval decrease in size and slightly complex cyst within the left ovary. No new lesions. 2. Resolution of prior right ovarian cyst.. 3. Uterine fibroid as detailed above. Not well delineated on prior exam due to slightly obscured acoustical window Ordered By: PUMA PIERRE Interpreted By: Sue Paulino, 05/19/2024 11:58 AM Narrative 05/19/2024 12:04 PM EDGE PLUGGER [address] [place] [address] EXAMINATION: US PELVIC NON OB COMP TA+TV EXAM DATE: 05/19/2024 7:37 AM COMPARISON STUDIES: 07/07/2023 CLINICAL HISTORY: AUB . Right-sided pelvic cramping. LMP 05/14/2024 FINDINGS: Real time ultrasound examination performed by the life educator of the pelvis through transabdominal and transvaginal approach. The uterus demonstrate normal shape and configuration with heterogeneous echotexture. There is an ill-defined hypoechoic probable fibroid at the fundus/anterior body of the uterus measuring 3.2 x 2.5 x 3.1 cm. Best seen on cine images Uterus Measures 7.9 x 4.3 x 6.0 cm. with an endometrial lining of 3.6 mm.. No endometrial mass.. The right ovary measures 3.3 x 1.6 x 2.2 cm without evidence of focal lesions. Normal follicles and flow noted. Normal color flow Doppler with spectral and waveform analysis.. Resolution of prior right ovarian cyst. The left ovary measures 5.1 x 1.8 x 3.9 cm . Contains a slightly complex cyst measuring 4.0 x 1.9 x 3.6 cm. Prior measurement of 5.1 x 2.8 x 4.3 cm. . Normal follicles and flow noted. . Normal color flow Doppler with spectral and waveform analysis No free fluid noted in the cul-de-sac. Procedure Note Yung Paulino MD - 05/19/[address] [place] [address] EXAMINATION: US PELVIC NON OB COMP TA+TV EXAM DATE: 05/19/2024 7:37 AM COMPARISON STUDIES: 07/07/2023 CLINICAL HISTORY: AUB . Right-sided pelvic cramping. LMP 05/14/2024 FINDINGS: Real time ultrasound examination performed by the life educator of thelvis through transabdominal and transvaginal approach. The uterus demonstrate normal shape and configuration with heterogeneousechotexture. There is an ill-defined hypoechoic probable fibroid at thefundus/anterior body of the uterus measuring 3.2 x 2.5 x 3.1 cm. Best seenon cine images Uterus Measures 7.9 x 4.3 x 6.0 cm. with an endometrial lining of 3.6 mm.. No endometrial mass.. The right ovary measures 3.3 x 1.6 x 2.2 cm without evidence of focallesions. Normal follicles and flow noted. Normal color flow Doppler withspectral and waveform analysis.. Resolution of prior right ovarian cyst. The left ovary measures 5.1 x 1.8 x 3.9 cm . Contains a slightly complexcyst measuring 4.0 x 1.9 x 3.6 cm. Prior measurement of 5.1 x 2.8 x 4.3cm. . Normal follicles and flow noted. . Normal color flow Doppler withspectral and waveform analysis No free fluid noted in the cul-de-sac. IMPRESSION: 1. Interval decrease in size and slightly complex cyst within the leftovary. No new lesions. 2. Resolution of prior right ovarian cyst.. 3. Uterine fibroid as detailed above. Not well delineated on prior examdue to slightly obscured acoustical window Ordered By: PUMA PIERRE Interpreted By: Sue Paulino, 05/19/2024 11:58 AM Puma Pierre [employer]DC[employer] TE[employer]ER ULTRASOUND Final Result * (ABNORMAL) URINALYSIS AUTO DIP (05/18/2024) COLOR (U) YELLOW YELLOW [facility] [place] [place] TRANSPARENCY CLOUDY(A) CLEAR [facility] [place] [place] GLUCOSE (U) NEGATIVE NEGATIVE MG/DL [facility] [place] [place] BILIRUBIN (U) NEGATIVE NEGATIVE [facility] [place] [place] KETONES MG/DL (U) NEGATIVE NEGATIVE MG/DL [facility] [place] [place] SPECIFIC GRAVITY (U) 1.025 1.001 - 1.035 [facility] [place] [place] BLOOD (U) MODERATE (2+ Hemolyzed, About 50 rbc/uL)(A) NEGATIVE [facility] [place] [place] U PH 7.0 5.0 - 9.0 [facility] [place] [place] PROTEIN (U) NEGATIVE NEGATIVE mg/dL [facility] [place] [place] UROBILINOGEN 0.2 0.2 - 1.0 EU/dL = mg/dL [facility] [place] [place] NITRITES NEGATIVE NEGATIVE MG/DL [facility] [place] [place] LEUKOCYTES (U) NEGATIVE NEGATIVE [facility] [place] [place] URINE SPECIMEN OBTAINED BY CLEAN CATCH PROCEDURE / Unknown 05/18/2024 Rafael Patel MD URINE ORDERABLES Final Result [facility] [address] [address], * HEPATITIS C ANTIBODY W/RFX TO HCV RNA (11/08/2023 8:37 AM CDT) HEPATITIS C AB NON-REACT EMERALD NON-REACT EMERALD [facility] Comment: HCV antibody was non-reactive. There is no laboratory evidence of HCV infection. In most cases, no further action is required. However, if recent HCV exposure is suspected, a test for HCV RNA (test code 06039) is suggested. For additional information please refer to http://education.Wheebox/faq/KPK84c4 (This link is being provided for informational/ educational purposes only.) 11/08/2023 8:37 AM CDT 11/08/2023 8:40 AM CDT Narrative [facility] - [place] [facility] - 11/11/2023 9:37 AM CDT FASTING:YES FASTING: YES Resulting Agency Comment Performing Organization Information: Site ID: [place] Name: [email or web address] Address: [address] [address] Director: Jolynn Dickson MD Rafael Patel MD LABORATORY Final Result Performing Organization Address City/[facility] Co de Phone Number [employer] [place] [employer] [address] [place], [place] [address] * PAP SMEAR WITH HPV (07/31/2019) 07/31/2019 [facility] Scanned SCANNING Final Resu lt from Last 3 Months or Most Recently Relevant to Health Maintenance Insurance [facility] Care Teams Log Clerk Relationship Specialty Start Date End Date Rafael Patel MD [address] [facility] [address] [place] [address] PCP - General FAMILY PRACTICE 11/01/23
--- OUTSIDE RECORDS SUMMARY | 2024-08-11 09:43 | XMS_ITS | Clinical Summary ---
Author Organization [facility] Address [address] [place] [address] Phone Care Team Providers Care Simulation Tech Name Role Phone Lashell Ernst MD Primary Care Provider [phone] Social History Tobacco Use Types Packs/Day Years Used Date Smoking Tobacco: Never Assessed Comments Unknown Sex and Gender Information Value Date Recorded Sex Assigned at Not on file Legal Sex Female 10:17 PM CDT Gender Identity Not on file Sexual Orientation Not on file Plan of Treatment Not on file Care Teams Simulation Tech Relationship Specialty Start Date End Date Lashell Ernst MD [address] [place] [address] PCP - General Family Medicine 11/23/16
--- OUTSIDE RECORDS SUMMARY | 2024-08-11 09:43 | XMS_ITS | Data Portability ---
Author Organization 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 Patient will come back in a year unless there are new symptoms. [email or web address] Not available 12/29/2021 12:15:05 Plan of Treatment Reminders Order Date Submit Date Provider Last Modified By Organization Details Last Modified Time Details Appointments None recorded. Lab dhea-sulfat e, serum 2021 [facility] (Lab), [address] [place], [address], 19:12:40 hormone panel, serum or plasma 2021 022 [facility] (Lab), [address] [place], [address], 19:12:39 progesteron e, serum 2021 022 [facility] (Lab), [address] [place], [address], 19:12:38 prolactin, serum 2021 [facility] (Lab), [address] [place], [address], 19:12:38 shbg (sex hormone-bin ding globulin), serum 2021 [facility] (Lab), [address] [facility], [place], [address], 19:12:40 TSH, serum or plasma 2021 [facility] (Lab), [address] [facility], [place], [address], 19:12:39 testosteron e free/testos terone total, ratio, serum 2021 [facility] (Lab), [address] [facility], [place], [address], 19:12:41 Referral None recorded. Procedures None recorded. Surgeries None recorded. Imaging US, pelvis [address], [address], [place], [address], 19:02:08 US, transvagina l 2021 [address], [address], [place], [address], 19:02:08 US, transvagina l [address], [address], [place], [address], 19:39:36 Medication Orders 06/19 (21) 1 mg-20 mcg tablet 2021 [facility]/Pharmacy #[id number], [address] [place], [address], 16:25:19 06/19 (21) 1 mg-20 mcg tablet 2021 022 [facility]/Pharmacy #[id number], [address] [place], [address], 12:47:09 Patient TargetsNo targets recorded. Patient InstructionsNo instructions recorded. Reason for Referral None Reported. Results Created Date Observation Date Name Description Value Unit Range Abnormal Flag Note LastModifiedBy Organization Detail LastModifiedTime 12/30/19 22 12/29/2021 PROGE STERO NE progesterone <0.05 NG/mL This assay was perfo rmed using [employer] ratio n reage nts and test kits. Value s obtai aleja with other assay metho ds or kits canno t be used inter [facility] [facility] . Femal e Proge stero ne Range s: Folli cular phase 0.06- 0.89 ng/mL Ovula tion phase 0.12- 12.00 ng/mL Lutea l phase 1.83- 23.90 ng/mL Postm enopa usal< 0.05- 0.13 ng/mL Healt hy Pregn ant Women 1st Trime ster1 1.0-4 4.30 2nd Trime ster2 5.40- 83.30 3rd Trime ster5 8.70- 214.0 0 Not Available [facility] [address] [place] [address], [address], 01/02/2022 19:12:38 12/30/19 22 12/29/2021 PROLA CTIN prolactin, total 2.42 NG/mL 4.79-2 3.30 low This assay was perfo rmed using [employer] ratio n reage nts and test kits. Value s obtai aleja with other assay metho ds or kits canno t be used [facility] [place] [facility] . Not Available [facility] [address] [place], [address], 01/02/2022 19:12:38 12/30/19 22 12/29/2021 FSH, LH, ESTRA DIOL estradiol 49.8 pg/mL This assay was perfo rmed using [employer] n reage nts and test kits. Value s obtai aleja with other assay metho ds or kits canno t be used inter [facility] . Femal e Estra diol Range s: Folli cular phase 12.4- 233 pg/mL Ovula tion phase 41.0- 398 pg/mL Lutea l phase 22.3- 341 pg/mL Postm enopa usal< 5-138 pg/mL Healt hy Pregn ant Women 1st Trime ster1 54-32 43 pg/mL 2nd Trime ster1 561-2 1280 pg/mL 3rd Trime ster8 525-> 66925 pg/mL Not Available [facility] [address] [place] [address], [address], 01/02/2022 19:12:39 12/30/19 22 12/29/2021 FSH, LH, ESTRA DIOL FSH 8.7 mIU/m L This assay was perfo rmed using [employer] n reage nts and test kits. Value s obtai aleja with other assay metho ds or kits canno t be used inter [facility] . Femal es Folli cular : 3.5-1 2.5 mIU/m L Ovula tion: 4.7-2 1.5 mIU/m L Lutea l: 1.7-7 .7 mIU/m L Postm enopa use: 25.8- 134.8 mIU/m L Not Available [facility] [address] [place] [address], [address], 01/02/2022 19:12:39 12/30/19 22 12/29/2021 FSH, LH, ESTRA DIOL LH 5.6 mIU/m L This assay was perfo rmed using [employer] ratio n reage nts and test kits. Value s obtai aleja with other assay metho ds or kits canno t be used inter [facility] . Femal es Mid-F ollic ular: 2.4-1 2.6 mIU/m L Mid-C ycle: 14.0- 95.6 mIU/m L Mid-L uteal : 1.0-1 1.4 mIU/m L Postm enopa use: 7.7-5 8.5 mIU/m L Not Available [facility] [address] [place], [address], 01/02/2022 19:12:39 12/30/19 22 12/29/2021 TSH, REFLE X FREE T4 TSH 1.45 uIU/m L 0.30-5 .[address] [facility] [address] [place], [address], 01/02/2022 19:12:39 12/30/19 22 12/29/2021 HUMAN SEX HORMO NE SMITA NG GLOBU DELISA sex hormone binding globulin 36.3 nmole s/L 18.2-1 35.[address] [facility] [address] [place], [address], 01/02/2022 19:12:40 12/30/19 22 12/29/2021 DHEA SULFA TE DHEA-sulfate 237 ug/dL Femal e Range s Age(y ) Range (ug/d L) 10-15 34-28 0 15-20 65-36 8 20-25 148-4 07 25-35 99-34 0 35-45 61-33 7 45-55 35-25 6 55-65 19-20 5 65-75 9-246 > 75 12-15 [address] [facility] [address] [place], [address], 01/02/2022 19:12:40 12/30/19 22 12/29/2021 TESTO STERO NE, FREE( DIALY SIS) AND TOTAL (LC/M S/MS) testosterone , total 32 NG/dL 2-45 For addit ional infor citlali bates e refer to http: //edu catio n.que stdia gnost ics.c om/fa q/Tot alTes alkate Lily CMSMS (This link is being provi ded for infor matio nal/ educa marita l purpo ses only. ) This test was devel oped and its emeka tical perfo rmanc e harry cteri stics have been deter mined by [facility]. It has not been clear ed or appro eddie by the FDA. This assay has been valid ated pursu ant to the CLIA regul ation s and is used for clini maddie purpo ses. Not Available [facility] [address] [place], [address], 01/02/2022 19:12:41 12/30/19 22 12/29/2021 TESTO STERO NE, FREE( DIALY SIS) AND TOTAL (LC/M S/MS) testosterone , free 4.7 pg/mL 0.1-6. 4 This test was devel oped and its emeka tical perfo rmanc e harry cteri stics have been deter mined by [employer] [facility]. It has not been clear ed or appro eddie by the FDA. This assay has been valid ated pursu ant to the CLIA regul ation s and is used for clini maddie purpo ses. Perfo rming Organ izati on Infor matio n: Site ID: [id number] Name: [employer] [facility] Addre ss: [id number] [facility] [place] [address] Direc tor: Beena kaplan M.D. Not Available [facility] [address] [place], [address], 01/02/2022 19:12:41 11/25/19 22 11/24/2021 US, trans vagin al No observ ation record ed. [email or web address] [facility] [address], [place], [address], 11/24/2021 18:16:30 11/25/19 22 11/24/2021 US, trans vagin al No observ ation record ed. [email or web address] [address], [place], [address], 11/26/2021 07:00:04 11/25/19 22 11/24/2021 US, trans vagin al No observ ation record ed. [email or web address] [address], [place], [address], 11/26/2021 07:00:03 01/20/20 22 01/19/2022 US, pelvi s No observ ation record ed. [email or web address] [facility] [address], [place], [address], 01/19/2022 18:18:05 01/20/20 22 01/19/2022 US, trans vagin al No observ ation record ed. [email or web address] [facility] [address], [place], [address], 01/19/2022 18:18:14 01/20/20 22 01/19/2022 US, pelvi s No observ ation record ed. [email or web address] [address], [place], [address], 01/19/2022 19:08:25 Result Notes None recorded. Problems Name Problem SNOMED Code Status Onset Date Resolution Date Notes Provider Name and Address Organization Details Recorded Time Pregnanc y 47221524 Completed 202109/10/2021 Airam Motley ehl null, [facility] 2 23:08:45 Bipolar disorder 72458394 Completed Seroquel Airam Motley ehl null, [facility] 2 23:08:41 Postpart um depressi on 23657751 Completed Airam Motley ehl null, [facility] 2 23:08:41 Late entry into care 836670208 Completed Airam Rutledgeti ehl null, [facility] 2 23:08:41 Cervical incompet ence 11017819 Completed transabd ominal cerclage placed between 2nd and 3rd pregnanc y, MFM recommen ds repeat C-sectio n at 37 weeks - september 01 We plan to do it at 38 weeks. The patient is interest ed in 38 weeks and I agreed to that. Airam Motley ehl null, [facility] 2 23:08:41 Past pregnanc y history of prematur e delivery 145538156 Completed Airam Motley ehl null, [facility] 2 23:08:41 Anxiety 11792514 Completed Airam Motley ehl null, [facility] 2 23:08:41 delivery - delivere d 995017695 Completed to repeat due to a transabd ominal cerclage , permanen t Ariam Motley ehl null, [facility] 2 23:08:41 Marginal insertio n of umbilica l cord 80814523 Completed Airam Motley ehl null, [facility] 2 23:08:41 Placenta circumva llata 8055094 Completed 36 NST 2x/wk Airam Motley ehl null, [facility] 2 23:08:41 Female steriliz ation Completed Airam Motley ehl null, [facility] 2 23:08:41 Disorder of placenta 368479550 Completed bilobed or accessor y Airam Motley ehl null, [facility] 2 23:08:41 Group B Streptoc occus carrier [id number] 03 Com[facility]:08:[facility] Notes:Hx of Cervical insuffi ciency with abdominal cerclage in place Hx of bipolar disorder during Hx of borderline personality disorder Problem Notes None recorded. Procedures Surgical History Date Name Laterality Status Provider Name and Address Organization Details Recorded Time 08/30/19 22 SALPINGECTOMY (SURG) completed [facility] 09/01/2021 10:33:12 08/30/19 22 SECTION (SURG) completed [facility] 09/01/2021 10:33:06 05/31/19 21 Date of Last Pap Smear completed [facility] 06/19/2021 13:04:48 03/13/20 17 section completed [facility] 06/20/2021 10:43:58 05/31/19 17 Unlisted procedure breast completed [facility] 06/20/2021 10:43:33 05/31/19 17 biopsy of breast completed [facility] 06/20/2021 10:43:28 11/23/19 08 section completed [facility] 06/20/2021 10:43:41 LEEP completed [facility] 07/11/2021 12:37:54 Breast Surgery completed [facility] 07/11/2021 12:37:54 Breast Biopsy completed [facility] 07/11/2021 12:37:54 Imaging Results Imaging Date Name Status LastModified by Organization Details LastModified Time 11/24/2021 US, transvaginal completed [email or web address] [place], [address], 11/24/2021 18:16:30 11/24/2021 US, transvaginal completed [email or web address] [address], [place], [address], 11/26/2021 07:00:04 11/24/2021 US, transvaginal completed [email or web address] [address], [place], [address], 11/26/2021 07:00:03 01/19/2022 US, pelvis completed [email or web address] [facility] [address], [place], [address], 01/19/2022 18:18:05 01/19/2022 US, transvaginal completed [email or web address] Mikey youngblood [address], [place], [address], 01/19/2022 18:18:14 01/19/2022 US, pelvis completed [email or web address] [address], [place], [address], 01/19/2022 19:08:25 Procedure Notes None recorded. Medical Equipment None Reported. Allergies Allergen ID Allergen Name Allergen Category Reaction Reaction Severity Criticality Documentation Date Start Date Code Code System Note Provider Name and Address Organization Details Recorded Time 54563 Effexor medicatio n hives Not available Not available 06/20/2021 90111 2 RxNorm Camilla cohen [facility] 2 10:38:57 72112 Fredy medicatio n Not available Not available Not available 06/20/2021 01987 65 RxNorm Camilla cohen [facility] 2 10:40:20 Medications Name Sig Start Date Stop Date Status Note LastModified by Organization Details LastModified Time care box carebox kit 06/20 completed Not Available Not Available Not Available doxycycline hyclate 100 mg capsule active Not Available Not Available N ot Available quetiapine 300 mg tablet TAKE 1 TABLET BY MOUTH AT BEDTIME *MAKE APPT* active Not Available Not Available No t Available Prenatabs Rx 29 mg iron-1 mg tablet 06/20 completed Not Available Not Available Not Available hydrocodone 5 mg-acetamin ophen 325 mg tablet TAKE 1 TABLET BY MOUTH EVERY 4 HOURS NEEDED FOR PAIN active Not Available Not Available No t Available phenazopyri dine 200 mg tablet 06/20 completed Not Available Not Available Not Available spironolact one 100 mg tablet active Not Available Not Available Not Available benzoyl peroxide 5 % topical gel APPLY TO THE AFFECTED AREA(S) BY TOPICAL ROUTE ONCE DAILY active Not Available Not Available No t Available lithium carbonate ER 300 mg tablet,exte nded release 06/20 completed Not Available Not Available Not Available lamotrigine 25 mg tablet TAKE 1 TABLET BY MOUTH AT BEDTIME FOR 2 WEEKS, THEN INCREASE TO 2 TABLETS AT BEDTIME FOR 2 WEEKS active Not Available Not Available No t Available meclizine 25 mg tablet 06/20 completed Not Available Not Available Not Available lithium carbonate 300 mg capsule TAKE 3 CAPSULES BY MOUTH AT BEDTIME active Not Available Not Available No t Available benzonatate 100 mg capsule active Not Available Not Available Not Available zaleplon 5 mg capsule TAKE 1 CAPSULE BY MOUTH AT BEDTIME active Not Available Not Available No t Available metformin ER 500 mg tablet,exte nded release 24 hr 06/20 completed Not Available Not Available Not Available lamotrigine 100 mg tablet TAKE 1&1/2 BY MOUTH AT BEDTIME active Not Available Not Available No t Available adapalene 0.1 % topical gel APPLY A THIN LAYER TO THE AFFECTED AREA(S) BY TOPICAL ROUTE ONCE DAILY BEFORE BEDTIME 06/20 completed Not Available Not Available Not Available 06/19 (21) 1 mg-20 mcg tablet Take 1 tablet every day by oral route. active Not Available Not Available No t Available 06/19 (28) 1 mg-20 mcg (21)/75 mg (7) tablet 06/20 completed Not Available Not Available Not Available nitrofurant oin monohydrate /macrocryst als 100 mg capsule active Not Available Not Available Not Available chlorhexidi ne gluconate 0.12 % mouthwash RINSE WITH 1/2 OUNCE (15 ML) 2 TIMES PER DAY. DO NOT SWALLOW active Not Available Not Available No t Available active Not Available Not Avai lable Not Available Asprin Ec Low Dose active Not Available Not Available Not Available quetiapine 400 mg tablet 06/20 completed Not Available Not Available Not Available clindamycin 1.2 % (1 % base)-benzo yl peroxide 5 % topical gel 06/20 completed Not Available Not Available Not Available Vitals Date Recorded Body height Body mass index (BMI) Body weight Systolic blood pressure Diastolic blood pressure Provider Name and Address Organization Details Last Updated DateTime 11/24/2021 160.02 cm 37 kg/m2 98452.81 g 129 mm[Hg] 82 mm[Hg] [facility] 2 14:24:34 Date Recorded Body height Body mass index (BMI) Body weight Systolic blood pressure Diastolic blood pressure Provider Name and Address Organization Details Last Updated DateTime 12/29/2021 160.02 cm 36.3 kg/m2 21640.44 g 123 mm[Hg] 84 mm[Hg] [facility] 2 12:22:03 Date Recorded Body height Body mass index (BMI) Body weight Systolic blood pressure Diastolic blood pressure Provider Name and Address Organization Details Last Updated DateTime 02/09/2022 160.02 cm 36.8 kg/m2 45395.21 g 142 mm[Hg] 88 mm[Hg] [facility] 2 16:13:11 Social History Question Answer Notes LastModified by Organizat ion Details LastModified Time Tobacco Smoking Status Former Smoker Rosa Aguilar [facility] 02/09/2022 16:09:36 Do You Have An Advance Directive? No [email or web address] Information not available 06/20/2021 What Is Your Level Of Alcohol Consumption? None [email or web address] Information not available 06/20/2021 Are You Blind Or Do You Have Difficulty Seeing? No Information not available 06/20/2021 What Is Your Level Of Caffeine Consumption? Moderate [email or web address] Information not available 06/20/2021 How Much Tobacco Do You Chew? None [email or web address] Information not available 06/20/2021 In The 14 Days Before Symptom Onset, Have You Had Close Contact With A Laboratory-confir med COVID-19 While That Case Was Ill? No [email or web address] Information not available 06/20/2021 In The 14 Days Before Symptom Onset, Have You Had Close Contact With A Person Who Is Under Investigation For COVID-19 While That Person Was Ill? No [email or web address] Information not available 06/20/2021 Have You Been To An Area Known To Be High Risk For COVID-19? Yes [email or web address] Information not available 06/20/2021 Are You Deaf Or Do You Have Serious Difficulty Hearing? No [email or web address] Information not available 06/20/2021 What Type Of Diet Are You Following? REGULAR [email or web address] Information not available 06/20/2021 What Is The Highest Grade Or Level Of School You Have Completed Or The Highest Degree You Have Received? 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 Yes [email or web address] Information not available 06/20/2021 Do You Use Protection During Sex? No [email or web address] Information not available 06/20/2021 Do You Use Your Seat Belt Or Car Seat Routinely? Yes Information not available 06/20/2021 Do You Have Smoke And Carbon Monoxide Detectors In Your Home? Yes [email or web address] Information not available 06/20/2021 How Much Tobacco Do You Smoke? No [email or web address] Information not available 06/20/2021 Do You Feel Stressed (tense, Restless, Nervous, Or Anxious, Or Unable To Sleep At Night)? [id number] Information not available 06/20/2021 Do You Use Any Illicit Or Recreational Drugs? No Information not available 06/20/2021 Do You Use Sunscreen Routinely? Yes [email or web address] Information not available 06/20/2021 Have You Used IV Drugs? No [email or web address] Information not available 06/20/2021 Sex: Unknown Functional Status Question Answer Note LastModified by Organizat ion Details LastModified Time Are you able to walk? YESWOREST [email or web address] Information not available 06/20/2021 What is your exercise level? Occasional [email or web address] Information not available 06/20/2021 Mental Status None recorded. Family History Relationship Description Onset Age of this Age Resolved Age Notes LastModified by Organization Details LastModified Time Father Malignant melanoma [email or web address] Not available 2021 13:57:14 Medical History Condition Response Anxiety Disorder Y Other Y Depression/ depression Y Headaches Y Psychiatric Illness Y Gynecological History Statement/Question Response Abnormal Pap Yes Flow Moderate Date of LMP 12/09/2020 On BCP's at Conception? N N Was last menstrual period normal Y STIs/STDs N HPV Vaccine N Duration of Flow (days) 4 Current Control Method Sterilizati on Age at First Child 22 Are cycles usually normal Y Frequency of Cycle (Q days) 27 Sexually Active? Y Menses Monthly Y Age of first menstrual cycle 12 Date of Last Pap Smear 05/31/2020 Sexual Problems? N Desired Control Method Sterilizati on LMP Approximate N Obstetrics History GPAL:G 4 P 2 2 0 3 Type Value Full Term 2 Premature 2 Living 3 Total 4 Immunizations Vaccine Type Date Status Note Provider Nam e and Address Organization Details Recorded Time Influenza, split virus, quadrivalent, preservative [facility]2021 13:54:54 Past Encounters Encounter ID Performer Location Encounter Start Date Encounter Closed Date Diagnosis/Indication Diagnosis SNOMED-CT Code Diagnosis ICD10 Code Diagnosis Note [id number] Phoenix Bryan MD [facility] [address] [address] 06/20/2021 10:27:53 06/20/2021 11:28:10 Routine care 055849880 Z34.82 [id number] Barbie Bernabe [facility] [address] [place] [address] 07/10/2021 13:54:13 07/10/2021 14:55:48 Placenta circumvallata 9973324 O43.119 Z3A.30 [id number] Phoenix Bryan MD [facility] [address],[place] [address] 07/11/2021 12:26:55 07/11/2021 13:06:10 Routine care 312963542 Z34.82 HIV screening 487496346 Z11.4 screening 2437 26643 Z36.89 [id number] [facility] [address],[place] [address] 07/25/2021 09:49:46 07/25/2021 10:51:45 Deliveries by [id number] O82 [id number] [facility] [address],[place] [address] 08/07/2021 09:29:30 08/07/2021 10:26:19 Placenta circumvallata 4248706 O43.113 O43.103 Z3A.34 [id number] Phoenix Bryan MD [facility] [address],[place] [address] 08/07/2021 09:29:52 08/07/2021 11:45:24 Placental condition affecting management of mother 693472533 O43.123 multiple placental abnormalit ies including marginal cord insertion, showing about placenta, bilobed placenta. We spent 25 minutes face-to-fa ce discussing management of her multiple concerns, cerclage and delivery timing, placental abnormalit ies, multiple placental abnormalit ies, her mood disorders. Her sterilizat ion procedure. Cervical incompetence 17 149246 N88.3 [id number] Camilla Lara [facility] [address],[place] [address] 08/19/2021 08:59:54 08/19/2021 09:52:19 High risk due to history of labor 033019179 O09.219 [id number] Constance Barker MD [facility] [address],[place] [address] 08/19/2021 08:59:54 08/19/2021 09:52:19 Routine care 530934593 Z34.83 [id number] [facility] [address],[place] [address] 08/26/2021 10:26:25 08/26/2021 12:30:47 AND/OR placental disorder affecting management of mother 88521756 O43.103 O09.293 Z3A.37 [id number] Camilla Lara [facility] [address],[place] [address] 08/26/2021 10:27:04 08/26/2021 12:31:28 Past history of premature delivery 449182042 Z87.51 [id number] Phoenix Bryan MD [facility] [address],[place] [address] 08/26/2021 10:27:33 08/26/2021 12:29:19 Female sterilization 15424480 Z30.2 [id number] Phoenix Bryan MD [facility] [address],[place] [address] 09/05/2021 12:46:58 09/05/2021 13:43:29 Postoperative care 572238465 Z48.89 This patient is a 36-year-ol d multip who is postop 1 week from delivery and salpingect brittney. She has no complaints . Her incisions clean dry and intact. Her mood is good, her baby is good, her bleeding is slowing down. She return in 3 weeks for care. [id number] Phoenix Bryan MD [facility] [address],[place] [address] 09/26/2021 10:56:26 09/26/2021 11:56:01 care 979245016 Z39.2 this patient is a 36-year-ol d female who presents for follow-up. She is breastfeed ing. She has not had sex. Her bleeding is resolving. She had a tubal ligation. She is doing well on her baby is doing well. She does have a mood issue. She is seen by Psychiatry and also she has a counselor. She will follow-up in the next couple of months for well-woman Visit. [id number] Suzanne Pineda Mora [address],[place] [address] 11/24/2021 13:28:35 11/24/2021 14:45:28 Abnormal uterine bleeding [id number] 9100 N93.9 [id number] Phoenix Bryan MD Mora [address],[place] [address] 11/24/2021 14:18:15 11/25/2021 14:26:32 Abnormal uterine bleeding [id number] 9100 N93.9 this patient is a 36-year-ol d female with irregular bleeding. She has had some very heavy bleeding recently. She is about 12 weeks from of a delivery. She has a permanent cerclage that was placed abdominall y. We reviewed the ultrasound together. The ultrasound is essentiall y normal. There is some endometria l thickening but it is within the normal range. There is not appear to be retained products conception or placenta. Patient has had a regular menses, at least 1, since her child was born. Talked about short-term treatment options. We agreed to get her bleeding under control with combined hormonal contracept ion. She is start of taking the pill immediatel y. She was given detailed instructio ns and precaution s. We spent over 20 minutes face-to-fa ce and more than 50% was counseling . [id number] Phoenix Bryan MD Mora [address],[place] [address] 12/29/2021 11:44:02 12/29/2021 13:09:25 Abnormal uterine bleeding [id number] 9100 N93.9 this patient is a 36-year-ol d female with abnormal uterine bleeding. She had her baby about 4 months ago. She has not returned to having regular periods. She did have a net weight gain of 35 lb from before and after the . She has been on control pills extensivel y in the past. With a she had abnormal bleeding at that time is unknown. She does have some acne breakouts from time to time. She does not report any male pattern hair growth. Talked about polycystic ovarian syndrome and anovulatio n. We talked about etiology evaluation of abnormal uterine bleeding. We spent over 30 minutes face-to-fa ce. More than 50% was counseling . We reviewed ultrasound results and shared images. About possible methods of controllin g bleeding. We agreed to a low-dose norethindr one containing combined pill. the new estrogen made her very nauseated. We will follow-up on ovarian cyst on ultrasound also re-evaluat e the endometria l cavity for possible bleeding sources. She will get laboratory evaluation today for abnormal uterine bleeding. Will come together in 2 weeks. [id number] Suzanne Pineda Mora [address],[place] [address] 01/19/2022 15:56:53 01/19/2022 16:55:35 Abnormal uterine bleeding [id number] 9100 N93.9 this patient is a 36-year-ol d female with abnormal uterine bleeding. She had her baby about 4 months ago. She has not returned to having regular periods. She did have a net weight gain of 35 lb from before and after the . She has been on control pills extensivel y in the past. With a she had abnormal bleeding at that time is unknown. She does have some acne breakouts from time to time. She does not report any male pattern hair growth. Talked about polycystic ovarian syndrome and anovulatio n. We talked about etiology evaluation of abnormal uterine bleeding. We spent over 30 minutes face-to-fa ce. More than 50% was counseling . We reviewed ultrasound results and shared images. About possible methods of controllin g bleeding. We agreed to a low-dose norethindr one containing combined pill. the new estrogen made her very nauseated. We will follow-up on ovarian cyst on ultrasound also re-evaluat e the endometria l cavity for possible bleeding sources. She will get laboratory evaluation today for abnormal uterine bleeding. Will come together in 2 weeks. [id number] Phoenix Bryan MD Mora [address],[place] [address] 02/09/2022 16:09:07 02/09/2022 16:44:59 Menorrhagia [id number] N92.0 patient presents for follow-up on irregular bleeding and menorrhagi a. Patient has got her bleeding under control with low-dose combined contracept jerica pill. However her menses were very heavy and painful. She just had 1 but we talked about continuous therapy. Talked about taking the control pills continuous ly. We prescribed a 20 mcg 21 pill pack. She will try that for 3 months. She was given some precaution s on that and the possibilit y of breakthrou gh bleeding with to do in that event. We spent over 20 minutes face-to-fa ce discussing abnormal uterine bleeding, menorrhagi a, treatment of. More than 50% was counseling . Health Concerns Section Related Observation LastModified by Organization Detai ls LastModified Time None Recorded Concern Status LastModified by Organization Details LastModified Time None Recorded Advance Directives Directive N: Payers Encounter Date Sequence Insurance Name Policy Number Policy Bloom Covered Member ID Bloom Member ID Guarantor Name 11/24/2021 1 [place] 105 Lorena Mimi Magdalena [id number] Lorena Magdalena 11/24/2021 1 [place] 105 Lorena M Magdalena [id number] Lorena Magdalena 12/29/2021 1 [place] 105 Lorena M Magdalena [id number] Lorena Magdalena 01/19/2022 1 [place] 105 Lorena M Magdalena [id number] Lorena Magdalena 02/09/2022 1 [place] 105 Olrena M Magdalena [id number] Lorena Magdalena Notes Date Note Type Note Provider Name and Address Organization Details Recorded Time 11/24/2021 text/html this patient is a 36-year-old female with irregular bleeding. She has had some very heavy bleeding recently. She is about 12 weeks from of a delivery. She has a permanent cerclage that was placed abdominally. We reviewed the ultrasound together. The ultrasound is essentially normal. There is some endometrial thickening but it is within the normal range. There is not appear to be retained products conception or placenta. Patient has had a regular menses, at least 1, since her child was born. Talked about short-term treatment options. We agreed to get her bleeding under control with combined hormonal contraception. She is start of taking the pill immediately. She was given detailed instructions and precautions. We spent over 20 minutes [id number] and more than 50% was counseling. Phoenix Bryan MD [address], [place], [address], [facility] 11/25/2021 12:15:38 12/29/2021 text/html this patient is a 36-year-old female with abnormal uterine bleeding. She had her baby about 4 months ago. She has not returned to having regular periods. She did have a net weight gain of 35 lb from before and after the . She has been on control pills extensively in the past. With a she had abnormal bleeding at that time is unknown. She does have some acne breakouts from time to time. She does not report any male pattern hair growth. Talked about polycystic ovarian syndrome and anovulation. We talked about etiology evaluation of abnormal uterine bleeding. We spent over 30 minutes [id number]. More than 50% was counseling. We reviewed ultrasound results and shared images. About possible methods of controlling bleeding. We agreed to a low-dose norethindrone containing combined pill. the new estrogen made her very nauseated. We will follow-up on ovarian cyst on ultrasound also re-evaluate the endometrial cavity for possible bleeding sources. She will get laboratory evaluation today for abnormal uterine bleeding. Will come together in 2 weeks. Phoenix Bryan MD [address], [place], [address], [facility] 12/29/2021 12:56:01 02/09/2022 text/html 36-year-old margarito chan patient presents for follow-up on irregular bleeding and menorrhagia. Patient has got her bleeding under control with low-dose combined contraceptive pill. However her menses were very heavy and painful. She just had 1 but we talked about continuous therapy. Talked about taking the control pills continuously. We prescribed a 20 mcg 21 pill pack. She will try that for 3 months. She was given some precautions on that and the possibility of breakthrough bleeding with to do in that event. We spent over 20 minutes [id number] discussing abnormal uterine bleeding, menorrhagia, treatment of. More than 50% was counseling. Phoenix Bryan MD [address], [place], [address], [facility] 02/09/2022 16:35:07 OBGyn Episode Ob Episode Information Episode Created Date Number of Fetuses Patient Bloodtype Patient rh Status Prepregnancy Weight lbs Domestic Partner Domestic Partner Phone Father Name Dope Edger Status 06/20/19 22 1 CLOSED Fetus Data First Name Last Name Admitted to NICU Weight (g) Sex Living Outcome Pediatric Complications Fetus ID Race Codes Race Delivery Type 396.893 Prematur e 62279 Vaginal Delivery Leon Calculation Initial Leon Date Initial Exam Date Initial Exam Provider Initial Ultrasound Date Last Menstrual Period Date Ultra Sound Weeks Gestation 0 Eighteen To Twenty Week Leon Update Ultra Sound Date Fundal Height At Umbil Quickening Date Ultra Sound Latest Weeks Gestation Final Leon Confirmed By Final Leon Confirmed Date Final Leon Date Ultra Sound Latest Days Gestation 0 0 Menstrual History Last Menstrual Date Menses Monthly On Bcp Conception Prior Menses Frequency Hcg Plus Date Menarche Onset Age Delivery Information Delivery Date Delivery Type Labor Anesthesia Weeks Gestation Incision Type Labor Labor Length Hrs Delivered By Post Complications Tubal Sterilization Discharge Date Comments 12 19 Discharge Information Feeding Method Contraceptive Method Maternal HG B and HCT Levels Ob Episode Information Episode Created Date Number of Fetuses Patient Bloodtype Patient rh Status Prepregnancy Weight lbs Domestic Partner Domestic Partner Phone Father Name Dope Edger Status 06/20/19 22 1 O Positive 170 CLOSED Fetus Data First Name Last Name Admitted to NICU Weight (g) Sex Living Outcome Pediatric Complications Fetus ID Race Codes Race Delivery Type 3033.39 65 M true Full Term 44845 Repeat Problems Problem Notes Previable delivery in G1 s/o painless cervical dilation, ruptured at home and was told it was urine then admitted from her next OB visit for ROM and delivered at 18 wks. Espinoza cerclage at 14w and bedrest starting at 18w in G2, delivered at 28wks in setting of failure of fredy x1 but had reaction so stopped the medication. In G3, she had an abd cerclage placed in [place] and has had normal until 37 wks, at which time she has decreased Fm and underwent LTCS. Abd cerclage remains in place, for RCSREQUESTS 04/29/2022 U[address] [facility]. 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 The patient is interested in 38 weeks and I agreed to that. Past history of premature delivery 058562524 Anxiety 17800082 delivery - delivered [id number] to repeat due t o a transabdominal cerclage, permanent Group B Streptococcus carrier [id number] Leon Calculation Initial Leon Date Initial Exam Date Initial Exam Provider Initial Ultrasound Date Last Menstrual Period Date Ultra Sound Weeks Gestation 09/15/2021 06/20/2021 01/28/2021 12/09/2020 7 Eighteen To Twenty Week Leon Update Ultra Sound Date Fundal Height At Umbil Quickening Date Ultra Sound Latest Weeks Gestation Final Leon Confirmed By Final Leon Confirmed Date Final Leon Date Ultra Sound Latest Days Gestation 0 [email or web address] 06/20/2021 09/16/19 22 0 Pre- Flowsheet Flowsheet Date 06/20/2021 Rodriguez Score Blood Edema Fundus Height Fundus Units Glucose Ketones Leukocytes Nitrite Labor Signs Protein Cervic Dilation Cervic Effacement Cervic Station 27 none trace Type Weight in lbs Pre/Post Dialysis Refused Weight 195.652858981348 BP Diastolic BP Location Tested BP Systolic BP Type 80 118 Fetus Heart Rate Present A 145 Fetus Movement A Yes Comments this patient is a 36-year-ol d 4 para 1 2 0 2 with history of a 22 week loss due to P prom or cervical complements, history of a cervical cerclage that failed and a placement of a abdominal cerclage that helped deliver a 37 week gestation. She has history of anxiety, bipolar disorder, depression. She transfer care from [place]. She is to have gestational diabetes testing, all labs are up to date. Begin routine care and to deliver at 38 weeks. VS . Flowsheet Date 07/10/2021 Rodriguez Score Blood Edema Fundus Height Fundus Units Glucose Ketones Leukocytes Nitrite Labor Signs Protein Cervic Dilation Cervic Effacement Cervic Station Type Weight in lbs Pre/Post Dialysis Refused BP Diastolic BP Location Tested BP Systolic BP Type Fetus Heart Rate Present Fetus Movement Comments Flowsheet Date 07/11/2021 Rodriguez Score Blood Edema Fundus Height Fundus Units Glucose Ketones Leukocytes Nitrite Labor Signs Protein Cervic Dilation Cervic Effacement Cervic Station 34 Type Weight in lbs Pre/Post Dialysis Refused Weight 204.999418209524 BP Diastolic BP Location Tested BP Systolic BP Type 83 R arm 132 sitting Fetus Heart Rate Present A 145 Fetus Movement A Yes Comments to get HIV and syphilis draw n today. growth yesterday was normal, no complaints Flowsheet Date 07/25/2021 Rodriguez Score Blood Edema Fundus Height Fundus Units Glucose Ketones Leukocytes Nitrite Labor Signs Protein Cervic Dilation Cervic Effacement Cervic Station 37 Type Weight in lbs Pre/Post Dialysis Refused Weight 208.378904690451 BP Diastolic BP Location Tested BP Systolic BP Type 79 R arm 112 sitting Fetus Heart Rate Present A 130 Fetus Movement A Yes Comments discussed delivery, MFM recommends 37 weeks, discussed growth ultrasounds and placental issues, she has no complaints. Flowsheet Date 08/07/2021 Rodriguez Score Blood Edema Fundus Height Fundus Units Glucose Ketones Leukocytes Nitrite Labor Signs Protein Cervic Dilation Cervic Effacement Cervic Station Type Weight in lbs Pre/Post Dialysis Refused BP Diastolic BP Location Tested BP Systolic BP Type Fetus Heart Rate Present Fetus Movement Comments Flowsheet Date 08/07/2021 Rodriguez Score Blood Edema Fundus Height Fundus Units Glucose Ketones Leukocytes Nitrite Labor Signs Protein Cervic Dilation Cervic Effacement Cervic Station Type Weight in lbs Pre/Post Dialysis Refused Weight 215.940442462709 BP Diastolic BP Location Tested BP Systolic BP Type 81 R arm 136 sitting Fetus Heart Rate Present Fetus Movement A Yes Comments Discussed ultrasound finding s of the placenta, came together and a plan to start NSTs at 36 weeks due to all the placental concerns. We agreed to deliver at 38 weeks. A previous MFM recommended 38 weeks. Her current MFM recommends 37. The patient would like 38 weeks. II believe we are good to do that. We need to repeat a growth ultrasound at 37 weeks also. Want sterilization at does not have Medicaid. Flowsheet Date 08/19/2021 Rodriguez Score Blood Edema Fundus Height Fundus Units Glucose Ketones Leukocytes Nitrite Labor Signs Protein Cervic Dilation Cervic Effacement Cervic Station Type Weight in lbs Pre/Post Dialysis Refused BP Diastolic BP Location Tested BP Systolic BP Type Fetus Heart Rate Present Fetus Movement Comments Flowsheet Date 08/19/2021 Rodriguez Score Blood Edema Fundus Height Fundus Units Glucose Ketones Leukocytes Nitrite Labor Signs Protein Cervic Dilation Cervic Effacement Cervic Station neg trace none trace Type Weight in lbs Pre/Post Dialysis Refused Weight 221.220511038996 BP Diastolic BP Location Tested BP Systolic BP Type 81 124 Fetus Heart Rate Present A 140 Fetus Movement A Yes Comments Doing well. Great FM. NST re active. GBS done and discussed. R CS in 2 weeks. Flowsheet Date 08/26/2021 Rodriguez Score Blood Edema Fundus Height Fundus Units Glucose Ketones Leukocytes Nitrite Labor Signs Protein Cervic Dilation Cervic Effacement Cervic Station Type Weight in lbs Pre/Post Dialysis Refused BP Diastolic BP Location Tested BP Systolic BP Type Fetus Heart Rate Present Fetus Movement Comments Flowsheet Date 08/26/2021 Rodriguez Score Blood Edema Fundus Height Fundus Units Glucose Ketones Leukocytes Nitrite Labor Signs Protein Cervic Dilation Cervic Effacement Cervic Station Type Weight in lbs Pre/Post Dialysis Refused BP Diastolic BP Location Tested BP Systolic BP Type Fetus Heart Rate Present Fetus Movement Comments Flowsheet Date 08/26/2021 Rodriguez Score Blood Edema Fundus Height Fundus Units Glucose Ketones Leukocytes Nitrite Labor Signs Protein Cervic Dilation Cervic Effacement Cervic Station Type Weight in lbs Pre/Post Dialysis Refused Weight 220.184619330857 BP Diastolic BP Location Tested BP Systolic BP Type 86 L arm 128 sitting Fetus Heart Rate Present Fetus Movement Comments Reactive NST, normal BPP Flowsheet Date 08/29/2021 Rodriguez Score Blood Edema Fundus Height Fundus Units Glucose Ketones Leukocytes Nitrite Labor Signs Protein Cervic Dilation Cervic Effacement Cervic Station Type Weight in lbs Pre/Post Dialysis Refused BP Diastolic BP Location Tested BP Systolic BP Type Fetus Heart Rate Present Fetus Movement Comments Flowsheet Date 09/05/2021 Rodriguez Score Blood Edema Fundus Height Fundus Units Glucose Ketones Leukocytes Nitrite Labor Signs Protein Cervic Dilation Cervic Effacement Cervic Station Type Weight in lbs Pre/Post Dialysis Refused Weight 211.906337311286 BP Diastolic BP Location Tested BP Systolic BP Type 88 R arm 139 sitting 86 L arm 131 sitting Fetus Heart Rate Present Fetus Movement Comments Menstrual History Last Menstrual Date Menses Monthly On Bcp Conception Prior Menses Frequency Hcg Plus Date Menarche Onset Age 0712/09/2020 Genetic Screening And Infection History Question Response Note Mental Retardation/Autism false Patient's Age Will Be 35 Years Or Older At Estim ated Date of Delivery false Thalassemia (Turkish, Kyrgyz, Mediterranean, Or Background): MCV < 80 false Neural Tube Defect (Meningomyelocele, Spina Bifi da, Or Anencephaly) false Congenital Heart Defect false Down Syndrome false Сергей-Sachs (eg, Anabaptism, Cajun, Persian-Media) f alse Ministerio Disease false Sickle Cell Disease Or Trait () false Hemophilia Or Other Blood Disorders false Muscular Dystrophy false Cystic Fibrosis false Chencho's Chorea false Intellectual Disability/Autism false If Yes, Was Person Tested For Fragile X? false Other Inherited Genetic Or Chromosomal Disorder false Maternal Metabolic Disorder (eg, Type 1 Diabetes , PKU) false Patient Or Baby's Father Had A Child With Defects Not Listed Above false Recurrent Loss, Or A Stillbirth false Medications (including Suppl ements, Vitamins, Herbs, OTC Drugs), Illicit/Recreational Drugs, Alcohol false If Yes, Agent(s) And Strength/Dosage false Any Other Genetic History false Live With Someone With TB Or Exposed To TB false Patient Or Partner Has History Of Genital Herpes false Rash Or Viral Illness Since Last Menstrual Perio d false History Of STD, Gonorrhea, Chlamydia, HPV, Syphi lis false Other Infection History false History of HIV false History of Hepatitis false Prior GBS-infected child false Hemoglobinopathy Or Carrier false Other Structural Defect false Recent Travel History Outside of Country false Delivery Information Delivery Date Delivery Type Labor Anesthesia Weeks Gestation Incision Type Labor Labor Length Hrs Delivered By Post Complications Tubal Sterilization Discharge Date Comments 2 None Regional-Sp inal 37.4 Low Transvers e false Phoenix Bryan MD true abdominal cerclage, rpt c/s x2, gbs+ & AMA Discharge Information Feeding Method Contraceptive Method Maternal HG B and HCT Levels Ob Episode Information Episode Created Date Number of Fetuses Patient Bloodtype Patient rh Status Prepregnancy Weight lbs Domestic Partner Domestic Partner Phone Father Name Dope Edger Status 06/20/19 22 1 CLOSED Fetus Data First Name Last Name Admitted to NICU Weight (g) Sex Living Outcome Pediatric Complications Fetus ID Race Codes Race Delivery Type 1190.67 9 Prematur e [id number] Primary Leon Calculation Initial Leon Date Initial Exam Date Initial Exam Provider Initial Ultrasound Date Last Menstrual Period Date Ultra Sound Weeks Gestation 0 Eighteen To Twenty Week Leon Update Ultra Sound Date Fundal Height At Umbil Quickening Date Ultra Sound Latest Weeks Gestation Final Leon Confirmed By Final Leon Confirmed Date Final Leon Date Ultra Sound Latest Days Gestation 0 0 Menstrual History Last Menstrual Date Menses Monthly On Bcp Conception Prior Menses Frequency Hcg Plus Date Menarche Onset Age Delivery Information Delivery Date Delivery Type Labor Anesthesia Weeks Gestation Incision Type Labor Labor Length Hrs Delivered By Post Complications Tubal Sterilization Discharge Date Comments 8 28 Discharge Information Feeding Method Contraceptive Method Maternal HG B and HCT Levels Ob Episode Information Episode Created Date Number of Fetuses Patient Bloodtype Patient rh Status Prepregnancy Weight lbs Domestic Partner Domestic Partner Phone Father Name Dope Edger Status 06/20/19 22 1 CLOSED Fetus Data First Name Last Name Admitted to NICU Weight (g) Sex Living Outcome Pediatric Complications Fetus ID Race Codes Race Delivery Type 2721.55 2 Full Term 06131 Repeat Leon Calculation Initial Leon Date Initial Exam Date Initial Exam Provider Initial Ultrasound Date Last Menstrual Period Date Ultra Sound Weeks Gestation 0 Eighteen To Twenty Week Leon Update Ultra Sound Date Fundal Height At Umbil Quickening Date Ultra Sound Latest Weeks Gestation Final Leon Confirmed By Final Leon Confirmed Date Final Leon Date Ultra Sound Latest Days Gestation 0 0 Menstrual History Last Menstrual Date Menses Monthly On Bcp Conception Prior Menses Frequency Hcg Plus Date Menarche Onset Age Delivery Information Delivery Date Delivery Type Labor Anesthesia Weeks Gestation Incision Type Labor Labor Length Hrs Delivered By Post Complications Tubal Sterilization Discharge Date Comments 7 37 Discharge Information Feeding Method Contraceptive Method Maternal HG B and HCT Levels
--- OUTSIDE RECORDS SUMMARY | 2024-08-11 09:44 | XMS_ITS | Encounter Summary ---
Author Organization [facility] Address [facility] [place] [address] Care Team Providers Care Analytical Data Miner Name Role Phone Rafael Arellano MD Primary Care Provider [phone] Zachariah Olivera DO Primary Care Provider + Rafael Arellano MD Primary Care Provider [phone] Encounter Details Date Type Department Care Team (Late st Contact Info) Description 12/24/2022 MyChart Message Enc [facility] Family Medicine - [place] [address] [facility], [address] [place] [address] Myc[facility]cipient[facility], [facility] Provider controlled substance agreement Social History Tobacco Use Types Packs/Day Years Used Date Smoking Tobacco: Former Cigarettes 1 13 0 12/12/2001 - 12/12/2014 Smokeless Tobacco: Never Alcohol Use Standard Drinks/Week Comments Yes 0 (1 standard drink = 0.6 oz pur e alcohol) occasionally PHQ-2 Answer Date Recorded Patient Health Questionnaire-2 Score 6 09/29/2022 Comments Unknown Sex and Gender Information Value Date Recorded Sex Assigned at Female 06/15/2024 7:38 AM OPEN HEARTH DOOR LINER Legal Sex Female 6:32 PM CDT Gender Identity Female 08/05/2022 3:35 PM OPEN HEARTH DOOR LINER Sexual Orientation Straight 08/05/2022 3: 35 PM OPEN HEARTH DOOR LINER documented as of this encounter Plan of Treatment Upcoming Encounters Date Type Department Care Team (Late st Contact Info) Description 09/20/2024 7:30 AM CDT Appointment [facility] Ultrasound [address] [place] [address] Puma Pierre, [employer] [address] [place] [address] 11/14/2024 9:00 AM CDT Office Visit [facility] Multispecialty Care - [facility] [address] [facility], [address] [place] [address] Rafael Arellano MD [address] [facility] [address] [place] [address] Kash Marcus MD [address] [place] [address] documented as of this encounter Visit Diagnoses Not on filedocumented in this encounter Additional Health Concerns Infection Onset Date Last Indicated Resolved Time COVID-19 Rule Out 02/21/2024 02/21/2024 02/21/2024 12:37 PM CDT Assessment Noted Time PHQ-9 Depression Total Score: 22 023 10:43 AM CDT documented as of this encounter Care Teams Analytical Data Miner Relationship Specialty Start Date End Date Rafael Arellano MD [address] [facility] [address] [place] [address] PCP - General FAMILY PRACTICE 05/02/18 06/30/23 Zachariah Olivera DO [address] [place] [address] PCP - General FAMILY PRACTICE 07/01/23 10/31/23 Rafael Arellano MD [address] [facility] [address] [place] [address] PCP - General FAMILY PRACTICE 11/01/23 documented as of this encounter
--- OUTSIDE RECORDS SUMMARY | 2024-08-11 09:44 | XMS_ITS | Referral Summary ---
Author Organization [facility] Address [address] [facility] [address] [place] [address] Care Team Providers Care Rocket Scientist Name Role Phone Rafael Arellano MD Primary Care Provider [phone] Source Comments [facility],non-owned Affiliates and Associated Physician Practices is amultiple site organization consisting of ambulatory clinics and hospital sitesin [place], [place], [place] and [place]. This disclosure is being madepursuant to the Care Everywhere program and may not contain all information available regarding this patient. Last updated 18.[facility] Allergies Active Allergy Reactions Criticality Noted Date Comments Venlafaxine Urticaria Medium 10/16/2011 Medications * Be aware that medications may not be up to date on this document. Alwaysverify current medications with the patient. Medication Sig Dispensed Refills Start Date End Date Status Doxylamine Succinate, Sleep, (UNISOM PO) Take 2 Tabs by mouth at bedtime. Active Vit-Fe Fumarate-FA ( VITAMIN) 27-0.8 MG Take 1 Tab by mouth once daily 60 Tab 2 08/06/2016 Active Pyridoxine HCl (B-6) 50 MG Take 1 Tab by mouth at bedtime 60 Tab 1 08/06/2016 Active doxylamine (UNISOM) 25 MG tablet Take 1 Tab by mouth nightly as needed for Insomnia (nausea) 60 Tab 2 08/06/2016 Active cyclobenzaprine (FLEXERIL) 10 MG tablet Take 1 Tab by mouth 3 times daily as needed for Muscle Spasms 15 Tab 11/04/2016 Active QUEtiapine (SEROquel) 300 MG tablet Take 1 (one) tablet by mouth at bedtime Active lithium CR (Lithobid) 300 MG tabletIndications:Bi polar Mood Disorder Take 1 (one) tablet by mouth every 12 hours Reasons: Manic-Depression 60 tablet 12/10/2022 Active Active Problems Patient Care Coordination No te Formatting of this note migh t be different from the original. NOP-CC 07/2016 Problem Noted Date Diagnosed Date Supervision of high-risk of young richard igravida 07/30/2016 Overview (07/30/2016): PNL: Ab: GCT: HIV: GBS: Dating: H/H/Plt: Hgb Elec: UDS: QS: CF: Pap: Gc/Chl: UCx: Breast/Bottle: Family Planning: History of delivery 07/30/2016 Overview (07/30/2016): G1 at 20 weeks; PPROM, ND G2 at 28 weeks; PPROM History of cerclage, currently 07/31/19 17 Overview (07/30/2016): In G2 Depression 07/30/2016 Overview (07/30/2016): EPDS score: History of cervical incompetence 06/12/2013 Previous delivery, antepartum condition or complication 06/12/2013 Overview (07/30/2016): 28 wk PPROM; Need records Per Dr Craft consult in 2013: delivered via CS due to poor status as she was being tocolyzed. She had deterioration in FHT and BPP. Resolved Problems Problem Noted Date Diagnosed Date Resolved Date Encounter for preconception consultation 06/12/2013 07/30/2016 Immunizations Name Administration Dates Next Due INFLUENZA VACCINE, QUADR. (F LUZONE; FLULAVAL; FLUARIX; AFLURIA QUADRIVALENT; 6MO+), 0.5 ML (IIV4) 02/17/2018,09/02/2016 Social History Tobacco Use Types Packs/Day Years [...] Sex Assigned at Female 08/05/2022 3:12 PM BATTERY STACKER Gender Identity Female 08/05/2022 3:12 PM BATTERY STACKER Sexual Orientation Straight 08/05/2022 3: 12 PM BATTERY STACKER Last Filed Vital Signs Vital Sign Reading [...] Mass Index 33.3 12/10/2022 10:11 AM CDT Functional Status Functional Status Response Date of Assess ment Is person deaf or have serious hearing difficult y? No 11/04/2016 Is person blind or have serious difficulty seein g? No 11/04/2016 Does person have serious dif ficulty walking/climbing stairs? No 11/04/2016 Does person have difficulty dressing/bathing? No 11/04/2016 Does person have difficulty doing errands alone? No 11/04/2016 Cognitive Status Response Date of Assessm ent Does person have difficulty concentrating/remembering/making decisions? No 11/04/2016 Plan of Treatment Not on file Procedures Procedure Name Priority Date/Time Associated Diagnosis Comments PAP LB HPV HR DNA Routine 08/06/2016 10: 33 AM BATTERY STACKER Supervision of high-risk of young multigravida (HCC) HIV-1 HIV-2 ANTIBODY + HIV P24 AG PANEL Routine 08/06/2016 10:33 AM BATTERY STACKER Supervision of high-risk of young multigravida (HCC) from Last 3 Months or Most Recently Relevant to Health Maintenance Results * HIV-1 HIV-2 ANTIBODY + HIV P24 AG PANEL (08/06/2016 10:33 AM BATTERY STACKER) HIV1/2 Ab + P24 Ag Non Reactive Non Reactive 08/06/2016 5:28 PM BATTERY STACKER [facility] Blood BLOOD SPECIMEN / Unknown Venipuncture / Unknown 08/06/2016 10:33 AM BATTERY STACKER 08/06/2016 10:51 AM BATTERY STACKER Narrative [facility] - 08/06/2016 5:28 PM BATTERY STACKER No Laboratory evidence of HIV infection. Dora Fernandez MD LAB - CHEMISTRY LEIDA DIAZ Performing Organization Address City/State/[facility] Co de Phone Number [facility] [place] [address] * PAP SMEAR LB HPV HR (PO REF LAB) (08/06/2016 10:33 AM BATTERY STACKER) Diagnosis Comment 08/11/2016 5:10 PM CDT [facility] Comment:NEGATIVE FOR INTRAEP ITHELIAL LESION AND MALIGNANCY. Specimen Adequacy Comment 017 5:10 PM CDT [facility] Comment:Satisfactory for christiano luation. No endocervical component is identified. Performed by Comment 08/11/2016 5:10 PM CDT [facility] Comment:Danial Isidro totkiologist (ASCP) Comment . 08/11/2016 5:10 PM CDT [facility] Note Comment 08/11/2016 5:10 PM CDT [facility] Comment: The Pap smear is a screening test designed to aid in the detection of premalignant and malignant conditions of the uterine cervix. It is not a diagnostic procedure and should not be used as the sole means of detecting cervical cancer. Both false-positive and false-negative reports do occur. Human papillomavirus High Risk Negative Negative 08/11/2016 5:10 PM CDT [facility] Comment: This high-risk HPV test detects thirteen high-risk types (16/18/31/33/35/39/45/51/52/56/58/59/68) without differentiation. Pathology/Cytolo gy MICROSCOPIC CYTOLOGIC EXAMINATION OF SMEAR OF SPECIMEN FROM FEMALE GENITAL TRACT PREPARED USING PAPANICOLAOU TECHNIQUE / Unknown Collection / Unknown 08/06/2016 10:33 AM BATTERY STACKER 08/06/2016 11:19 AM BATTERY STACKER Narrative [facility] - 08/11/2016 5:10 PM CDT Performed at: 01 - [address] [id number] Concrete Hopper Operator: Veronica Garcia MD, Phone: [phone] Performed at: - [facility] [id number] Concrete Hopper Operator: Veronica Garcia MD, Phone: [phone] Specimen Comment: Source.............Cervix Specimen Comment: No. of containers..01 CYTYC Thin Prep Vial Dora Fernandez MD LAB - PATHOLOGY/CYTO LOGY ORDERABLES [facility] [address] [place] [address] from Last 3 Months or Most Recently Relevant to Health Maintenance Care Teams Rocket Scientist Relationship Specialty Start Date End Date Rafael Arellano MD [address] [address] PCP - General Family Medicine 12/10/22
--- OUTSIDE RECORDS SUMMARY | 2024-08-11 09:44 | XMS_ITS | Patient Health Record ---
Author Organization [facility] Address [address] [facility] [address] [place] [address] Care Team Providers Care Fall Intern Name Role Phone Rafael Arellano MD Primary Care Provider Unavaila Em Zimmerman Unavailable [phone] Earnest Mantilla Unavailable [phone] Migration, Provider Unavailable Unavailable Carlos Godinez Unavailable [phone] Allergies Allergen (clinical drug ingredient) Drug/Non Drug Allergy documented on EMR Reaction Allergy Type Onset Date Status Effexor hives Drug Allergy 09/06/2023 Active Yolande hives Drug Allergy 09/28/2016 Active Reason For Referral No Information Medications Medication SIG (Take, Route, Frequency, Duration) [...] As needed for anxiety Active Social History Tobacco Use: Social History Observation Description Date Details (start date - stop date) Former Smoker 05/29/2002 - 12/15/2014 Sex Assigned At : Social History Observation Description Sex Assigned At Female Tobacco Control (Standard) Question Answer Notes Tobacco use: Former smoker When did you start smoking? 05/29/2002 When did you stop smoking? 12/15/2014 How long has it been since you last smoked? 5-10 years Problems Problem Type SNOMED Code ICD Code Onset Dates Problem Status W/U Status Risk Notes Problem Bipolar II disorder (02699488) Bipolar II disorder (F31.81) Active confirmed Problem Post-traumatic stress disorder (69390524) Post-traumatic stress disorder, unspecified (F43.10) Active confirmed Problem Borderline personality disorder (84426552) Borderline personality disorder (F60.3) Active confirmed Problem Depression Screening (278886112) Encounter for screening for depression (Z13.31) Active confirmed Problem Insomnia disorder related to another mental disorder (77918500) Insomnia 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.05) Active confirmed Problem 277783161 [place] toxicity, accidental or unintentional, initial encounter (T56.891A) Active confirmed Vital Signs Heart Rate 95 /min 08/11/2024 Height-cm 160.02 cm 08/11/2024 Blood pressure diastolic 86 mm Hg 08/11/2024 Weight-kg 100.43 kg 08/11/2024 Height 63.00 in 08/11/2024 Blood pressure systolic 112 mm Hg 08/11/2024 Weight 221.4 lbs 08/11/2024 BMI 39.21 kg/m2 08/11/2024 Encounters Encounter Location Date Provider Diagnosis [facility] [address] [facility] [address] [place] [address] 08/11/2024 Carlos Clubb Bipolar II disorder F31.81 ; [place] toxicity, accidental or unintentional, initial encounter T56.891A ; Encounter for screening for depression Z13.31 ; Post-traumatic stress disorder, unspecified F43.10 ; Borderline personality disorder F60.3 and 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.05 [facility] [address] [facility] [address] [place] [address] 09/06/2023 Thena Jose Rafael Borderline personality disorder F60.3 ; Bipolar II disorder F31.81 and Post-traumatic stress disorder, unspecified F43.10 [facility] [address] [place] [address] 11/08/2023 Thena Jose Rafael Bipolar II disorder F31.81 ; Post-traumatic stress disorder, unspecified F43.10 and Borderline personality disorder F60.3 [facility] [address] [facility] [address] [place] [address] 03/24/2024 Thena Jose Rafael Bipolar II disorder F31.81 ; Post-traumatic stress disorder, unspecified F43.10 ; Borderline personality disorder F60.3 and 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.05 [facility] [address] [place] [address] 07/07/2024 Thena Jose Rafael Bipolar II disorder F31.81 ; Post-traumatic stress disorder, unspecified F43.10 ; Borderline personality disorder F60.3 and 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.05 [facility] [address] [place] [address] 08/13/2023 Provider Migration [facility], [facility] [address] [facility] [address] [place] [address] 09/19/2023 Provider Migration [facility], [facility] [address] [facility] [address] [place] [address] 10/15/2023 Provider [facility], [facility] [address] [address] 10/16/2023 Provider Migration [facility], [facility] [address] [place] [address] 10/17/2023 Provider Migration [facility], [facility] [address] [facility] [address] [place] [address] 01/24/2024 Thena Jose Rafael [facility], [facility] [address] [address] 02/28/2024 Thena Jose Rafael [facility], [facility] [address] [address] 04/14/2024 Earnest Mantilla Assessments Encounter Date Diagnosis (ICD Code) Assessment Notes Treatment Notes Treatment Clinical Notes Section Notes 07/07/2024 Bipolar II disorder (ICD-10 - F31.81) 07/07/2024 Post-traumatic stress disorder, unspecified (ICD-10 - F43.10) 03/24/2024 Bipolar II disorder (ICD-10 - F31.81) 03/24/2024 Post-traumatic stress disorder, unspecified (ICD-10 - F43.10) 09/06/2023 Bipolar II disorder (ICD-10 - F31.81) 09/06/2023 Post-traumatic stress disorder, unspecified (ICD-10 - F43.10) 09/06/2023 Borderline personality disorder (ICD-10 - F60.3) 11/08/2023 Bipolar II disorder (ICD-10 - F31.81) 11/08/2023 Post-traumatic stress disorder, unspecified (ICD-10 - F43.10) 08/11/2024 Bipolar II disorder (ICD-10 - F31.81) 08/11/2024 [place] toxicity, accidental or unintentional, initial encounter (ICD-10 - T56.891A) 08/11/2024 Encounter for screening for depression (ICD-10 - Z13.31) 11/08/2023 Borderline personality disorder (ICD-10 - F60.3) 03/24/2024 Borderline personality disorder (ICD-10 - F60.3) 07/07/2024 Borderline personality disorder (ICD-10 - F60.3) 07/07/2024 Insomnia related to another mental disorder (ICD-10 - F51.05) 03/24/2024 Insomnia related to another mental disorder (ICD-10 - F51.05) 08/11/2024 Post-traumatic stress disorder, unspecified (ICD-10 - F43.10) 08/11/2024 Borderline personality disorder (ICD-10 - F60.3) 08/11/2024 Insomnia related to another mental disorder (ICD-10 - F51.05) Plan Of Treatment Next Appt Details Provider Name:Em Irby , 08/28/2024 11:15:00 AM, [address] [facility] [address] [facility] [address], [place], [address], Insurance Providers Payer Name Payer Address Payer Phone Subscriber Number Group Number Insured Name Patient Relationship to Insured Coverage Start Date Coverage End Date [employer] [employer] [address] [place] [address] [id number] Self - patient is the insured Medical (General) History Medical History History ICD Code Problems: Bipolar II disorder Borderline personality disorder Long-term drug therapy Posttraumatic stress disorder , abdominal aortic aneurysm: No undefined atrial fibrillation: No chronic fatigue syndrome: No essential tremor: Yes hyperlipidemia: No hypertension: No Parkinson's disease: No restless leg syndrome: No stroke: No subdural hematoma: No type 1 diabetes mellitus: No type 2 diabetes mellitus: No vitamin B12 deficiency: No vitamin D deficiency: Yes Surgical History Surgery Date(Month/Year) Other 11/23/2007 Breast surgery (63924) 03/31/2017
--- OUTSIDE RECORDS SUMMARY | 2024-08-11 09:44 | XMS_ITS | Encounter Summary ---
Author Organization [facility] Address [address] [place] [address] Care Team Providers Care Nursing Home Assistant Name Role Phone Rafael Arellano MD Primary Care Provider [phone] Encounter Details Date Type Department Care Team (Late st Contact Info) Description 03/16/2005 Outpatient Historical [facility] Blanka Marin MD NO ADDRESS ON FILE Er, Authorized P NO ADDRESS ON FILE URIN TRACT INFECTION NOS (Primary Dx) Social History Tobacco Use Types Packs/Day Years Used Date Smoking Tobacco: Never Assessed Comments Unknown Sex and Gender Information Value Date Recorded Sex Assigned at Not on file Legal Sex Female 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 Cloudy(A) Clear INTERFACE SYSTEM SPECIFIC GRAVITY UA 1.025 1.001 - 1.035 INTERFACE SYSTEM PH UA 6.0 5.0 - 8.0 INTERFACE SYSTEM LEUKOCYTE ESTERASE UA 2+(A) Negative INTERFACE SYSTEM NITRITE UA Negative Negative INTERFACE SYSTEM PROTEIN UA 1+(A) Negative INTERFACE SYSTEM GLUCOSE UA Negative Negative INTERFACE SYSTEM KETONES UA 1+(A) Negative INTERFACE SYSTEM UROBILINOGEN UA <1 <1 mg/dL INTE RFACE SYSTEM BILIRUBIN UA Negative Negative INTERFA CE SYSTEM BLOOD UA Trace(A) Negative INTERFACE SYSTEM WBC UA 19(H) 0 - 5 /HPF INTERFACE SYSTEM RBC UA 4 0 - 4 /HPF INTERFACE SYSTEM BACTERIA UA 1+(A) None Seen /HPF INTERFACE SYSTEM EPITHELIAL CELLS, URINE Many /HPF INTERFACE SYSTEM 03/16/2005 9:25 PM CDT us Historical Provider URINE ORDERABLES Final Resul t INTERFACE SYSTEM Refer to clinic/hospital department documented in this encounter Visit Diagnoses Diagnosis Urinary tract infection, site not specified- Primary documented in this encounter Care Teams Nursing Home Assistant Relationship Specialty Start Date End Date Rafael Arellano MD [address] [place], [place] [address] PCP - General Family Practice 12/11/19 documented as of this encounter
--- OUTSIDE RECORDS SUMMARY | 2024-08-11 09:44 | XMS_ITS | Clinical Summary ---
Author Organization [facility] Store[facility] Address [address] [facility] [place] [address] Care Team Providers Care Shroudman Name Role Phone Rafael Arellano MD Primary Care Provider [phone] Source Comments [facility],non-owned Affiliates and Associated Physician Practices is amultiple site organization consisting of ambulatory clinics and hospital sitesin [place], [place], [place] and [place]. This disclosure is being madepursuant to the Care Everywhere program and may not contain all information available regarding this patient. Last updated 18.[facility] Allergies Active Allergy Reactions Criticality Noted Date [...] migh t be different from the original. [facility] [place] Problem Noted Date Diagnosed Date Supervision [...] AFLURIA QUADRIVALENT; 6MO+), 0.5 ML (IIV4) 02/17/2018,09/02/2016 Family History Medical History Relation Name Comments COPD - Chronic Obstructive Pulmonary Disease Maternal Grandfather Emphysema Maternal Grandfather Heart Disease Maternal Grandfather Diabetes Maternal Grandmother Heart Disease Maternal Grandmother Hypertension Maternal Grandmother Mental Illness Maternal Grandmother Arthritis Paternal Grandmother Thyroid Disease half-sister 1 Relation Name Status Comments Father Alive Maternal Grandfather Maternal Grandmother Alive Mother Alive Paternal Grandfather Alive Paternal Grandmother Alive half-brother 1 Alive half-brother 2 Alive half-sister 1 Alive half-sister 2 Alive half-sister 3 Alive Social History Tobacco Use Types Packs/Day [...] Sex Assigned at Female 08/05/2022 3:12 PM COAL TRIMMER Gender Identity Female 08/05/2022 3:12 PM COAL TRIMMER Sexual Orientation Straight 08/05/2022 3: 12 PM COAL TRIMMER Last Filed Vital Signs Vital Sign Reading [...] Mass Index 33.3 12/10/2022 10:11 AM CDT Plan of Treatment Health Maintenance Due Date Last Done Comments LIPID TESTING 1985 MAMMOGRAM 1985 HEPATITIS C SCREENING 02/18/2002 DTAP/TDAP/TD VACCINES (1 - Tdap) 02/22/2003 HEPATITIS B VACCINE (1 of 3 - 19+ 3-dose series) 02/22/2003 PAP with HPV 08/06/2021 08/06/2016 COVID-19 VACCINE (1 - 2023- season) 2024 INFLUENZA VACCINE (#1) 2024 1, 09/13/2020, 02/24/2019, Additional history exists DEPRESSION SCREENING 05/31/2024 ZOSTER VACCINE (1 of 2) 02/22/2034 HIV SCREENING Completed 08/06/2016 HIB VACCINE Aged Out No longer eligi ble based on patient's age to complete this topic HPV VACCINE Aged Out No longer eligi ble based on patient's age to complete this topic MENINGOCOCCAL (Group B) VACCINE SHARED DECISION-MAKING Aged Out No longer eligible based on patient's age to complete this topic MENINGOCOCCAL GROUPS A/C/Y/W VACCINE Aged Out No longer eligible based on patient's age to complete this topic PNEUMOCOCCAL VACCINE Aged Out No long er eligible based on patient's age to complete this topic Procedures Procedure Name Priority Date/Time Associated Diagnosis Comments PAP LB HPV HR DNA Routine 08/06/2016 10: 33 AM COAL TRIMMER Supervision of high-risk of young multigravida (HCC) HIV-1 HIV-2 ANTIBODY + HIV P24 AG PANEL Routine 08/06/2016 10:33 AM COAL TRIMMER Supervision of high-risk of young multigravida (HCC) from Last 3 Months or Most Recently Relevant to Health Maintenance Results * HIV-1 HIV-2 ANTIBODY + HIV P24 AG PANEL (08/06/2016 10:33 AM COAL TRIMMER) HIV1/2 Ab + P24 Ag Non Reactive Non Reactive 08/06/2016 5:28 PM COAL TRIMMER [facility] Blood BLOOD SPECIMEN / Unknown Venipuncture / Unknown 08/06/2016 10:33 AM COAL TRIMMER 08/06/2016 10:51 AM COAL TRIMMER Narrative [facility] - 08/06/2016 5:28 PM COAL TRIMMER No Laboratory evidence of HIV infection. Dora Fernandez MD LAB - CHEMISTRY LEIDA DIAZ [facility] [place] [address] * PAP SMEAR LB HPV HR (PO REF LAB) (08/06/2016 10:33 AM COAL TRIMMER) Diagnosis Comment 08/11/2016 5:10 PM CDT [facility] Comment:NEGATIVE FOR INTRAEP ITHELIAL LESION AND MALIGNANCY. Specimen Adequacy Comment 017 5:10 PM CDT [facility] Comment:Satisfactory for christiano luation. No endocervical component is identified. Performed by Comment 08/11/2016 5:10 PM CDT [facility] Comment:Danial Isidro totechnologist (ASCP) Comment . 08/11/2016 5:10 PM CDT [facility] Note Comment 08/11/2016 5:10 PM CDT [facility] Comment: The Pap smear is a screening test designed to aid in the detection of premalignant and malignant conditions of the uterine cervix. It is not a diagnostic procedure and should not be used as the sole means of detecting cervical cancer. Both false-positive and false-negative reports do occur. Human papillomavirus High Risk Negative Negative 08/11/2016 5:10 PM CDT [facility]) Comment: This high-risk HPV test detects thirteen high-risk types (16/18/31/33/35/39/45/51/52/56/58/59/68) without differentiation. Pathology/Cytolo gy MICROSCOPIC CYTOLOGIC EXAMINATION OF SMEAR OF SPECIMEN FROM FEMALE GENITAL TRACT PREPARED USING PAPANICOLAOU TECHNIQUE / Unknown Collection / Unknown 08/06/2016 10:33 AM COAL TRIMMER 08/06/2016 11:19 AM COAL TRIMMER Narrative [facility]) - 08/11/2016 5:10 PM CDT Performed at: - [address], [place] [id number] [place]: Veronica Garcia MD, Phone: [phone] Performed at: - [address] [id number] [place]: Veronica Garcia MD, Phone: [phone] Specimen Comment: Source.............Cervix Specimen Comment: No. of containers..01 CYTYC Thin Prep Vial Dora Fernandez MD LAB - PATHOLOGY/CYTO LOGY ORDERABLES [facility]) [address] [place] [address] from Last 3 Months or Most Recently Relevant to Health Maintenance Care Teams Shroudman Relationship Specialty Start Date End Date Rafael Arellano MD [address] [facility] [address] [place] [address] PCP - General Family Medicine 12/10/22
--- OUTSIDE RECORDS SUMMARY | 2024-08-11 09:44 | XMS_ITS ---
Author Organization [email or web address] Address [address] [facility] [address] [place] [address] Care Team Providers Care Miniature Set Builder Name Role Phone Rafael Arellano MD Primary Care Provider Unavaila Em Zimmerman Unavailable [phone] Earnest Jiménez Unavailable [phone] Allergies Allergen (clinical drug ingredient) Drug/Non Drug Allergy documented on EMR Reaction Allergy Type Onset Date Status Effexor hives Drug Allergy 09/06/2023 Active Yolande hives Drug Allergy 09/28/2016 Active REASON FOR VISIT bipolar disorder follow up, Depression screening positive, PSYCHOTHERAPY W/PATIENT W/E M Medications Medication SIG (Take, Route, Frequency, Duration) Notes Start Date End Date Status 06/19 1-20 MG-MCG TAKE 1 TABLET BY MOUTH ONCE DAILY Oral for 84 Days Not-Taking QUEtiapine Fumarate 300 MG TAKE 2 TABLET S BY MOUTH AT BEDTIME Active Spironolactone 100 MG Oral 09/06/2023 Active Famotidine 20 MG TAKE 1 TABLET BY MOUTH TWICE A DAY Oral for 30 Days Active Fleming Carbonate ER 450 MG TAKE 2 TABLE TS BY MOUTH EACH NIGHT Active hydrOXYzine Pamoate 25 MG 1 capsule Oral three times a day As needed for anxiety Active Naproxen 500 MG Oral for 90 Days Active Cyclobenzaprine HCl 10 MG Oral for 20 Days Active Social History Tobacco Use: Social History [...] Status Risk Notes Problem Bipolar II disorder (68853324) Bipolar II disorder (F31.81) Active confirmed Problem Post-traumatic stress disorder (20127426) Post-traumatic stress disorder, unspecified (F43.10) Active confirmed Problem Borderline personality disorder (28801523) Borderline personality disorder (F60.3) Active confirmed Vital Signs Blood pressure systolic 116 mm Hg 07/07/19 25 Blood pressure diastolic 83 mm Hg 025 Heart Rate 79 /min 07/07/2024 Height 63.00 in 07/07/2024 Weight 221 lbs 07/07/2024 BMI 39.14 kg/m2 07/07/2024 Height-cm 160.02 cm 07/07/2024 Weight-kg 100.24 kg 07/07/2024 Encounters Encounter Location Date Provider Diagnosis [facility] [address] [place] [address] 07/07/2024 Earnest Jiménez Bipolar II disorder F31.81 ; Post-traumatic stress disorder, unspecified F43.10 ; Borderline personality disorder F60.3 and 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.05 Assessments Encounter Date Diagnosis (ICD Code) Assessment Notes Treatment Notes Treatment Clinical Notes Section Notes 07/07/2024 Bipolar II disorder (ICD-10 - F31.81) 07/07/2024 Post-traumatic stress disorder, unspecified (ICD-10 - F43.10) 07/07/2024 Borderline personality disorder (ICD-10 - F60.3) 07/07/2024 Insomnia related to another mental disorder (ICD-10 - F51.05) Plan Of Treatment Medication Medication Name Sig Start Date Stop Date Notes QUEtiapine Fumarate 300 MG TAKE 2 TABLET S BY MOUTH AT BEDTIME Fleming Carbonate ER 450 MG TAKE 2 TABLE TS BY MOUTH EACH NIGHT hydrOXYzine Pamoate 25 MG 1 capsule Oral three times a day Next Appt Details Follow Up: 4 Weeks, Reason: bipolar II Provider Name:Em Irby , 08/28/2024 11:15:00 AM, [address], [place], [address], Progress Notes * BEKAH VIDAL MDOB:[birth year] (39 yo F)Acc No.[id number]:07/07/2024 Patient: BEKAH CUI Provider: Zoila JIMÉNEZ MD :1985 A ge:39 Y S ex:Female Date:07/07/2024 Address:[address] [place], [place] [id number] Pcp:Rafael Arellano MD Subjective: * Chief Complaints: * 1 . Bipolar disorder follow up. 2. Depression screening positive. 3. PSYCHOTHERAPY W/PATIENT W/E M. * HPI: D epression Screening: ANABELLA-7 (2018 Edition) F eeling nervous, anxious, or on edge?Nearly every day, N ot being able to stop or control worrying M ore than half the days,?Worrying too much about different things N early every day, T rouble relaxing M ore than half the days, B eing so restless that it is hard to sit still S everal days, B ecoming easily annoyed or irritable N early every day, F eeling afraid as if something awful might happen S everal , T otal ANABELLA-7 Score 1 5, I f you checked any problems, how difficult have they made it for you to do your work, take care of things at home, or get along with other people? S omewhat difficult, I nterpretation of Total ( 15 and over) Severe.? C [place]-Suicide Severity Rating Scale: Suicide Risk (CSRS-screener) i n the past one month Have you wished you were or wished you could go to sleep and not wake up? N o, i n the past one month Have you actually had any thoughts of killing yourself? N o, H ave you ever done anything, started to do anything, or prepared to do anything to end your life? Y es. D epression screening: PHQ-9 L ittle interest or pleasure in doing things S everal days, F eeling down, depressed, or hopeless S everal days, T rouble falling or staying asleep, or sleeping too much S everal days, F eeling tired or having little energy S everal days, P oor appetite or overeating M ore than half the days, F eeling bad about yourself or that you are a failure, or have let yourself or your family down N early every day, Trouble concentrating on things, such as reading the newspaper or watching television M ore than half the days, M oving or speaking so slowly that other people could have noticed; or the opposite, being so fidgety or restless that you have been moving around a lot more than usual N ot at all, T houghts that you would be better off or of hurting yourself in some way N ot at all, T otal Score 1 1, I nterpretation M oderate Depression. I ntervention?Depression Screening Findings P ositve, F ollow-Up for Depression M ental health treatment assessment, Patient follow-up to return when and if necessary, S uicide Risk Assessment Performed 0 07/07/2024, A dditional Evaluation for Depression P sychiatric interview and evaluation, N isai of the standardized tool used for adult depression screening: P atient Health Questionnaire (PHQ-9). P ast Psychiatric Hospitalizations: Previous psychiatric hospitalizations W hat was the cause of your psychiatric hospitalizations? D epression,,Suicidal thoughts,Suicidal attempt. P ast History of Suicidal attempt H ave you ever attempted suicide in the past Y es, M ethod of suicide attempt D rug overdose. F unctional Status: finished [employer] online PHP/IOP program about three weeks ago; changed work hours to 6 am - 2 pm, then attended programming from 2 pm - 8pm for 3 weeks, then dropped IOP to 5 pm - 8pm attended trauma group, mood/anxiety group, and exposure group [exposure group was for issues with being alone in the dark, pt did not find this particularly helpful] pt found the structured exercises to be helpful, discussed plan for transition of care since I will be leaving private practice. P sychotherapy with Med eval: Therapy with Med eval P sychotherapy with Medication management Y es, P sychotherapy done Time Spent Minute 2 0 to 30 min, T ype of therapy done S upportive Therapy. * ROS: P erformance Met: N ormal blood pressure reading documented, follow-up not required ( G8783). * Medical History: P kirsten: Bipolar II disorder, Borderline personality disorder, Long-term drug therapy, Posttraumatic stress disorder, ,, abdominal aortic aneurysm: No, atrial fibrillation: No, chronic fatigue syndrome: No, essential tremor: Yes, hyperlipidemia: No, hypertension: No, Parkinson's disease: No, restless leg syndrome: No, stroke: No, subdural hematoma: No, type 1 diabetes mellitus: No, type 2 diabetes mellitus: No, vitamin B12 deficiency: No, vitamin D deficiency: Yes. * Social History: T obacco Use: T obacco Control (Standard) T obacco use: F ormer smoker, W hen did you start smoking? 1 , W hen did you stop smoking? 0 12/15/2014, H ow long has it been since you last smoked? 5 -10 years. M igrated Social History: M igrated Social History: Alcohol Intake: Occasional 04/26/2023,Tobacco Years: Former smoker 04/26/2023. M iscellaneous: A dvance Care Planning A re you your own decision-maker Y es, D o you have Power of Agency Sales Development Associate for Health or Medical? N o. * Medications: T aking Spironolactone 100 MG Tablet Oral , Taking hydrOXYzine Pamoate 25 MG Capsule 1 capsule Oral three times a day As needed for anxiety, Notes to Pharmacist: typically does not take more than once a day, Taking Fleming Carbonate ER 450 MG Tablet Extended Release TAKE 2 TABLETS BY MOUTH EACH NIGHT , Taking QUEtiapine Fumarate 300 MG Tablet TAKE 2 TABLETS BY MOUTH AT BEDTIME , Taking Naproxen 500 MG Tablet Oral , Taking Cyclobenzaprine HCl 10 MG Tablet Oral , Taking Famotidine 20 MG Tablet TAKE 1 TABLET BY MOUTH TWICE A DAY Oral , Not-Taking 06/19 1-20 MG-MCG Tablet TAKE 1 TABLET BY MOUTH ONCE DAILY Oral , Discontinued Sertraline HCl 25 MG Tablet Oral , Discontinued clonazePAM 0.5 MG Tablet TAKE 1 TABLET BY MOUTH NIGHTLY NEEDED FOR ANXIETY Oral , Discontinued Prazosin HCl 1 MG Capsule TAKE 1 CAPSULE BY MOUTH EVERYDAY AT BEDTIME Oral , Discontinued traZODone HCl 50 MG Tablet TAKE 1 TABLET BY MOUTH AT BEDTIME NEEDED FOR SLEEP/INSOMNIA Oral , Medication List reviewed and reconciled with the patient * Allergies: E ffexor: hives - Allergy - Onset Date 09/06/2023, Yolande: hives - Allergy - Criticality Unknown - Onset Date 09/28/2016. Objective: * Vitals: B P:116/83mm Hg, HR:79/min, Wt:221lbs, Wt-k.24 kg, Ht: 63.00 in, Ht-cm: 160.02 cm, BMI:39.14Index, Body Surface Area: 2.11. * Examination: P sychiatry: Appearance: w ell-groomed, well-nourished, .... Affect / mood: a ppropriate, full range. Attention: g ood. Attitude: c ooperative. Suicidal ideation: n one. Memory status: n o impairment noted. Degree of awareness of surroundings: w ithin normal limits.? Delusions: n o. Hallucinations: n o. Insight: g ood. Intellectual functioning: n o impairment noted. Judgement: g ood. Orientation: a wake, alert and oriented x 3. Perceptual disorders: n o perceptual disorder noted. Psychomotor activity: w ithin normal range. Speech / language: a ppropriate pitch/modulation, clear and coherent, normal rate, volume, and articulation (RVR), proper grammar used. Thought content: a ppropriate. Thought process: i ntact. Assessment: * Assessment: 1. B ipolar II disorder - F31.81 (Primary) 2 . P ost-traumatic stress disorder, unspecified - F43.10 3 . B orderline personality disorder - F60.3 ? 4 . I nsomnia related to another mental disorder - F51.05 Plan: * Treatment: 2. P ost-traumatic stress disorder, unspecified Continue hydrOXYzine Pamoate Capsule, 25 MG, 1 capsule, Oral, three times a day As needed for anxiety, Notes: typically does not take more than once a day. * Procedure Codes: 9 6127 BEHAV ASSMT W/SCORE & DOCD/STAND INSTRUMENT, G1953 NORMAL BP READING DOC F/U NOT RQR, 43461 PSYCHOTHERAPY W/PATIENT W/E&M SRVCS 30 MIN, G9416 MOST RECENT SYSTOLIC BP < 140MM HG, G8754 MOST RECENT DIASTOLIC BP < 90MM HG * Follow Up: 4 Weeks (Reason: bipolar II) * Billing Information: * Visit Code: 76729 OFFICE OUTPATIENT VISIT 25 MINUTES DETAILED HISTORY AND EXAM/MODERATE MEDICAL DECISION MAKING. * Procedure Codes: 03177 BEHAV ASSMT W/SCORE & DOCD/STAND INSTRUMENT. G8783 NORMAL BP READING DOC F/U NOT RQR. 93267 PSYCHOTHERAPY W/PATIENT W/E&M SRVCS 30 MIN. G8752 MOST RECENT SYSTOLIC BP < 140MM HG. G8754 MOST RECENT DIASTOLIC BP < 90MM HG. * CTOR HOUSEKEEPING Sign off status: Completed true * Provider: Zoila JIMÉNEZ MD Date: 0 07/07/2024 Generated for Michellei hugo/Ottoniel/Biransmitting on: 0 08/11/2024 09:43 AM CDT History and Physical Notes * HPI (History of Present Illness) Category Sub-Category Detail Notes Category Not es Past Psychiatric Hospitalizations Previous psychiatric hospitalizations What was the cause of your psychiatric hospitalizations?: Depression,,Suicid al thoughts,Suicidal attempt Past History of Suicidal attempt Have yo u ever attempted suicide in the past: Yes Method of suicide attempt: Drug overdose Depression screening PHQ-9 Little inte rest or pleasure in doing things: Several days Feeling down, depressed, or hopeless: Se veral days Trouble falling or staying asleep, or sl eeping too much: Several days Feeling tired or having little energy: S everal days Poor appetite or overeating: More than h anne the days Feeling bad about yourself o r that you are a failure, or have let yourself or your family down: Nearly every day Trouble concentrating on thi ngs, such as [...] some way: Not at all Total Score: 11 Interpretation: Moderate Depression Intervention Depression Screening Findings: P ositve Follow-Up for Depression: [facility] treatment assessment, Patient follow-up to return when and if necessary Suicide Risk Assessment Performed: 07/07 Additional Evaluation for Depression: Ps ychiatric interview and evaluation Name of the standardized too l used for adult depression screening:: Patient Health Questionnaire (PHQ-9) Functional Status finished [employer] online PHP/IOP program about three weeks ago; changed work hours to 6 am - 2 pm, then attended programming from 2 pm - 8pm for 3 weeks, then dropped IOP to 5 pm - 8pm attended trauma group, mood/anxiety group, and exposure group [exposure group was for issues with being alone in the dark, pt did not find this particularly helpful] pt found the structured exercises to be helpful, discussed plan for transition of care since I will be leaving private practice Depression Screening ANABELLA-7 (2018 Edition) Feeling nervous, anxious, or on edge: Nearly every day Not being able to stop or control worryi ng: More than half the days Worrying too much about different things : Nearly every day Trouble relaxing: More than half the day s Being so restless that it is hard to sit still: Several days Becoming easily annoyed or irritable: Ne shan every day Feeling afraid as if something awful doroteo ht happen: Several days Total ANABELLA-7 Score: 15 If you checked any problems, how difficult have they made it for you to do your work, take care of things at home, or get along with other people?: Somewhat difficult Interpretation of Total: (15 and over) S evere Psychotherapy with Med eval Therapy with Med christiano l Psychotherapy with Medication management: Yes Psychotherapy done Time Spent Minute: 20 to 30 min Type of therapy done: Supportive Therapy [place]-Suicide Severity Rating Scale Suicide Risk (CSRS-screener) in the past one month Have you wished you were or wished you could go to sleep and not wake up?: No in the past one month Have y ou actually had any thoughts of killing yourself?: No Have you ever done anything, started to do anything, or prepared to do anything to end your life?: Yes Examination Category Sub-Category Detail Notes Category Not es Psychiatry Appearance: well-groomed, well-nourished , ... Attitude: cooperative Psychomotor activity: within normal rang e Attention: good Degree of awareness of surroundings: wit hin normal limits Orientation: awake, alert and lesvia ented x 3 Affect / mood: appropriate, full ra nge Speech / language: appropriate pitch/mo dulation, clear and coherent, normal rate, volume, and articulation (RVR), proper grammar used Insight: good Judgement: good Thought process: intact Thought content: appropriate Perceptual disorders: no perceptual diso rder noted Suicidal ideation: none Intellectual functioning: no impairment noted Memory status: no impairment noted Delusions: no Hallucinations: no
--- OUTSIDE RECORDS SUMMARY | 2024-08-11 09:44 | XMS_ITS | Encounter Summary ---
Author Organization [employer] Address [address] [place] [address] Care Team Providers Care Spread Cutter Name Role Phone Rafael Arellano MD Primary Care Provider [phone] Encounter Details Date Type Department Care Team (Late st Contact Info) Description 12/13/2006 Outpatient Historical [facility] [address] [place] [address] [place] [address] [place] [address] [address] Social History Tobacco Use Types Packs/Day Years Used Date Smoking Tobacco: Never Assessed Comments Unknown Sex and Gender Information Value Date Recorded Sex Assigned at Not on file Legal Sex Female 5:04 AM DOCUMENTATION LEAD Gender Identity Not on file Sexual Orientation Not on file documented as of this encounter Last Filed Vital Signs Vital Sign Reading Time Taken Comments Blood Pressure 106/68 12/13/2006 2:00 PM CDT Pulse 64 12/13/2006 2:00 PM CDT Temperature 36.8 C (98.2 F) 12/13/2006 2:00 PM CDT Respiratory Rate 16 12/13/2006 2:00 PM CDT Oxygen Saturation - - Inhaled Oxygen Concentration - - Weight 58.5 kg (129 lb) 12/13/2006 2:00 PM CDT Height 157.5 cm (5' 2 ) 12/13/2006 2:00 PM CDT Body Mass Index 23.59 12/13/2006 2:00 PM CDT documented in this encounter Plan of Treatment Not on file documented as of this encounter Visit Diagnoses Not on filedocumented in this encounter Care Teams Spread Cutter Relationship Specialty Start Date End Date Rafael Arellano MD [address] [address] PCP - General Family Practice 12/11/19 documented as of this encounter
--- OUTSIDE RECORDS SUMMARY | 2024-08-11 09:44 | XMS_ITS | Encounter Summary ---
Author Organization [employer] Address [address] [place] [address] Care Team Providers Care Director Dietetics Department Name Role Phone Rafael Arellano MD Primary Care Provider [phone] Encounter Details Date Type Department Care Team (Latest Contact Info) Description 05/01/2006 Outpatient Historical [facility] Lonny Michelle MD [address] [place] [address] Urinary Tract Infection, Site not Specified (Primary Dx) Social History Tobacco Use Types Packs/Day Years Used Date Smoking Tobacco: Never Assessed Comments Unknown Sex and Gender Information Value Date Recorded Sex Assigned at Not on file Legal Sex Female 5:04 AM MARKETING DATABASE COORDINATOR Gender Identity Not on file Sexual Orientation Not on file documented as of this encounter Plan of Treatment Not on file documented as of this encounter Procedures Procedure Name Priority Date/Time Associated Diagnosis Comments PT AND APTT Routine 05/01/2006 2:25 AM MARKETING DATABASE COORDINATOR CBC WITH DIFFERENTIAL Routine 05/01/2006 2:25 AM MARKETING DATABASE COORDINATOR CBC WITH DIFFERENTIAL Routine 05/01/2006 2:25 AM MARKETING DATABASE COORDINATOR HCG QUANTITATIVE, BLOOD Routine 05/01/2006 2:25 AM MARKETING DATABASE COORDINATOR BASIC METABOLIC PANEL Routine 05/01/2006 2:25 AM MARKETING DATABASE COORDINATOR URINALYSIS W/REFLEX MICROSCOPIC Routine 05/01/2006 2:15 AM MARKETING DATABASE COORDINATOR URINALYSIS W/REFLEX MICROSCOPIC Routine 05/01/2006 2:15 AM MARKETING DATABASE COORDINATOR documented in this encounter Results * (ABNORMAL) HCG QUANTITATIVE, BLOOD (05/01/2006 2:25 AM MARKETING DATABASE COORDINATOR) HCG QUANT, BLOOD 11,830.0( H) 0.0 - 5.0 mIU/mL INTERFACE SYSTEM Comment: A result of 5-25 mIU/mL is indeterminant for , recommend repeating test in 48 hours. Reference Range: Gestational Age: 3 weeks 5.8 - 71.2 mIU/mL 4 weeks 9.5 - 750 mIU/mL 5 weeks 217 - 7,138 mIU/mL 6 weeks 158 - 31,795 mIU/mL 7 weeks 3,697 - 163,563 mIU/mL 8 weeks 32,065 - 149,571 mIU/mL 9 weeks 63,803 - 151,410 mIU/mL 10 weeks 46,509 - 186,977 mIU/mL 12 weeks 27,832 - 210,612 mIU/mL 14 weeks 13,950 - 62,530 mIU/mL 15 weeks 12,039 - 70,971 mIU/mL 16 weeks 9,040 - 56,451 mIU/mL 17 weeks 8,175 - 55,868 mIU/mL 18 weeks 8,099 - 58,176 mIU/mL Heterophile antibodies and other interfering substances in the serum of some patients may cause a false-positive result in this assay. Before making a diagnosis of malignancy or ectopic , the result of this test should be confirmed with a urine HCG test and correlated with other clinical evidence. 05/01/2006 2:25 AM MARKETING DATABASE COORDINATOR us Lonny Lucero MD CHEMISTRY ORDERABLES Final Resul t INTERFACE SYSTEM Refer to clinic/hospital department * CBC WITH DIFFERENTIAL (05/01/2006 2:25 AM MARKETING DATABASE COORDINATOR) NEUTROPHILS 66 45 - 70 % INTERFAC E SYSTEM LYMPHOCYTES 24 16 - 45 % INTERFAC E SYSTEM MONOCYTES 8 3 - 13 % INTERFACE SYSTEM EOSINOPHILS 2 0 - 7 % INTERFAC E SYSTEM BASOPHILS 0 0 - 2 % INTERFACE SYSTEM NEUTROPHIL ABSOLUTE 5.78 1.90 - 7.00 K/uL INTERFACE SYSTEM LYMPHOCYTE ABSOLUTE 2.06 0.70 - 4.50 K/uL INTERFACE SYSTEM MONOCYTE ABSOLUTE 0.66 0.10 - 1.30 K/uL INTERFACE SYSTEM EOSINOPHIL ABSOLUTE 0.20 0.00 - 0.70 K/uL INTERFACE SYSTEM BASOPHILS ABSOLUTE 0.02 0.00 - 0.20 K/uL INTERFACE SYSTEM 05/01/2006 2:25 AM MARKETING DATABASE COORDINATOR Lonny Lucero MD HEMATOLOGY ORDERABLES Final Resu lt Performing Organization Address [facility] Phone Number INTERFACE SYSTEM Refer to clinic/hospital department * (ABNORMAL) CBC WITH DIFFERENTIAL (05/01/2006 2:25 AM MARKETING DATABASE COORDINATOR) Pathologist [facility] WBC 8.7 4.0 - 9.8 K/uL INTERFACE SYSTEM RBC 4.14 3.90 - 4.90 M/uL INTERFACE SYSTEM HEMOGLOBIN 13.2 11.8 - 14.8 g/dL INTERFACE SYSTEM HEMATOCRIT 36.6 35.5 - 44.0 % INTERFACE SYSTEM MCV 88.4 82.0 - 99.0 fL INTERFACE SYSTEM MCH 31.9 27.2 - 32.6 pg INTERFACE SYSTEM MCHC 36.1(H) 31.5 - 35.5 % INTERFACE SYSTEM RDW 12.4 11.5 - 14.5 % INTERFACE SYSTEM RDW-STDEV 40.2 37.1 - 48.7 fL INTERFACE SYSTEM PLATELETS 258 140 - 350 K/uL INTERFACE SYSTEM MPV 9.7 9.3 - 12.4 fL INTERFACE SYSTEM 05/01/2006 2:25 AM MARKETING DATABASE COORDINATOR Lonny Lucero MD HEMATOLOGY ORDERABLES Final Resu lt Performing Organization Address [facility] Phone Number INTERFACE SYSTEM Refer to clinic/hospital department * PT AND APTT (05/01/2006 2:25 AM MARKETING DATABASE COORDINATOR) PROTIME 13.5 12.4 - 14.7 Seconds INTERFACE SYSTEM INR 1.0 0.9 - 1.1 INTERFACE SYSTEM Comment: INR Therapeutic Range: Adult: 2.0 - 3.0 for pulmonary embolism or prophylaxis against venous thrombosis or systemic embolization. 2.0 - 3.0 for patients with tissue heart valves. 2.5 - 3.5 for patients with mechanical heart valves or post [place]. Pediatric (12 years and under): 1.5 - 3.0 Although the target range in children is not well established , INR values of 1.5 - 3.0 are recommended for most patients. Higher values have been used in children with prosthetic cardiac valves and hereditary clotting disorders. (<3 days) therapeutic ranges have not been established. PTT 30.4 21.1 - 34.8 Seconds INTERFACE SYSTEM 05/01/2006 2:25 AM MARKETING DATABASE COORDINATOR Lonny Lucero MD HEMATOLOGY ORDERABLES Final Resu lt INTERFACE SYSTEM Refer to clinic/hospital department * BASIC METABOLIC PANEL (05/01/2006 2:25 AM MARKETING DATABASE COORDINATOR) GLUCOSE 86 65 - 99 mg/dL INTERFACE SYSTEM CREATININE 0.6 0.5 - 1.0 mg/dL INTERFACE SYSTEM CALCIUM 9.3 8.6 - 10.2 mg/dL INTERFACE SYSTEM BUN 8 6 - 20 mg/dL INTERFACE SYSTEM SODIUM 137 135 - 145 mmol/L INTERFACE SYSTEM POTASSIUM 3.7 3.5 - 4.9 mmol/L INTERFACE SYSTEM CHLORIDE 106 96 - 108 mmol/L INTERFACE SYSTEM CO2 25 22 - 30 mmol/L INTERFACE SYSTEM GFR, >60 >=60 mL/min/1.7 sq meter INTERFACE SYSTEM GFR >60 >=60 mL/min/1.7 sq meter INTERFACE SYSTEM Comment: Estimated GFR rate interpretative information for both Americans and non- Americans is available on the [facility] Intranet at: [email or web address] Select: Lab Policies and Procedures Select: Reference Ranges - GFR 05/01/2006 2:25 AM MARKETING DATABASE COORDINATOR Lonny Lucero MD CHEMISTRY ORDERABLES Final Resul t Performing Organization Address City/[facility]/ZIP Co de Phone Number INTERFACE SYSTEM Refer to clinic/hospital department * (ABNORMAL) URINALYSIS (05/01/2006 2:15 AM MARKETING DATABASE COORDINATOR) WBC UA 0-5 0 - 5 /HPF INTERFACE SYSTEM RBC UA 0-2 0 - 2 /HPF INTERFACE SYSTEM BACTERIA UA 1+(A) None Seen /HPF INTERFACE SYSTEM EPITHELIAL CELLS, URINE 2-5 /HPF INTERFACE SYSTEM 05/01/2006 2:15 AM MARKETING DATABASE COORDINATOR Lonny Lucero MD URINE ORDERABLES Final Result Performing Organization Address [facility] de Phone Number INTERFACE SYSTEM Refer to clinic/hospital department * (ABNORMAL) URINALYSIS (05/01/2006 2:15 AM MARKETING DATABASE COORDINATOR) MACRO COMMENT Culture in Progress INTERFACE SYSTEM COLOR UA Yellow INTERFACE SYSTEM CLARITY UA Slt. Cloudy(A) Clear INTERFACE SYSTEM SPECIFIC GRAVITY UA 1.025 1.001 - 1.035 INTERFACE SYSTEM PH UA 5.0 5.0 - 8.0 INTERFACE SYSTEM LEUKOCYTE ESTERASE UA Trace(A) Negative INTERFACE SYSTEM NITRITE UA Negative Negative INTERFACE SYSTEM PROTEIN UA 1+(A) Negative INTERFACE SYSTEM GLUCOSE UA Negative Negative INTERFACE SYSTEM KETONES UA Trace(A) Negative INTERFACE SYSTEM UROBILINOGEN UA 4(H) <=1 mg/dL INTE RFACE SYSTEM BILIRUBIN UA Negative Negative INTERFA CE SYSTEM BLOOD UA 1+(A) Negative INTERFACE SYSTEM 05/01/2006 2:15 AM MARKETING DATABASE COORDINATOR Result [facility] Lonny Lucero MD URINE ORDERABLES Final Result Performing Organization Address [facility] Co de Phone Number INTERFACE SYSTEM Refer to clinic/hospital department documented in this encounter Visit Diagnoses Diagnosis Urinary tract infection, site not specified- Primary documented in this encounter Care Teams Director Dietetics Department Relationship Specialty Start Date End Date Rafael Arellano MD [address] [place] [phone] PCP - General Family Practice 12/11/19 documented as of this encounter
--- OUTSIDE RECORDS SUMMARY | 2024-08-11 09:44 | XMS_ITS ---
Author Organization [facility] [employer] [facility] Address [address] [place] [address] Care Team Providers Care Draftsperson Name Role Phone Rafael Arellano MD Primary Care Provider Unavaila Em Zimmerman Unavailable [phone] Jose Rafael Thengarrison Unavailable [phone] REASON FOR VISIT Cancel Appointment Request Social History Sex Assigned At : Social History Observation Description Sex Assigned At Female Encounters Encounter Location Date Provider Diagnosis [facility] [address] [place] [address] 04/14/2024 Thena Jose Rafael Plan Of Treatment Next Appt Details Provider Name:Em Irby , 08/28/2024 11:15:00 AM, [address], [place], [address], Progress Notes * BEKAH VIDAL MDOB:[birth year] (39 yo F)Acc No.[id number]:04/14/2024 Patient: Carl BEKAH LYNN :1985 A ge:39 Y S ex:Female Address:[address] [place], [address] * true * Date: Generated for Printi ng/Faxing/eTransmitting on: 0 08/11/2024 09:44 AM CDT
--- NOTE | 2024-08-11 09:54 | ECG_ITS ---
Test Date: 2024-08-11 10:29:56 Measurements Intervals Beatty Rate: 74 P: 41 NE: 186 QRS: -14 QRSD: 86 T: 15 QT: 370 QTc: 411 Interpretive Statements SINUS RHYTHM LOW QRS VOLTAGE IN PRECORDIAL LEADS Electronically Signed On 08-13-2024 13:47:31 CDT by Paolo Walters D.O
[2024-08-11 10:47] LABS: BEDSIDEPREGUCG Negative (Negative)
[2024-08-11 10:59] LABS: Basophils Absolute Auto 0.1 K/mm3 (0.0-0.1); Basophils Percent Auto 0.8 % (0.2-1.2); Eosinophils Absolute Auto 0.4 K/mm3 (0-0.3); Eosinophils Percent Auto 5.8 % (0-4.4); Hemoglobin 10.8 g/dL (12.0-15.0); Immature Granulocyte Absolute 0.02 K/mm3 (0.00-0.031); Immature Granulocyte Percent A 0.3 % (0-0.5); Lymphocytes Absolute Auto 1.79 K/mm3 (0.9-3.2); Lymphocytes Percent Auto 24.8 % (18.3-44.2); Mean Corpuscular HGB Conc 31.8 g/dl (32-36); Mean Corpuscular Hemoglobin 26.9 pg (26-34); Mean Corpuscular Volume 84.6 fl (80-100); Mean Platelet Volume 9.8 fl (7.4-10.4); Monocytes Absolute Auto 0.5 K/mm3 (0.1-0.6); Monocytes Percent Auto 6.8 % (2.6-8.5); Neutrophils Absolute Auto 4.4 K/mm3 (1.3-6.7); Neutrophils Percent Auto 61.5 % (45.5-73.1); Platelet Count Result 330 k/mm3 (150-375); Red Blood Count 4.02 M/mm3 (4.2-5.4); Red Cell Distribution Width 14.3 % (11.5-14.5); White Blood Count 7.2 K/mm3 (4.5-10.0)
--- NOTE | 2024-08-11 11:03 | ED.NAVMDI ---
HPI - Nausea/Vomiting/Diarrhea General Chief complaint: Nausea/Vomiting/Diarrhea Stated complaint: lithium toxicity Time Seen by Provider: 08/11/24 09:54 Source: patient Mode of arrival: ambulatory Limitations: no limitations History of Present Illness HPI Narrative: This is a 39-year-old female that presents to the emergency department for possible lithium toxicity. Reports over the last 6 months she has experienced dizziness, unsteady gait, abdominal discomfort, nausea. Reports she saw her family physician who did some outpatient blood work which showed her [place] level was elevated. She tried to follow up with her psychiatric care provider this morning who prompted her to be seen in the ER. Related Data Home Medications ?Medication ?Instructions ?Recorded ?Confirmed ?Last Taken ?Type doxylamine succinate 25 mg tablet 50 mg PO HS PRN Sleep 08/22/21 11/04/23 1 Day Ago History (Unisom (doxylamine)) ~08/28/21 spironolactone 100 mg tablet 100 mg PO DAILY 08/24/22 11/04/23 Unknown History clonazepam 0.5 mg tablet mg 03/01/24 Unknown History hydroxyzine pamoate 25 mg capsule mg 03/01/24 Unknown History lithium carbonate 450 mg mg PO 03/01/24 Unknown History tablet,extended release sertraline 25 mg tablet mg 03/01/24 Unknown History trazodone 50 mg tablet mg 03/01/24 Unknown History Allergies Allergy/AdvReac Type Severity Reaction Status Date / Time venlafaxine (From Effexor) Allergy Hives Verified 08/11/24 09:15 Review of Systems Review of Systems: CONSTITUTIONAL: Denies fever GASTROINTESTINAL: Reports abdominal pain, nausea, vomiting, and diarrhea. NEUROLOGIC: Denies numbness, or weakness. All systems reviewed & are unremarkable except as noted in HPI and below PMFSH Past Medical History Medical History Anxiety Anxiety and depression Bipolar 1 disorder Bipolar disorder delivery delivered Depression History of IBS Hx of migraines Mastitis without abscess Surgical History Surgical History H/O section X2 2007 and 2017 History of cervical cerclage 2017 History of incision and drainage 2017 Right breast due to Mastitis Family History Family History Mother Mental disorder Alcoholism Grandparent Diabetes mellitus Hypertension Mental disorder Other No pertinent family history Social History Social History Smoking status: Never smoker Substance use: never Living arrangements: with family Occupation/Education: occupation Gender identity (if verbalized by the patient): Female Spiritual care concerns: No Exam Narrative: GENERAL: Well-appearing, well-nourished, and in no acute distress. HEAD: Normocephalic, atraumatic. EYES: PERRLA and EOMI. ENT: Nares clear, no rhinorrhea or epistaxis. Mucous membranes moist. Oropharynx without tonsillar hypertrophy exudate or other lesions. Bilateral TMs pearly serrano non-bulging NECK: Supple. No adenopathy or masses. CHEST: Clear to auscultation. No respiratory distress. No wheezes rales or rhonchi HEART: Regular rate and rhythm. No murmur heard. Normal peripheral pulses. ABDOMEN: Soft, nontender, nondistended, normal active bowel sounds. EXTREMITIES: Normal range of motion. No edema. Strength equal in bilateral upper and lower extremities (5/5) SKIN: Warm, dry, no rash. NEURO: No focal deficits. Alert and oriented x3. Cranial nerves 2-12 grossly intact. Normal [id number]-gj-[id number] PSYCH: Normal mood and affect Course Course Emergency Course: Patient updated on her workup. Agrees with plan of care Vital Signs Vital signs: Vital Signs Temperature 97.7 F 08/11/24 09:21 Pulse Rate 86 08/11/24 09:21 Respiratory Rate 18 08/11/24 09:21 Blood Pressure 125/82 08/11/24 09:21 Pulse Oximetry 100 08/11/24 09:21 Temperature 97.9 F 08/11/24 11:31 Pulse Rate 80 08/11/24 11:46 Respiratory Rate 18 08/11/24 11:46 Blood Pressure 127/80 08/11/24 11:46 Pulse Oximetry 100 08/11/24 11:46 MDM - Nausea/Vomiting/Diarrhea MDM Narrative Medical decision making narrative: Patient presents to the emergency department for possible lithium toxicity. Reports she has been experiencing several symptoms over the last 6 months. Her PCP had drawn a lithium level which was elevated, she is prompted to be seen in the ER. Her vitals are stable. She is neurologically intact. Cbc shows anemia which appears stable. Metabolic panel without concerning findings. Urine with possible evidence of infection. She does endorse some dysuria. Will be started on oral antibiotic. This was sent for culture. test is negative. [place] level here is 0.7. Chest x-ray without acute cardiopulmonary abnormality. EKG without concerning changes. Patient updated on her workup. Agrees with plan of care. She is to follow up with PCP. She was given warnings to return to the ER Differential Diagnosis Differential diagnosis: Likely other (lithium toxicity, electrolyte derangement) Lab Data Attestation: I reviewed the patient's lab results. 08/11/24 10:38 08/11/24 10:38 Labs: Lab Results 08/11/24 08/11/24 08/11/24 Range/Units 10:38 10:45 11:43 WBC 7.2 (4.5-10.0) K/mm3 RBC 4.02 L (4.2-5.4) M/mm3 Hgb 10.8 L (12.0-15.0) g/dL Hct 34.0 L (37.0-47.0) % MCV 84.6 (80-100) fl MCH 26.9 (26-34) pg MCHC 31.8 L (32-36) g/dl RDW 14.3 (11.5-14.5) % Plt Count 330 (150-375) k/mm3 MPV 9.8 (7.4-10.4) fl Immature Gran % (Auto) 0.3 (0-0.5) % Neut % (Auto) 61.5 (45.5-73.1) % Lymph % (Auto) 24.8 (18.3-44.2) % [place] % (Auto) 6.8 (2.6-8.5) % Eos % (Auto) 5.8 H (0-4.4) % Baso % (Auto) 0.8 (0.2-1.2) % Lymph # (Auto) 1.79 (0.9-3.2) K/mm3 [place] # (Auto) 0.5 (0.1-0.6) K/mm3 Eos # (Auto) 0.4 H (0-0.3) K/mm3 Baso # (Auto) 0.1 (0.0-0.1) K/mm3 Abs Immat Gran (auto) 0.02 (0.00-0.031) K/mm3 Absolute Neuts (auto) 4.4 (1.3-6.7) K/mm3 Absolute Nucleated RBC 0.000 (0.0-0.012) K/mm3 Nucleated RBC % 0.0 (0.0-0.2) % Sodium 137 (137-145) mmol/L Potassium 4.3 (3.4-5.0) mmol/L Chloride 110 H (98-107) mmol/L Carbon Dioxide 16 L (22-30) mmol/L Anion Gap 11 (4-12) mmol/L BUN 13 (7-17) mg/dL Creatinine 0.92 (0.7-1.0) mg/dL Estim Creat Clear Calc 81 ml/min Estimated GFR > 60 (59 - ) Glucose 105 (65-110) mg/dL Calcium 8.8 (8.4-10.2) mg/dL Total Bilirubin 0.3 (0.2-1.3) mg/dL AST 18 (14-36) U/L ALT 17 (6-35) U/L Alkaline Phosphatase 65 (38-126) U/L Total Protein 7.0 (6.3-8.2) g/dL Albumin 3.7 (3.5-5.1) g/dL Urine Color Yellow (Yellow) Urine Appearance Cloudy H (Clear) Urine pH 6.5 (5.0-9.0) Ur Specific Bruce 1.021 (1.001-1.035) Urine Protein Negative (Negative) mg/dL Urine Glucose (UA) Negative (Negative) mg/dL Urine Ketones Negative (Negative) mg/dL Ur Blood (Man) Negative (Negative) Urine Nitrate Negative (Negative) Urine Bilirubin Negative (Negative) Urine Urobilinogen 0.2 (<2.0) mg/dL Add Ur Microanalysis Reviewed Leukocyte Esterase Rfl Trace H (Negative) MONA/UL Urine RBC 0-2 (0-2) /hpf Urine WBC 11-20 H (0-3) /hpf Ur Squamous Epith Cells Moderate (Few) /hpf Urine Bacteria 4+ H /hpf Urine Casts 3-5 POC Urine HCG, Qual Negative (Negative) [place] 0.7 (0.6-1.2) mmol/L Imaging Data Radiologist's impression: ITS Impressions Chest X-Ray 08/11/24 10:12 IMPRESSION: 1. No acute cardiopulmonary disease. ECG Data EKG #1: ECG completion date: 08/11/24 EKG Interpretation: normal rate, sinus rhythm, no ST changes and normal QT Critical Care Time Critical Care Time Critical Care Time: No Discharge Plan Discharge Clinical Impression: [place] use, Dizziness, Acute UTI Patient Disposition: Home, Self-Care Condition: Stable Instructions: [place] (By mouth), Urinary Tract Infection in Women (ED), Dizziness (ED) Additional Instructions: Return to the emergency department if you experience fever, chest pain, shortness of breath, abdominal pain with nausea and vomiting, weakness, numbness, or any other symptoms that are concerning to you. Follow up with your primary care doctor and psychiatric care provider Patient Language: Croatian Prescriptions: New nitrofurantoin monohyd/m-cryst [Macrobid] 100 mg capsule 100 mg PO Q12H 5 Days Qty: 10 0RF Rx Instructions: must administer with a meal/food No Action trazodone 50 mg tablet clonazepam 0.5 mg tablet lithium carbonate 450 mg tablet extended release PO sertraline 25 mg tablet hydroxyzine pamoate 25 mg capsule spironolactone 100 mg tablet 100 mg PO DAILY Unisom (doxylamine) 25 mg Tablet 50 mg PO HS PRN (Reason: Sleep) Follow-up/Referrals: Eileen,Rafael Walton MD [Primary Care Provider] -
[2024-08-11 11:11] LABS: Alanine Aminotransferase 17 U/L (6-35); Albumin Level 3.7 g/dL (3.5-5.1); Alkaline Phosphatase 65 U/L (38-126); Anion Gap 11 mmol/L (4-12); Aspartate Amino Transferase 18 U/L (14-36); Bilirubin,Total 0.3 mg/dL (0.2-1.3); Blood Urea Nitrogen 13 mg/dL (7-17); Calcium 8.8 mg/dL (8.4-10.2); Carbon Dioxide 16 mmol/L (22-30); Chloride 110 mmol/L (98-107); Estimated CRCL calculation 81 ml/min; Estimated Glomerular Filt Rate > 60; Glucose 105 mg/dL (65-110); Potassium 4.3 mmol/L (3.4-5.0); Sodium 137 mmol/L (137-145)
[2024-08-11] MEDS: SODIUM CHLORIDE 0.9% IV 1,000 ML 999 ML IV CONT (11:13)
[2024-08-11 11:28] LABS: Add Urine Microscopic? YES; Appearance Urine Cloudy (Clear); Bacteria Urine 4+ /hpf; Bilirubin Urine Negative (Negative); Blood Urine Negative (Negative); Color Urine Yellow (Yellow); Glucose Urine UA Negative (Negative); Ketones Urine Negative (Negative); Leukocyte Esterase Ur Trace LEU/UL (Negative); Need Manual Microscopic Reviewed; Nitrate Urine Negative (Negative); Protein Urine Negative (Negative); RBC Urine 0-2 /hpf (0-2); Specific Grav Ur 1.021 (1.001-1.035); Squamous Epithelial Cell Urine Moderate /hpf (Few); Urobilinogen Urine 0.2 mg/dL (<2.0); pH Urine 6.5 (5.0-9.0)
--- OUTSIDE RECORDS SUMMARY | 2024-08-11 12:02 | XMS_ITS | Encounter Summary ---
Author Organization [employer] Address [address] [place] [address] Care Team Providers Care Synchronous Motor Assembler Name Role Phone Rafael Arellano MD Primary Care Provider [phone] Encounter Details Date Type Department Care Team [...] on file Legal Sex Female 5:04 AM AIR CONDITIONING COIL ASSEMBLER Gender Identity Not on file Sexual Orientation Not on file documented as of this encounter Plan of Treatment Not on file documented as of this encounter Visit Diagnoses Diagnosis Foreign body in conjunctival sac- Primary Accident caused by caustic and corrosive substances Unspecified place of occurrence documented in this encounter Care Teams Synchronous Motor Assembler Relationship Specialty Start Date End Date Rafael Arellano MD [address] [place] [phone] PCP - General Family Practice 12/11/19 documented as of this encounter
--- OUTSIDE RECORDS SUMMARY | 2024-08-11 12:02 | XMS_ITS | Encounter Summary ---
Author Organization [employer] Address [address] [place] [address] Care Team Providers Care Computer Numerical Control Grinder Name Role Phone Rafael Arellano MD Primary Care Provider [phone] Encounter Details Date Type Department Care Team (Late st Contact Info) Description 05/18/2007 Orders Only [facility] [address] [place] [address] 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 RECEIVED FAXED REQUEST FROM THE PHARMACY FINAL ACTION: rubénissr 05/18/07 at 09:26 am Called pharmacy at 05/18/07 at 09:26 am. faxed [phone]./sk Electronically Signed by: Janneth Guadarrama on Friday, May 18, 2007 documented in this encounter Plan of Treatment Not on file documented as of this encounter Visit Diagnoses Not on filedocumented in this encounter Care Teams Computer Numerical Control Grinder Relationship Specialty Start Date End Date Rafael Arellano MD [address] [place] [phone] PCP - General Family Practice 12/11/19 documented as of this encounter
--- OUTSIDE RECORDS SUMMARY | 2024-08-11 12:02 | XMS_ITS | Encounter Summary ---
Author Organization [facility] Address [address] [place] [address] Care Team Providers Care Divorce Attorney Name Role Phone Rafael Arellano MD Primary Care Provider [phone] Encounter Details Date Type Department Care Team (Late st Contact Info) Description 08/10/2024 7:41 AM CDT Hospital Encounter [facility] Laboratory [address] [place], [place] [phone] Rafael Arellano MD [address] [facility] [address] [place] [address] Arrived Social History Tobacco Use [...] Sex Assigned at Female 06/15/2024 7:38 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 [place] high, recommend followup with psych and adjust [...] Info) Description 09/20/2024 7:30 AM CDT Appointment [facility] Ultrasound [address] [place], [place] [id number] Puma Pierre, PHOTO MANAGER [address] [place] [address] 11/14/2024 9:00 AM CDT Office Visit [facility] - [address], [address] [place] [phone] Rafael Arellano MD [address] [facility] [address] [place], [place] [phone] Kash Marcus MD [address] [place] [address] Pending Results Name Type Priority Associated Diagnoses [...] - 1.46 NG/DL 08/10/2024 12:36 PM CDT [facility] 08/10/2024 7:55 AM CDT us Rafael Arellano MD LABORATORY Final Result [facility] [address] [place] [address], [place] [phone] * (ABNORMAL) CBC W/DIFF AUTOMATED (08/10/2024 7:55 AM CDT) WBC 7.13 4.50 - 11.00 x10'3/uL 08/10/2024 8:00 AM CDT [facility] RBC 4.04 4.00 - 5.20 x10'6/uL 08/10/2024 8:00 AM CDT [facility] HGB 10.8(L) 12.0 - 16.0 G/DL 08/10/2024 8:00 AM CDT [facility] HCT 33.6(L) 38.0 - 48.0 % 08/10/2024 8:00 AM CDT [facility] MCV 83.2 80.0 - 100.0 FL 08/10/2024 8:00 AM CDT [facility] MCH 26.7 26.0 - 34.0 PG 08/10/2024 8:00 AM CDT [facility] MCHC 32.1 31.0 - 37.0 G/DL 08/10/2024 8:00 AM CDT [facility] RDW 14.2 11.6 - 14.8 % 08/10/2024 8:00 AM CDT [facility] PLT 323 130 - 400 x10'3/uL 08/10/2024 8:00 AM CDT [facility] MPV 9.7 7.0 - 12.0 FL 08/10/2024 8:00 AM CDT [facility] CBC COMMENT AUTOMATED RBC MORPHOLOGY AND PLATELET EVALUATION NORMAL 08/10/2024 8:00 AM CDT [facility] NEUTROPHILS % 62.5 40.0 - 74.0 % 08/10/2024 8:00 AM CDT [facility] LYMPHOCYTES % 24.5 14.0 - 46.0 % 08/10/2024 8:00 AM CDT [facility] MONOCYTES % 6.9 4.0 - 13.0 % 08/10/2024 8:00 AM CDT [facility] EOSINOPHILS 5.0 0.0 - 7.0 % 08/10/2024 8:00 AM CDT [facility] BASOPHILS 0.7 0.0 - 3.0 % 08/10/2024 8:00 AM CDT [facility] IMMATURE GRANS % 0.4 0.0 - 0.43 % 08/10/2024 8:00 AM CDT [facility] NRBC % 0.0 % 08/10/2024 8:00 AM CDT [facility] ABS. NEUTROPHILS TOTAL 4.45 1.69 - 7.81 x10'3/uL 08/10/2024 8:00 AM CDT [facility] ABS. LYMPHOCYTES 1.75 0.21 - 5.42 x10'3/uL 08/10/2024 8:00 AM CDT [facility] ABS. MONOCYTES 0.49 0.04 - 1.37 x10'3/uL 08/10/2024 8:00 AM CDT [facility] ABS. EOSINOPHILS 0.36 0.00 - 0.68 x10'3/uL 08/10/2024 8:00 AM CDT [facility] ABS. BASOPHILS 0.05 0.00 - 0.08 x10'3/uL 08/10/2024 8:00 AM CDT [facility] ABS. IMMATURE GRANULOCYTES 0.03 0.00 - 0.06 x10'3/uL 08/10/2024 8:00 AM CDT [facility] ABS. NUCLEATED RBC'S 0.00 0.00 - 0.01 x10'3/uL 08/10/2024 8:00 AM CDT [facility] 08/10/2024 7:55 AM CDT us Rafael Arellano MD LABORATORY Final Result [facility] [address] [facility] [place] [address], * (ABNORMAL) COMPREHENSIVE METABOLIC PANEL (08/10/2024 7:55 AM CDT) [facility] GLUCOSE 92 70 - 99 MG/DL 08/10/2024 8:47 AM CDT [facility] BUN 11 7 - 18 MG/DL 08/10/2024 8:47 AM CDT [facility] CREATININE S/P/B 1.12 0.50 - 1.20 MG/DL 08/10/2024 8:47 AM CDT [facility] SODIUM S/P/B 138 136 - 145 MMOL/L 08/10/2024 8:47 AM CDT [facility] POTASSIUM S/P/B 3.9 3.5 - 5.1 MMOL/L 08/10/2024 8:47 AM CDT [facility] CHLORIDE S/P/B 105 100 - 108 MMOL/L 08/10/2024 8:47 AM CDT [facility] CO2 22.1 21.0 - 32.0 MMOL/L 08/10/2024 8:47 AM CDT [facility] CALCIUM S/P/B 8.7 8.5 - 10.1 MG/DL 08/10/2024 8:47 AM CDT [facility] BILIRUBIN TOTAL S/P/B 0.3 0.2 - 1.2 MG/DL 08/10/2024 8:47 AM CDT [facility] Comment: THIS ASSAY IS NOT RECOMMENDED FOR PATIENTS UNDERGOING TREATMENT WITH ELTROMBOPAG DUE TO THE POTENTIAL FOR FALSELY ELEVATED RESULTS. TOTAL PROTEIN S/P/B 6.7 6.4 - 8.2 G/DL 08/10/2024 8:47 AM CDT [facility] ALBUMIN S/P/B 3.2(L) 3.4 - 5.0 G/DL 08/10/2024 8:47 AM CDT [facility] AST 19 15 - 37 U/L 08/10/2024 8:47 AM CDT [facility] ALT 17 14 - 55 U/L 08/10/2024 8:47 AM CDT [facility] ALKALINE PHOSPHATASE S/P/B 52 50 - 136 U/L 08/10/2024 8:47 AM CDT [facility] ANION GAP 10.9 5.0 - 15.0 MMOL/L 08/10/2024 8:47 AM CDT [facility] BUN CREATININE RATIO 9.8 6 - 26 08/10/2024 8:47 AM CDT [facility] A/G RATIO 0.9(L) 1.0 - 2.5 RATIO 08/10/2024 8:47 AM CDT [facility] GFR ESTIMATE 64(L) >90 ML/MIN/1.7 3 M2 08/10/2024 8:47 AM CDT [facility] Comment: NOTE: eGFR is not calculated for patients <18 years of age. This is an estimated GFR calculation using the new CKD EPI creatinine equation without race and so does not require a correction factor for race. This estimated GFR should not be used for calculating drug doses. 08/10/2024 7:55 AM CDT us Rafael Arellano MD LABORATORY Final Result [address] [place] [address], * (ABNORMAL) VITAMIN D, 25 OH (08/10/2024 7:55 AM CDT) Pathologist [facility] VITAMIN D 25 HYDROXY S/P/B 11(L) 30 - 100 NG/ML 08/10/2024 10:45 AM CDT [facility] Comment: INTERPRETATION DEFICIENT <20 INSUFFICIENT 20-29 SUFFICIENT 30-100 08/10/2024 7:55 AM CDT Rafael Arellano MD LABORATORY Final Result Performing Organization Address [facility] Co de Phone Number [facility] [address] [place] [address], * (ABNORMAL) TSH W/REFLEX (08/10/2024 7:55 AM CDT) TSH 5.260(H) 0.358 - 3.74 uIU/ML 08/10/2024 12:12 PM CDT [facility] Comment: HIGH DOSES OF BIOTIN MAY INTERFERE WITH THIS TEST RESULT. CORRELATION TO CLINICAL HISTORY AND PRESENTATION RECOMMENDED. 08/10/2024 7:55 AM CDT Rafael Arellano MD LABORATORY Final Result Performing Organization Address [facility] de Phone Number [facility] [address] [place] [address], * (ABNORMAL) IRON SAT PANEL (IRON,IBC,%SAT) (08/10/2024 7:55 AM CDT) IRON 46(L) 50.0 - 170.0 MCG/DL 08/10/2024 11:55 AM CDT [facility] IRON BINDING CAPACITY 538(H) 250 - 450 MCG/DL 08/10/2024 11:55 AM CDT [facility] IRON SATURATION 9(L) 20 - 55 % 11:55 AM CDT [facility] 08/10/2024 7:55 AM CDT Rafael Arellano MD LABORATORY Final Result [facility] [address] [place] [address], * PTH - INTACT (08/10/2024 7:55 AM CDT) PTH INTACT 79.4 18.4 - 80.1 PG/ML 08/10/2024 11:00 AM CDT [facility] 08/10/2024 7:55 AM CDT Rafael Arellano MD LABORATORY Final Result Performing Organization Address City/[facility]/ZIP Co de Phone Number [facility] [address] [place] [address], * VITAMIN B-12 (08/10/2024 7:55 AM CDT) VITAMIN B12 S/P/B 443 254 - 1,320 PG/ML 08/10/2024 12:12 PM CDT [facility] 08/10/2024 7:55 AM CDT Rafael Arellano MD LABORATORY Final Result [facility] [address] [place] [address], * MAGNESIUM (08/10/2024 7:55 AM CDT) MAGNESIUM 1.9 1.8 - 2.4 MG/DL 08/10/2024 8:47 AM CDT [facility] 08/10/2024 7:55 AM CDT Rafael Arellano MD LABORATORY Final Result [facility] [address] [facility] [place] [address], [place] * (ABNORMAL) LITHIUM (08/10/2024 7:55 AM CDT) LITHIUM 2.1(HH) 0.6 - 1.2 MMOL/L 08/10/2024 10:57 AM CDT [facility] Comment: Critical Result(s) Called at: 10:55:56 on 08/10/2024 by: FILIPE WICK to and read back by:MIAN GREGG Therapeutic Range: 0.6-1.2 MMOL/L POTENTIALLY TOXIC: >1.5 MMOL/L 08/10/2024 7:55 AM CDT Rafael Arellano MD LABORATORY Final Result Performing Organization Address City/[facility] Co de Phone Number [facility] [address] [place] [address], [place] [phone] documented in this encounter Visit Diagnoses Diagnosis [...] documented as of this encounter Care Teams Divorce Attorney Relationship Specialty Start Date End Date Rafael Arellano MD [address] [facility] [address] [place], [place] [phone] PCP - General FAMILY PRACTICE 11/01/23 documented as of this encounter
--- OUTSIDE RECORDS SUMMARY | 2024-08-11 12:02 | XMS_ITS | Encounter Summary ---
Author Organization [employer] Address 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 Gender Identity Not on file Sexual Orientation [...] (11/02/2007 8:00 PM CDT) PRELIMINARY REPORT Pending [facility] FINAL REPORT No growth 24 hours [facility] 11/02/2007 8:00 PM CDT 11/02/2007 9:48 PM CDT Nicholas Ferguson MD MICROBIOLOGY - GENERAL ORDERAB LES Final Result [facility] CLIA# [id number] [address] [place] [address] * (ABNORMAL) URINALYSIS (11/02/2007 8:00 PM CDT) COLOR UA Yellow [facility] NITRITE UA Negative Negative [facility] UROBILINOGEN UA <1 <=1 mg/dL [facility] BACTERIA UA 1+(A) None Seen /HPF [facility] PH UA 6.5 5.0 - 8.0 [facility] KETONES UA Trace(A) Negative [facility] [place] WBC UA 9(H) 0 - 5 /HPF [facility] CLARITY UA Slt. Cloudy(A) Clear [facility] PROTEIN UA 1+(A) Negative [facility] [place] [facility] EPITHELIAL CELLS, URINE Many /HPF [facility] BILIRUBIN UA Negative Negative [facility] LEUKOCYTE ESTERASE UA 3+(A) Negative [facility] RBC UA 1 0 - 4 /HPF [facility] [place] [facility] SPECIFIC GRAVITY UA 1.028 1.001 - 1.035 [facility] BLOOD UA Negative Negative [facility] GLUCOSE UA Trace(A) Negative [facility] [place] 11/02/2007 8:00 PM CDT 11/02/2007 8:09 PM CDT Nicholas Ferguson MD URINE ORDERABLES Final Result Performing Organization Address [facility] Co de Phone Number [facility] CLIA# [id number] [address] [place] [address] * URINALYSIS WITH REFLEX CULTURE (11/02/2007 8:00 PM CDT) URINE CULTURE ORDER Culture ordered [facility] Comment: Criteria for a reflex culture [...] URINE ORDERABLES Final Result Performing Organization Address [facility] Co de Phone Number [facility] CLIA# [id number] [address] [place] [address] documented in this encounter Visit Diagnoses Diagnosis Other specified complication, antepartum(646.83) Other specified complication, antepartum with other poor obstetric history(V23.49) with other poor obstetric history Encounter for long-term (current) use of other medications documented in this encounter Care Teams Slip Cover Cutter Relationship Specialty [place] [address] [place] [phone] PCP - General Family Practice 12/11/19 documented as of this encounter
--- OUTSIDE RECORDS SUMMARY | 2024-08-11 12:02 | XMS_ITS | Clinical Summary ---
Author Organization [facility] Address [address] [place] [address] Care Team Providers Care Bung Dropper Name Role Phone Rafael Patel MD Primary Care Provider [phone] Allergies Active Allergy Reactions Criticality Noted Date [...] PPROM Previous delivery, antepartum condition or complication ([facility]) 06/12/2013 Overview (05/17/2018): Overview: 28 wk PPROM; Need records Per Dr Craft consult in 2013: delivered via CS due to poor status as she was being tocolyzed. She had deterioration in FHT and BPP. Insomnia 02/07/2013 Bipolar I disorder ([facility]) 04/01/2010 Borderline personality disorder ([facility] ) 04/01/2010 Resolved Problems Problem Noted Date Diagnosed Date Resolved Date Supervision of high-risk pre gnancy of young multigravida ([facility]) 07/30/2016 11/29/2019 Overview (05/17/2018): Overview: PNL: Ab: GCT: HIV: GBS: Dating: H/H/Plt: Hgb Elec: UDS: QS: CF: Pap: Gc/Chl: UCx: Breast/Bottle: Family Planning: Encounter for preventive health examination 02/07/2013 11/29/2019 Weight decreasing 02/07/2013 11/29/2019 Encounters Date Type Department Care Team Description 08/11/2024 Telephone [facility] [address], [address] [place] [address] Rafael Patel MD Lab Results (Thyroid, CBC, CMP, Mg, Vit D, [place], PTH, Iron, Vit B12, ); MRI Results (MRI brain ) 08/10/2024 7:41 AM CDT Hospital Encounter [facility] [address] [place] [address] Rafael Patel MD Arrived 08/10/2024 7:35 AM CDT Hospital Encounter [facility] [address] [place] [address] Rafael Patel MD Arrived 08/10/2024 Orders Only [facility] [address] [place] [address] Rafael Patel MD 08/10/2024 Travel 08/04/2024 Telephone [facility] - [address] [place] [address] Kash Marcus MD Appointment Request 08/03/2024 Telephone [facility] [address], [address] [place] [address] Rafael Patel MD Results 08/03/2024 Telephone [facility] [address], [address] [place] [address] Rafael Patel MD Prior Authorization ([facility]) 08/02/2024 8:45 AM ASSIGNMENT CLERK - 08/02/2024 11:59 PM ASSIGNMENT CLERK Hospital Encounter [facility] [address] [place] [address] Rafael Patel MD Discharge Disposition: Home or Self Care (Routine Discharge) 08/02/2024 8:00 AM ASSIGNMENT CLERK Office Visit [facility] [place] [address], [address] [place] [address] Rafael Patel MD Balance Problem; Tingling (Having some tingling in right hand); Other (Have been having issues with memory problems, tremors, and at times feels like being cattle prodded in back of neck. Some things have been going on since January while others have started just recently) 08/02/2024 Travel 06/29/2024 12:30 PM ASSIGNMENT CLERK - 06/29/2024 11:59 PM ASSIGNMENT CLERK Hospital Encounter [facility] [address] [place] [address] Alma Delia Noyola, ALEXANDER Discharge Disposition: Home or Self Care (Routine Discharge) 06/29/2024 Travel 06/16/2024 3:44 PM ASSIGNMENT CLERK - 06/16/2024 11:59 PM ASSIGNMENT CLERK Hospital Encounter [facility] [address] [place] [address] Alma Delia Noyola, ALEXANDER Discharge Disposition: Home or Self Care (Routine Discharge) 06/16/2024 Travel 06/15/2024 7:44 AM ASSIGNMENT CLERK - 06/15/2024 11:59 PM ASSIGNMENT CLERK Hospital Encounter [facility] [address] [place] [place] [address] Alma Delia Noyola NP Kramper, Breck D, CATTLE TRADER Discharge Disposition: Home or Self Care (Routine Discharge) 06/15/2024 7:40 AM ASSIGNMENT CLERK - 06/15/2024 7:43 AM ASSIGNMENT CLERK Hospital Encounter [facility] [address] [place] [address] Alma Delia Noyola, ALEXANDER Discharge Disposition: Home or Self Care (Routine Discharge) 06/15/2024 Orders Only [facility] [address] [place] [address] Puma Pierre NP 06/15/2024 Orders Only [facility] [address] [place] [address] Alma Delia Noyola NP 06/15/2024 Travel 05/19/2024 7:27 AM ASSIGNMENT CLERK - 05/19/2024 11:59 PM ASSIGNMENT CLERK Hospital Encounter [facility]ound [address] [place] [address] Puma Pierre, CATTLE TRADER Discharge Disposition: Home or Self Care (Routine Discharge) 05/18/2024 10:40 AM ASSIGNMENT CLERK Office Visit [facility] - [place] [address] [place] [address] Rafael Patel MD Low Back Pain (Pt [...] Sex Assigned at Female 06/15/2024 7:38 AM ASSIGNMENT CLERK Legal Sex Female 6:32 PM CDT Gender Identity Female 08/05/2022 3:35 PM ASSIGNMENT CLERK Sexual Orientation Straight 08/05/2022 3: 35 PM ASSIGNMENT CLERK Last Filed Vital Signs Vital Sign Reading Time Taken Comments Blood Pressure 110/72 08/02/2024 8:12 AM ASSIGNMENT CLERK Pulse 99 08/02/2024 8:12 AM ASSIGNMENT CLERK Temperature 35.9 C (96.6 F) 08/02/2024 8:12 AM ASSIGNMENT CLERK Respiratory Rate 18 08/02/2024 8:12 AM ASSIGNMENT CLERK Oxygen Saturation 98% 08/02/2024 8:12 AM ASSIGNMENT CLERK Inhaled Oxygen Concentration - - Weight 99.5 kg (219 lb 4.8 oz) 08/02/2024 8:12 A M ASSIGNMENT CLERK Height 160 cm (5' 3 ) 02/21/2024 11:32 AM CDT Body Mass Index 38.85 02/21/2024 11:32 AM CDT Plan of Treatment Upcoming Encounters Date Type Department Care Team (Late st Contact Info) Description 09/20/2024 7:30 AM CDT Appointment [facility] [address] [place], [place] [id number] Puma Pierre, CATTLE TRADER [address] [place] [address] 11/14/2024 9:00 AM CDT Office Visit [facility] - [facility] [address] [place] [address] Rafael Patel MD [address] [facility] [address] [place] [id number] Kash Marcus MD [address] [place] [address] Health Maintenance Due Date Last Done Comments [...] 03/01, 09/13/2020, Additional history exists PHQ-2 (Physician [place]) Completed 08/02/2024 HPV Vaccines Aged Out No [...] CERV SPINE 3V Routine 08/02/2024 9:01 AM ASSIGNMENT CLERK Paresthesia Cervicalgia MG DIAG ADD VIEW W KESHA RT Routine 06/29/2024 1:21 PM ASSIGNMENT CLERK Abnormal mammogram MG SCREENING W KESHA PRITESH DIGI Routine 06/16/2024 4:10 PM ASSIGNMENT CLERK Encounter for screening mammogram for malignant neoplasm of breast THYROXINE, FREE (FT4) Routine 06/15/2024 7:50 AM ASSIGNMENT CLERK TSH W/REFLEX Routine 06/15/2024 7:50 AM ASSIGNMENT CLERK Hemorrhage in uterus CBC W/DIFF AUTOMATED Routine 06/15/2024 7:50 AM ASSIGNMENT CLERK Hemorrhage in uterus Fatigue US PELVIC NON OB COMP TA+TV Routine 05/19/2024 8:07 AM ASSIGNMENT CLERK Abnormal uterine bleeding Screening for STDs (sexually [...] 1:54 PM Narrative 08/10/2024 2:46 PM CDT [address] [place] [address] IMAGING STUDIES: MRI BRAIN WWO CON DATE: [...] Procedure Note Yung Paulino MD - 08/10/2024 [facility] [address] [place] [address] IMAGING STUDIES: MRI BRAIN WWO CON DATE: [...] - 3.74 uIU/ML 08/10/2024 12:12 PM CDT [facility] Comment: HIGH DOSES OF BIOTIN MAY INTERFERE WITH THIS TEST RESULT. CORRELATION TO CLINICAL HISTORY AND PRESENTATION RECOMMENDED. 08/10/2024 7:55 AM CDT us Rafael Patel MD LABORATORY Final Result Performing Organization Address City/[facility]/ZIP Co de Phone Number [facility] [address] [place] [address], * PTH - INTACT (08/10/2024 7:55 AM CDT) PTH INTACT 79.4 18.4 - 80.1 PG/ML 08/10/2024 11:00 AM CDT [facility] 08/10/2024 7:55 AM CDT Rafael Patel MD LABORATORY Final Result Performing Organization Address [facility] Co de Phone Number [facility] [address] [place] [address], [place] [phone] * (ABNORMAL) IRON SAT PANEL (IRON,IBC,%SAT) (08/10/2024 7:55 AM CDT) IRON 46(L) 50.0 - 170.0 MCG/DL 08/10/2024 11:55 AM CDT [facility] IRON BINDING CAPACITY 538(H) 250 - 450 MCG/DL 08/10/2024 11:55 AM CDT [facility] IRON SATURATION 9(L) 20 - 55 % 11:55 AM CDT [facility] 08/10/2024 7:55 AM CDT us Rafael Patel MD LABORATORY Final Result Performing Organization Address City/[facility]/ZIP Co de Phone Number [facility] [address] [place] [address], * VITAMIN B-12 (08/10/2024 7:55 AM CDT) [facility] VITAMIN B12 S/P/B 443 254 - 1,320 PG/ML 08/10/2024 12:12 PM CDT [facility] 08/10/2024 7:55 AM CDT Rafael Patel MD LABORATORY Final Result [address] [address], [place] [phone] * (ABNORMAL) COMPREHENSIVE METABOLIC PANEL (08/10/2024 7:55 AM CDT) [facility] GLUCOSE 92 70 - 99 MG/DL 08/10/2024 8:47 AM CDT [facility] BUN 11 7 - 18 MG/DL 08/10/2024 8:47 AM CDT [facility] CREATININE S/P/B 1.12 0.50 - 1.20 MG/DL 08/10/2024 8:47 AM CDT [facility] SODIUM S/P/B 138 136 - 145 MMOL/L 08/10/2024 8:47 AM CDT [facility] POTASSIUM S/P/B 3.9 3.5 - 5.1 MMOL/L 08/10/2024 8:47 AM CDT [facility] CHLORIDE S/P/B 105 100 - 108 MMOL/L 08/10/2024 8:47 AM CDT [facility] CO2 22.1 21.0 - 32.0 MMOL/L 08/10/2024 8:47 AM CDT [facility] CALCIUM S/P/B 8.7 8.5 - 10.1 MG/DL 08/10/2024 8:47 AM CDT [facility] BILIRUBIN TOTAL S/P/B 0.3 0.2 - 1.2 MG/DL 08/10/2024 8:47 AM CDT [facility] Comment: THIS ASSAY IS NOT RECOMMENDED FOR PATIENTS UNDERGOING TREATMENT WITH ELTROMBOPAG DUE TO THE POTENTIAL FOR FALSELY ELEVATED RESULTS. TOTAL PROTEIN S/P/B 6.7 6.4 - 8.2 G/DL 08/10/2024 8:47 AM CDT [facility] ALBUMIN S/P/B 3.2(L) 3.4 - 5.0 G/DL 08/10/2024 8:47 AM CDT [facility] AST 19 15 - 37 U/L 08/10/2024 8:47 AM CDT [facility] ALT 17 14 - 55 U/L 08/10/2024 8:47 AM CDT [facility] ALKALINE PHOSPHATASE S/P/B 52 50 - 136 U/L 08/10/2024 8:47 AM CDT [facility] ANION GAP 10.9 5.0 - 15.0 MMOL/L 08/10/2024 8:47 AM CDT [facility] BUN CREATININE RATIO 9.8 6 - 26 08/10/2024 8:47 AM T [facility] A/G RATIO 0.9(L) 1.0 - 2.5 RATIO 08/10/2024 8:47 AM T [facility] GFR ESTIMATE 64(L) >90 ML/MIN/1.7 3 M2 08/10/2024 8:47 AM T [facility] Comment: NOTE: eGFR is not calculated for patients <18 years of age. This is an estimated GFR calculation using the new CKD EPI creatinine equation without race and so does not require a correction factor for race. This estimated GFR should not be used for calculating drug doses. 08/10/2024 7:55 AM CDT Rafael Patel MD LABORATORY Final Result [facility] [address] [place] [place] [address], [place] * (ABNORMAL) CBC W/DIFF AUTOMATED (08/10/2024 7:55 AM CDT) Only the most recent of2 resultswithin the time period is included. WBC 7.13 4.50 - 11.00 x10'3/uL 08/10/2024 8:00 AM CDT [facility] RBC 4.04 4.00 - 5.20 x10'6/uL 08/10/2024 8:00 AM CDT [facility] HGB 10.8(L) 12.0 - 16.0 G/DL 08/10/2024 8:00 AM CDT [facility] HCT 33.6(L) 38.0 - 48.0 % 08/10/2024 8:00 AM CDT [facility] MCV 83.2 80.0 - 100.0 FL 08/10/2024 8:00 AM CDT [facility] MCH 26.7 26.0 - 34.0 PG 08/10/2024 8:00 AM CDT [facility] MCHC 32.1 31.0 - 37.0 G/DL 08/10/2024 8:00 AM CDT [facility] RDW 14.2 11.6 - 14.8 % 08/10/2024 8:00 AM CDT [facility] PLT 323 130 - 400 x10'3/uL 08/10/2024 8:00 AM CDT [facility] MPV 9.7 7.0 - 12.0 FL 08/10/2024 8:00 AM CDT [facility] CBC COMMENT AUTOMATED RBC MORPHOLOGY AND PLATELET EVALUATION NORMAL 08/10/2024 8:00 AM CDT [facility] NEUTROPHILS % 62.5 40.0 - 74.0 % 08/10/2024 8:00 AM CDT [facility] LYMPHOCYTES % 24.5 14.0 - 46.0 % 08/10/2024 8:00 AM CDT [facility] MONOCYTES % 6.9 4.0 - 13.0 % 08/10/2024 8:00 AM CDT [facility] EOSINOPHILS 5.0 0.0 - 7.0 % 08/10/2024 8:00 AM CDT [facility] BASOPHILS 0.7 0.0 - 3.0 % 08/10/2024 8:00 AM CDT [facility] IMMATURE GRANS % 0.4 0.0 - 0.43 % 08/10/2024 8:00 AM CDT [facility] NRBC % 0.0 % 08/10/2024 8:00 AM CDT [facility] ABS. NEUTROPHILS TOTAL 4.45 1.69 - 7.81 x10'3/uL 08/10/2024 8:00 AM CDT [facility] ABS. LYMPHOCYTES 1.75 0.21 - 5.42 x10'3/uL 08/10/2024 8:00 AM CDT [facility] ABS. MONOCYTES 0.49 0.04 - 1.37 x10'3/uL 08/10/2024 8:00 AM CDT [facility] ABS. EOSINOPHILS 0.36 0.00 - 0.68 x10'3/uL 08/10/2024 8:00 AM CDT [facility] ABS. BASOPHILS 0.05 0.00 - 0.08 x10'3/uL 08/10/2024 8:00 AM CDT [facility] ABS. IMMATURE GRANULOCYTES 0.03 0.00 - 0.06 x10'3/uL 08/10/2024 8:00 AM T [facility] ABS. NUCLEATED RBC'S 0.00 0.00 - 0.01 x10'3/uL 08/10/2024 8:00 AM T [facility] 08/10/2024 7:55 AM CDT Rafael Patel MD LABORATORY Final Result [facility] [address] [place] [place] [address], * THYROXINE, FREE (FT4) (08/10/2024 7:55 AM CDT) Only the most recent of2 resultswithin the time period is included. FREE T4 0.82 0.76 - 1.46 NG/DL 08/10/2024 12:36 PM CDT [facility] 08/10/2024 7:55 AM CDT Rafael Patel MD LABORATORY Final Result Performing Organization Address City/[facility]/ZIP Co de Phone Number [facility] [address] [place] [address], * (ABNORMAL) VITAMIN D, 25 [place] (08/10/2024 7:55 AM CDT) [facility] VITAMIN D 25 HYDROXY S/P/B 11(L) 30 - 100 NG/ML 08/10/2024 10:45 AM CDT [facility] Comment: INTERPRETATION DEFICIENT <20 INSUFFICIENT 20-29 SUFFICIENT 30-100 08/10/2024 7:55 AM CDT Rafael Patel MD LABORATORY Final Result [facility] [address] [place] [address], * MAGNESIUM (08/10/2024 7:55 AM CDT) Pathologist [facility] MAGNESIUM 1.9 1.8 - 2.4 MG/DL 08/10/2024 8:47 AM CDT [facility] 08/10/2024 7:55 AM CDT Rafael Patel MD LABORATORY Final Result Performing Organization Address [facility] Co de Phone Number [facility] [address] [place] [address], [place] * (ABNORMAL) LITHIUM (08/10/2024 7:55 AM CDT) LITHIUM 2.1(HH) 0.6 - 1.2 MMOL/L 08/10/2024 10:57 AM CDT [facility] Comment: Critical Result(s) Called at: 10:55:56 on 08/10/2024 by: FILIPE WICK to and read back by:MIAN GREGG Therapeutic Range: 0.6-1.2 MMOL/L POTENTIALLY TOXIC: >1.5 MMOL/L 08/10/2024 7:55 AM CDT Rafael Patel MD LABORATORY Final Result Performing Organization Address [facility] Co de Phone Number [facility] [address] [place] [address], [place] [phone] * XR CERV SPINE 3V (08/02/2024 9:01 AM ASSIGNMENT CLERK) Anatomical Region Laterality Modality Spine Radiographic Gertrude ging 08/03/2024 3:23 PM ASSIGNMENT CLERK Impressions 08/03/2024 3:23 PM ASSIGNMENT CLERK IMPRESSION: No acute findings Ordered By: RAFAEL PATEL Interpreted By: Homer Sykes MD, 08/03/2024 3:23 PM Narrative 08/03/2024 3:23 PM ASSIGNMENT CLERK [address] [address] 3 VIEWS OF THE CERVICAL SPINE Clinical [...] Procedure Note Homer Sykes MD - 08/03/2024 [place] [address] [place] [address] 3 VIEWS OF THE CERVICAL SPINE Clinical [...] VIEW W KESHA RT (06/29/2024 1:21 PM ASSIGNMENT CLERK) Anatomical Region Laterality Modality Breast Right Mammography, Oth er, Computed Tomography 06/29/2024 1:28 PM ASSIGNMENT CLERK Impressions 06/29/2024 1:31 PM ASSIGNMENT CLERK =====IMPRESSION:===== Previous noted small asymmetry on screening [...] was performed in the presence of Jose, seating and mobility technologist. Ordered By: ALMA DELIA NOYOLA Interpreted By: Fazal Martin MD, 06/29/2024 1:28 PM Narrative 06/29/2024 1:31 PM ASSIGNMENT CLERK [address] [place] [address] EXAMINATION: Digital right diagnostic mammogram with 3-D [...] change is noted. us Alma Delia Noyola CATTLE TRADER MAMMO Final Result * MG SCREENING W KESHA PRITESH DIGI (06/16/2024 4:10 PM ASSIGNMENT CLERK) Anatomical Region Laterality Modality Breast Bilateral Mammography 06/19/2024 1:15 PM ASSIGNMENT CLERK Impressions 06/19/2024 1:17 PM ASSIGNMENT CLERK =====IMPRESSION:===== Right breast asymmetry exaggerated cc view. Compression view and possible ultrasound. ASSESSMENT: ACR BI-RADS 0 - INCOMPLETE: NEEDS ADDITIONAL IMAGING EVALUATION Recommendation: 1: Additional Imaging Right COMMENTS: Ordered By: ALMA DELIA NOYOLA Interpreted By: Davis Garcia MD, 06/19/2024 1:15 PM Narrative 06/19/2024 1:17 PM ASSIGNMENT CLERK [address] [place] [address] EXAMINATION: Digital bilateral screening mammogram with 3-D [...] NON OB COMP TA+TV (05/19/2024 8:07 AM ASSIGNMENT CLERK) Anatomical Region Laterality Modality Pelvis Computed Tomogra phy 05/19/2024 11:5 8 AM ASSIGNMENT CLERK Impressions 05/19/2024 12:04 PM ASSIGNMENT CLERK IMPRESSION: 1. Interval decrease in size and slightly complex cyst within the left ovary. No new lesions. 2. Resolution of prior right ovarian cyst.. 3. Uterine fibroid as detailed above. Not well delineated on prior exam due to slightly obscured acoustical window Ordered By: PUMA PEIRRE Interpreted By: Sue Paulino, 05/19/2024 11:58 AM Narrative 05/19/2024 12:04 PM ASSIGNMENT CLERK [address] [place] [address] EXAMINATION: US PELVIC NON OB COMP TA+TV EXAM DATE: 05/19/2024 7:37 AM COMPARISON STUDIES: 07/07/2023 CLINICAL HISTORY: AUB . Right-sided pelvic cramping. LMP 05/14/2024 FINDINGS: Real time ultrasound examination performed by the fiberglass boat assembly supervisor of the pelvis through transabdominal and transvaginal [...] Procedure Note Yung Paulino MD - 05/19/[address] [place] [address] EXAMINATION: US PELVIC NON OB COMP TA+TV EXAM DATE: 05/19/2024 7:37 AM COMPARISON STUDIES: 07/07/2023 CLINICAL HISTORY: AUB . Right-sided pelvic cramping. LMP 05/14/2024 FINDINGS: Real time ultrasound examination performed by the fiberglass boat assembly supervisor of thelvis through transabdominal and transvaginal approach. [...] Sue Paulino, 05/19/2024 11:58 AM Puma Pierre CATTLE TRADER ULTRASOUND Final Result * (ABNORMAL) URINALYSIS AUTO [...] Patel MD URINE ORDERABLES Final Result [facility] [address] [address], * HEPATITIS C ANTIBODY W/RFX TO HCV RNA (11/08/2023 8:37 AM CDT) HEPATITIS C AB NON-REACT EMERALD NON-REACT EMERALD [employer] [facility] Comment: HCV antibody was non-reactive. There is no laboratory evidence of HCV infection. In most cases, no further action is required. However, if recent HCV exposure is suspected, a test for HCV RNA (test code 38352) is suggested. For additional information please refer to http://education.[employer]/faq/YSM00t0 (This link is being provided for informational/ educational purposes only.) 11/08/2023 8:37 AM CDT 11/08/2023 8:40 AM CDT Narrative [employer] [facility] - [place] [facility] - 11/11/2023 9:37 AM CDT FASTING:YES FASTING: YES Resulting Agency Comment Performing Organization Information: Site ID: MD Name: [facility] Address: [address] [address] Director: Jolynn Dickson MD Rafael Patel MD LABORATORY Final Result Performing Organization Address City/[facility] Co de Phone Number Locately CECILIO VALENTIN [employer] [facility] [address] [place] [place], [place] [address] * PAP SMEAR WITH HPV (07/31/2019) 07/31/2019 [facility] Scanned SCANNING Final Resu lt from Last 3 Months or Most Recently Relevant to Health Maintenance Insurance [facility] Care Teams Bung Dropper Relationship Specialty Start Date End Date Rafael Patel MD [address] [facility] [address] [place] [address] PCP - General FAMILY PRACTICE 11/01/23
--- OUTSIDE RECORDS SUMMARY | 2024-08-11 12:02 | XMS_ITS | Encounter Summary ---
Author Organization [facility] Address [address] [place] [address] Care Team Providers Care Child Nutrition Manager Name Role Phone Rafael Arellano MD Primary Care Provider [phone] Encounter Details Date Type Department Care Team (Late st Contact Info) Description 11/23/2007 Inpatient Historical [facility] Fazal Bernard MD [address] [facility] [address] [id number] Segun Fenton MD NO ADDRESS ON FILE Normal Delivery Social History Tobacco Use Types Packs/Day Years Used Date Smoking Tobacco: Never Assessed Comments Unknown Sex and Gender Information Value Date Recorded Sex Assigned at Not on file Legal Sex Female 5:04 AM ACADEMIC COORDINATOR Gender Identity Not on file Sexual [...] PATHOLOGY (11/23/2007 5:00 PM CDT) FINAL REPORT [facility] [address] [place], [place] [address] Patient: CHERELLE VIDAL : 1985 Procedure Date: 11/23/2007 Accession Date: 11/24/2007 Case No: [id number] Ordering Dr: SEGUN FENTON Case types AW, BW, FW, NW and SH [facility] performed [facility] [place], [place] SURGICAL PATHOLOGY & NON-GYNECOLOGIC CYTOPATHOLOGY REPORT [...] Sectioning exhibits unremarkable soft red-brown placental parenchyma. Wood Form Builder sections are submitted as follows: A1- cord and membrane roll; A2 through A4-placenta. KLA/PJS 11.24.2007 11:32 am Microscopic: The slides are labeled Cherelle Leidy and [id number]. The umbilical cord has three vessels. The [...] PATHOLOGY/CYTOLOGY ORDERABLES Final Result Performing Organization Address [facility] de Phone Number INTERFACE SYSTEM Refer to clinic/hospital department * PLACENTA CULTURE WITH GRAM STAIN (11/23/2007 2:01 PM CDT) GRAM STAIN No organisms seen Few WBC's seen [facility] PRELIMINARY REPORT No growth [address] [facility] FINAL REPORT No growth [address] [facility] 11/23/2007 2:01 PM CDT 11/23/2007 2:46 PM CDT us Fazal Bernard MD MICROBIOLOGY - GENERAL O RDERABLES Final Result Performing Organization Address City/[facility] Co de Phone Number [facility] CLIA# [id number] [address] [place] [address] * MYCOPLASMA AND UREAPLASMA CULTURE (11/23/2007 2:00 PM CDT) PRELIMINARY REPORT No growth [address] [facility] FINAL REPORT No Mycoplasma hominis isolated. No Ureaplasma urealyticum isolated. [facility] 11/23/2007 2:00 PM CDT 11/23/2007 2:46 PM CDT us Fazal Bernard MD MICROBIOLOGY - GENERAL O RDERABLES Final Result Performing Organization Address [facility] Co de Phone Number [facility] CLIA# [id number] [address] [place] [address] * (ABNORMAL) URINALYSIS (11/23/2007 7:54 AM CDT) WBC UA 2 0 - 5 /HPF [facility] KETONES UA Negative Negative [facility] CLARITY UA Clear Clear [facility] BILIRUBIN UA Negative Negative [facility] PROTEIN UA Negative Negative [facility] LEUKOCYTE ESTERASE UA Negative Negative [facility] RBC UA 26(H) 0 - 4 /HPF [facility] SPECIFIC GRAVITY UA 1.012 1.001 - 1.035 [facility] GLUCOSE UA Negative Negative [facility] BLOOD UA 3+(A) Negative [facility] COLOR UA Yellow [facility] NITRITE UA Negative Negative [facility] UROBILINOGEN UA <1 <=1 mg/dL [facility] PH UA 5.5 5.0 - 8.0 [facility] Urine specimen (specimen) 11/23/2007 7:54 AM CDT 11/23/2007 8:00 AM CDT us Fazal Bernard MD URINE ORDERABLES Final R esult Performing Organization Address City/[facility]/ZIP Co de Phone Number [facility] CLIA# [id number] [address] [place] [address] * (ABNORMAL) CBC WITH DIFFERENTIAL (11/23/2007 7:54 AM CDT) RBC 3.91 3.90 - 4.90 M/uL [facility] MCHC 33.4 31.5 - 35.5 % [facility] MCV 90.3 82.0 - 99.[address] [facility] PLATELETS 216 140 - 350 K/uL [facility] HEMOGLOBIN 11.8 11.8 - 14.8 g/dL [facility] RDW 13.6 11.5 - 14.5 % [facility] WBC 10.8(H) 4.0 - 9.8 K/uL [facility] MCH 30.2 27.2 - 32.[address] [facility] MPV 10.5 9.3 - 12.[address] [facility] HEMATOCRIT 35.3(L) 35.5 - 44.0 % [facility] RDW-STDEV 44.3 37.1 - 48.[address] [facility] MONOCYTES 6 3 - 13 % [facility] MONOCYTE ABSOLUTE 0.66 0.10 - 1.30 K/uL [facility] NEUTROPHILS 84(H) 45 - 70 % [facility] NEUTROPHIL ABSOLUTE 9.13(H) 1.90 - 7.00 K/uL [facility] EOSINOPHILS 0 0 - 7 % [facility] EOSINOPHIL ABSOLUTE 0.00 0.00 - 0.70 K/uL [facility] LYMPHOCYTES 10(L) 16 - 45 % [facility] LYMPHOCYTE ABSOLUTE 1.04 0.70 - 4.50 K/uL [facility] BASOPHILS 0 0 - 2 % [facility] BASOPHILS ABSOLUTE 0.00 0.00 - 0.20 K/uL [facility] Blood specimen (specimen) 11/23/2007 7:54 AM CDT 11/23/2007 8:00 AM CDT us Fazal Bernard MD HEMATOLOGY ORDERABLES Ed ited INTERFACE SYSTEM Refer to clinic/hospital department [facility] CLIA# [id number] [address] [place] [address] * TYPE AND SCREEN (11/23/2007 7:53 AM CDT) HISTORY CHECK History Checked [facility] SPECIMEN LIFE [address] [facility] ABO/RH TYPE O Positive [facility] ANTIBODY SCREEN Negative [facility] Blood specimen (specimen) 11/23/2007 7:53 AM CDT us Fazal Bernard MD BLOOD BANK ORDERABLES Ed ited Performing Organization Address [facility] de Phone Number [facility] CLIA# [id number] [address] [place] [address] documented in this encounter Visit Diagnoses Diagnosis Normal delivery documented in this encounter Care Teams Child Nutrition Manager Relationship Specialty Start Date End Date Rafael Arellano MD [facility] [place] [phone] PCP - General Family Practice 12/11/19 documented as of this encounter
--- OUTSIDE RECORDS SUMMARY | 2024-08-11 12:02 | XMS_ITS | Encounter Summary ---
Author Organization [employer] Address 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 Gender Identity Not on file Sexual Orientation Not on file documented as of this encounter Plan of Treatment Not on file documented as of this encounter Procedures Procedure Name Priority Date/Time Associated Diagnosis Comments HEMOGLOBIN AND HEMATOCRIT Routine 08/16/2007 9:30 AM CDT documented in this encounter Results * HEMOGLOBIN AND HEMATOCRIT (08/16/2007 9:30 AM CDT) HEMATOCRIT 35.6 35.5 - 44.0 % [facility] HEMOGLOBIN 12.2 11.8 - 14.8 g/dL [facility] Blood specimen (specimen) 08/16/2007 9:30 AM CDT 08/16/2007 10:05 AM CDT us Nicholas Ferguson MD HEMATOLOGY ORDERABLES Final Re sult [facility] [address] [place] [address] documented in this encounter Visit Diagnoses Not on filedocumented in this encounter Care Teams Extension Service Supervisor Relationship Specialty Start Date End Date Rafael Arellano MD [address] [address] PCP - General Family Practice 12/11/19 documented as of this encounter
--- OUTSIDE RECORDS SUMMARY | 2024-08-11 12:02 | XMS_ITS | Clinical Summary ---
Author Organization [facility] Address [address] [place] [address] Phone Care Team Providers Care Digital Imaging Technician Name Role Phone Lashell Ernst MD Primary Care Provider [phone] Social History Tobacco Use Types Packs/Day Years Used Date Smoking Tobacco: Never Assessed Comments Unknown Sex and Gender Information Value Date Recorded Sex Assigned at Not on file Legal Sex Female 10:17 PM CDT Gender Identity Not on file Sexual Orientation Not on file Plan of Treatment Not on file Care Teams Digital Imaging Technician Relationship Specialty Start Date End Date Lashell Ernst MD [address] [place] [address] PCP - General Family Medicine 11/23/16
--- OUTSIDE RECORDS SUMMARY | 2024-08-11 12:02 | XMS_ITS | Encounter Summary ---
Author Organization [facility] Address [facility] [place] [address] Care Team Providers Care Apparel Fashion Designer Name Role Phone Rafael Arellano MD Primary Care Provider [phone] Encounter Details Date Type Department Care Team [...] Sex Assigned at Female 06/15/2024 7:38 AM ASSISTANT PROFESSOR OF BUSINESS Legal Sex Female 6:32 PM CDT Gender Identity Female 08/05/2022 3:35 PM ASSISTANT PROFESSOR OF BUSINESS Sexual Orientation Straight 08/05/2022 3: 35 PM ASSISTANT PROFESSOR OF BUSINESS documented as of this encounter Plan of Treatment Upcoming Encounters Date Type Department Care Team (Late st Contact Info) Description 09/20/2024 7:30 AM CDT Appointment [address] [place] [address] Puma Pierre, APPRAISER BOATS AND MARINE [address] [place] [address] 11/14/2024 9:00 AM CDT Office Visit [facility] Mult[facility] [address] [place] [address] Rafael Arellano MD [address] [facility] [address] [place] [address] Kash Marcus MD [address] [facility] [place] [address] documented as of this encounter Visit Diagnoses Not on filedocumented in this encounter Additional Health Concerns Assessment Noted Time PHQ-9 Depression Total Score: 22 023 10:43 AM CDT documented as of this encounter Care Teams Apparel Fashion Designer Relationship Specialty Start Date End Date Rafael Arellano MD [address] [facility] [address] [place] [address] PCP - General FAMILY PRACTICE 11/01/23 documented as of this encounter
--- OUTSIDE RECORDS SUMMARY | 2024-08-11 12:02 | XMS_ITS | Encounter Summary ---
Author Organization [facility] Address [facility] [place] [address] Care Team Providers Care Boxcar Weigher Name Role Phone Rafael Arellano MD Primary Care Provider [phone] Reason for Referral * Imaging (Routine) - Closed Specialty Diagnoses / Procedures Referred By Contac t Referred To Contact RADIOLOGY Diagnoses Chronic migraine without aura without status migrainosus, not intractable Vision changes Paresthesia Cervicalgia Unsteady gait Procedures MRI CERV SPINE WWO CON Rafael Arellano MD [address] [address] Phone: tel: fax: Referral ID Status Reason Start Date Expiration Date Visits Re quested Visits Authorized [id number] Closed 08/04/2024 09/03/2025 1 1 * Imaging (Routine) - Closed Specialty Diagnoses / Procedures Referred By Contac t Referred To Contact RADIOLOGY Diagnoses Chronic migraine without aura without status migrainosus, not intractable Vision changes Paresthesia Unsteady gait Procedures MRI BRAIN WWO CON Rafael Arellano MD [address] [address] Phone: tel: fax: Referral ID Status Reason Start Date Expiration Date Visits Re quested Visits Authorized [id number] Closed 08/02/2024 09/01/2025 1 1 Reason for Visit * Imaging (Routine) - Closed Specialty Diagnoses / Procedures Referred By Contac t Referred To Contact RADIOLOGY Diagnoses Chronic migraine without aura without status migrainosus, not intractable Vision changes Paresthesia Unsteady gait Procedures MRI BRAIN WWO CON Rafael Arellano MD [address] [address] Phone: tel: fax: Referral ID Status Reason Start Date Expiration Date Visits Re quested Visits Authorized [id number] Closed 08/02/2024 09/01/2025 1 1 Encounter Details Date Type Department Care Team (Late Contact Info) Description 08/10/2024 7:35 AM CDT Hospital Encounter [facility] MRI [address] [address] Rafael Arellano MD [address] [address] Arrived Social History Tobacco Use [...] Sex Assigned at Female 06/15/2024 7:38 AM IRONING PLEATER Legal Sex Female 6:32 PM CDT Gender Identity Female 08/05/2022 3:35 PM IRONING PLEATER Sexual Orientation Straight 08/05/2022 3: 35 PM IRONING PLEATER documented as of this encounter Progress Notes * Rafael Arellano MD - 08/10/2024 8:15 AM CDT Still pending MRI cervical spine, recommend followup with neurology for evaluation and followup here if headache persists. documented in this encounter Plan of Treatment Upcoming Encounters Date Type Department Care Team (Late st Contact Info) Description 09/20/2024 7:30 AM CDT Appointment [facility] Ultrasound [address] [place] [address] Puma Pierre, SHOT GRINDER OPERATOR [address] [place] [address] 11/14/2024 9:00 AM CDT Office Visit [facility] Multispecialty Care - [facility] [address] [facility], [address] [place] [address] Rafael Arellano MD [address] [facility] [facility] [address] [place], [place] [phone] Kash Marcus MD [address] [facility] [address] [place], [place] [phone] Pending Results Name Type Priority Associated Diagnoses [...] 1:54 PM Narrative 08/10/2024 2:46 PM [address]T [address] [place] [address] IMAGING STUDIES: MRI BRAIN WWO CON DATE: [...] Procedure Note Yung Paulino MD - 08/10/[address] [place] [address] IMAGING STUDIES: MRI BRAIN WWO CON DATE: [...] documented as of this encounter Care Teams Boxcar Weigher Relationship Specialty Start Date End Date Rafael Arellano MD [address] [address] PCP - General FAMILY PRACTICE 11/01/23 documented as of this encounter
--- OUTSIDE RECORDS SUMMARY | 2024-08-11 12:02 | XMS_ITS | Encounter Summary ---
Author Organization [employer] Address [address] [place] [address] Care Team Providers Care Plasticator Name Role Phone Rafael Arellano MD Primary Care Provider [phone] Encounter Details Date Type Department Care Team (Late st Contact Info) Description 03/14/2007 Outpatient Historical [facility] FAMILY [facility] [address] [place] [address] [place] [address] Peter Shaw MD [address] [facility] [place] [address] Social History Tobacco Use Types Packs/Day Years Used Date Smoking Tobacco: Never Assessed Comments Unknown Sex and Gender Information Value Date Recorded Sex Assigned at Not on file Legal Sex Female 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
--- OUTSIDE RECORDS SUMMARY | 2024-08-11 12:02 | XMS_ITS | Encounter Summary ---
Author Organization [facility] Address [facility] [place] [address] Care Team Providers Care Forensic Accountant Name Role Phone Rafael Arellano MD Primary Care Provider [phone] Reason for Referral * Consultation (Routine) - Pending Review Specialty Diagnoses / Procedures Referred By Susana t Referred To Contact NEUROLOGY Diagnoses Chronic migraine without aura without status migrainosus, not intractable Vision changes Cerebellar tonsillar ectopia ([facility]) Procedures OFFICE/OUTPATIENT NEW LOW MDM 30-44 MINUTES OFFICE/OUTPT VISIT,NEW,LEVL IV OFFICE/OUTPT VISIT,NEW,LEVL V OFFICE/OUTPT VISIT,EST,LEVL III OFFICE/OUTPT VISIT,EST,LEVL IV OFFICE/OUTPT VISIT,EST,LEVL V Rafael Arellano MD [address] [place] [address] [address] [place] [address] Phone: tel: fax: [facility] Multispecialty Care - [facility] [address] [facility], [address] [place] [address] Phone: tel: Referral ID Status Reason Start Date Expiration Date Visits Requested Visits Authorized [id number] Pending Review Specialty Services 08/11/2024 09/11/2025 1 1 Reason for Visit * Reason Onset Date Comments Lab Results 08/11/2024 Thyroid, CBC, CM P, Mg, Vit D, Devers, PTH, Iron, Vit B12, MRI Results 08/11/2024 MRI brain Encounter Details Date Type Department Care Team (Late st Contact Info) Description 08/11/2024 Telephone [facility] Family Medicine - [place] [address], [address] [place] [phone] Rafael Arellano MD [address] [facility] [address] [place] [address] Lab Results (Thyroid, CBC, CMP, Mg, Vit D, Devers, PTH, Iron, Vit B12, ); MRI Results [...] Sex Assigned at Female 06/15/2024 7:38 AM WORD PROCESSOR OPERATOR Legal Sex Female 6:32 PM CDT Gender Identity Female 08/05/2022 3:35 PM WORD PROCESSOR OPERATOR Sexual Orientation Straight 08/05/2022 3: 35 PM WORD PROCESSOR OPERATOR documented as of this encounter Progress Notes [...] continue to supplement with 1,000 IU daily. Devers high, recommend followup with psych and adjust [...] Info) Description 09/20/2024 7:30 AM CDT Appointment [facility] Ultrasound [address] [place] [id number] Puma Pierre, FRAMING MILL OPERATOR HELPER [address] [place] [address] 11/14/2024 9:00 AM CDT Office Visit [facility] Multispecialty Care - [address] [place] [phone] Rafael Arellano MD [address] [facility] [address] [place] [address] Kash Marcus MD [address] [place] [phone] Scheduled Orders Name Type Priority Associated Diagnoses [...] Orde r Schedule Ambulatory referral to Neurology ([facility]) Referral Routine Chronic migraine without aura without status migrainosus, not intractable Vision changes Cerebellar tonsillar ectopia ([facility] HHS/HCC) Ordered: 08/11/2024 documented as of this encounter Visit Diagnoses Diagnosis Vitamin D deficiency- Primary Unspecified vitamin D deficiency Iron deficiency Iron deficiency anemia, unspecified Subclinical hypothyroidism Other specified acquired hypothyroidism Chronic migraine without aura without status migrainosus, not intractable Chronic migraine without aura, without mention of intractable migraine without mention of status migrainosus Vision changes Unspecified visual disturbance 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
--- OUTSIDE RECORDS SUMMARY | 2024-08-11 12:02 | XMS_ITS | Encounter Summary ---
Author Organization [employer] Address [address] [place] [address] Care Team Providers Care Radio Communication Coordinator Name Role Phone Rafael Arellano MD Primary Care Provider [phone] Encounter Details Date Type Department Care Team (Latest Contact Info) Description 03/24/2007 Outpatient Historical [facility] Peter Shaw MD [address] [place] [address] Abdominal Pain, Generalized (Primary Dx) Social History Tobacco Use Types Packs/Day Years Used Date Smoking Tobacco: Never Assessed Comments Unknown Sex and Gender Information Value Date Recorded Sex Assigned at Not on file Legal Sex Female 5:04 AM BUSINESS ASST Gender Identity Not on file Sexual Orientation Not on file documented as of this encounter Plan of Treatment Not on file documented as of this encounter Visit Diagnoses Diagnosis Abdominal pain, generalized- Primary documented in this encounter Care Teams Radio Communication Coordinator Relationship Specialty Start Date End Date Rafael Arellano MD [address] [place] [address] PCP - General Family Practice 12/11/19 documented as of this encounter
--- OUTSIDE RECORDS SUMMARY | 2024-08-11 12:02 | XMS_ITS | Encounter Summary ---
Author Organization [facility] Address [address] [place] [address] Care Team Providers Care Source Water Protection Specialist Name Role Phone Rafael Arellano MD Primary Care Provider [phone] Encounter Details Date Type Department Care Team (Late st Contact Info) Description 08/10/2024 Orders Only [facility] Laboratory [address] [place] [id number] Rafael Arellano MD [address] [id number] Social History Tobacco Use Types Packs/Day Years [...] Sex Assigned at Female 06/15/2024 7:38 AM LABOR STANDARDS DIRECTOR Legal Sex Female 6:32 PM CDT Gender Identity Female 08/05/2022 3:35 PM LABOR STANDARDS DIRECTOR Sexual Orientation Straight 08/05/2022 3: 35 PM LABOR STANDARDS DIRECTOR documented as of this encounter Plan of Treatment Upcoming Encounters Date Type Department Care Team (Late st Contact Info) Description 09/20/2024 7:30 AM CDT Appointment [facility] Ultrasound [address] [place] [id number] Puma Pierre, ANHYDROUS AMMONIA PRODUCTION SUPERVISOR [address] [place] [address] 11/14/2024 9:00 AM CDT Office Visit [facility] Multispecialty Care - [facility] [address] [facility], [address] [place] [phone] Rafael Arellano MD [address] [place], [place] [phone] Kash Marcus MD [address] [place], [place] [id number] Pending Results Name Type Priority Associated Diagnoses [...] CBC W/DIFF AUTOMATED (08/10/2024 7:55 AM CDT) [facility] WBC 7.13 4.50 - 11.00 x10'3/uL 08/10/2024 8:00 AM CDT [facility] RBC 4.04 4.00 - 5.20 x10'6/uL 08/10/2024 8:00 AM CDT [facility] HGB 10.8(L) 12.0 - 16.0 G/DL 08/10/2024 8:00 AM CDT [facility] HCT 33.6(L) 38.0 - 48.0 % 08/10/2024 8:00 AM CDT [facility] MCV 83.2 80.0 - 100.0 FL 08/10/2024 8:00 AM CDT [facility] MCH 26.7 26.0 - 34.0 PG 08/10/2024 8:00 AM CDT [facility] MCHC 32.1 31.0 - 37.0 G/DL 08/10/2024 8:00 AM CDT [facility] RDW 14.2 11.6 - 14.8 % 08/10/2024 8:00 AM T [facility] PLT 323 130 - 400 x10'3/uL 08/10/2024 8:00 AM CDT [facility] MPV 9.7 7.0 - 12.0 FL 08/10/2024 8:00 AM CDT [facility] CBC COMMENT AUTOMATED RBC MORPHOLOGY AND PLATELET EVALUATION NORMAL 08/10/2024 8:00 AM CDT [facility] NEUTROPHILS % 62.5 40.0 - 74.0 % 08/10/2024 8:00 AM CDT [facility] LYMPHOCYTES % 24.5 14.0 - 46.0 % 08/10/2024 8:00 AM CDT [facility] MONOCYTES % 6.9 4.0 - 13.0 % 08/10/2024 8:00 AM CDT [facility] EOSINOPHILS 5.0 0.0 - 7.0 % 08/10/2024 8:00 AM CDT [facility] BASOPHILS 0.7 0.0 - 3.0 % 08/10/2024 8:00 AM CDT [facility] IMMATURE GRANS % 0.4 0.0 - 0.43 % 08/10/2024 8:00 AM CDT [facility] NRBC % 0.0 % 08/10/2024 8:00 AM CDT [facility] ABS. NEUTROPHILS TOTAL 4.45 1.69 - 7.81 x10'3/uL 08/10/2024 8:00 AM CDT [facility] ABS. LYMPHOCYTES 1.75 0.21 - 5.42 x10'3/uL 08/10/2024 8:00 AM CDT [facility] ABS. MONOCYTES 0.49 0.04 - 1.37 x10'3/uL 08/10/2024 8:00 AM CDT [facility] ABS. EOSINOPHILS 0.36 0.00 - 0.68 x10'3/uL 08/10/2024 8:00 AM CDT [facility] ABS. BASOPHILS 0.05 0.00 - 0.08 x10'3/uL 08/10/2024 8:00 AM CDT [facility] ABS. IMMATURE GRANULOCYTES 0.03 0.00 - 0.06 x10'3/uL 08/10/2024 8:00 AM CDT [facility] ABS. NUCLEATED RBC'S 0.00 0.00 - 0.01 x10'3/uL 08/10/2024 8:00 AM T [facility] 08/10/2024 7:55 AM CDT us Rafael Arellano MD LABORATORY Final Result [facility] [address] [place] [address], * (ABNORMAL) COMPREHENSIVE METABOLIC PANEL (08/10/2024 7:55 AM CDT) [facility] GLUCOSE 92 70 - 99 MG/DL 08/10/2024 8:47 AM CDT [facility] BUN 11 7 - 18 MG/DL 08/10/2024 8:47 AM CDT [facility] CREATININE S/P/B 1.12 0.50 - 1.20 MG/DL 08/10/2024 8:47 AM CDT [facility] SODIUM S/P/B 138 136 - 145 MMOL/L 08/10/2024 8:47 AM CDT [facility] POTASSIUM S/P/B 3.9 3.5 - 5.1 MMOL/L 08/10/2024 8:47 AM CDT [facility] CHLORIDE S/P/B 105 100 - 108 MMOL/L 08/10/2024 8:47 AM CDT [facility] CO2 22.1 21.0 - 32.0 MMOL/L 08/10/2024 8:47 AM CDT [facility] CALCIUM S/P/B 8.7 8.5 - 10.1 MG/DL 08/10/2024 8:47 AM CDT [facility] BILIRUBIN TOTAL S/P/B 0.3 0.2 - 1.2 MG/DL 08/10/2024 8:47 AM CDT [facility] Comment: THIS ASSAY IS NOT RECOMMENDED FOR PATIENTS UNDERGOING TREATMENT WITH ELTROMBOPAG DUE TO THE POTENTIAL FOR FALSELY ELEVATED RESULTS. TOTAL PROTEIN S/P/B 6.7 6.4 - 8.2 G/DL 08/10/2024 8:47 AM CDT [facility] ALBUMIN S/P/B 3.2(L) 3.4 - 5.0 G/DL 08/10/2024 8:47 AM CDT [facility] AST 19 15 - 37 U/L 08/10/2024 8:47 AM CDT [facility] ALT 17 14 - 55 U/L 08/10/2024 8:47 AM CDT [facility] ALKALINE PHOSPHATASE S/P/B 52 50 - 136 U/L 08/10/2024 8:47 AM CDT [facility] ANION GAP 10.9 5.0 - 15.0 MMOL/L 08/10/2024 8:47 AM CDT [facility] BUN CREATININE RATIO 9.8 6 - 26 08/10/2024 8:47 AM CDT [facility] A/G RATIO 0.9(L) 1.0 - 2.5 RATIO 08/10/2024 8:47 AM CDT [facility] GFR ESTIMATE 64(L) >90 ML/MIN/1.7 3 M2 08/10/2024 8:47 AM CDT [facility] Comment: NOTE: eGFR is not calculated for patients <18 years of age. This is an estimated GFR calculation using the new CKD EPI creatinine equation without race and so does not require a correction factor for race. This estimated GFR should not be used for calculating drug doses. 08/10/2024 7:55 AM CDT Rafael Arellano MD LABORATORY Final Result Performing Organization Address [facility]/ZIP Co de Phone Number [facility] [address] [place] [address], * (ABNORMAL) VITAMIN D, 25 OH (08/10/2024 7:55 AM CDT) VITAMIN D 25 HYDROXY S/P/B 11(L) 30 - 100 NG/ML 08/10/2024 10:45 AM CDT [facility] Comment: INTERPRETATION DEFICIENT <20 INSUFFICIENT 20-29 SUFFICIENT 30-100 08/10/2024 7:55 AM CDT Rafael Arellano MD LABORATORY Final Result [facility] [address] [place] [address], [place] [phone] * (ABNORMAL) TSH W/REFLEX (08/10/2024 7:55 AM CDT) TSH 5.260(H) 0.358 - 3.74 uIU/ML 08/10/2024 12:12 PM CDT [facility] Comment: HIGH DOSES OF BIOTIN MAY INTERFERE WITH THIS TEST RESULT. CORRELATION TO CLINICAL HISTORY AND PRESENTATION RECOMMENDED. 08/10/2024 7:55 AM CDT us Rafael Arellano MD LABORATORY Final Result Performing Organization Address City/[facility] Co de Phone Number [facility] [address] [place] [address], * (ABNORMAL) IRON SAT PANEL (IRON,IBC,%SAT) (08/10/2024 7:55 AM CDT) IRON 46(L) 50.0 - 170.0 MCG/DL 08/10/2024 11:55 AM CDT [facility] IRON BINDING CAPACITY 538(H) 250 - 450 MCG/DL 08/10/2024 11:55 AM CDT [facility] IRON SATURATION 9(L) 20 - 55 % 11:55 AM CDT [facility] 08/10/2024 7:55 AM CDT Rafael Arellano MD LABORATORY Final Result Performing Organization Address [facility] Co de Phone Number [facility] [address] [place] [address], * PTH - INTACT (08/10/2024 7:55 AM CDT) PTH INTACT 79.4 18.4 - 80.1 PG/ML 08/10/2024 11:00 AM CDT [facility] 08/10/2024 7:55 AM CDT us Rafael Arellano MD LABORATORY Final Result Performing Organization Address City/[facility]/ZIP Co de Phone Number [facility] [address] [place] [address], [place] [phone] * VITAMIN B-12 (08/10/2024 7:55 AM CDT) Pathologist [facility] VITAMIN B12 S/P/B 443 254 - 1,320 PG/ML 08/10/2024 12:12 PM CDT [facility] 08/10/2024 7:55 AM CDT Rafael Arellano MD LABORATORY Final Result [facility] [address] [place] [address], [place] [phone] * MAGNESIUM (08/10/2024 7:55 AM CDT) [facility] MAGNESIUM 1.9 1.8 - 2.4 MG/DL 08/10/2024 8:47 AM CDT [facility] 08/10/2024 7:55 AM CDT Rafael Arellano MD LABORATORY Final Result [address] [place] [address], * (ABNORMAL) LITHIUM (08/10/2024 7:55 AM CDT) [facility] LITHIUM 2.1(HH) 0.6 - 1.2 MMOL/L 08/10/2024 10:57 AM CDT [facility] Comment: Critical Result(s) Called at: 10:55:56 on 08/10/2024 by: FILIPE WICK to and read back by:MIAN GREGG Therapeutic Range: 0.6-1.2 MMOL/L POTENTIALLY TOXIC: >1.5 MMOL/L 08/10/2024 7:55 AM CDT Rafael Arellano MD LABORATORY Final Result [facility] [facility] [address] [place] [address], [place] [phone] documented in this encounter Visit Diagnoses Diagnosis [...] documented as of this encounter Care Teams Source Water Protection Specialist Relationship Specialty Start Date End Date Rafael Arellano MD [address] [facility] [address] [place] [address] PCP - General FAMILY PRACTICE 11/01/23 documented as of this encounter
--- OUTSIDE RECORDS SUMMARY | 2024-08-11 12:02 | XMS_ITS | Encounter Summary ---
Author Organization [facility] Address [address] [place] [address] Care Team Providers Care Vehicle Washer Name Role Phone Rafael Aerllano MD Primary Care Provider [phone] Encounter Details Date Type Department Care Team (Late st Contact Info) Description 03/14/2007 Orders Only [facility] [address] [place] [address] [place] [phone] Carlos A Shaw MD [address] 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 [address] D.O.B: 1985 SSN: [id number] Parent/Guardian if applicable: Patient Insurance: [employer] ID#: [id number] Group#: ORDER(S) #: [id number] (US pancreas, liver, and gallbladder and US pelvis only) BEST TO CALL HOME. BEST TIME TO CALL: ANYTIME. MAY WE LEAVE MESSAGE AT THAT NUMBER: YES, LEAVE MESSAGE. PLEASE SCHEDULE THE APPOINTMENT AT THE FOLLOWING LOCATION: TEST SCHEDULE [facility]. TEST PRIORITY: 2 - 7 DAYS. ORDERING PHYSICIAN: CARLOS A SHAW OFFICE SALES MANAGER [place] & PHONE: Li Stone L ORDER PRINTED BY: MAR 18, 2007 Maureen Perla L 02:26 p FOR SCHEDULING USE ONLY: FIRST ATTEMPT Date:MAR 18, 2007 Maureen Perla L 04:49 p Spoke with Patient. MAR 18, 2007 Maureen Perla L 04:49 p [employer] [facility]. APPOINTMENT DATE : 03/28/2007 ( 8:30AM) APPOINTMENT DATE : 03/24/2007 ( 10AM)US PANC/LIVER/GB The appointment was scheduled by Maureen Perla L at [phone] FINAL ACTION Follow up completed. * Carlos [...] dyspepsia, ovarian cause. Will empirically treat with [id number], check US. Consider H.pylori testing if persists. STATUS: New. MEDICATIONS: RANITIDINE HCL ORAL TABLET 150 MG, 1 po bid, 60 Dispensed, 2 Fills, status: NEW PRESCRIPTION, 03/14/2007. LAB ORDERS: Order number: [id number] Test Ordered: US PANCREAS, LIVER & GALLBLADDER Order number: [id number] Test Ordered: US PELVIS ONLY Order number: [id number] Test Ordered: URINALYSIS W/O MICRO [id number] Order number: [id number] Test Ordered: TEST 03140 PATIENT EDUCATION: Questions were allowed to stated [...] on filedocumented in this encounter Care Teams Vehicle Washer Relationship Specialty Start Date End Date Rafael Arellano MD [address] [place] [phone] PCP - General Family Practice 12/11/19 documented as of this encounter
--- OUTSIDE RECORDS SUMMARY | 2024-08-11 12:02 | XMS_ITS | Clinical Summary ---
Author Organization [facility] 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
--- OUTSIDE RECORDS SUMMARY | 2024-08-11 12:03 | XMS_ITS | Patient Health Summary ---
Author Organization [facility] Address [address] [place] [address] Care Team Providers Care Paleobotanist Name Role Phone Rafael Arellano MD Primary Care Provider [phone] Note from [facility],non-owned Affiliates and Associated Physician Practices is amultiple site organization consisting of ambulatory clinics and hospital sitesin [place], [place], [place] and [place]. This disclosure is being madepursuant to the Care Everywhere program and may not contain all information available regarding this patient. Last updated 18.[facility] Allergies * Venlafaxine(Urticaria) -Medium Criticality Medications * [...] Sex Assigned at Female 08/05/2022 3:12 PM SLATE PICKER Gender Identity Female 08/05/2022 3:12 PM SLATE PICKER Sexual Orientation Straight 08/05/2022 3: 12 PM SLATE PICKER Last Filed Vital Signs Vital Sign Reading [...] delivery, History of cerclage, currently , first trimester([facility]), History of cervical incompetence * URINALYSIS REFLEX MICROSCOPIC REFLEX CULTURE(Performed 11/04/2016) Performed for Back pain affecting ([facility]) * SONOGRAM - TRANSVAGINAL(Performed 11/04/2016) Performed for History of delivery, History of cerclage, currently , first trimester([facility]), History of cervical incompetence * GLUCOSE PROTEIN KETONE URINE - POINT OF CAR(Performed 11/04/2016) Performed for Supervision of high-risk of young multigravida ([facility]) * SONOGRAM - TRANSVAGINAL(Performed 10/21/2016) Performed for History of delivery, History of cerclage, currently , first trimester([facility]), History of cervical incompetence * SONOGRAM - TRANSVAGINAL(Performed 10/07/2016) Performed for History of delivery, History of cerclage, currently , first trimester([facility]), History of cervical incompetence * URINE DRUG SCREEN IMMUNOASSAY(Performed 10/07/2016) Performed for Supervision of high-risk of young multigravida ([facility]) * CULTURE URINE(Performed 10/07/2016) Performed for Supervision of high-risk of young multigravida ([facility]) * GLUCOSE PROTEIN KETONE URINE - POINT OF CAR(Performed 10/07/2016) Performed for Supervision of high-risk of young multigravida ([facility]) * FIRST TRI NUCHAL TRANSLUCENCY W:SEQ SCREEN(Performed 09/16/2016) Performed for Supervision of high-risk of young multigravida ([facility]) * ANEUPLOIDY SCREENING(Performed 09/16/2016) * GLUCOSE PROTEIN [...] PM CDT Narrative 12/09/2016 3:09 PM CDT [facility] PHONE: FAX: Pat. Name: LORENA VIDAL Pat. No: [id number] Study Date: 12/08/2016 3:29pm , Age: 09 1985, 31 Pregnancies: 3, Para 2 Height: 62 in Weight: 180 lb LMP: 06/24/2016 GA by LMP: 23w6d GA by 1st: 23w6d GA by US: 24w3d GA Selected: 23w6d (From First S) SHANNON: 03/31/2017 Referring MD: Lashell Ernst MD Ccie: Angy Price RDMS BMI: 32.92 Hist/Ind: Complete Anatomy Survey History of Incompetent Cervix - has abdominal cerclage placed this PTD @ 24 and 28 wks Prior Child Single Kidney Hx LEEP Procedure Cervical Length MEASUREMENTS & AGE GROWTH EVALUATION Measurement GA Range Srce %for GA Ratios ----- ---- ------- BPD 5.9 cm 24w0d (36e2f-18k0z) Hadl BPD 54% FL/BPD 0.79 (0.71 - 0.87) HC 21.5 cm 23w4d (21x4i-06p5h) Hadl HC 43% FL/AC 0.23 (0.20 - 0.24) AC 20.1 cm 24w5d (28f7h-28z8i) Hadl AC 69% HC/AC 1.07 (1.03 - 1.22) FL 4.7 cm 25w3d (99s3y-14j7c) Hadl FL 85% CI 0.78 (0.70 - 0.86) HL 4.1 cm 24w4d (98s5k-76b6o) Rufino HL 63% GA for sonogram 24w3d (69b6c-64e2j) Weight Estimate: based on (BPD,HC,AC,FL) Avg Weight: [...] <Electronic Signature> 12/09/2016 03:09pm Airam China Fauste SHEET 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 MFM ORDERABLE S * (ABNORMAL) URINALYSIS ROUTINE W/REFLEX TO CULTURE (11/04/2016 4:15 PM CDT) Color UA Yellow Straw, Yellow, Dark Yellow 11/04/2016 4:40 PM CDT [facility] Clarity UA Clear 11/04/2016 4:40 PM CDT [facility] Specific [place] UA >1.030(H) 1.005 - 1.030 11/04/2016 4:40 [...] Culture not indicated 11/04/2016 4:40 PM CDT [facility] Urine URINE SPECIMEN OBTAINED BY CLEAN CATCH PROCEDURE / Unknown Collection / Unknown 11/04/2016 4:15 PM CDT 11/04/2016 4:34 PM CDT Payam Perkins Lawson [facility] - URINALYSIS ORDERABLES Performing Organization Address [facility] Co de Phone Number [facility] [address] [place] [address] * GLUCOSE PROTEIN KETONE URINE - POINT OF CAR (11/04/2016 1:59 PM CDT) Only the most recent of4 resultswithin the time period is included. Pathologist [facility] Glucose UA neg Negative [facility] Protein UA 1+ Negative [facility] Ketone UA neg Negative [facility] QC Verified Yes Yes [facility] POC T TESTING Urine URINE / Unknown 11/04/2016 1 :59 PM CDT Vale Perkins Bentley [facility] - POINT OF CARE ORDERABLES Performing Organization Address [facility] Co de Phone Number [facility] POCT TESTING [address] [place] [address] * CULTURE URINE (10/07/2016 2:54 PM CDT) [facility] Culture 10,000-50,000 CFU/mL urogenital christopher HO 10/09/2016 8:[address] [facility] Urine URINE SPECIMEN OBTAINED BY CLEAN CATCH PROCEDURE / Unknown Collection / Unknown 10/07/2016 2:54 PM CDT 10/07/2016 3:07 PM CDT Airam Jensen [facility] - MICROBI OLOGY ORDERABLES Performing Organization Address City/[facility] Co de Phone Number [facility] [address] [place] [address], [facility] [phone] * DRUG SCREEN TOX URINE PANEL (10/07/2016 2:54 PM CDT) Pathologist [facility] Amphetamines Screen Urine Not Detected Not Detected 10/07/2016 3:23 PM CDT [facility] Barbiturates Screen Urine Not Detected Not Detected 10/07/2016 3:23 PM CDT [facility] Benzodiazepines Screen Urine Not Detected Not Detected 10/07/2016 3:23 PM CDT [facility] Cannabinoids Screen Urine Not Detected Not Detected 10/07/2016 3:23 PM CDT [facility] Cocaine Screen Urine Not Detected Not Detected 10/07/2016 3:23 PM CDT [facility] Methadone Screen Urine Not Detected Not Detected 10/07/2016 3:23 PM CDT [facility] Opiate Screen Urine Not Detected Not Detected 10/07/2016 3:23 PM CDT [facility] Phencyclidine Screen Urine Not Detected Not Detected 10/07/2016 3:23 PM CDT [facility] Urine URINE / Unknown Collection / Unknown 10/07/2016 2:54 PM CDT 10/07/2016 3:06 PM CDT Narrative [facility] - 10/07/2016 3:23 PM CDT This [...] OPIATES 300 ng/mL PHENCYCLIDINE(PCP)25 ng/mL Airam Jensen SHEET METAL 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 LAB - URINE C HEMISTRY ORDERABLES [facility] [address] [place], [place] [id number] * MFM FIRST TRI NUCHAL TRANSLUCENCY W:SEQ SCREEN (09/16/2016 3:31 PM CDT) Anatomical Region Laterality Modality Other 09/16/2016 3:31 PM CDT Narrative 09/17/2016 9:42 AM CDT [facility] PHONE: FAX: Pat. Name: LORENA VIDAL Pat. No: [id number] Study Date: 09/16/2016 3:31pm , Age: 09 1985, 31 Pregnancies: 3, Para 2 Height: 62 in Weight: 180 lb LMP: 06/24/2016 GA by LMP: 12w0d GA by 1st: 12w0d GA by US: 12w6d GA Selected: 12w0d (LMP) SHANNON: 03/31/2017 Referring MD: MD Gabriela, [facility] Ccie: Jah Weaver RDMS BMI: 32.92 Hist/Ind: Nuchal Translucency History of Incompetent Cervix - has abdominal cerclage placed this PTD @ 24 and 28 wks Prior Child Single Kidney Hx LEEP Procedure MEASUREMENTS & AGE GROWTH EVALUATION Measurement GA Range Srce %for GA Ratios ----- ---- ------- CRL 6.4 cm 12w6d (87o7f-11h6c) Hadl CRL 85% GA for sonogram 12w6d (06n2c-82x3u) based on (CRL) Avg Heart Rate: 165 [...] Signature> 09/17/2016 09:42am Revised Dora Fernandez MD [facility] ORDERABLES * PANORAMA TEST (PO REF [...] AM CDT Narrative 08/17/2016 4:12 PM CDT [facility] PHONE: FAX: Pat. Name: LORENA VIDAL Pat. No: [id number] Study Date: 08/17/2016 8:58am , Age: 09 1985, 31 Pregnancies: 3, Para 2 Height: 62 in Weight: 180 lb LMP: 06/24/2016 GA by LMP: 07w5d GA by 1st: 07w5d GA by US: 07w5d GA Selected: 07w5d (From First S) SHANNON: 03/31/2017 Referring MD: MD Gabriela, [facility] Ccie: KERI Ziegler BMI: 32.92 Hist/Ind: Viability History of Incompetent Cervix PTD @ 24 and 28 weeks Prior Child Single Kidney Hx LEEP Procedure MEASUREMENTS & AGE GROWTH EVALUATION Measurement GA Range Srce %for GA Ratios ----- ---- ------- CRL 1.5 cm 07w5d (48r0m-00c5j) Hadl CRL 57% GA for sonogram 07w5d (38f3c-26l4b) based on (CRL) Avg Heart Rate: 168 [...] <Electronic Signature> 08/17/2016 04:12pm Geraldo Craft MD [facility] ORDERABLES * HIV-1 HIV-2 ANTIBODY + HIV P24 AG PANEL (08/06/2016 10:33 AM SLATE PICKER) HIV1/2 Ab + P24 Ag Non Reactive Non Reactive 08/06/2016 5:28 PM SLATE PICKER [facility] Blood BLOOD SPECIMEN / Unknown Venipuncture / Unknown 08/06/2016 10:33 AM SLATE PICKER 08/06/2016 10:51 AM SLATE PICKER Narrative [facility] - 08/06/2016 5:28 PM SLATE PICKER No Laboratory evidence of HIV infection. Dora Fernandez MD LAB - CHEMISTRY LEIDA DIAZ [facility] [address] [place] [address] * PAP SMEAR LB HPV HR (PO REF LAB) (08/06/2016 10:33 AM SLATE PICKER) Diagnosis Comment 08/11/2016 5:10 PM CDT [facility] ([facility]) Comment:NEGATIVE FOR INTRAEP ITHELIAL LESION AND MALIGNANCY. Specimen Adequacy Comment 017 5:10 PM CDT [facility] ([facility]) Comment:Satisfactory for christiano luation. No endocervical component is identified. Performed by Comment 08/11/2016 5:10 PM CDT [facility] ([facility]) Comment:Danial Isidro totechnologist (ASCP) Comment . 08/11/2016 5:10 PM CDT [facility] ([facility]) Note Comment 08/11/2016 5:10 PM CDT [facility] ([facility]) Comment: The Pap smear is a screening test designed to aid in the detection of premalignant and malignant conditions of the uterine cervix. It is not a diagnostic procedure and should not be used as the sole means of detecting cervical cancer. Both false-positive and false-negative reports do occur. Human papillomavirus High Risk Negative Negative 08/11/2016 5:10 PM CDT [facility] ([facility]) Comment: This high-risk HPV test detects thirteen high-risk types (16/18/31/33/35/39/45/51/52/56/58/59/68) without differentiation. Pathology/Cytolo gy MICROSCOPIC CYTOLOGIC EXAMINATION OF SMEAR OF SPECIMEN FROM FEMALE GENITAL TRACT PREPARED USING PAPANICOLAOU TECHNIQUE / Unknown Collection / Unknown 08/06/2016 10:33 AM SLATE PICKER 08/06/2016 11:19 AM SLATE PICKER Narrative [facility] ([facility]) - 08/11/2016 5:10 PM CDT Performed at: - [address] [id number] Overlock Operator: Veronica Garcia MD, Phone: [phone] Performed at: - [address] [id number] Overlock Operator: Veronica Garcia MD, Phone: [phone] Specimen Comment: Source.............Cervix Specimen Comment: No. of containers..01 CYTYC Thin Prep Vial Dora Fernandez MD LAB - PATHOLOGY/CYTO LOGY ORDERABLES Performing Organization Address [facility] Co de Phone Number [facility] ([facility]) [address] [place] [address] * CHLAMYDIA + GC AMPLIFIED PROBE (08/06/2016 10:33 AM SLATE PICKER) Chlamydia Amplified Probe Negative Negative 08/07/2016 11:53 AM SLATE PICKER [facility] GC Amplified Probe Negative Negative 08/07/2016 11:53 AM SLATE PICKER [facility] Microbiology ENTIRE ENDOCERVIX / Unknown Collection / Unknown 08/06/2016 10:33 AM SLATE PICKER 08/06/2016 11:19 [address] SL[address] [facility] - 08/07/2016 11:53 AM SLATE PICKER Results based on detection/no detection of ribosomal RNA by amplified method. Dora Fernandez MD LAB - MICROBIOLOGY O RDERABLES [facility] [address] [place], [place] [address], [facility] [phone] * CYSTIC FIBROSIS MUTATION PNL (08/06/2016 10:33 AM SLATE PICKER) Cystic Fibrosis Screen Comment: 08/11/2016 1:09 PM CDT [facility] ([facility]) Comment: RESULTS: Negative for 32 mutations analyzed [...] a carrier of cystic fibrosis, please contact [employer] at for a revised report. Mutation Detection Detection rates are based on mutation Rates among Ethnic frequencies in patients affected with Groups cystic fibrosis. Among individuals with an atypical or mild presentation (e.g. congenital absence of the vas deferens, pancreatitis) detection rates may vary from those provided here: Carrier risk reduction when no family history Detection Ethnicity Rate Ashkenazi 06/25 to 97% Baptist 06/24 to 90% (non-) -Tunisian 65 to 69% 46 to 73% to 55% This interpretation is based on the clinical and family relationship information provided and the current understanding of the molecular genetics of this condition. MUTATIONS ANALYZED: G85E V520F L3263I 2183AA to G R117H G542X Z6196N 2184delA R334W S549N 394delTT 2789+5G to A R347H S549R 621+1G to T 3120+1G to A R347P G551D 711+1G to T 3659delC A455E R553X 1078delT 3849+10kbC to T [id number] R560T 1717-1G to A 3876delA GckcyL363 Q8908O 1898+1G to A 3905insT METHODS/LIMITATIONS: DNA is isolated from the sample and tested for the 32 CF mutations on the [employer] Array Platform ([employer]). Regions of the CFTR gene are amplified enzymatically and subjected to a solution-phase multiplex allele-specific primer extension with subsequent hybridization to a bead array and fluorescence detection. Polymorphisms F508C, I506V and I507V are included in this panel to rule out false positive [id number] homozygotes. Reflex testing of 5T is included in the panel for R117H interpretation. False positive or negative results may occur for reasons that include genetic variants, blood transfusions, bone marrow transplantation, erroneous representation of family relationships or contamination of a sample with maternal cells. REFERENCES: 1. Updates on Carrier Screening for Cystic Fibrosis. (2011) Am J Ob Gynecol 117(4):2165-1641 2. Helio et al. (2004) Desiree Med 6:387-91 3. Germaine et al. (2002) Desiree Med 4:379-391 4. Preconception and carrier screening for cystic fibrosis: (2001)ACOG.ACMG publication Results Released By: Eriberto Arenas, Ph.D., Director Of Strategy & Mobile Released By: Constance Smith MS, [facility], Genetic Counselor Comment Comment 08/11/2016 1:09 PM CDT [facility] ([facility]) Comment: The assay provides information intended to [...] Unknown Venipuncture / Unknown 08/06/2016 10:33 AM SLATE PICKER 08/06/2016 10:51 AM SLATE PICKER Narrative [facility] ([facility]) - 08/11/2016 1:09 PM CDT Performed at: [address] [place] [id number] Overlock Operator: Gloria Tafoya MD, Phone: [phone] Dora Fernandez MD LAB - HEMATOLOGY ORD ERABLES [facility] ([facility]) [address] [place] [address] * RUBELLA IMMUNE STATUS (08/06/2016 10:32 AM SLATE PICKER) Rubella Antibody IgG Immune Status Equivocal - Suggest Retesting 08/06/2016 12:00 PM SLATE PICKER [facility] Blood BLOOD SPECIMEN / Unknown Venipuncture / Unknown 08/06/2016 10:32 AM SLATE PICKER 08/06/2016 10:51 AM SLATE PICKER Dora Fernandez MD LAB - CHEMISTRY LEIDA DIAZ [facility] [address] [place], [place] [id number] * RPR (08/06/2016 10:32 AM SLATE PICKER) Pathologist [facility] RPR Non Reactive Non Reactive 08/07/2016 9:47 AM SLATE PICKER [facility] Blood BLOOD SPECIMEN / Unknown Venipuncture / Unknown 08/06/2016 10:32 AM SLATE PICKER 08/06/2016 10:51 AM SLATE PICKER Dora Fernandez MD LAB - CHEMISTRY ORDSolsi DIAZ Performing Organization Address City/[facility]/ZIP Co de Phone Number [facility] [address] [place] [id number] * TYPE + SCREEN PANEL (08/06/2016 10:32 AM SLATE PICKER) ABO O 08/06/2016 11:28 AM SLATE PICKER [facility] Rh Type Positive 08/06/2016 11:28 AM SLATE PICKER [facility] Comment:History check perfor med. Retype required. Antibody Screen Negative 08/06/2016 11:28 AM SLATE PICKER [facility] Blood Bank BLOOD SPECIMEN / Unknown Venipuncture / Unknown 08/06/2016 10:32 AM SLATE PICKER 08/06/2016 10:51 AM SLATE PICKER Dora Fernandez MD LAB - BLOOD BANK ORD ERABLES [facility] [address] [place] [address], [facility] * CBC W AUTO DIFFERENTIAL (08/06/2016 10:32 AM SLATE PICKER) WBC 7.0 4.4 - 10.7 x10E9/L 08/06/2016 10:57 AM [facility] WBC Corrected x10E9/L 08/06/2016 10:57 AM [facility] RBC 4.31 3.80 - 5.20 x10E12/L 08/06/2016 10:57 AM [facility] Hemoglobin 13.3 12.0 - 15.6 gm/dL 08/06/2016 10:57 AM [facility] Hematocrit 38.7 35.9 - 45.5 % 08/06/2016 10:57 AM [facility] MCV 89.8 80.7 - 98.3 fl 08/06/2016 10:57 AM [facility] MCH 30.9 26.7 - 34.0 pg 08/06/2016 10:57 AM [facility] MCHC 34.4 30.8 - 35.9 gm/dL 08/06/2016 10:57 AM [facility] Platelet Count 246 153 - 416 x10E9/L 08/06/2016 10:57 AM [facility] RDW-CV 12.1 12.1 - 14.9 % 08/06/2016 10:57 AM [facility] MPV 10.0 9.4 - 12.9 fl 08/06/2016 10:57 AM [facility] Neutrophils % 59.4 44.0 - 73.0 % 08/06/2016 10:57 AM [facility] Lymphocytes % 31.7 20.0 - 43.0 % 08/06/2016 10:57 AM [facility] Monocytes % 6.4 5.0 - 13.0 % 08/06/2016 10:57 AM [facility] Eosinophils % 1.9 0.0 - 6.0 % 08/06/2016 10:57 AM [facility] Basophils % 0.3 0.0 - 2.0 % 08/06/2016 10:57 AM [facility] Immature Granulocytes 0.3 0 - 1 % 08/06/2016 10:57 AM [facility] Neutrophil Absolute 4.15 2.01 - 7.14 x10E9/L 08/06/2016 10:57 AM [facility] Lymphocytes Absolute 2.21 1.07 - 3.94 x10E9/L 08/06/2016 10:57 AM [facility] Monocytes Absolute 0.45 0.26 - 1.07 x10E9/L 08/06/2016 10:57 AM [facility] Eosinophils Absolute 0.13 0 - 0.47 x10E9/L 08/06/2016 10:57 AM [facility] Basophils Absolute 0.02 0 - 0.08 x10E9/L 08/06/2016 10:57 AM [facility] Immature Granulocytes Absolute 0.02 0.00 - 0.06 x10E9/L 08/06/2016 10:57 AM [facility] nRBC Auto 0 /100 WBC 08/06/2016 10:57 AM [facility] Blood BLOOD SPECIMEN / Unknown Venipuncture / Unknown 08/06/2016 10:32 AM SLATE PICKER 08/06/2016 10:51 AM SLATE PICKER Dora Fernandez MD LAB - HEMATOLOGY ORD ERABLES Performing Organization Address City/[facility]/ZIP Co de Phone Number [facility] [address] [place] [address] * HEPATITIS B SURFACE ANTIGEN (08/06/2016 10:32 AM SLATE PICKER) HBsAg Non Reactive Non Reactive 08/06/2016 11:55 AM [facility] Blood BLOOD SPECIMEN / Unknown Venipuncture / Unknown 08/06/2016 10:32 AM SLATE PICKER 08/06/2016 10:51 AM SLATE PICKER Dora Fernandez MD LAB - CHEMISTRY ORDE EMILY Performing Organization Address [facility]/ZIP Co de Phone Number [facility] [address] [place] [address] * XR SHOULDER MIN 3 VIEWS RIGHT [...] no evidence of intraplacental hemorrhage or infarcts. Servicenow Administrator Developer sections of the placenta, cord and membranes [...] acute chorioamnionitis Dictated by Alfonzo Harris M.D. Multineedle Shirrer JONAS VARELA Electronically Signed By ALFONZO HARRIS MISCELLANEOUS SAMPLES / Unknown 08/20/2006 1:00 AM CDT 08/20/2006 8:52 AM CDT Historical Provider LAB - PATHOLOGY/C YTOLOGY ORDERABLES Care Teams Paleobotanist Relationship Specialty Start Date End Date Rafael Arellano MD [address] [address] PCP - General Family Medicine 12/10/22
--- OUTSIDE RECORDS SUMMARY | 2024-08-11 12:03 | XMS_ITS | Encounter Summary ---
Author Organization [employer] Address [address] [place] [address] Care Team Providers Care Lay Out Carpenter Name Role Phone Rafael Arellano MD Primary Care Provider [phone] Encounter Details Date Type Department Care Team (Late st Contact Info) Description 12/13/2006 Outpatient Historical [facility] [address] [place] [address] 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
--- OUTSIDE RECORDS SUMMARY | 2024-08-11 12:03 | XMS_ITS | Encounter Summary ---
Author Organization [employer] Address [address] [place] [address] Care Team Providers Care Certified Hearing Instrument Dispenser Name Role Phone Rafael Arellano MD Primary Care Provider [phone] Encounter Details Date Type Department Care Team [...] on file Legal Sex Female 5:04 AM REEXAMINER Gender Identity Not on file Sexual Orientation [...] Primary documented in this encounter Care Teams Certified Hearing Instrument Dispenser Relationship Specialty Start Date End Date Rafael Arellano MD [address] [place], [place] [phone] PCP - General Family Practice 12/11/19 documented as of this encounter
--- OUTSIDE RECORDS SUMMARY | 2024-08-11 12:03 | XMS_ITS | Referral Summary ---
Author Organization [facility] [employer] Address [address] [facility] [place] [address] Care Team Providers Care Director Oracle Database Name Role Phone Rafael Arellano MD Primary Care Provider [phone] Source Comments [facility],non-owned Affiliates and Associated Physician Practices is amultiple site organization consisting of ambulatory clinics and hospital sitesin [place], [place], [place] and [place]. This disclosure is being madepursuant to the Care Everywhere program and may not contain all information available regarding this patient. Last updated 18.[facility] Allergies Active Allergy Reactions Criticality Noted Date [...] Sex Assigned at Female 08/05/2022 3:12 PM STUDIO COUCH FRAME BUILDER Gender Identity Female 08/05/2022 3:12 PM STUDIO COUCH FRAME BUILDER Sexual Orientation Straight 08/05/2022 3: 12 PM STUDIO COUCH FRAME BUILDER Last Filed Vital Signs Vital Sign Reading [...] HR DNA Routine 08/06/2016 10: 33 AM STUDIO COUCH FRAME BUILDER Supervision of high-risk of young multigravida (HCC) HIV-1 HIV-2 ANTIBODY + HIV P24 AG PANEL Routine 08/06/2016 10:33 AM STUDIO COUCH FRAME BUILDER Supervision of high-risk of young multigravida (HCC) from Last 3 Months or Most Recently Relevant to Health Maintenance Results * HIV-1 HIV-2 ANTIBODY + HIV P24 AG PANEL (08/06/2016 10:33 AM STUDIO COUCH FRAME BUILDER) HIV1/2 Ab + P24 Ag Non Reactive Non Reactive 08/06/2016 5:28 PM STUDIO COUCH FRAME BUILDER [facility] Blood BLOOD SPECIMEN / Unknown Venipuncture / Unknown 08/06/2016 10:33 AM STUDIO COUCH FRAME BUILDER 08/06/2016 10:51 AM STUDIO COUCH FRAME BUILDER Narrative [facility] - 08/06/2016 5:28 PM STUDIO COUCH FRAME BUILDER No Laboratory evidence of HIV infection. Dora Fernandez MD LAB - CHEMISTRY LEIDA DIAZ Performing Organization Address City/State/[facility] Co de Phone Number [facility] [place] [address] * PAP SMEAR LB HPV HR (PO REF LAB) (08/06/2016 10:33 AM STUDIO COUCH FRAME BUILDER) Diagnosis Comment 08/11/2016 5:10 PM CDT [facility] ([facility]) Comment:NEGATIVE FOR INTRAEP ITHELIAL LESION AND MALIGNANCY. Specimen Adequacy Comment 017 5:10 PM CDT [facility] ([facility]) Comment:Satisfactory for christiano luation. No endocervical component is identified. Performed by Comment 08/11/2016 5:10 PM CDT [facility] ([facility]) Comment:Danial Isidro totkiologist (ASCP) Comment . 08/11/2016 5:10 PM CDT [facility] ([facility]) Note Comment 08/11/2016 5:10 PM CDT [facility] ([facility]) Comment: The Pap smear is a screening test designed to aid in the detection of premalignant and malignant conditions of the uterine cervix. It is not a diagnostic procedure and should not be used as the sole means of detecting cervical cancer. Both false-positive and false-negative reports do occur. Human papillomavirus High Risk Negative Negative 08/11/2016 5:10 PM CDT [facility] ([facility]) Comment: This high-risk HPV test detects thirteen high-risk types (16/18/31/33/35/39/45/51/52/56/58/59/68) without differentiation. Pathology/Cytolo gy MICROSCOPIC CYTOLOGIC EXAMINATION OF SMEAR OF SPECIMEN FROM FEMALE GENITAL TRACT PREPARED USING PAPANICOLAOU TECHNIQUE / Unknown Collection / Unknown 08/06/2016 10:33 AM STUDIO COUCH FRAME BUILDER 08/06/2016 11:19 AM STUDIO COUCH FRAME BUILDER Narrative [facility] ([facility]) - 08/11/2016 5:10 PM CDT Performed at: 01 - [address] [id number] Addresser: Veronica Garcia MD, Phone: [phone] Performed at: - [address] [id number] Addresser: Veronica Garcia MD, Phone: [phone] Specimen Comment: Source.............Cervix Specimen Comment: No. of containers..01 CYTYC Thin Prep Vial Dora Fernandez MD LAB - PATHOLOGY/CYTO LOGY ORDERABLES [facility] ([facility]) [address] [place] [address] from Last 3 Months or Most Recently Relevant to Health Maintenance Care Teams Director Oracle Database Relationship Specialty Start Date End Date Rafael Arellano MD [address] [id number] PCP - General Family Medicine 12/10/22
--- OUTSIDE RECORDS SUMMARY | 2024-08-11 12:03 | XMS_ITS | Clinical Summary ---
Author Organization [facility] Address [address] [facility] [place] [address] Care Team Providers Care Amr Physician Name Role Phone Rafael Arellano MD Primary Care Provider [phone] Source Comments [facility],non-owned Affiliates and Associated Physician Practices is amultiple site organization consisting of ambulatory clinics and hospital sitesin [place], [place], [place] and [place]. This disclosure is being madepursuant to the Care Everywhere program and may not contain all information available regarding this patient. Last updated 18.[facility] Allergies Active Allergy Reactions Criticality Noted Date [...] migh t be different from the original. [facility] 07/2016 Problem Noted Date Diagnosed Date Supervision [...] Sex Assigned at Female 08/05/2022 3:12 PM PRESCRIPTION CLERK Gender Identity Female 08/05/2022 3:12 PM PRESCRIPTION CLERK Sexual Orientation Straight 08/05/2022 3: 12 PM PRESCRIPTION CLERK Last Filed Vital Signs Vital Sign [...] HR DNA Routine 08/06/2016 10: 33 AM PRESCRIPTION CLERK Supervision of high-risk of young multigravida (HCC) HIV-1 HIV-2 ANTIBODY + HIV P24 AG PANEL Routine 08/06/2016 10:33 AM PRESCRIPTION CLERK Supervision of high-risk of young multigravida (HCC) from Last 3 Months or Most Recently Relevant to Health Maintenance Results * HIV-1 HIV-2 ANTIBODY + HIV P24 AG PANEL (08/06/2016 10:33 AM PRESCRIPTION CLERK) HIV1/2 Ab + P24 Ag Non Reactive Non Reactive 08/06/2016 5:28 PM PRESCRIPTION CLERK [facility] Blood BLOOD SPECIMEN / Unknown Venipuncture / Unknown 08/06/2016 10:33 AM PRESCRIPTION CLERK 08/06/2016 10:51 AM PRESCRIPTION CLERK Narrative [facility] - 08/06/2016 5:28 PM PRESCRIPTION CLERK No Laboratory evidence of HIV infection. Dora Fernandez MD LAB - CHEMISTRY LEIDA DIAZ [facility] [place] [address] * PAP SMEAR LB HPV HR (PO REF LAB) (08/06/2016 10:33 AM PRESCRIPTION CLERK) Diagnosis Comment 08/11/2016 5:10 PM CDT [facility] ([facility]) Comment:NEGATIVE FOR INTRAEP ITHELIAL LESION AND MALIGNANCY. Specimen Adequacy Comment 017 5:10 PM CDT [facility] ([facility]) Comment:Satisfactory for christiano luation. No endocervical component is identified. Performed by Comment 08/11/2016 5:10 PM CDT [facility] ([facility]) Comment:Danial Isidro totechnologist (ASCP) Comment . 08/11/2016 5:10 PM CDT [facility] ([facility]) Note Comment 08/11/2016 5:10 PM CDT [facility] ([facility]) Comment: The Pap smear is a screening test designed to aid in the detection of premalignant and malignant conditions of the uterine cervix. It is not a diagnostic procedure and should not be used as the sole means of detecting cervical cancer. Both false-positive and false-negative reports do occur. Human papillomavirus High Risk Negative Negative 08/11/2016 5:10 PM CDT [facility] ([facility]) Comment: This high-risk HPV test detects thirteen high-risk types (16/18/31/33/35/39/45/51/52/56/58/59/68) without differentiation. Pathology/Cytolo gy MICROSCOPIC CYTOLOGIC EXAMINATION OF SMEAR OF SPECIMEN FROM FEMALE GENITAL TRACT PREPARED USING PAPANICOLAOU TECHNIQUE / Unknown Collection / Unknown 08/06/2016 10:33 AM PRESCRIPTION CLERK 08/06/2016 11:19 AM PRESCRIPTION CLERK Narrative [facility] ([facility]) - 08/11/2016 5:10 PM CDT Performed at: - [address], [place] [id number] Job Cost Estimator: Veronica Garcia MD, Phone: [phone] Performed at: - [address] [id number] Job Cost Estimator: Veronica Garcia MD, Phone: [phone] Specimen Comment: Source.............Cervix Specimen Comment: No. of containers..01 CYTYC Thin Prep Vial Dora Fernandez MD LAB - PATHOLOGY/CYTO LOGY ORDERABLES [facility] ([facility]) [address] [place] [address] from Last 3 Months or Most Recently Relevant to Health Maintenance Care Teams Amr Physician Relationship Specialty Start Date End Date Rafael Arellano MD [address] [facility] [address] [place] [address] PCP - General Family Medicine 12/10/22
--- OUTSIDE RECORDS SUMMARY | 2024-08-11 12:03 | XMS_ITS | Encounter Summary ---
Author Organization [facility] Address [address] [place] [address] Care Team Providers Care Founder Name Role Phone Rafael Arellano MD Primary Care Provider [phone] Encounter Details Date Type Department Care Team (Latest Contact Info) Description 05/01/2006 Outpatient Historical [facility] Lonny Michelle MD [address] [place] [address] Urinary Tract Infection, Site not Specified (Primary Dx) Social History Tobacco Use Types Packs/Day Years Used Date Smoking Tobacco: Never Assessed Comments Unknown Sex and Gender Information Value Date Recorded Sex Assigned at Not on file Legal Sex Female 5:04 AM PRENATAL TEACHER Gender Identity Not on file Sexual Orientation Not on file documented as of this encounter Plan of Treatment Not on file documented as of this encounter Procedures Procedure Name Priority Date/Time Associated Diagnosis Comments PT AND APTT Routine 05/01/2006 2:25 AM PRENATAL TEACHER CBC WITH DIFFERENTIAL Routine 05/01/2006 2:25 AM PRENATAL TEACHER CBC WITH DIFFERENTIAL Routine 05/01/2006 2:25 AM PRENATAL TEACHER HCG QUANTITATIVE, BLOOD Routine 05/01/2006 2:25 AM PRENATAL TEACHER BASIC METABOLIC PANEL Routine 05/01/2006 2:25 AM PRENATAL TEACHER URINALYSIS W/REFLEX MICROSCOPIC Routine 05/01/2006 2:15 AM PRENATAL TEACHER URINALYSIS W/REFLEX MICROSCOPIC Routine 05/01/2006 2:15 AM PRENATAL TEACHER documented in this encounter Results * (ABNORMAL) HCG QUANTITATIVE, BLOOD (05/01/2006 2:25 AM PRENATAL TEACHER) HCG QUANT, BLOOD 11,830.0( H) 0.0 - [...] with other clinical evidence. 05/01/2006 2:25 AM PRENATAL TEACHER us Lonny Lucero MD CHEMISTRY ORDERABLES Final Resul t INTERFACE SYSTEM Refer to clinic/hospital department * CBC WITH DIFFERENTIAL (05/01/2006 2:25 AM PRENATAL TEACHER) NEUTROPHILS 66 45 - 70 % INTERFAC [...] 0.20 K/uL INTERFACE SYSTEM 05/01/2006 2:25 AM PRENATAL TEACHER Lonny Lucero MD HEMATOLOGY ORDERABLES Final Resu lt Performing Organization Address [facility] Phone Number INTERFACE SYSTEM Refer to clinic/hospital department * (ABNORMAL) CBC WITH DIFFERENTIAL (05/01/2006 2:25 AM PRENATAL TEACHER) Pathologist [facility] WBC 8.7 4.0 - 9.8 K/uL INTERFACE [...] 12.4 fL INTERFACE SYSTEM 05/01/2006 2:25 AM PRENATAL TEACHER Lonny Lucero MD HEMATOLOGY ORDERABLES Final Resu lt Performing Organization Address [facility] Phone Number INTERFACE SYSTEM Refer to clinic/hospital department * PT AND APTT (05/01/2006 2:25 AM PRENATAL TEACHER) PROTIME 13.5 12.4 - 14.7 Seconds INTERFACE SYSTEM INR 1.0 0.9 - 1.1 INTERFACE SYSTEM Comment: INR Therapeutic Range: Adult: 2.0 - 3.0 for pulmonary embolism or prophylaxis against venous thrombosis or systemic embolization. 2.0 - 3.0 for patients with tissue heart valves. 2.5 - 3.5 for patients with mechanical heart valves or post LA. Pediatric (12 years and under): 1.5 - [...] 34.8 Seconds INTERFACE SYSTEM 05/01/2006 2:25 AM PRENATAL TEACHER Lonny Lucero MD HEMATOLOGY ORDERABLES Final Resu lt INTERFACE SYSTEM Refer to clinic/hospital department * BASIC METABOLIC PANEL (05/01/2006 2:25 AM PRENATAL TEACHER) GLUCOSE 86 65 - 99 mg/dL INTERFACE [...] and non- Americans is available on the [facility] Intranet at: [email or web address] Select: Lab Policies and Procedures Select: Reference Ranges - GFR 05/01/2006 2:25 AM PRENATAL TEACHER Lonny Lucero MD CHEMISTRY ORDERABLES Final Resul t Performing Organization Address City/[facility]/ZIP Co de Phone Number INTERFACE SYSTEM Refer to clinic/hospital department * (ABNORMAL) URINALYSIS (05/01/2006 2:15 AM PRENATAL TEACHER) WBC UA 0-5 0 - 5 /HPF INTERFACE SYSTEM RBC UA 0-2 0 - 2 /HPF INTERFACE SYSTEM BACTERIA UA 1+(A) None Seen /HPF INTERFACE SYSTEM EPITHELIAL CELLS, URINE 2-5 /HPF INTERFACE SYSTEM 05/01/2006 2:15 AM PRENATAL TEACHER Lonny Lucero MD URINE ORDERABLES Final Result Performing Organization Address [facility] de Phone Number INTERFACE SYSTEM Refer to clinic/hospital department * (ABNORMAL) URINALYSIS (05/01/2006 2:15 AM PRENATAL TEACHER) MACRO COMMENT Culture in Progress INTERFACE SYSTEM [...] 1+(A) Negative INTERFACE SYSTEM 05/01/2006 2:15 AM PRENATAL TEACHER Result [facility] Lonny Lucero MD URINE ORDERABLES Final Result Performing Organization Address [facility] Co de Phone Number INTERFACE SYSTEM Refer to clinic/hospital department documented in this encounter Visit Diagnoses Diagnosis Urinary tract infection, site not specified- Primary documented in this encounter Care Teams Founder Relationship Specialty Start Date End Date Rafael Arellano MD [address] [place] [id number] PCP - General Family Practice 12/11/19 documented as of this encounter
--- OUTSIDE RECORDS SUMMARY | 2024-08-11 12:03 | XMS_ITS | Encounter Summary ---
Author Organization [facility] Address [facility] [place] [address] Care Team Providers Care Boot Liner Maker Name Role Phone Rafael Arellano MD Primary Care Provider [phone] Zachariah Olivera DO Primary Care Provider + Rafael Arellano MD Primary Care Provider [phone] Encounter Details Date Type Department Care Team (Late st Contact Info) Description 12/24/2022 MyChart Message Enc [facility] Family Medicine - [place] [id number] [facility] [place] [address] [employer], [facility] Provider controlled substance agreement Social History [...] Sex Assigned at Female 06/15/2024 7:38 AM BALL WORKER Legal Sex Female 6:32 PM CDT Gender Identity Female 08/05/2022 3:35 PM BALL WORKER Sexual Orientation Straight 08/05/2022 3: 35 PM BALL WORKER documented as of this encounter Plan of Treatment Upcoming Encounters Date Type Department Care Team (Late st Contact Info) Description 09/20/2024 7:30 AM CDT Appointment [facility] Ultrasound [address] [place] [address] Puma Pierre, REAM CUTTER [address] [place] [address] 11/14/2024 9:00 AM CDT Office Visit [facility] Multispecialty Care - [facility] [address], [address] [place] [address] Rafael Arellano MD [address] [facility] [address] [place] [address] Kash Marcus MD [address] [place] [address] documented as of this encounter Visit Diagnoses Not on filedocumented in this encounter Additional Health Concerns Infection Onset Date Last Indicated Resolved Time COVID-19 Rule Out 02/21/2024 02/21/2024 02/21/2024 12:37 PM CDT Assessment Noted Time PHQ-9 Depression Total Score: 22 023 10:43 AM CDT documented as of this encounter Care Teams Boot Liner Maker Relationship Specialty Start Date End Date Rafael Arellano MD [address] [facility] [address] [place] [address] PCP - General FAMILY PRACTICE 05/02/18 06/30/23 Zachariah Olivera DO [address] [place] [address] PCP - General FAMILY PRACTICE 07/01/23 10/31/23 Rafael Arellano MD [address] [facility] [address] [place] [address] PCP - General FAMILY PRACTICE 11/01/23 documented as of this encounter
[2024-08-11 12:20] LABS: Lithium 0.7 mmol/L (0.6-1.2)
== END 2024-08-11 14:23 | disposition home or self-care (01) ==
PROVIDERS: Emergency Provider Physician Assistant; PCP Family Medicine
DX: N39.0 Urinary tract infection, site not specified (principal); R78.89 Finding of other specified substances, not normally found in blood; F31.9 Bipolar disorder, unspecified; F41.8 Other specified anxiety disorders
CPT/HCPCS: 36415; 71046; 80053; 80178; 81001; 81025; 85025; 87086; 93005; 96360; 99283; J7030

== ENCOUNTER 2025-04-03 09:05 | Emergency (ER) | payer OTHER, BC, SELFPAY ==
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
[2025-04-03 09:16] VITALS: BP 121/77; PULSE 90; RESP 18; TEMP 36.2; O2SAT 98
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
== END 2025-04-03 10:30 | disposition home or self-care (01) ==
PROVIDERS: Emergency Provider Nurse Practitioner; PCP Family Medicine
DX: S16.1XXA Strain of muscle, fascia and tendon at neck level, initial encounter (principal); V89.2XXA Person injured in unspecified motor-vehicle accident, traffic, initial encounter; M54.6 Pain in thoracic spine; F41.9 Anxiety disorder, unspecified; F31.9 Bipolar disorder, unspecified
CPT/HCPCS: 72050; 72072; 99214; G0463